=== PATIENT | male | born 1990 | race Caucasian/White ===

== ENCOUNTER 2017-06-11 02:37 | Inpatient (IN) | payer OTHER ==
[~2017-06-11] VITALS: Ht 190.5 cm; Wt 68.0 kg
[2017-06-11 04:20] LABS: BASO % 0.5 %; BASO ABS # 0.06 K/uL (0-0.2); COMPLETE YES; EOS % 2.9 %; HEMATOCRIT 38.8 % (42-52); IG% 0.2 %; LYMPH % 32.4 %; LYMPH ABS # 3.77 K/uL (1.2-3.4); MEAN CELL VOLUME 91.5 fL (80-100); MEAN CORPUSCULAR HEMOGLOBIN 31.4 pg (25-34); MEAN CORPUSCULAR HGB CONC 34.3 g/dl (32-36); MEAN PLATELET VOLUME 8.6 fL (7.4-10.4); PLATELET COUNT 276 K/uL (130-400); RED BLOOD COUNT 4.24 M/uL (4.7-6.1); WHITE BLOOD COUNT 11.65 K/uL (4.8-10.8)
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
[2017-06-11] MEDS ORDERED: PRAZ1CAP10 PO (04:23)
[2017-06-11] MEDS ORDERED: SRQ200 PO (04:23)
[2017-06-11] MEDS ORDERED: LITH1TAB PO (04:23)
[2017-06-11] MEDS ORDERED: SERT50TA PO (04:24)
[2017-06-11 04:29] LABS: PROTHROMBIN TIME (PATIENT) 11.1 SECONDS (9.0-12.0)
[2017-06-11 04:33] LABS: BUN/CREATININE RATIO 19.1 (10-20); CALCIUM 9.2 mg/dl (8.5-10.1); CREATININE 0.86 mg/dl (0.60-1.40); POTASSIUM 3.8 mmol/L (3.5-5.1)
[2017-06-11 04:35] LABS: ALB/GLOB RATIO 1.1 (0.9-2)
[2017-06-11] MEDS ORDERED: ONDANSETRON INJ 2 MG/ML 2 ML VIAL IV STA (05:21)
[2017-06-11] MEDS ORDERED: ACETAMINOPHEN IV 100 ML IV STA (05:21)
[2017-06-11] MEDS ORDERED: SODIUM CHLORIDE 0.9% 1000ML 1,000 ML IV SCH (06:30)
--- NOTE | 2017-06-11 06:55 | DIAGNOSTIC IMAGING REPORT ---
ABD/PELVIS NO IV OR ORAL CONT CT DOSE: 277.49 mGy.cm HISTORY: Foreign body FB ingestion TECHNIQUE: Multiaxial CT images of the abdomen and pelvis were performed without contrast. A dose lowering technique was utilized adhering to the principles of ALARA. COMPARISON STUDY: None. FINDINGS: The lung bases are clear. The unenhanced liver, spleen, gallbladder, pancreas, kidneys, and adrenal glands are within normal limits. No bowel wall thickening or obstruction. The pelvic organs are unremarkable. No suspicious lytic or blastic osseous lesions. A foreign body within the mid stomach consistent with a history of shallower. No congestion. No evidence for free air. Bowel pattern is nonobstructive. Bladder is midline. Small amount of reactive free fluid within the pelvic cul-de-sac. IMPRESSION: 1. Foreign body within the mid stomach. 2. Trace amount nonspecific free fluid within the pelvic cul-de-sac. The above report was generated using voice recognition software. It may contain grammatical, syntax or spelling errors. Electronically signed by: Watson Shoemaker M.D. 06/11/2017 6:54 AM Dictated Date/Time: 06/11/2017 6:52 AM
--- NOTE | 2017-06-11 06:58 | DIAGNOSTIC IMAGING REPORT ---
ABDOMEN 2VIEW W/PA CHEST RTN CLINICAL HISTORY: FB ingestion foreign body COMPARISON STUDY: No previous studies for comparison. FINDINGS: The soft tissues, psoas shadows, renal outlines and intestinal gas pattern appear normal. There is no evidence for bowel obstruction. There is no evidence for free intraperitoneal air. No abnormal abdominal calcifications are seen. A frontal view of the chest was performed and is unremarkable. Curvilinear partially radiopaque foreign body within the mid stomach. Nonobstructive bowel pattern. IMPRESSION: Foreign body within the stomach. Otherwise negative study of the chest and abdomen. The above report was generated using voice recognition software. It may contain grammatical, syntax or spelling errors. Electronically signed by: Watson Shoemaker M.D. 06/11/2017 6:56 AM Dictated Date/Time: 06/11/2017 6:55 AM
[2017-06-11] MEDS ORDERED: LIDOCAINE HCL 2% 2 ML VIAL (20MG/ML) ONE (08:24)
[2017-06-11] MEDS ORDERED: SUCCINYLCHOLINE CHLORIDE 20 MG/ML 10 ML VIAL IV ONE (08:24)
[2017-06-11] MEDS ORDERED: ONDANSETRON INJ 2 MG/ML 2 ML VIAL ONE (08:24)
[2017-06-11] MEDS ORDERED: PROPOFOL IV EMULSION 10 MG/ML 20 ML VIAL IV ONE (08:24)
[2017-06-11] MEDS ORDERED: MIDAZOLAM HCL 1 MG/ML 2ML VIAL ONE ×2 (08:25→11:15)
[2017-06-11] MEDS ORDERED: FENTANYL CITRATE INJ 50 MCG/1 ML 2 ML VIAL ONE (08:25)
--- NOTE | 2017-06-11 10:35 | Gastrointestinal Consultation ---
Gastrointestinal Consultation Date of Consultation: Jun 11, 2017 Consulting Physician: Dr. dixie hawkins Reason for Consultation: Foreign Body History of Present Illness The patient is a 27 year old male who presented to the Emergency Room due to swallowing an S-shaped metal shower hook around 2330 last night. He states that an hour afterwards he started having abdominal pain and nausea. He states that the abdominal pain is sharp, and it is constant. The patient additionally states that a few weeks ago he swallowed a razor blade which ultimately required surgical exploration to remove. It appears that the patient has a long history of psychiatric problems which include swallowing different objects such as scrap metal. Past Medical/Surgical History Medical Problems: (1) Foreign body ingestion Status: Acute Social History Smoking Status: Current Every Day Smoker Marital Status: single Housing Status: other (shelter) Occupation Status: other (prisoner) Allergies Coded Allergies: Ketorolac Tromethamine (Verified Allergy, Unknown, breathing problems, ) Penicillins (Verified Allergy, Unknown, unknown, 06/11/17) Current Medications Home Meds and Scripts Medications Dose Route/Sig Max Daily Dose Days Date Category Zoloft (Sertraline HCl) 50 Mg Tab 50 Mg PO DAILY 06/11/17 Reported Seroquel (Quetiapine Fumarate) 200 Mg Tab 200 Mg PO HS 06/11/17 Reported Prazosin (Prazosin HCl) 1 Mg Cap 1 Mg PO HS 06/11/17 Reported Lithobid Ext Rel ([place] Carbonate) 450 Mg Tabcr 450 Mg PO BID 06/11/17 Reported Review of Systems Constitutional: No fever, No chills, No sweats Eyes: No worsening of vision, No redness, No diplopia ENT: No hearing loss, No sore throat, No trouble swallowing Respiratory: No sputum, No wheezing, No dyspnea at rest Cardiac: No chest pain, No PND, No palpitations Musculoskeletal: No joint pain, No muscle pain Neuro: No memory loss, No weakness Skin: No rash, No new/changing skin lesions, No jaundice Physical Exam Date Time Temp Pulse Resp B/P (MAP) Pulse Ox O2 Delivery O2 Flow Rate FiO2 06/11/17 08:43 69 20 132/81 100 Room Air 06/11/17 07:21 76 20 137/76 06/11/17 04:55 68 18 127/81 100 Room Air 06/11/17 03:49 75 18 124/83 100 Room Air 06/11/17 02:45 36.8 84 18 127/85 97 Room Air General Appearance: no apparent distress Eyes: PERRL Neck: supple Respiratory/Chest: lungs clear Cardiovascular: regular rate, rhythm Abdomen: soft, + pertinent finding (midline incision appears well-healed) Neurologic/Psych: oriented x 3 Skin: no rash Laboratory Results Last 24 Hours Test 06/11/17 03:20 06/11/17 04:28 White Blood Count 11.65 K/uL Red Blood Count 4.24 M/uL Hemoglobin 13.3 g/dL Hematocrit 38.8 % Mean Corpuscular Volume 91.5 fL Mean Corpuscular Hemoglobin 31.4 pg Mean Corpuscular Hemoglobin Concent 34.3 g/dl Platelet Count 276 K/uL Mean Platelet Volume 8.6 fL Neutrophils (%) (Auto) 56.0 % Lymphocytes (%) (Auto) 32.4 % Monocytes (%) (Auto) 8.0 % Eosinophils (%) (Auto) 2.9 % Basophils (%) (Auto) 0.5 % Neutrophils # (Auto) 6.53 K/uL Lymphocytes # (Auto) 3.77 K/uL Monocytes # (Auto) 0.93 K/uL Eosinophils # (Auto) 0.34 K/uL Basophils # (Auto) 0.06 K/uL RDW Standard Deviation 44.5 fL RDW Coefficient of Variation 13.3 % Immature Granulocyte % (Auto) 0.2 % Immature Granulocyte # (Auto) 0.02 K/uL Prothrombin Time 11.1 SECONDS Prothromb Time International Ratio 1.0 Sodium Level 140 mmol/L Potassium Level 3.8 mmol/L Chloride Level 104 mmol/L Carbon Dioxide Level 29 mmol/L Anion Gap 7.0 mmol/L Blood Urea Nitrogen 16 mg/dl Creatinine 0.86 mg/dl Est Creatinine Clear Calc Drug Dose 123.0 ml/min Estimated GFR () 136.8 Estimated GFR (Non- 118.0 BUN/Creatinine Ratio 19.1 Random Glucose 81 mg/dl Calcium Level 9.2 mg/dl Total Bilirubin 0.3 mg/dl Aspartate Amino Transf (AST/SGOT) 71 U/L Alanine Aminotransferase (ALT/SGPT) 164 U/L Alkaline Phosphatase 59 U/L Total Protein 7.7 gm/dl Albumin 4.0 gm/dl Globulin 3.7 gm/dl Albumin/Globulin Ratio 1.1 Lactic Acid Level 0.9 mmol/L Impression Patient is a 27 year old male Plan 27-year-old male with a history of psychiatric problems presently incarcerated. He has a history of swallowing objects and swallowed a shower curtain rings last evening. We will proceed with upper endoscopy today to try and removed. We have discussed the risks of the procedure to include bleeding, infection, perforation and need for follow-up studies. Plan Upper endoscopy today Please call with any questions or concerns
--- NOTE | 2017-06-11 10:57 | GI REPORT ---
Procedure Date: 06/11/2017 8:51 AM Procedure: Upper GI endoscopy Indications: Foreign body in the stomach Medicines: General Anesthesia Complications: No immediate complications. Estimated blood loss: Minimal. Estimated Blood Loss: Estimated blood loss was minimal. Procedure: Pre-Anesthesia Assessment: - Prior to the procedure, a History and Physical was performed, and patient medications, allergies and sensitivities were reviewed. The patient's tolerance of previous anesthesia was reviewed. - The risks and benefits of the procedure and the sedation options and risks were discussed with the patient. All questions were answered and informed consent was obtained. - Patient identification and proposed procedure were verified prior to the procedure by the physician, the nurse and the parts counterperson. The procedure was verified in the procedure room. - Pre-procedure physical examination revealed no contraindications to sedation. - ASA Grade Assessment: II - A patient with mild systemic disease. - After reviewing the risks and benefits, the patient was deemed in satisfactory condition to undergo the procedure. - The anesthesia plan was to use general anesthesia. - Immediately prior to administration of medications, the patient was re-assessed for adequacy to receive sedatives. - The heart rate, respiratory rate, oxygen saturations, blood pressure, adequacy of pulmonary ventilation, and response to care were monitored throughout the procedure. - The physical status of the patient was re-assessed after the procedure. After obtaining informed consent, the endoscope was passed under direct vision. Throughout the procedure, the patient's blood pressure, pulse, and oxygen saturations were monitored continuously. The Scope was introduced through the mouth, and advanced to the fourth part of duodenum. The upper GI endoscopy was accomplished without difficulty. The patient tolerated the procedure well. Findings: The examined esophagus was normal. The entire examined stomach was normal. The examined duodenum was normal. Impression: - Normal esophagus. - Normal stomach. - Normal examined duodenum. - No specimens collected. Recommendation: - Return patient to ER for observation. - Foreign body appears to have passed into the small intestine - Consider admition to Internal Medicine + a surgical consultation Marion Turner D.O. Marion Turner DO 06/11/2017 10:57:30 AM This report has been signed electronically. Note Initiated On: 06/11/2017 8:51 AM I attest to the content of the Intraoperative Record and orders documented therein, exceptions below
--- NOTE | 2017-06-11 11:02 | [facility] Post Operative Brief Note ---
Immediate Operative Summary Operative Date Jun 11, 2017. Pre-Operative Diagnosis Ingested foreign body Post-Operative Diagnosis No foreign body seen Procedure(s) Performed Upper endoscopy Surgeon Dr. Turner Tooling Supervisor Surgeon(s) None Estimated Blood Loss None Findings no foreign body seen Specimens none Anesthesia General Complication(s) None Disposition Recovery Room / PACU
--- NOTE | 2017-06-11 11:08 | Progress Note ---
Progress Note Date of Service Jun 11, 2017. Progress Note No foreign body seen during upper endoscopy today. It appears that the shower ring was small enough to pass to the pylorus. This may mean that it will passed through the upper gastrointestinal tract without incidence. I would suggest continued monitoring with daily abdominal x-rays to monitor his progress. Should it become impacted he may need surgical exploration again. Given his recent abdominal surgeries perhaps he would need transfer to a tertiary Medical Center. Recommendations: Nothing by mouth Abdominal x-ray Gen. surgery consult Please call with any questions or concerns GI to sign off
[2017-06-11] MEDS ORDERED: ONDANSETRON INJ 2 MG/ML 2 ML VIAL IV PRN ×2 (11:15→12:15)
[2017-06-11] MEDS ORDERED: ATROPINE SULFATE 0.1 MG/ML 5ML SYR IV PRN (11:15)
[2017-06-11] MEDS ORDERED: LABETALOL HCL IV 5 MG/ML 20ML IV PRN (11:15)
[2017-06-11] MEDS ORDERED: FENTANYL CITRATE INJ 50 MCG/1 ML 2 ML VIAL IV PRN (11:15)
[2017-06-11 12:10] VITALS: BP 116/76; PULSE 60; TEMP 36.7; O2SAT 100
[2017-06-11] MEDS ORDERED: ACETAMINOPHEN 325 MG TAB PO PRN (12:15)
[2017-06-11] MEDS ORDERED: IV FLUIDS COMPLETED PRN (12:15)
[2017-06-11] MEDS ORDERED: LORAZEPAM 2 MG/ML 1 ML VIAL IV PRN (12:15)
[2017-06-11 12:45] VITALS: BP 118/75; PULSE 55; O2SAT 100
--- NOTE | 2017-06-11 12:59 | HISTORY & PHYSICAL EXAMINATION ---
DATE OF ADMISSION: 06/11/2017 CHIEF COMPLAINT: Foreign body ingestion. HISTORY OF PRESENT ILLNESS: This 27-year-old male with history of multiple foreign body ingestions in the past, history of bipolar depression, seizures and suicidal ideation, was brought in from assisted because he ingested shower hook last night. He had a seizure episode yesterday and he thinks it lasted for about 8 minutes and says he bit his tongue and passed urine during that episode and when he came back to his usual self, he was very anxious and it happens after seizure episodes and at that time he swallowed shower hook. One hour later started with nausea, vomiting and abdominal pain. He had some blood in mouth and nose and thinks its because of seizure episode. He did not move his bowels since then. He had his coffee and water in the morning and was having some painful swallowing. The patient says that he was on Depakote, gabapentin and Klonopin before and he is no longer taking those medications and he could not tolerate the Depakote. Patient says few months back, he had seizure episode and he injured his head and his chin. Also in May 20 of this year, he swallowed razor blades and was in [facility] and operated on.He has history of swallowing metal scrapes. Currently, resting comfortably and hemodynamically stable. He denies any headache. There is some mild dizziness and blurred visions. He has some sore throat and difficulty swallowing. Denies any chest pain. He states he is short of breath from anxiety. Normal micturition. No swelling in the legs. ALLERGIES: Ketorolac, TROMETHAMINE, PENICILLINS. PAST MEDICAL HISTORY: As mentioned above. PAST SURGICAL HISTORY: Recent abdominal surgery. FAMILY AND SOCIAL HISTORY: As per records current every day smoker, single, currently living at assisted. MEDICATIONS: The patient is on lithium carbonate 450 mg p.o. b.i.d., prazosin 1 mg p.o. at bedtime, Seroquel 200 mg p.o. at bedtime, Zoloft 50 mg p.o. daily. REVIEW OF SYMPTOMS: As per HPI. Rest of review of systems negative. PHYSICAL EXAMINATION: GENERAL: The patient is of moderate build, not in distress. VITAL SIGNS: Temperature 37, pulse 62, respiratory rate 21, blood pressure 117/72, oxygen 99% room air. HEENT: No pallor, no icterus. Pupils equal, round, no pallor, no icterus. NECK: No JVD, no neck masses, no carotid bruits. CARDIOVASCULAR: S1, S2 heard, regular rate and rhythm, no murmur, no gallop. RESPIRATORY SYSTEM: Normal AP diameter. No accessory muscle use. No wheezing, no crackles. ABDOMEN: Soft, bowel sounds present. Mild diffuse tenderness, no guarding, no rigidity. No distention. CENTRAL NERVOUS SYSTEM: Cranial nerves are grossly intact. Nonfocal. EXTREMITIES: No edema, no erythema. LABS: WBC 11.6, hemoglobin 13.3, hematocrit 38.8, platelets 276. Sodium 140, potassium 3.8, chloride 104, bicarbonate 29, BUN 16, creatinine 0.8, serum glucose 81. Lactic acid 0.9, calcium 9.2, total bilirubin 0.3, AST 371, ALT 164, alkaline phosphatase 59. PT 11.1, INR 1. CT of the abdomen and pelvis shows foreign body within the mid stomach, trace amount of nonspecific free fluid within the pelvic cul-de-sac. Chest and abdominal x-ray foreign body within the stomach, otherwise negative study. ASSESSMENT AND PLAN: This is a 27-year-old male who presents with foreign body ingestion. 1. Foreign body ingestion with history of multiple foreign body ingestion in the past, recently was in [facility] in May 20 with razor blade ingestion and is status post surgery. Currently status post esophagogastroduodenoscopy by GI and was unremarkable and the shower hook had already passed into the stomach. GI recommends for serial abdominal x-rays and surgical consult. Discussed with surgery to keep him n.p.o. and get abdominal x-rays. AND if there is any complications plan to transfer to tertiary care center. Will give IV fluids, IV antiemetics, and IV pain medications. 2. Questionable seizure. The patient states he had an episode of seizure yesterday prior to swallowing the shower hook. He says he was on Depakote, which he could not tolerate and he was on gabapentin and Klonopin which were stopped. We will get an EEG. We will get a neurology consult for further recommendations. 3. Depression and anxiety.Suicidal ideation Continue his home medications.Consult psychiatry 4. Deep vein thrombosis prophylaxis, SCDs and TEDs. 5. Disposition: Observation on medical floor. Disposition to be determined. Level 1 full code. MTDD
[2017-06-11 13:15] VITALS: BP 120/73; PULSE 57; O2SAT 99
--- NOTE | 2017-06-11 13:22 | Anesthesiology Progress Note ---
Anesthesia Post Op Note Date & Time Jun 11, 2017 at 13:22 Vital Signs Pain Intensity: 0 Vital Signs Past 12 Hours Date Time Temp Pulse Resp B/P (MAP) Pulse Ox O2 Delivery O2 Flow Rate FiO2 06/11/17 13:15 57 18 120/73 (89) 99 Room Air 06/11/17 12:45 55 16 118/75 (89) 100 Room Air 06/11/17 11:45 62 21 117/72 99 Room Air 06/11/17 11:35 37.0 65 16 123/78 99 Room Air 06/11/17 11:25 68 17 123/79 100 Oxymask 10 06/11/17 11:15 89 21 135/89 100 Oxymask 10 06/11/17 11:09 37.0 79 16 121/84 100 Oxymask 10 06/11/17 08:43 69 20 132/81 100 Room Air 06/11/17 07:21 76 20 137/76 06/11/17 04:55 68 18 127/81 100 Room Air 06/11/17 03:49 75 18 124/83 100 Room Air 06/11/17 02:45 36.8 84 18 127/85 97 Room Air Notes Mental Status: alert / awake / arousable, participated in evaluation Pt Amnestic to Procedure: Yes Nausea / Vomiting: adequately controlled Pain: adequately controlled Airway Patency, RR, SpO2: stable & adequate BP & HR: stable & adequate Hydration State: stable & adequate Anesthetic Complications: no major complications apparent
[2017-06-11] MEDS ORDERED: LORAZEPAM INJ 1 MG in SYRINGE 0.5 ML IV PRN (13:30)
--- NOTE | 2017-06-11 13:41 | DIAGNOSTIC IMAGING REPORT ---
[facility] CLINICAL HISTORY: foreign body COMPARISON STUDY: 06/11/2017 FINDINGS: There is a faint hook-shaped radiopaque foreign body projected over the central abdomen at the L3-4 level just the right of midline. There is no pathologic bowel dilatation. There is scattered stool within the colon. IMPRESSION: A radiopaque foreign body is visualized projected over the mid abdomen. Its exact location is difficult to determine on conventional radiographic imaging. It is possible that lies within the duodenum. Electronically signed by: Berry Carmona M.D. 06/11/2017 1:40 PM Dictated Date/Time: 06/11/2017 1:38 PM
[2017-06-11] MEDS: D5W AND NSS 1,000 ML IV SCH ×2 (14:05→21:11)
[2017-06-11 14:12] VITALS: BP 117/75; PULSE 60; O2SAT 99
--- NOTE | 2017-06-11 14:17 | Pre-Operative Consultation ---
History General Date of Service: Jun 11, 2017. Chief Complaint: abdominal pain Stated Complaint: swallowed a shower curtain hook HPI HPI: The patient is a 27 year old male being seen at the request of Dr. Lara for foreign body injection. Pt has a long history of psychiatric issues with foreign body ingestions of razor blades and scrap metal. He is most recently s/ p exp lap and removal of a razor blade at [facility] May 26. At that time, he was refusing surgery and was declared medically incompetent by a psychiatrist. He did not perforate prior to surgery. In the past, he tells me he has ingested a razor blade broken in half and this passed through his bowel without issue. He has undergone frequent endoscopic removal of foreign bodies also. This time, he ingested a S shape shower hook. This was in his stomach upon arrival to the ER. He then had coffee and liquids and at the time of his upper endoscopy, the hook was no longer in his stomach or duodenum. We have been asked to see him. He notes abdominal pain ever since ingesting the hook. No vomiting currently, still sore from his prior exp laparotomy. No fevers. Historian: patient Risk Assessment Daily beta keeley use?: No Problem List Medical Problems: (1) Foreign body ingestion Status: Acute Medical & Surgical History Past Medical History: other (psychiatric issues ) Past Surgical History: exploratory laparoscopy Family History Family History: no pertinent family hx Social History Social History: currently incarcerated Smoking Status: Current Every Day Smoker Marital status: single Occupation status: other (prisoner) Allergies Allergies: Coded Allergies: Ketorolac Tromethamine (Verified Allergy, Unknown, breathing problems, ) Penicillins (Verified Allergy, Unknown, unknown, 06/11/17) Medications Current Inpatient Medications Current Inpatient Medications Medications (Trade) Dose Ordered Sig/Cherri Route Start Time Stop Time Status Last Admin Dose Admin Ondansetron HCl (Zofran Inj) 4 mg ONE PRN IV 06/11/17 11:15 06/11/17 16:15 Atropine Sulfate (Atropine Sulfate 0.1MG/Ml Inj) 0.5 mg Q1M PRN IV 06/11/17 11:15 06/11/17 16:15 Fentanyl Citrate (Fentanyl Inj) 25 mcg Q5M PRN IV 06/11/17 11:15 06/11/17 16:15 Labetalol HCl (Normodyne IV) 5 mg Q5M PRN IV 06/11/17 11:15 06/11/17 16:15 Acetaminophen (Tylenol Tab) 650 mg Q4H PRN PO 06/11/17 12:15 07/11/17 12:14 Ondansetron HCl (Zofran Inj) 4 mg Q6H PRN IV 06/11/17 12:15 07/11/17 12:14 [place] Carbonate (Eskalith Cr Tab) 450 mg BID PO 06/11/17 21:00 07/11/17 20:59 Quetiapine Fumarate (seroQUEL TAB) 200 mg HS PO 06/11/17 21:00 07/11/17 20:59 Sertraline HCl (Zoloft Tab) 50 mg DAILY PO 06/12/17 09:00 07/12/17 08:59 Prazosin HCl (Prazosin) 1 mg HS PO 06/11/17 21:00 07/11/17 20:59 Morphine Sulfate (MoRPHine SULFATE INJ) 3 mg Q3HWA PRN IV 06/11/17 12:15 06/25/17 12:14 Lorazepam (Ativan Tab) 1 mg TID PRN PO 06/11/17 12:15 07/11/17 12:14 Dextrose/Sodium Chloride 1,000 ml @ 125 mls/hr Q8H IV 06/11/17 13:15 07/11/17 13:14 06/11/17 14:05 125 MLS/HR Miscellaneous (Iv Fluids Completed) 1 ea PRN PRN N/A 06/11/17 12:15 06/11/18 12:14 Lorazepam 1 mg/ Syringe 1 ml @ 1 mls/min Q1H PRN IV 06/11/17 13:30 07/11/17 13:29 Review of Systems Review of Systems Eyes: reports: no symptoms ENT: reports: no symptoms reported Respiratory: reports: no symptoms reported Gastrointestinal: see HPI Genitourinary - Male: reports: no symptoms Integumentary: no symptoms reported Neurologic: reports: other (recent eval by psych at [facility] deemed him incompetent to make medical decisions) Endocrine: no symptoms Hematologic / Lymphatic: no symptoms Allergic / Immunologic: no symptoms Physical Exam Physical Exam General Appearance: + WD/WN, No distress Ears, Nose, Throat: + normal ENT inspection Neck: No abnormal inspection Respiratory: No chest tenderness, No accessory muscle use Cardiovascular: No JVD, No abnormal rate, No diastolic murmur, No systolic murmur Abdomen: + tenderness (mild, diffuse), + other (well healed midline incision), No abnormal bowel sounds, No rebound, No distension Extremities: No abnormal range of motion, No edema Neurologic/Psychiatric: 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, No motor deficit/weakness Skin Characteristics: No cyanosis, No mottling Diagnostics Labs Labs Results Past 24 Hours Test 06/11/17 03:20 06/11/17 04:28 Range/Units White Blood Count 11.65 4.8-10.8 K/uL Red Blood Count 4.24 4.7-6.1 M/uL Hemoglobin 13.3 14.0-18.0 g/dL Hematocrit 38.8 42-52 % Mean Corpuscular Volume 91.5 80-100 fL Mean Corpuscular Hemoglobin 31.4 25-34 pg Mean Corpuscular Hemoglobin Concent 34.3 32-36 g/dl Platelet Count 276 130-400 K/uL Mean Platelet Volume 8.6 7.4-10.4 fL Neutrophils (%) (Auto) 56.0 % Lymphocytes (%) (Auto) 32.4 % Monocytes (%) (Auto) 8.0 % Eosinophils (%) (Auto) 2.9 % Basophils (%) (Auto) 0.5 % Neutrophils # (Auto) 6.53 1.4-6.5 K/uL Lymphocytes # (Auto) 3.77 1.2-3.4 K/uL Monocytes # (Auto) 0.93 0.11-0.59 K/uL Eosinophils # (Auto) 0.34 0-0.5 K/uL Basophils # (Auto) 0.06 0-0.2 K/uL RDW Standard Deviation 44.5 36.4-46.3 fL RDW Coefficient of Variation 13.3 11.5-14.5 % Immature Granulocyte % (Auto) 0.2 % Immature Granulocyte # (Auto) 0.02 0.00-0.02 K/uL Prothrombin Time 11.1 9.0-12.0 SECONDS Prothromb Time International Ratio 1.0 0.9-1.1 Sodium Level 140 136-145 mmol/L Potassium Level 3.8 3.5-5.1 mmol/L Chloride Level 104 98-107 mmol/L Carbon Dioxide Level 29 21-32 mmol/L Anion Gap 7.0 3-11 mmol/L Blood Urea Nitrogen 16 7-18 mg/dl Creatinine 0.86 0.60-1.40 mg/dl Est Creatinine Clear Calc Drug Dose 123.0 ml/min Estimated GFR () 136.8 Estimated GFR (Non- 118.0 BUN/Creatinine Ratio 19.1 10-20 Random Glucose 81 70-99 mg/dl Calcium Level 9.2 8.5-10.1 mg/dl Total Bilirubin 0.3 0.2-1 mg/dl Aspartate Amino Transf (AST/SGOT) 71 15-37 U/L Alanine Aminotransferase (ALT/SGPT) 164 12-78 U/L Alkaline Phosphatase 59 45-117 U/L Total Protein 7.7 6.4-8.2 gm/dl Albumin 4.0 3.4-5.0 gm/dl Globulin 3.7 2.5-4.0 gm/dl Albumin/Globulin Ratio 1.1 0.9-2 Lactic Acid Level 0.9 0.4-2.0 mmol/L Lab Interpretation Lab Interpretation: labs were reviewed Diagnostic Radiology Diagnostic Radiology Imaging reviewed - shows S shaped foreign body in stomach. Impression Assessment and Plan Assessment and Plan 27 yr old man about 3 wks postop from exp lap for foreign body ingestion now presents with ingestion of S shaped shower curtain hook. This has passed farther than his stomach. Risks of perforation vs obstruction discussed with pt. Only way to avoid these risks would be to reoperate now - however, he is likely to still be in the inflammatory adhesion phase of healing and surgery may be more complicated/ difficult with chance of bowel injury. At this point, I would recommend repeating xray to see how far it has traveled. OK to have clear liquids only which may help the progression. Follow xrays - if it obstructs or fails to move or perforates, will need exp lap.
[2017-06-11] MEDS: MoRPHine SULFATE 4 MG/ML 1 ML CARP\\VIAL IV PRN ×3 (14:40→22:39)
[2017-06-11 15:15] VITALS: BP 116/75; PULSE 58; TEMP 36.8; O2SAT 100
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
[2017-06-11] MEDS: NICOTINE 21 MG/24 HR TDSY TD SCH (17:17)
[2017-06-11] MEDS: GABAPENTIN 300 MG CAP PO SCH ×2 (18:19→21:16)
[2017-06-11] MEDS: LORAZEPAM 1 MG TAB PO PRN (19:10)
--- NOTE | 2017-06-11 19:20 | NEUROLOGY CONSULTATION ---
DATE OF CONSULTATION: 06/11/2017 REASON FOR CONSULTATION: History of seizure. HISTORY OF PRESENT ILLNESS: The patient is a 27-year-old right-handed male with a history of seizure. He indicates he began having seizures under age 9, they would be occasionally preceded by a warm, dizziness and then followed by generalized tonic clonic activity. The patient does not sound as if he has another seizure type. He does not have myoclonic jerks. He has not ever had status epilepticus or needed to be hospitalized for seizure. He does not know if he ever had an abnormal EEG. He has not had seizure monitoring and he has had an MRI of the brain. He has taken a variety of anticonvulsants including Dilantin and phenobarbital when he was young, which according to him did not work, he took Keppra which did not work, although it sounds as if it was tolerated. He was given Depakote at the nursing home and this caused suicidality, according to the patient and he has refused to take it. He does indicate that gabapentin had been working well when he was last in nursing home at [facility]. According to the patient, he took gabapentin 600 t.i.d. and although was last he reports his last seizure prior to the most recent was in June of 2016. As an outpatient, his primary care provider increased it to 800 t.i.d. He was discharged from nursing home in November on gabapentin 600 t.i.d. He was given a 2-month supply and his primary care apparently continue to prescribe it, but at higher dose. About 6 days prior to admission back into [facility] for a probation violation, he ran out of medications, which included the gabapentin, benzodiazepine and had a seizure. He was recently reincarcerated and then sent to [facility], I believe at that time Depakote was attempted, but I am uncertain that he has had multiple transfers. He was said to have had a seizure last evening, and I believe after said seizure, he swallowed a shower curtain hook. He believes he bit his lip with the seizure, but otherwise was not injured. He indicates he has had an injury in the past related to seizure as well as incontinence. Triggers include stress. He has lost some weight since being in nursing home. He has headaches at least once a week, which are throbbing, which are not new. He has otherwise not been ill. PAST MEDICAL HISTORY: Notable for pancreatitis related to alcohol use and kidney stones. SURGICAL HISTORY: Several weeks ago, he ingested at a straight razor and had to have an exploratory laparotomy with removal of foreign body. SOCIAL HISTORY: The patient smokes, formally drank, last used IV drugs several months ago after discharge from nursing home. FAMILY HISTORY: A brother has seizures. ALLERGIES: KETOROLAC AND PENICILLIN. CURRENT MEDICATIONS: As prescribed include Zoloft, Eskalith, Seroquel, prazosin, nicotine patch, lorazepam p.r.n., Tylenol, Zofran, morphine and he has been n.p.o. currently. LABORATORY DATA: White count 11.65, H&H 13.3/38 and platelet count 276. PT 11.4, INR 1.0. Chemistry profile - AST is 71, ALT is 164. Lactic acid was 0.9. PHYSICAL EXAMINATION: VITAL SIGNS: 36.8, 58, 18, 116/75, pulse ox 100%. GENERAL: The patient is awake and alert, a reasonably good historian. He is very thin, has multiple tattoos. There is a minor area on his lip where he may have bit his left, although it is not typical for a bite phil. HEENT: His head is normocephalic, atraumatic. There is an area that looked like a small healing scar at the high right vertex, although there is an extensive area around that that is not covered by hair currently. NECK: Supple. NEUROLOGIC: His pupils are equal and reactive. Optic nerves unremarkable. Normal quiroz, motility, facial symmetry. Speech and language are normal. He is awake and alert. Motor: There is symmetric strength. Symmetric reflexes. Downgoing toes. Toe tapping and finger to nose are normal. Gait was not tested. IMPRESSION AND PLAN: This patient gives a history of a longstanding seizure disorder with good control and compliance on gabapentin. I have spoken to Dr. Lara and the patient can take meds by mouth. I will restart gabapentin 300 t.i.d. and would recommend next week that in 1 week that he go to 600 t.i.d. If he were to have recurrent seizures, there are multiple options. He indicates that Dilantin was never effective for him, although he has not had status, that could be used. Another option would be to use Vimpat IV 200 mg loading with a maintenance dose of 100 mg twice a day. An EEG is reasonable and I have ordered it. Will follow with you. MTDD
[2017-06-11 20:18] VITALS: Ht 190.5 cm; Wt 68.0 kg
[2017-06-11] MEDS: PRAZOSIN HCL 1 MG CAP PO SCH (21:00)
[2017-06-11] MEDS: QUETIAPINE FUMARATE 200 MG TAB PO SCH (21:16)
[2017-06-11] MEDS: LITHIUM CARBONATE 450 MG TABCR PO SCH (21:16)
[2017-06-11 23:25] VITALS: BP 120/82; PULSE 89; TEMP 36.5; O2SAT 98
[2017-06-12] VITALS (7 sets, daily range): BP systolic 101–134; BP diastolic 69–89; PULSE 60–105; TEMP 36.3–36.8; O2SAT 94–100
[2017-06-12] MEDS ORDERED: hydrOXYzine HCL 25 MG TAB PO STA (00:21)
[2017-06-12] MEDS: D5W AND NSS 1,000 ML IV SCH ×3 (04:44→16:32)
[2017-06-12] MEDS: MoRPHine SULFATE 4 MG/ML 1 ML CARP\\VIAL IV PRN ×5 (05:01→22:12)
[2017-06-12] MEDS: LORAZEPAM 1 MG TAB PO PRN ×2 (05:02→16:32)
[2017-06-12 06:20] LABS: BASO % 0.6 %; BASO ABS # 0.04 K/uL (0-0.2); COMPLETE YES; HEMATOCRIT 37.9 % (42-52); IG% 0.1 %; LYMPH % 45.1 %; LYMPH ABS # 3.23 K/uL (1.2-3.4); MEAN CELL VOLUME 92.9 fL (80-100); MEAN CORPUSCULAR HEMOGLOBIN 29.9 pg (25-34); MEAN CORPUSCULAR HGB CONC 32.2 g/dl (32-36); MEAN PLATELET VOLUME 8.3 fL (7.4-10.4); MONO % 9.5 %; NEUT % 39.7 %; PLATELET COUNT 229 K/uL (130-400); RED BLOOD COUNT 4.08 M/uL (4.7-6.1); WHITE BLOOD COUNT 7.16 K/uL (4.8-10.8)
[2017-06-12 06:53] LABS: CALCIUM 8.4 mg/dl (8.5-10.1); CREATININE 0.78 mg/dl (0.60-1.40); MAGNESIUM 2.1 mg/dl (1.8-2.4); POTASSIUM 3.9 mmol/L (3.5-5.1)
[2017-06-12] MEDS: SERTRALINE HCL 50 MG TAB PO SCH (07:40)
[2017-06-12] MEDS: GABAPENTIN 300 MG CAP PO SCH ×3 (07:41→21:59)
[2017-06-12] MEDS: NICOTINE 21 MG/24 HR TDSY TD SCH (07:42)
[2017-06-12] MEDS: LITHIUM CARBONATE 450 MG TABCR PO SCH ×2 (07:42→22:00)
--- NOTE | 2017-06-12 08:28 | DIAGNOSTIC IMAGING REPORT ---
ABDOMEN 2 VIEWS CLINICAL HISTORY: foreign body ingestion? Foreign body COMPARISON STUDY: 06/11/2017 FINDINGS: The soft tissues, psoas shadows, renal outlines and intestinal gas pattern appear normal. There is no evidence for bowel obstruction. There is no evidence for free intraperitoneal air. No abnormal abdominal calcifications are seen. A partially radiopaque foreign by analysis of the region of the terminal ileum. Bowel pattern is nonobstructive. IMPRESSION: Foreign body has now passed distally and is in the region of the terminal ileum and/or mid a sending colon. Nonobstructive bowel pattern. The above report was generated using voice recognition software. It may contain grammatical, syntax or spelling errors. Electronically signed by: Watson Shoemaker M.D. 06/12/2017 8:26 AM Dictated Date/Time: 06/12/2017 8:23 AM
--- NOTE | 2017-06-12 09:25 | Surgery Progress Note ---
Surgery Progress Note Date of Service Jun 12, 2017. Subjective Post OP Day: HD # 1 "hungry" wants something more than liquids. No increase in abdominal pain, Morphine helps Passing flatus "Feels the hook passing through" no nausea or vomiting Objective Vital Signs: Date Time Temp Pulse Resp B/P (MAP) Pulse Ox O2 Delivery O2 Flow Rate FiO2 06/12/17 07:21 36.7 60 16 110/71 (84) 97 Room Air 06/12/17 07:00 36.7 60 16 110/71 (84) 97 Room Air 06/12/17 04:10 36.4 72 16 101/69 (80) 98 Room Air 06/11/17 23:55 Room Air 06/11/17 23:25 36.5 89 16 120/82 (95) 98 Room Air 06/11/17 17:10 Room Air 06/11/17 15:15 36.8 58 18 116/75 (89) 100 Room Air 06/11/17 14:12 60 16 117/75 (89) 99 Room Air 06/11/17 13:15 57 18 120/73 (89) 99 Room Air 06/11/17 12:45 55 16 118/75 (89) 100 Room Air 06/11/17 12:10 100 Room Air 06/11/17 12:10 100 Room Air 06/11/17 12:10 36.7 60 16 116/76 (89) 100 Room Air 06/11/17 11:45 62 21 117/72 99 Room Air 06/11/17 11:35 37.0 65 16 123/78 99 Room Air 06/11/17 11:25 68 17 123/79 100 Oxymask 10 06/11/17 11:15 89 21 135/89 100 Oxymask 10 06/11/17 11:09 37.0 79 16 121/84 100 Oxymask 10 General Appearance: WD/WN, no apparent distress Neck: trachea midline Respiratory/Chest: no respiratory distress, no accessory muscle use Abdomen: non distended, soft, no organomegaly, no pulsatile mass, + tenderness (very mild tenderness on examination), + pertinent finding (midline incision clean/dry/intact) Incision(s): clean, dry, intact, no erythema, no drainage Laboratory Results: Results Past 24 Hours Test 06/12/17 05:31 Range/Units White Blood Count 7.16 4.8-10.8 K/uL Red Blood Count 4.08 4.7-6.1 M/uL Hemoglobin 12.2 14.0-18.0 g/dL Hematocrit 37.9 42-52 % Mean Corpuscular Volume 92.9 80-100 fL Mean Corpuscular Hemoglobin 29.9 25-34 pg Mean Corpuscular Hemoglobin Concent 32.2 32-36 g/dl Platelet Count 229 130-400 K/uL Mean Platelet Volume 8.3 7.4-10.4 fL Neutrophils (%) (Auto) 39.7 % Lymphocytes (%) (Auto) 45.1 % Monocytes (%) (Auto) 9.5 % Eosinophils (%) (Auto) 5.0 % Basophils (%) (Auto) 0.6 % Neutrophils # (Auto) 2.84 1.4-6.5 K/uL Lymphocytes # (Auto) 3.23 1.2-3.4 K/uL Monocytes # (Auto) 0.68 0.11-0.59 K/uL Eosinophils # (Auto) 0.36 0-0.5 K/uL Basophils # (Auto) 0.04 0-0.2 K/uL RDW Standard Deviation 46.9 36.4-46.3 fL RDW Coefficient of Variation 13.8 11.5-14.5 % Immature Granulocyte % (Auto) 0.1 % Immature Granulocyte # (Auto) 0.01 0.00-0.02 K/uL Sodium Level 144 136-145 mmol/L Potassium Level 3.9 3.5-5.1 mmol/L Chloride Level 110 98-107 mmol/L Carbon Dioxide Level 29 21-32 mmol/L Anion Gap 5.0 3-11 mmol/L Blood Urea Nitrogen 9 7-18 mg/dl Creatinine 0.78 0.60-1.40 mg/dl Est Creatinine Clear Calc Drug Dose 135.6 ml/min Estimated GFR () 142.4 Estimated GFR (Non- 122.8 BUN/Creatinine Ratio 12.0 10-20 Random Glucose 87 70-99 mg/dl Calcium Level 8.4 8.5-10.1 mg/dl Magnesium Level 2.1 1.8-2.4 mg/dl Microbiology Results 06/11/17 MRSA DNA Surveillance Screen - Final, Complete Specimen Positive for MRSA by DNA Probe Assessment & Plan 27 year-old male with foreign body ingestion, s/p ex lap 3 weeks ago for ingestion of razor blade at outside hospital. No signs of obstruction. Vitals stable. Abdominal x-ray this morning showing the foreign body has moved distally to the terminal ileum/mid ascending colon. Tolerated clear liquids. Plan: No acute surgical intervention required at this time, Foreign body moving distally now to the terminal ileum/ascending colon on this mornings x-rays. Repeat abdominal x-ray tomorrow morning. Advance diet to full liquids for now Continue pain management as needed continue current medical management Will continue to follow Discussed with Dr. Turner who agrees with above Pt seen and examined. Xray reviewed. He is slightly more distended and has not had a bowel movement. Abdomen remains mildly tender but no guarding. Xray shows foreign body moved into terminal ileum vs colon. Would add dulcolax for bowel regimen. Continue to follow xray. Once in large intestine, should be much safer due to larger caliber of bowel.
[2017-06-12] MEDS ORDERED: CLONAZEPAM 1 MG TAB PO PRN (12:45)
--- NOTE | 2017-06-12 13:22 | ELECTROENCEPHALOGRAPH REPORT ---
For Dr. Lara. CLINICAL DIAGNOSIS: History of seizures. ELECTROENCEPHALOGRAM DIAGNOSIS: Essentially normal during wakefulness. DESCRIPTION OF TRACING: This EEG was done as a bedside recording and is of reasonable technical quality with a number of head movement and head rolling artifacts that appear and there is a P4 electrode popping artifact that occurs intermittently. Photic stimulation was performed. Drowsiness and light sleep were not recorded. Under these conditions, there is a background rhythm in the alpha range of up to 9-10 Hz of maximum frequency and of up to 30 microvolts of maximum amplitude. This is maximum in posterior head regions and bilaterally symmetrical. Polymorphic mid frequency theta activity of modest voltage is seen over all head regions without clear focal or regional predominance. Anterior head region maximum bilaterally symmetrical low voltage fast activity in the beta range is present. Photic stimulation provoked some modest driving response without a photoparoxysmal or photomyogenic component. At no time during the waking tracing is there evidence for potentially epileptogenic activity in the form of polyspike or spike wave bursts, focal sharp waves or focal spikes. INTERPRETATION: This EEG is essentially normal during wakefulness without evidence for focal or generalized encephalopathy and without evidence for potentially epileptogenic activity.
--- NOTE | 2017-06-12 14:28 | Neurology Progress Notes ---
Neurology Progress Note Date of Service Jun 12, 2017. Leanna Shore is a 27-year-old right-handed incarcerated male with a history of seizure. He indicates he began having seizures under age 9, they would be occasionally preceded by a warm, dizziness and then followed by generalized tonic clonic activity. He does not sound as if he has another seizure type. He does not have myoclonic jerks. He has not ever had status epilepticus or needed to be hospitalized for seizure. He does not know if he ever had an abnormal EEG. He has not had seizure monitoring and he has had an MRI of the brain. He has taken a variety of anticonvulsants including Dilantin and phenobarbital when he was young, which according to him did not work, he took Keppra which did not work, although it sounds as if it was tolerated. He was given Depakote at the intermediate and this caused suicidality, according to the patient and he has refused to take it. He does indicate that gabapentin had been working well when he was last in intermediate at [facility]. According to the patient, he took gabapentin 600 t.i.d. and although was last he reports his last seizure prior to the most recent was in June of 2016. As an outpatient , his primary care provider increased it to 800 t.i.d. He was discharged from intermediate in November on gabapentin 600 t.i.d. He was given a 2-month supply and his primary care apparently continue to prescribe it, but at higher dose. About 6 days prior to admission back into [facility] for a probation violation, he ran out of medications, which included the gabapentin, benzodiazepine and had a seizure. He was recently reincarcerated and then sent to [facility], I believe at that time Depakote was attempted, but I am uncertain that he has had multiple transfers. He was said to have had a seizure last evening, and I believe after said seizure, he swallowed a shower curtain hook. He believes he bit his lip with the seizure, but otherwise was not injured. He indicates he has had an injury in the past related to seizure as well as incontinence. Triggers include stress. He has lost some weight since being in intermediate. He has headaches at least once a week, which are throbbing, which are not new. He has otherwise not been ill. Today he states he was started back on his Gabapentin at 300 mg TID and is to increase it to 600 mg TID in 5 days. He had a couple of episodes of the warm feeling but didn't have a seizure after his normal aura. He had abdominal surgery after swallowing a razor blade and now he is back in the hospital after swallowing a shower hook which is in his intestines. denies CP, SOB, N, V, suicidal idealogies. Objective Date Time Temp Pulse Resp B/P (MAP) Pulse Ox O2 Delivery O2 Flow Rate FiO2 06/12/17 12:45 36.3 69 16 134/89 (104) 100 Room Air 06/12/17 08:00 97 Room Air 06/12/17 07:21 36.7 60 16 110/71 (84) 97 Room Air 06/12/17 07:00 36.7 60 16 110/71 (84) 97 Room Air 06/12/17 04:10 36.4 72 16 101/69 (80) 98 Room Air 06/11/17 23:55 Room Air 06/11/17 23:25 36.5 89 16 120/82 (95) 98 Room Air 06/11/17 17:10 Room Air 06/11/17 15:15 36.8 58 18 116/75 (89) 100 Room Air Last 24 Hours Test 06/12/17 05:31 White Blood Count 7.16 K/uL Red Blood Count 4.08 M/uL Hemoglobin 12.2 g/dL Hematocrit 37.9 % Mean Corpuscular Volume 92.9 fL Mean Corpuscular Hemoglobin 29.9 pg Mean Corpuscular Hemoglobin Concent 32.2 g/dl Platelet Count 229 K/uL Mean Platelet Volume 8.3 fL Neutrophils (%) (Auto) 39.7 % Lymphocytes (%) (Auto) 45.1 % Monocytes (%) (Auto) 9.5 % Eosinophils (%) (Auto) 5.0 % Basophils (%) (Auto) 0.6 % Neutrophils # (Auto) 2.84 K/uL Lymphocytes # (Auto) 3.23 K/uL Monocytes # (Auto) 0.68 K/uL Eosinophils # (Auto) 0.36 K/uL Basophils # (Auto) 0.04 K/uL RDW Standard Deviation 46.9 fL RDW Coefficient of Variation 13.8 % Immature Granulocyte % (Auto) 0.1 % Immature Granulocyte # (Auto) 0.01 K/uL Sodium Level 144 mmol/L Potassium Level 3.9 mmol/L Chloride Level 110 mmol/L Carbon Dioxide Level 29 mmol/L Anion Gap 5.0 mmol/L Blood Urea Nitrogen 9 mg/dl Creatinine 0.78 mg/dl Est Creatinine Clear Calc Drug Dose 135.6 ml/min Estimated GFR () 142.4 Estimated GFR (Non- 122.8 BUN/Creatinine Ratio 12.0 Random Glucose 87 mg/dl Calcium Level 8.4 mg/dl Magnesium Level 2.1 mg/dl Imaging: EEG- EEG is essentially normal during wakefulness without evidence for focal or generalized encephalopathy and without evidence for potentially epileptogenic activity. Exam: Physical Exam: Constitutional: appearance nourished thin Ears, Nose, Mouth and Throat: mucous membranes moist, no injection and skin normal, eyes normal Cardiovascular: normal S-1 and S-2 and regular rate and rhythm Respiratory: clear to auscultation (CTA) and no rales, rhonchi or wheeze Musculoskeletal: no peripheral edema and good distal pulses Skin: no stigmata of neurocutaneous disease noted and normal and intact multiple tatoos limbs and neck, well healing abdominal incision Eyes: extraocular muscles intact (EOMI) and pupils equal, round and reactive to light (PERRL) NEUROLOGIC EXAMINATION: Mental status: Alert and interactive Oriented to full date and location Oriented to person Speech fluent with no evidence of aphasia Cranial Nerves smile eye brow raise symmetric, tongue midline Sensory: no sensory deficits to light touch Coordination: finger to nose no bi pass Gait/Stance: Posture sitting up in bed shackles on arm and leg 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 5/5 hip flex 5/5 Current Inpatient Medications Medications (Trade) Dose Ordered Sig/Cherri Route Start Time Stop Time Status Last Admin Dose Admin Acetaminophen (Tylenol Tab) 650 mg Q4H PRN PO 06/11/17 12:15 07/11/17 12:14 Ondansetron HCl (Zofran Inj) 4 mg Q6H PRN IV 06/11/17 12:15 07/11/17 12:14 06/11/17 21:31 4 MG [place] Carbonate (Eskalith Cr Tab) 450 mg BID PO 06/11/17 21:00 07/11/17 20:59 06/12/17 07:42 450 MG Quetiapine Fumarate (seroQUEL TAB) 200 mg HS PO 06/11/17 21:00 07/11/17 20:59 06/11/17 21:16 200 MG Sertraline HCl (Zoloft Tab) 50 mg DAILY PO 06/12/17 09:00 07/12/17 08:59 06/12/17 07:40 50 MG Prazosin HCl (Prazosin) 1 mg HS PO 06/11/17 21:00 07/11/17 20:59 Morphine Sulfate (MoRPHine SULFATE INJ) 3 mg Q3HWA PRN IV 06/11/17 12:15 06/25/17 12:14 06/12/17 13:42 3 MG Lorazepam (Ativan Tab) 1 mg TID PRN PO 06/11/17 12:15 07/11/17 12:14 06/12/17 05:02 1 MG Dextrose/Sodium Chloride 1,000 ml @ 80 mls/hr [id number] IV 06/11/17 13:15 07/11/17 13:14 06/12/17 04:44 125 MLS/HR Miscellaneous (Iv Fluids Completed) 1 ea PRN PRN N/A 06/11/17 12:15 06/11/18 12:14 Lorazepam 1 mg/ Syringe 1 ml @ 1 mls/min Q1H PRN IV 06/11/17 13:30 07/11/17 13:29 Nicotine (Nicoderm Cq 21MG Patch) 1 patch QAM TD 06/11/17 16:00 07/11/17 15:59 06/12/17 07:42 1 PATCH Miscellaneous (Remove Nicoderm Patch) 1 ea HS N/A 06/11/17 21:00 07/11/17 20:59 06/11/17 21:11 1 EA Gabapentin (Neurontin Cap) 300 mg TID PO 06/11/17 17:45 07/11/17 17:44 06/12/17 13:41 300 MG Clonazepam (Klonopin Tab) 1 mg ONE PRN PO 06/12/17 12:45 07/12/17 12:44 06/12/17 13:41 1 MG Impression 27 year old male with seizure disorder history Plan 1. continue gabapentin 300 mg TID x 5 days then increase to 600 mg TID. 2. if break through seizure occur would try dilantin or vimpat for coverage although there are other options 3. psychiatry for other issues 4. transfer back to [facility] once he passes the [facility] hook I have seen and discussed above patient with Dr Eli Branch, neurology Pt seen and examined. EEG nml. No clear sz or auras. Once pt on gabapentin 600 mg tid for 2 weeks should increase gabapentin to 800 mg tid which was pt baseline dose. If pt were to continue to have sz a good option would be inpatient seizure monitoring. DON Branch MD
[2017-06-12] MEDS ORDERED: NURSING VERBAL MED ORDER ONE (15:30)
--- NOTE | 2017-06-12 16:25 | Progress Note ---
Medicine Progress Note Date & Time of Visit: Jun 12, 2017 at 15:24. Subjective Pt was seen and examined Lying in bed with one hand handcuff to the bed Pt said that he has been having a lot of anxiety He said that he was getting Klonopin 2 mg TID for his anxiety before getting to the halfway Reviewed his prescription drug monitoring showed pt was getting his Benzo from different pharmacy His las script was filled on 04/06 for alprazolam 0.5mg Pt said that the reason that he kept going to different pharmacy was because he has been homeless and kept changing places Denies any chest pain, palpitation he refused to eat full liquid diet he wants to get regular food Objective Last 8 Hrs Date Time Temp Pulse Resp B/P (MAP) Pulse Ox O2 Delivery O2 Flow Rate FiO2 06/12/17 15:21 36.8 101 20 115/76 (89) 98 Room Air 06/12/17 12:45 36.3 69 16 134/89 (104) 100 Room Air 06/12/17 08:00 97 Room Air Physical Exam: General- No acute distress Head- atraumatic Eyes- PERRL, EOMI ENT- oropharynx clear Neck- supple, no JVD Lungs- clear to auscultation Heart- regular rhythm; no murmur Abdomen- normal bowel sounds, soft, +tender with palpation, Extremities- no pretibial edema Neuro- alert, oriented x 3; PERRL, EOMI Skin- warm & dry Laboratory Results: Last 24 Hours Test 06/12/17 05:31 White Blood Count 7.16 K/uL Red Blood Count 4.08 M/uL Hemoglobin 12.2 g/dL Hematocrit 37.9 % Mean Corpuscular Volume 92.9 fL Mean Corpuscular Hemoglobin 29.9 pg Mean Corpuscular Hemoglobin Concent 32.2 g/dl Platelet Count 229 K/uL Mean Platelet Volume 8.3 fL Neutrophils (%) (Auto) 39.7 % Lymphocytes (%) (Auto) 45.1 % Monocytes (%) (Auto) 9.5 % Eosinophils (%) (Auto) 5.0 % Basophils (%) (Auto) 0.6 % Neutrophils # (Auto) 2.84 K/uL Lymphocytes # (Auto) 3.23 K/uL Monocytes # (Auto) 0.68 K/uL Eosinophils # (Auto) 0.36 K/uL Basophils # (Auto) 0.04 K/uL RDW Standard Deviation 46.9 fL RDW Coefficient of Variation 13.8 % Immature Granulocyte % (Auto) 0.1 % Immature Granulocyte # (Auto) 0.01 K/uL Sodium Level 144 mmol/L Potassium Level 3.9 mmol/L Chloride Level 110 mmol/L Carbon Dioxide Level 29 mmol/L Anion Gap 5.0 mmol/L Blood Urea Nitrogen 9 mg/dl Creatinine 0.78 mg/dl Est Creatinine Clear Calc Drug Dose 135.6 ml/min Estimated GFR () 142.4 Estimated GFR (Non- 122.8 BUN/Creatinine Ratio 12.0 Random Glucose 87 mg/dl Calcium Level 8.4 mg/dl Magnesium Level 2.1 mg/dl Date/Time Source Procedure Growth Status 06/11/17 22:00 Nasal MRSA DNA Surveillance Screen - Final Specimen Positive for MRSA by DNA Probe Complete Assessment & Plan Foreign body ingestion Hx of multiple foreign body ingestion in the past S/P surgery few weeks ago in [facility] after ingested a razor blade Had EGD done yesterday, and the shower hook already passed into the stomach Repeat abdominal xray done today showed foreign body has now passed distally and is in the region of the terminal ileum and/or mid a sending colon. Nonobstructive bowel pattern. Diet was advanced to full liquid diet Refused to eat full liquid diet, he wants regular food Repeat abd xray in am continue IVF continue monitor Hx seizure Pt said that Klonopin and gabapentin is the only thing work EEG done showed no evidence for potentially epileptogenic activity. Neuro on board Recommended to continue gabapentin 300m TID for 5 more days, then increase to 600mg TID if break through seizure occurs, neuro recommended to try Dilantin or Vimpat continue seizure precaution Depression/Anxiety Pt said that only klonopin work for his anxiety in the past He said that he would continue swallowing object if he does not getting the Klonopin to help him with the anxiety Reviewed [place] prescription drug monitor, his last benzo script was in [place]. and he had been to multiple Rx Case discussed with Psych dr. Samuel, that did not recommend any Benzo due to his history of substance abuse Has been getting Ativan PRN, will d/c Deep vein thrombosis prophylaxis on SCDs and TEDs. Disposition Will discharge back to [facility] CODE STATUS FULL CODE Consultants: Gastro Surgery Psych Current Inpatient Medications: Current Inpatient Medications Medications (Trade) Dose Ordered Sig/Cherri Route Start Time Stop Time Status Last Admin Dose Admin Acetaminophen (Tylenol Tab) 650 mg Q4H PRN PO 06/11/17 12:15 07/11/17 12:14 Ondansetron HCl (Zofran Inj) 4 mg Q6H PRN IV 06/11/17 12:15 07/11/17 12:14 06/11/17 21:31 4 MG Alix Carbonate (Eskalith Cr Tab) 450 mg BID PO 06/11/17 21:00 07/11/17 20:59 06/12/17 07:42 450 MG Quetiapine Fumarate (seroQUEL TAB) 200 mg HS PO 06/11/17 21:00 07/11/17 20:59 06/11/17 21:16 200 MG Sertraline HCl (Zoloft Tab) 50 mg DAILY PO 06/12/17 09:00 07/12/17 08:59 06/12/17 07:40 50 MG Prazosin HCl (Prazosin) 1 mg HS PO 06/11/17 21:00 07/11/17 20:59 Morphine Sulfate (MoRPHine SULFATE INJ) 3 mg Q3HWA PRN IV 06/11/17 12:15 06/25/17 12:14 06/12/17 13:42 3 MG Lorazepam (Ativan Tab) 1 mg TID PRN PO 06/11/17 12:15 07/11/17 12:14 06/12/17 05:02 1 MG Dextrose/Sodium Chloride 1,000 ml @ 80 mls/hr [id number] IV 06/11/17 13:15 07/11/17 13:14 06/12/17 04:44 125 MLS/HR Miscellaneous (Iv Fluids Completed) 1 ea PRN PRN N/A 06/11/17 12:15 06/11/18 12:14 Lorazepam 1 mg/ Syringe 1 ml @ 1 mls/min Q1H PRN IV 06/11/17 13:30 07/11/17 13:29 Nicotine (Nicoderm Cq 21MG Patch) 1 patch QAM TD 06/11/17 16:00 07/11/17 15:59 06/12/17 07:42 1 PATCH Miscellaneous (Remove Nicoderm Patch) 1 ea HS N/A 06/11/17 21:00 07/11/17 20:59 06/11/17 21:11 1 EA Gabapentin (Neurontin Cap) 300 mg TID PO 06/11/17 17:45 07/11/17 17:44 06/12/17 13:41 300 MG Clonazepam (Klonopin Tab) 1 mg ONE PRN PO 06/12/17 12:45 07/12/17 12:44 06/12/17 13:41 1 MG
[2017-06-12] MEDS: QUETIAPINE FUMARATE 200 MG TAB PO SCH (21:59)
[2017-06-12] MEDS: PRAZOSIN HCL 1 MG CAP PO SCH (21:59)
[2017-06-13] MEDS: D5W AND NSS 1,000 ML IV SCH ×2 (00:04→14:57)
[2017-06-13] MEDS: LORAZEPAM 1 MG TAB PO PRN ×3 (00:20→17:09)
[2017-06-13 07:14] LABS: BASO % 0.7 %; BASO ABS # 0.05 K/uL (0-0.2); COMPLETE YES; EOS % 6.2 %; HEMATOCRIT 39.4 % (42-52); IG% 0.1 %; LYMPH % 34.1 %; LYMPH ABS # 2.43 K/uL (1.2-3.4); MEAN CELL VOLUME 92.7 fL (80-100); MEAN CORPUSCULAR HEMOGLOBIN 29.4 pg (25-34); MEAN CORPUSCULAR HGB CONC 31.7 g/dl (32-36); MEAN PLATELET VOLUME 8.3 fL (7.4-10.4); MONO % 10.2 %; NEUT % 48.7 %; PLATELET COUNT 226 K/uL (130-400); RED BLOOD COUNT 4.25 M/uL (4.7-6.1); WHITE BLOOD COUNT 7.13 K/uL (4.8-10.8)
[2017-06-13 07:39] VITALS: BP 112/72; PULSE 74; TEMP 36.6; O2SAT 100
--- NOTE | 2017-06-13 07:45 | DIAGNOSTIC IMAGING REPORT ---
ABDOMEN 2 VIEWS CLINICAL HISTORY: Foreign body ingestion COMPARISON STUDY: 06/12/2017 FINDINGS: There is no pathologic bowel dilatation. There is a hook shaped foreign body within the left midabdomen, likely located within the descending colon. IMPRESSION: The radiopaque foreign body, is now located within the left mid abdomen laterally, and is likely positioned within the descending colon. Electronically signed by: Berry Carmona M.D. 06/13/2017 7:44 AM Dictated Date/Time: 06/13/2017 7:43 AM
[2017-06-13 07:48] LABS: BUN/CREATININE RATIO 13.6 (10-20); CREATININE 0.79 mg/dl (0.60-1.40); POTASSIUM 4.1 mmol/L (3.5-5.1)
[2017-06-13] MEDS ORDERED: BISACODYL 5 MG TABEC PO PRN (08:00)
[2017-06-13] MEDS ORDERED: BISACODYL 5 MG TABEC PO ONE (08:00)
[2017-06-13] MEDS: MoRPHine SULFATE 4 MG/ML 1 ML CARP\\VIAL IV PRN ×2 (08:33→14:01)
--- NOTE | 2017-06-13 09:03 | Surgery Progress Note ---
Surgery Progress Note Date of Service Jun 13, 2017. Subjective Still feels the hook "scraping" as it passes. Now pain is on the left side. Otherwise, no nausea. Tolerating diet. Objective Vital Signs: Date Time Temp Pulse Resp B/P (MAP) Pulse Ox O2 Delivery O2 Flow Rate FiO2 06/13/17 07:39 36.6 74 19 112/72 (85) 100 Room Air 06/13/17 00:05 Room Air 06/12/17 23:25 36.7 105 18 117/77 (90) 94 Room Air 06/12/17 16:10 Room Air 06/12/17 15:21 36.8 101 20 115/76 (89) 98 Room Air 06/12/17 12:45 36.3 69 16 134/89 (104) 100 Room Air General Appearance: WD/WN, no apparent distress Head: normocephalic, atraumatic Abdomen: normal bowel sounds, non distended, soft, + tenderness (in left mid abdomen) Incision(s): clean, dry, intact Laboratory Results: Results Past 24 Hours Test 06/13/17 06:56 Range/Units White Blood Count 7.13 4.8-10.8 K/uL Red Blood Count 4.25 4.7-6.1 M/uL Hemoglobin 12.5 14.0-18.0 g/dL Hematocrit 39.4 42-52 % Mean Corpuscular Volume 92.7 80-100 fL Mean Corpuscular Hemoglobin 29.4 25-34 pg Mean Corpuscular Hemoglobin Concent 31.7 32-36 g/dl Platelet Count 226 130-400 K/uL Mean Platelet Volume 8.3 7.4-10.4 fL Neutrophils (%) (Auto) 48.7 % Lymphocytes (%) (Auto) 34.1 % Monocytes (%) (Auto) 10.2 % Eosinophils (%) (Auto) 6.2 % Basophils (%) (Auto) 0.7 % Neutrophils # (Auto) 3.47 1.4-6.5 K/uL Lymphocytes # (Auto) 2.43 1.2-3.4 K/uL Monocytes # (Auto) 0.73 0.11-0.59 K/uL Eosinophils # (Auto) 0.44 0-0.5 K/uL Basophils # (Auto) 0.05 0-0.2 K/uL RDW Standard Deviation 45.9 36.4-46.3 fL RDW Coefficient of Variation 13.5 11.5-14.5 % Immature Granulocyte % (Auto) 0.1 % Immature Granulocyte # (Auto) 0.01 0.00-0.02 K/uL Sodium Level 143 136-145 mmol/L Potassium Level 4.1 3.5-5.1 mmol/L Chloride Level 108 98-107 mmol/L Carbon Dioxide Level 30 21-32 mmol/L Anion Gap 5.0 3-11 mmol/L Blood Urea Nitrogen 11 7-18 mg/dl Creatinine 0.79 0.60-1.40 mg/dl Est Creatinine Clear Calc Drug Dose 133.9 ml/min Estimated GFR () 141.6 Estimated GFR (Non- 122.2 BUN/Creatinine Ratio 13.6 10-20 Random Glucose 99 70-99 mg/dl Calcium Level 9.0 8.5-10.1 mg/dl Magnesium Level 2.0 1.8-2.4 mg/dl Assessment & Plan Foreign body ingestion in setting of recent exp lap for removal of ingested razor blade. Shower hook is moving along intestine and now appears to be in descending colon on xray. Will try dulcolax and metamucil to help him pass it. Once it passes, he is OK for transfer back to [facility]. Repeat xray in the am to see if it has passed.
[2017-06-13] MEDS: BISACODYL 5 MG TABEC PO SCH ×2 (09:15→21:27)
[2017-06-13] MEDS: GABAPENTIN 300 MG CAP PO SCH ×3 (09:46→21:27)
[2017-06-13] MEDS: LITHIUM CARBONATE 450 MG TABCR PO SCH ×2 (09:46→21:29)
[2017-06-13] MEDS: SERTRALINE HCL 50 MG TAB PO SCH (09:47)
[2017-06-13] MEDS: NICOTINE 21 MG/24 HR TDSY TD SCH (09:48)
[2017-06-13] MEDS: PSYLLIUM 58.6% PWD PACK S\\F PO SCH (10:50)
--- NOTE | 2017-06-13 14:25 | Psychiatric Progress Notes ---
Progress Note Date of Service Jun 13, 2017. Interval History 27 y/o incarcerated white male with a self reported history of bipolar disorder , generalized anxiety disorder, panic disorder, intermittent explosive disorder , and "some kind of personality disorder" who was admitted medically from the intermediate after he ingested a shower hook. Psychiatry was consulted for SI. Chief Complaint "Trying to take my mind off things". Subjective Patient was seen & assessed, and interval progress reviewed. Reviewed case with Dr. Steen yesterday. Patient continues to request controlled substances, wanting clonazepam and zolpidem. He became agitated with staff yesterday, and was demanding clonazepam instead of lorazepam, and also requesting a regular meal, although he is ordered a liquid diet due to his medical issues. He was yelling, unhooked his IV, and said he was going to refuse IV fluids and food. He refused his bedtime medications, said he was "drawing evil things," and when staff offered to have someone come and talk with him, he declined. At some point his IV was restarted, and he received a one-time dose of clonazepam 1 mg yesterday, as well as 3 doses of lorazepam 1 mg, and numerous doses of morphine. Patient seen in his room with DIANNE Dai. He was drawing and says the picture is going to say "let me ." He says that he has been anxious, and had a particularly bad night last night, was unable to sleep, and is angry that people will not give him the medications he is demanding. He specifically wants Klonopin at high doses, stating that he got it in the past and doesn't see why he can't get it now. He was not willing to enter into discussion about other psychotropic medications that could be helpful for his symptoms, and on multiple occasions I reviewed the reasons that benzodiazepines are contraindicated for him. He feels that he is being judged unfairly for his past , and says that he will continue to swallow foreign bodies when he returns to [facility] until he gets what he wants. He states that a combination of lithium, quetiapine, sertraline, and clonazepam worked well for him in the past, and was advised that he is on all these medications except for the clonazepam, and encouraged to work with the psychiatrist at the intermediate to find the most effective and safe combination. He continues to endorse low mood, anxiety, and suicidal thoughts, stating that suicide "would be the easy way out." Called [facility] to try to speak to the psychiatrist, but she was unavailable, so spoke to the nursing resident, Jae, to review my concerns about the patient , including his attempts to manipulate others into giving him controlled substances and his threats to continue to try to harm himself with the hopes of getting benzodiazepines. Informed him of my recommendation that the patient be on precautions when he returns to the presence of the doesn't have access to objects that he could ingest her use to harm himself. Mental Status Exam During interview pt is: alert and oriented, other (partially cooperative, manipulative, provocative) Appearance: appropriately dressed, appropriately groomed, other (thin male with numerous tattoos covering his entire body, including his face, neck, and eyelids) Eye contact is: fair Motor behavior is: no abnormal motor movements (seated in bed in no acute distress, drawing on a pad of paper) Speech: normal in rate, rhythm & volume Affect: irritable Mood is: depressed, anxious Thought process: goal directed, perseveration (on getting controlled substances ) Thought content: reality based without delusions Suicidal thought are: present (states he will continue to try to swallow items until he is given clonazepam) Homicidal thoughts are: denied Hallucinations: denies auditory, denies visual Cognition: language grossly intact Intelligence estimated to be: consistent with level of education Insight: impaired Judgement: impaired Impression 27-year-old single white male convict who self reports a psychiatric history of bipolar disorder, anxiety disorder, intermittent explosive disorder, and personality disorder (non-confirmed by records, as none are available) as well as alcohol and heroin abuse who presents after he ingested a shower ring in intermediate in an attempt to harm himself. He is engaging in fairly mature coping skills and an attempt to get controlled substances, and would recommend limiting these as they're contraindicated given his substance abuse history, stated intent to continue to try to harm himself, and he is not willing to discuss more appropriate medications to target his symptoms. He will need ongoing mental health treatment once he returns to intermediate, and would recommend that he be placed on precautions so that he does not have access to items that he could use to harm himself or to swallow, as he clearly states his intent to continue to engage in this behavior for secondary gain. Plan (1) Foreign body ingestion Differential diagnosis includes self-harm attempt in the context of poorly controlled mood disorder, personality disorder, and malingering. Management per primary team. (2) Mood disorder Differential diagnosis includes depression, bipolar disorder, substance-induced mood disorder, and malingering. Per intermediate records, the patient is prescribed Depakote DR 500 mg twice a day, hydroxyzine 50 mg daily at bedtime, lithium ER 450 mg twice a day, prazosin 1 mg daily at bedtime, quetiapine 200 mg daily at bedtime, and sertraline 50 mg daily. Continue his medications here, and he should receive psychiatric care once he returns to intermediate. He should not of access to foreign bodies that he could ingest in self-harm attempts and may need to be on suicide precautions when he returns. 06/13--intermediate contacted and they had no past psychiatric records on him. Would recommend these be obtained for assistance with diagnosis and information about past treatment response. I would not recommend continuing benzodiazepines, as they're contraindicated given his severe addictions history, repeated attempts at self-harm, and concurrent use of morphine. I will defer management of those medications to the primary team. Continue lithium, prazosin, quetiapine, and sertraline, and follow-up with the intermediate psychiatrist upon return. (3) Malingering The patient meets criteria for malingering, as he has repeatedly swallow foreign oddities with intent to be removed from the [facility] and have access to controlled substances, and is threatening to continue to engage in SIB in order to manipulate others into doing what he wants. 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 Visit Code E&M Code: 43446 Data Vital Signs Last 24 Hrs: Date Time Temp Pulse Resp B/P (MAP) Pulse Ox O2 Delivery O2 Flow Rate FiO2 06/13/17 08:00 Room Air 06/13/17 07:39 36.6 74 19 112/72 (85) 100 Room Air 06/13/17 00:05 Room Air 06/12/17 23:25 36.7 105 18 117/77 (90) 94 Room Air 06/12/17 16:10 Room Air 06/12/17 15:21 36.8 101 20 115/76 (89) 98 Room Air Meds Administered Last 24 Hrs: Meds Administered (Past 24Hrs) Medications (Trade) Dose Ordered Sig/Cherri Route Start Time Stop Time Status Last Admin Dose Admin Raywick Carbonate (Eskalith Cr Tab) 450 mg BID PO 06/11/17 21:00 07/11/17 20:59 06/13/17 09:46 450 MG Quetiapine Fumarate (seroQUEL TAB) 200 mg HS PO 06/11/17 21:00 07/11/17 20:59 06/12/17 21:59 200 MG Sertraline HCl (Zoloft Tab) 50 mg DAILY PO 06/12/17 09:00 07/12/17 08:59 06/13/17 09:47 50 MG Prazosin HCl (Prazosin) 1 mg HS PO 06/11/17 21:00 07/11/17 20:59 06/12/17 21:59 1 MG Nicotine (Nicoderm Cq 21MG Patch) 1 patch QAM TD 06/11/17 16:00 07/11/17 15:59 06/13/17 09:48 1 PATCH Miscellaneous (Remove Nicoderm Patch) 1 ea HS N/A 06/11/17 21:00 07/11/17 20:59 06/12/17 21:01 1 EA Gabapentin (Neurontin Cap) 300 mg TID PO 06/11/17 17:45 07/11/17 17:44 06/13/17 09:46 300 MG Clonazepam (Klonopin Tab) 1 mg ONE PRN PO 06/12/17 12:45 06/12/17 15:48 DC 06/12/17 13:41 1 MG Bisacodyl (Dulcolax Tab) 5 mg NOW ONCE PO 06/13/17 08:00 06/13/17 08:13 DC 06/13/17 08:32 5 MG Psyllium Hydrophilic Mucilloid (Metamucil Powder) 1 pkt QAM PO 06/13/17 09:30 07/13/17 09:29 06/13/17 10:50 1 PKT Lab Results Last 24 Hrs: Last 24 Hours Test 06/13/17 06:56 White Blood Count 7.13 K/uL Red Blood Count 4.25 M/uL Hemoglobin 12.5 g/dL Hematocrit 39.4 % Mean Corpuscular Volume 92.7 fL Mean Corpuscular Hemoglobin 29.4 pg Mean Corpuscular Hemoglobin Concent 31.7 g/dl Platelet Count 226 K/uL Mean Platelet Volume 8.3 fL Neutrophils (%) (Auto) 48.7 % Lymphocytes (%) (Auto) 34.1 % Monocytes (%) (Auto) 10.2 % Eosinophils (%) (Auto) 6.2 % Basophils (%) (Auto) 0.7 % Neutrophils # (Auto) 3.47 K/uL Lymphocytes # (Auto) 2.43 K/uL Monocytes # (Auto) 0.73 K/uL Eosinophils # (Auto) 0.44 K/uL Basophils # (Auto) 0.05 K/uL RDW Standard Deviation 45.9 fL RDW Coefficient of Variation 13.5 % Immature Granulocyte % (Auto) 0.1 % Immature Granulocyte # (Auto) 0.01 K/uL Sodium Level 143 mmol/L Potassium Level 4.1 mmol/L Chloride Level 108 mmol/L Carbon Dioxide Level 30 mmol/L Anion Gap 5.0 mmol/L Blood Urea Nitrogen 11 mg/dl Creatinine 0.79 mg/dl Est Creatinine Clear Calc Drug Dose 133.9 ml/min Estimated GFR () 141.6 Estimated GFR (Non- 122.2 BUN/Creatinine Ratio 13.6 Random Glucose 99 mg/dl Calcium Level 9.0 mg/dl Magnesium Level 2.0 mg/dl Problem Qualifiers (1) Foreign body ingestion: Encounter type: initial encounter Qualified Codes: T18.9XXA - Foreign body of alimentary tract, part unspecified, initial encounter
[2017-06-13 15:15] VITALS: BP 125/82; PULSE 105; TEMP 36.8; O2SAT 96
--- NOTE | 2017-06-13 17:01 | Neurology Progress Notes ---
Neurology Progress Note Date of Service Jun 13, 2017. Leanna Shore is a 27-year-old right-handed incarcerated male with a history of seizure. He indicates he began having seizures under age 9, they would be occasionally preceded by a warm, dizziness and then followed by generalized tonic clonic activity. He does not sound as if he has another seizure type. He does not have myoclonic jerks. He has not ever had status epilepticus or needed to be hospitalized for seizure. He does not know if he ever had an abnormal EEG. He has not had seizure monitoring and he has had an MRI of the brain. He has taken a variety of anticonvulsants including Dilantin and phenobarbital when he was young, which according to him did not work, he took Keppra which did not work, although it sounds as if it was tolerated. He was given Depakote at the shelter and this caused suicidality, according to the patient and he has refused to take it. He does indicate that gabapentin had been working well when he was last in shelter at [facility]. According to the patient, he took gabapentin 600 t.i.d. and although was last he reports his last seizure prior to the most recent was in June of 2016. As an outpatient , his primary care provider increased it to 800 t.i.d. He was discharged from shelter in November on gabapentin 600 t.i.d. He was given a 2-month supply and his primary care apparently continue to prescribe it, but at higher dose. About 6 days prior to admission back into [facility] for a probation violation, he ran out of medications, which included the gabapentin, benzodiazepine and had a seizure. He was recently reincarnated and then sent to [facility], I believe at that time Depakote was attempted, but I am uncertain that he has had multiple transfers. He was said to have had a seizure last evening, and I believe after said seizure , he swallowed a shower curtain hook. He believes he bit his lip with the seizure, but otherwise was not injured. He indicates he has had an injury in the past related to seizure as well as incontinence. Triggers include stress. He has lost some weight since being in shelter. He has headaches at least once a week, which are throbbing, which are not new. He has otherwise not been ill. Today he is questioning why he can't be started back on the 900 mg TID gabapentin that he was on previously. He is currently on 300 mg and 5 days from the start which will be 06/15 it can be increased to 600 mg TID. He will be here until the shower hook he swallowed passes. He is complaining of shakes but no loss of conscience. denies CP, SOB, abdominal pain, N, V. Objective Date Time Temp Pulse Resp B/P (MAP) Pulse Ox O2 Delivery O2 Flow Rate FiO2 06/13/17 15:15 36.8 105 20 125/82 (96) 96 Room Air 06/13/17 08:00 Room Air 06/13/17 07:39 36.6 74 19 112/72 (85) 100 Room Air 06/13/17 00:05 Room Air 06/12/17 23:25 36.7 105 18 117/77 (90) 94 Room Air Last 24 Hours Test 06/13/17 06:56 White Blood Count 7.13 K/uL Red Blood Count 4.25 M/uL Hemoglobin 12.5 g/dL Hematocrit 39.4 % Mean Corpuscular Volume 92.7 fL Mean Corpuscular Hemoglobin 29.4 pg Mean Corpuscular Hemoglobin Concent 31.7 g/dl Platelet Count 226 K/uL Mean Platelet Volume 8.3 fL Neutrophils (%) (Auto) 48.7 % Lymphocytes (%) (Auto) 34.1 % Monocytes (%) (Auto) 10.2 % Eosinophils (%) (Auto) 6.2 % Basophils (%) (Auto) 0.7 % Neutrophils # (Auto) 3.47 K/uL Lymphocytes # (Auto) 2.43 K/uL Monocytes # (Auto) 0.73 K/uL Eosinophils # (Auto) 0.44 K/uL Basophils # (Auto) 0.05 K/uL RDW Standard Deviation 45.9 fL RDW Coefficient of Variation 13.5 % Immature Granulocyte % (Auto) 0.1 % Immature Granulocyte # (Auto) 0.01 K/uL Sodium Level 143 mmol/L Potassium Level 4.1 mmol/L Chloride Level 108 mmol/L Carbon Dioxide Level 30 mmol/L Anion Gap 5.0 mmol/L Blood Urea Nitrogen 11 mg/dl Creatinine 0.79 mg/dl Est Creatinine Clear Calc Drug Dose 133.9 ml/min Estimated GFR () 141.6 Estimated GFR (Non- 122.2 BUN/Creatinine Ratio 13.6 Random Glucose 99 mg/dl Calcium Level 9.0 mg/dl Magnesium Level 2.0 mg/dl Imaging: abdominal x ray- : The radiopaque foreign body, is now located within the left mid abdomen laterally, and is likely positioned within the descending colon. Exam: Physical Exam: Constitutional: appearance nourished, healthy and normal Ears, Nose, Mouth and Throat: mucous membranes moist, no injection and skin normal, eyes normal Cardiovascular: normal S-1 and S-2 and regular rate and rhythm Respiratory:normal respiratory effort Musculoskeletal: no peripheral edema and good distal pulses Skin: no stigmata of neurocutaneous disease noted and normal and intact, multiple tatoos Eyes: extraocular muscles intact (EOMI) and pupils equal, round and reactive to light (PERRL) NEUROLOGIC EXAMINATION: Mental status: Alert and interactive Oriented to full date and location Oriented to person Speech fluent with no evidence of aphasia Cranial Nerves smile eye brow raise symmetric Sensory: light touch cool touch Coordination: finger to nose without bi pass Gait/Stance: Posture sitting up in bed shackles on arm and leg Strength: biceps triceps hand supervisor line department 5/5 bilaterally hip flex plantar flex ext 5/5 bilaterally Current Inpatient Medications Medications (Trade) Dose Ordered Sig/Cherri Route Start Time Stop Time Status Last Admin Dose Admin Acetaminophen (Tylenol Tab) 650 mg Q4H PRN PO 06/11/17 12:15 07/11/17 12:14 Ondansetron HCl (Zofran Inj) 4 mg Q6H PRN IV 06/11/17 12:15 07/11/17 12:14 06/11/17 21:31 4 MG [place] Carbonate (Eskalith Cr Tab) 450 mg BID PO 06/11/17 21:00 07/11/17 20:59 06/13/17 09:46 450 MG Quetiapine Fumarate (seroQUEL TAB) 200 mg HS PO 06/11/17 21:00 07/11/17 20:59 06/12/17 21:59 200 MG Sertraline HCl (Zoloft Tab) 50 mg DAILY PO 06/12/17 09:00 07/12/17 08:59 06/13/17 09:47 50 MG Prazosin HCl (Prazosin) 1 mg HS PO 06/11/17 21:00 07/11/17 20:59 06/12/17 21:59 1 MG Lorazepam (Ativan Tab) 1 mg TID PRN PO 06/11/17 12:15 07/11/17 12:14 06/13/17 08:32 1 MG Dextrose/Sodium Chloride 1,000 ml @ 80 mls/hr [id number] IV 06/11/17 13:15 07/11/17 13:14 06/13/17 14:57 80 MLS/HR Miscellaneous (Iv Fluids Completed) 1 ea PRN PRN N/A 06/11/17 12:15 06/11/18 12:14 Lorazepam 1 mg/ Syringe 1 ml @ 1 mls/min Q1H PRN IV 06/11/17 13:30 07/11/17 13:29 Nicotine (Nicoderm Cq 21MG Patch) 1 patch QAM TD 06/11/17 16:00 07/11/17 15:59 06/13/17 09:48 1 PATCH Miscellaneous (Remove Nicoderm Patch) 1 ea HS N/A 06/11/17 21:00 07/11/17 20:59 06/12/17 21:01 1 EA Gabapentin (Neurontin Cap) 300 mg TID PO 06/11/17 17:45 07/11/17 17:44 06/13/17 14:00 300 MG Quetiapine Fumarate (seroQUEL TAB) 50 mg Q4H PRN PO 06/12/17 19:30 07/12/17 19:29 Psyllium Hydrophilic Mucilloid (Metamucil Powder) 1 pkt QAM PO 06/13/17 09:30 07/13/17 09:29 06/13/17 10:50 1 PKT Bisacodyl (Dulcolax Tab) 5 mg BID PO 06/13/17 09:15 07/13/17 07:59 Morphine Sulfate (MoRPHine SULFATE INJ) 2 mg Q4HWA PRN IV 06/13/17 15:45 06/25/17 12:14 Impression 27 year old male with seizure disorder history Plan 1. continue gabapentin 300 mg TID x 5 days then increase to 600 mg TID. (06/15) 2. if break through seizure occur would try dilantin or vimpat for coverage although there are other options 3. psychiatry for other issues 4. transfer back to [facility] once he passes the shower hook I have seen and discussed above patient with Dr Eli Branch, neurology PT seen. Have sense of environment tremoring. No visible tremor to pt, no alteration of consciousness. No sz activity has been noted. Hx of sz. continue gabapentin escalation as previously described. DON Branch MD
--- NOTE | 2017-06-13 18:41 | Progress Note ---
Medicine Progress Note Date & Time of Visit: Jun 13, 2017 at 18:20. Subjective Pt was seen and examined Lying in bed comfortable drawing he had 2 guards in his room watching him Pt said that now he does have pain in his right LLQ abdominal He said that the pain med does not last but he was comfortable sitting in bed drawing when i entered the room he said that he continues to feel very anxious he wants klonopin pt said that he would continue swallow objects if he does get klonopin when he goes back to long-term I told him that he would if he continue to swallow object he said that he would be better off dying He said that he cannot function outside the long-term Objective Last 8 Hrs Date Time Temp Pulse Resp B/P (MAP) Pulse Ox O2 Delivery O2 Flow Rate FiO2 06/13/17 15:15 36.8 105 20 125/82 (96) 96 Room Air Physical Exam: General- No acute distress Head- atraumatic Eyes- PERRL, EOMI ENT- oropharynx clear Neck- supple, no JVD Lungs- clear to auscultation Heart- regular rhythm; no murmur Abdomen- normal bowel sounds, soft, +tender with palpation, Extremities- no pretibial edema Neuro- alert, oriented x 3; PERRL, EOMI Skin- warm & dry Laboratory Results: Last 24 Hours Test 06/13/17 06:56 White Blood Count 7.13 K/uL Red Blood Count 4.25 M/uL Hemoglobin 12.5 g/dL Hematocrit 39.4 % Mean Corpuscular Volume 92.7 fL Mean Corpuscular Hemoglobin 29.4 pg Mean Corpuscular Hemoglobin Concent 31.7 g/dl Platelet Count 226 K/uL Mean Platelet Volume 8.3 fL Neutrophils (%) (Auto) 48.7 % Lymphocytes (%) (Auto) 34.1 % Monocytes (%) (Auto) 10.2 % Eosinophils (%) (Auto) 6.2 % Basophils (%) (Auto) 0.7 % Neutrophils # (Auto) 3.47 K/uL Lymphocytes # (Auto) 2.43 K/uL Monocytes # (Auto) 0.73 K/uL Eosinophils # (Auto) 0.44 K/uL Basophils # (Auto) 0.05 K/uL RDW Standard Deviation 45.9 fL RDW Coefficient of Variation 13.5 % Immature Granulocyte % (Auto) 0.1 % Immature Granulocyte # (Auto) 0.01 K/uL Sodium Level 143 mmol/L Potassium Level 4.1 mmol/L Chloride Level 108 mmol/L Carbon Dioxide Level 30 mmol/L Anion Gap 5.0 mmol/L Blood Urea Nitrogen 11 mg/dl Creatinine 0.79 mg/dl Est Creatinine Clear Calc Drug Dose 133.9 ml/min Estimated GFR () 141.6 Estimated GFR (Non- 122.2 BUN/Creatinine Ratio 13.6 Random Glucose 99 mg/dl Calcium Level 9.0 mg/dl Magnesium Level 2.0 mg/dl Assessment & Plan Foreign body ingestion Hx of multiple foreign body ingestion in the past S/P surgery few weeks ago in [facility] after ingested a razor blade Had EGD done yesterday, and the shower hook already passed into the stomach Repeat abdominal xray done today showed foreign body has now passed distally and is in the region of the terminal ileum and/or mid a sending colon. Nonobstructive bowel pattern. Diet was advanced to full liquid diet Refused to eat full liquid diet, he wants regular food Repeat abd xray in am continue IVF continue monitor 06/13 Tolerated regular diet Repeat xray today showed foreign body, is now located within the left mid abdomen laterally, and is likely positioned within the descending colon. Will change pain med to PO repeat xray in am once pass shower hook, pt will be ok to discharge Hx seizure Pt said that Klonopin and gabapentin is the only thing work EEG done showed no evidence for potentially epileptogenic activity. Neuro on board Recommended to continue gabapentin 300m TID for 5 more days, then increase to 600mg TID if break through seizure occurs, neuro recommended to try Dilantin or Vimpat continue seizure precaution Depression/Anxiety Pt said that only klonopin work for his anxiety in the past He said that he would continue swallowing object if he does not getting the Klonopin to help him with the anxiety Reviewed [place] prescription drug monitor, his last benzo script was in [place]. and he had been to multiple Rx Case discussed with Psych dr. Samuel, that did not recommend any Benzo due to his history of substance abuse Has been getting Ativan PRN, will d/c 06/13 No benzo as per psych Pt said that he would continue swallowing object if he does get Klonopin in [place] Continue zoloft Deep vein thrombosis prophylaxis on SCDs and TEDs. CODE STATUS FULL CODE Disposition Will discharge back to [facility] once pass the shower [facility] Consultants: Gastro Surgery Psych Current Inpatient Medications: Current Inpatient Medications Medications (Trade) Dose Ordered Sig/Cherri Route Start Time Stop Time Status Last Admin Dose Admin Acetaminophen (Tylenol Tab) 650 mg Q4H PRN PO 06/11/17 12:15 07/11/17 12:14 Ondansetron HCl (Zofran Inj) 4 mg Q6H PRN IV 06/11/17 12:15 07/11/17 12:14 06/11/17 21:31 4 MG [place] Carbonate (Eskalith Cr Tab) 450 mg BID PO 06/11/17 21:00 07/11/17 20:59 06/13/17 09:46 450 MG Quetiapine Fumarate (seroQUEL TAB) 200 mg HS PO 06/11/17 21:00 07/11/17 20:59 06/12/17 21:59 200 MG Sertraline HCl (Zoloft Tab) 50 mg DAILY PO 06/12/17 09:00 07/12/17 08:59 06/13/17 09:47 50 MG Prazosin HCl (Prazosin) 1 mg HS PO 06/11/17 21:00 07/11/17 20:59 06/12/17 21:59 1 MG Lorazepam (Ativan Tab) 1 mg TID PRN PO 06/11/17 12:15 07/11/17 12:14 06/13/17 17:09 1 MG Dextrose/Sodium Chloride 1,000 ml @ 80 mls/hr [id number] IV 06/11/17 13:15 07/11/17 13:14 06/13/17 14:57 80 MLS/HR Miscellaneous (Iv Fluids Completed) 1 ea PRN PRN N/A 06/11/17 12:15 06/11/18 12:14 Lorazepam 1 mg/ Syringe 1 ml @ 1 mls/min Q1H PRN IV 06/11/17 13:30 07/11/17 13:29 Nicotine (Nicoderm Cq 21MG Patch) 1 patch QAM TD 06/11/17 16:00 07/11/17 15:59 06/13/17 09:48 1 PATCH Miscellaneous (Remove Nicoderm Patch) 1 ea HS N/A 06/11/17 21:00 11/22/17 20:59 06/12/17 21:01 1 EA Gabapentin (Neurontin Cap) 300 mg TID PO 06/11/17 17:45 07/11/17 17:44 06/13/17 14:00 300 MG Quetiapine Fumarate (seroQUEL TAB) 50 mg Q4H PRN PO 06/12/17 19:30 07/12/17 19:29 Psyllium Hydrophilic Mucilloid (Metamucil Powder) 1 pkt QAM PO 06/13/17 09:30 07/13/17 09:29 06/13/17 10:50 1 PKT Bisacodyl (Dulcolax Tab) 5 mg BID PO 06/13/17 09:15 07/13/17 07:59 Morphine Sulfate (MoRPHine SULFATE INJ) 2 mg Q4HWA PRN IV 06/13/17 15:45 06/25/17 12:14
[2017-06-13] MEDS: MoRPHine SULFATE 2 MG/ML CARP IV PRN ×2 (18:51→23:35)
[2017-06-13] MEDS: PRAZOSIN HCL 1 MG CAP PO SCH (21:27)
[2017-06-13] MEDS: QUETIAPINE FUMARATE 200 MG TAB PO SCH (21:27)
[2017-06-13 23:32] VITALS: BP 120/73; PULSE 103; TEMP 36.7; O2SAT 97
[2017-06-14] MEDS: LORAZEPAM 1 MG TAB PO PRN ×2 (01:20→07:40)
[2017-06-14] MEDS: QUETIAPINE FUMARATE 25 MG TAB PO PRN ×2 (01:21→14:02)
[2017-06-14 06:54] VITALS: BP 112/68; PULSE 74; TEMP 36.7; O2SAT 97
[2017-06-14] MEDS: MoRPHine SULFATE 2 MG/ML CARP IV PRN (07:39)
[2017-06-14 07:49] LABS: BASO % 0.6 %; BASO ABS # 0.05 K/uL (0-0.2); COMPLETE YES; EOS % 5.4 %; IG% 0.1 %; LYMPH % 43.8 %; LYMPH ABS # 3.57 K/uL (1.2-3.4); MEAN CELL VOLUME 93.2 fL (80-100); MEAN CORPUSCULAR HEMOGLOBIN 30.3 pg (25-34); MEAN CORPUSCULAR HGB CONC 32.5 g/dl (32-36); MEAN PLATELET VOLUME 8.3 fL (7.4-10.4); MONO % 9.3 %; NEUT % 40.8 %; PLATELET COUNT 207 K/uL (130-400); RED BLOOD COUNT 4.29 M/uL (4.7-6.1); WHITE BLOOD COUNT 8.15 K/uL (4.8-10.8)
--- NOTE | 2017-06-14 07:53 | DIAGNOSTIC IMAGING REPORT ---
KUB HISTORY: foreign body ingestion COMPARISON: Abdomen 06/13/2017. FINDINGS: Radiopaque foreign body is identified within the right lower quadrant. This could be within the sigmoid colon or distal ileum. Moderate to large amount well-formed stool seen throughout the colon. No renal calculi. No ureteral calculi. No pneumoperitoneum or pneumatosis. IMPRESSION: The radiopaque foreign body is identified within the right lower quadrant. Electronically signed by: Reyes Jesus M.D. 06/14/2017 7:52 AM Dictated Date/Time: 06/14/2017 7:50 AM
[2017-06-14 08:17] LABS: BUN/CREATININE RATIO 12.2 (10-20); CALCIUM 9.2 mg/dl (8.5-10.1); CREATININE 0.8 mg/dl (0.60-1.40); MAGNESIUM 1.9 mg/dl (1.8-2.4); POTASSIUM 3.9 mmol/L (3.5-5.1)
[2017-06-14] MEDS: D5W AND NSS 1,000 ML IV SCH (08:54)
[2017-06-14] MEDS: PSYLLIUM 58.6% PWD PACK S\\F PO SCH (08:55)
[2017-06-14] MEDS: GABAPENTIN 300 MG CAP PO SCH ×3 (08:55→23:07)
[2017-06-14] MEDS: SERTRALINE HCL 50 MG TAB PO SCH (08:55)
[2017-06-14] MEDS: LITHIUM CARBONATE 450 MG TABCR PO SCH ×2 (08:56→22:55)
[2017-06-14] MEDS: NICOTINE 21 MG/24 HR TDSY TD SCH (08:58)
[2017-06-14] MEDS: BISACODYL 5 MG TABEC PO SCH ×2 (09:07→21:00)
--- NOTE | 2017-06-14 10:35 | Surgery Progress Note ---
Surgery Progress Note Date of Service Jun 14, 2017. Subjective Still feels the hook passing. No bowel movement. States he swallowed two additional foreign bodies last night - the hook that attaches his call button to his bed and the metal around the top of a pencil. Objective Vital Signs: Date Time Temp Pulse Resp B/P (MAP) Pulse Ox O2 Delivery O2 Flow Rate FiO2 06/14/17 07:35 Room Air 06/14/17 06:54 36.7 74 19 112/68 (83) 97 Room Air 06/13/17 23:40 Room Air 06/13/17 23:32 36.7 103 16 120/73 (89) 97 Room Air 06/13/17 16:45 Room Air 06/13/17 15:15 36.8 105 20 125/82 (96) 96 Room Air General Appearance: WD/WN, no apparent distress Respiratory/Chest: normal breath sounds, no accessory muscle use Cardiovascular: regular rate, rhythm Abdomen: normal bowel sounds, soft, + distended (mild), + tenderness (LLQ) Laboratory Results: Results Past 24 Hours Test 06/14/17 07:36 Range/Units White Blood Count 8.15 4.8-10.8 K/uL Red Blood Count 4.29 4.7-6.1 M/uL Hemoglobin 13.0 14.0-18.0 g/dL Hematocrit 40.0 42-52 % Mean Corpuscular Volume 93.2 80-100 fL Mean Corpuscular Hemoglobin 30.3 25-34 pg Mean Corpuscular Hemoglobin Concent 32.5 32-36 g/dl Platelet Count 207 130-400 K/uL Mean Platelet Volume 8.3 7.4-10.4 fL Neutrophils (%) (Auto) 40.8 % Lymphocytes (%) (Auto) 43.8 % Monocytes (%) (Auto) 9.3 % Eosinophils (%) (Auto) 5.4 % Basophils (%) (Auto) 0.6 % Neutrophils # (Auto) 3.32 1.4-6.5 K/uL Lymphocytes # (Auto) 3.57 1.2-3.4 K/uL Monocytes # (Auto) 0.76 0.11-0.59 K/uL Eosinophils # (Auto) 0.44 0-0.5 K/uL Basophils # (Auto) 0.05 0-0.2 K/uL RDW Standard Deviation 46.6 36.4-46.3 fL RDW Coefficient of Variation 13.7 11.5-14.5 % Immature Granulocyte % (Auto) 0.1 % Immature Granulocyte # (Auto) 0.01 0.00-0.02 K/uL Sodium Level 142 136-145 mmol/L Potassium Level 3.9 3.5-5.1 mmol/L Chloride Level 108 98-107 mmol/L Carbon Dioxide Level 27 21-32 mmol/L Anion Gap 7.0 3-11 mmol/L Blood Urea Nitrogen 10 7-18 mg/dl Creatinine 0.80 0.60-1.40 mg/dl Est Creatinine Clear Calc Drug Dose 132.2 ml/min Estimated GFR () 140.9 Estimated GFR (Non- 121.6 BUN/Creatinine Ratio 12.2 10-20 Random Glucose 90 70-99 mg/dl Calcium Level 9.2 8.5-10.1 mg/dl Magnesium Level 1.9 1.8-2.4 mg/dl Assessment & Plan 27 yr old with foreign body ingestion which is likely in sigmoid colon given progression on xray. Will add in laxatives. Of more concern, he states he has swallowed more foreign bodies last night. Will repeat kub to assess stomach ( not well seen on kub this am). If nothing visible, would not change release manager.
--- NOTE | 2017-06-14 11:05 | DIAGNOSTIC IMAGING REPORT ---
CYRIL CLINICAL HISTORY: pt states he ingested additional foreign bodies COMPARISON STUDY: 06/14/2017 FINDINGS: Additional metallic foreign body within the mid stomach area measures 2.9 x 1.3 cm. Curvilinear radiopaque foreign body present described now overlies the right mid sacrum and presumably is within the distal small bowel. Bowel pattern is otherwise nonobstructive. IMPRESSION: 1. Radiopaque density appears described now overlies what appears to be the region of the mid right sacrum and/or distal small bowel. 2. Additional metallic foreign body occupying the mid stomach. The above report was generated using voice recognition software. It may contain grammatical, syntax or spelling errors. Electronically signed by: Watson Shoemaker M.D. 06/14/2017 11:04 AM Dictated Date/Time: 06/14/2017 11:03 AM
[2017-06-14] MEDS ORDERED: NURSING VERBAL MED ORDER ONE (11:15)
[2017-06-14] MEDS ORDERED: ACETAMINOPHEN 325 MG TAB PO PRN (12:45)
[2017-06-14 15:10] VITALS: BP 122/78; PULSE 127; TEMP 36.9; O2SAT 98
--- NOTE | 2017-06-14 17:20 | Neurology Progress Notes ---
Neurology Progress Note Date of Service Jun 14, 2017. Leanna Shore is a 27-year-old right-handed incarcerated male with a history of seizure. He indicates he began having seizures under age 9, they would be occasionally preceded by a warm, dizziness and then followed by generalized tonic clonic activity. He does not sound as if he has another seizure type. He does not have myoclonic jerks. He has not ever had status epilepticus or needed to be hospitalized for seizure. He does not know if he ever had an abnormal EEG. He has not had seizure monitoring and he has had an MRI of the brain. He has taken a variety of anticonvulsants including Dilantin and phenobarbital when he was young, which according to him did not work, he took Keppra which did not work, although it sounds as if it was tolerated. He was given Depakote at the [facility] and this caused suicidality, according to the patient and he has refused to take it. He does indicate that gabapentin had been working well when he was last in [facility] at [facility]. According to the patient, he took gabapentin 600 t.i.d. and although was last he reports his last seizure prior to the most recent was in June of 2016. As an outpatient , his primary care provider increased it to 800 t.i.d. He was discharged from [facility] in November on gabapentin 600 t.i.d. He was given a 2-month supply and his primary care apparently continue to prescribe it, but at higher dose. About 6 days prior to admission back into [facility] for a probation violation, he ran out of medications, which included the gabapentin, benzodiazepine and had a seizure. He was recently reincarnated and then sent to [facility], I believe at that time Depakote was attempted, but I am uncertain that he has had multiple transfers. He was said to have had a seizure last evening, and I believe after said seizure , he swallowed a shower curtain hook. He believes he bit his lip with the seizure, but otherwise was not injured. He indicates he has had an injury in the past related to seizure as well as incontinence. Triggers include stress. He has lost some weight since being in [facility]. He has headaches at least once a week, which are throbbing, which are not new. He has otherwise not been ill. Today he states he doesn't feel well and had a nose bleed this am. He is currently on 300 mg and 5 days from the start which will be 06/15 it can be increased to 600 mg TID. He will be here until the shower hook he swallowed passes although swallowed another foreign body. He is complaining of shakes but no loss of conscience. denies CP, SOB, abdominal pain, N, V. Objective Date Time Temp Pulse Resp B/P (MAP) Pulse Ox O2 Delivery O2 Flow Rate FiO2 06/14/17 15:10 36.9 127 18 122/78 (93) 98 Room Air 06/14/17 07:35 Room Air 06/14/17 06:54 36.7 74 19 112/68 (83) 97 Room Air 06/13/17 23:40 Room Air 06/13/17 23:32 36.7 103 16 120/73 (89) 97 Room Air Last 24 Hours Test 06/14/17 07:36 White Blood Count 8.15 K/uL Red Blood Count 4.29 M/uL Hemoglobin 13.0 g/dL Hematocrit 40.0 % Mean Corpuscular Volume 93.2 fL Mean Corpuscular Hemoglobin 30.3 pg Mean Corpuscular Hemoglobin Concent 32.5 g/dl Platelet Count 207 K/uL Mean Platelet Volume 8.3 fL Neutrophils (%) (Auto) 40.8 % Lymphocytes (%) (Auto) 43.8 % Monocytes (%) (Auto) 9.3 % Eosinophils (%) (Auto) 5.4 % Basophils (%) (Auto) 0.6 % Neutrophils # (Auto) 3.32 K/uL Lymphocytes # (Auto) 3.57 K/uL Monocytes # (Auto) 0.76 K/uL Eosinophils # (Auto) 0.44 K/uL Basophils # (Auto) 0.05 K/uL RDW Standard Deviation 46.6 fL RDW Coefficient of Variation 13.7 % Immature Granulocyte % (Auto) 0.1 % Immature Granulocyte # (Auto) 0.01 K/uL Sodium Level 142 mmol/L Potassium Level 3.9 mmol/L Chloride Level 108 mmol/L Carbon Dioxide Level 27 mmol/L Anion Gap 7.0 mmol/L Blood Urea Nitrogen 10 mg/dl Creatinine 0.80 mg/dl Est Creatinine Clear Calc Drug Dose 132.2 ml/min Estimated GFR () 140.9 Estimated GFR (Non- 121.6 BUN/Creatinine Ratio 12.2 Random Glucose 90 mg/dl Calcium Level 9.2 mg/dl Magnesium Level 1.9 mg/dl Imaging: KUB- . Radiopaque density appears described now overlies what appears to be the region of the mid right sacrum and/or distal small bowel. Additional metallic foreign body occupying the mid stomach. 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 5/5 bilaterally hip flex 5/5 bilaterally Current Inpatient Medications Medications (Trade) Dose Ordered Sig/Cherri Route Start Time Stop Time Status Last Admin Dose Admin Ondansetron HCl (Zofran Inj) 4 mg Q6H PRN IV 06/11/17 12:15 07/11/17 12:14 06/11/17 21:31 4 MG [place] Carbonate (Eskalith Cr Tab) 450 mg BID PO 06/11/17 21:00 07/11/17 20:59 06/14/17 08:56 450 MG Quetiapine Fumarate (seroQUEL TAB) 200 mg HS PO 06/11/17 21:00 07/11/17 20:59 06/13/17 21:27 200 MG Sertraline HCl (Zoloft Tab) 50 mg DAILY PO 06/12/17 09:00 07/12/17 08:59 06/14/17 08:55 50 MG Prazosin HCl (Prazosin) 1 mg HS PO 06/11/17 21:00 07/11/17 20:59 06/13/17 21:27 1 MG Dextrose/Sodium Chloride 1,000 ml @ 50 mls/hr Q20H IV 06/11/17 13:15 07/11/17 13:14 06/14/17 08:54 50 MLS/HR Miscellaneous (Iv Fluids Completed) 1 ea PRN PRN N/A 06/11/17 12:15 06/11/18 12:14 Lorazepam 1 mg/ Syringe 1 ml @ 1 mls/min Q1H PRN IV 06/11/17 13:30 07/11/17 13:29 Nicotine (Nicoderm Cq 21MG Patch) 1 patch QAM TD 06/11/17 16:00 07/11/17 15:59 06/14/17 08:58 1 PATCH Miscellaneous (Remove Nicoderm Patch) 1 ea HS N/A 06/11/17 21:00 11/22/17 20:59 06/12/17 21:01 1 EA Gabapentin (Neurontin Cap) 300 mg TID PO 06/11/17 17:45 07/11/17 17:44 06/14/17 13:59 300 MG Quetiapine Fumarate (seroQUEL TAB) 50 mg Q4H PRN PO 06/12/17 19:30 07/12/17 19:29 06/14/17 14:02 50 MG Psyllium Hydrophilic Mucilloid (Metamucil Powder) 1 pkt QAM PO 06/13/17 09:30 07/13/17 09:29 06/14/17 08:55 1 PKT Bisacodyl (Dulcolax Tab) 5 mg BID PO 06/13/17 09:15 07/13/17 07:59 06/14/17 09:07 5 MG Polyethylene (Miralax Powder Packet) 17 gm DAILY PO 06/15/17 09:00 07/15/17 08:59 06/14/17 14:47 17 GM Acetaminophen (Tylenol Tab) 650 mg Q6 PRN PO 06/14/17 12:45 07/14/17 12:44 Impression 27 year old male with seizure disorder history Plan 1. continue gabapentin 300 mg TID x 5 days then increase to 600 mg TID. (06/15) 2. if break through seizure occur would try dilantin or vimpat for coverage although there are other options 3. psychiatry for other issues 4. transfer back to [facility] once he passes the shower hook -can this be observed in [facility]? I have discussed above patient with Dr Eli Branch, neurology Pt not seen, but discussed with Vicenta Graham. Please titrate gabapentin according to instructions. We will sign off. If the [facility] desires neurology follow-up we would be glad to see the pt and an outpt. DON Branch MD
--- NOTE | 2017-06-14 18:13 | Progress Note ---
Medicine Progress Note Date & Time of Visit: Jun 14, 2017 at 14:01. Subjective Pt was seen and examined Lying in bed with no distress Pt swallowed part of a pen last night He said that he was very anxious He removed his IV access when i told him that i discontinued his Ativan and the morphine He said that he would continue swallowing objects He has not had a bowel movement yet Objective Last 8 Hrs Date Time Temp Pulse Resp B/P (MAP) Pulse Ox O2 Delivery O2 Flow Rate FiO2 06/14/17 15:10 36.9 127 18 122/78 (93) 98 Room Air Physical Exam: General- No acute distress Head- atraumatic Eyes- PERRL, EOMI ENT- oropharynx clear Neck- supple, no JVD Lungs- clear to auscultation Heart- regular rhythm; no murmur Abdomen- normal bowel sounds, soft, +tender with palpation, Extremities- no pretibial edema Neuro- alert, oriented x 3; PERRL, EOMI Skin- warm & dry Laboratory Results: Last 24 Hours Test 06/14/17 07:36 White Blood Count 8.15 K/uL Red Blood Count 4.29 M/uL Hemoglobin 13.0 g/dL Hematocrit 40.0 % Mean Corpuscular Volume 93.2 fL Mean Corpuscular Hemoglobin 30.3 pg Mean Corpuscular Hemoglobin Concent 32.5 g/dl Platelet Count 207 K/uL Mean Platelet Volume 8.3 fL Neutrophils (%) (Auto) 40.8 % Lymphocytes (%) (Auto) 43.8 % Monocytes (%) (Auto) 9.3 % Eosinophils (%) (Auto) 5.4 % Basophils (%) (Auto) 0.6 % Neutrophils # (Auto) 3.32 K/uL Lymphocytes # (Auto) 3.57 K/uL Monocytes # (Auto) 0.76 K/uL Eosinophils # (Auto) 0.44 K/uL Basophils # (Auto) 0.05 K/uL RDW Standard Deviation 46.6 fL RDW Coefficient of Variation 13.7 % Immature Granulocyte % (Auto) 0.1 % Immature Granulocyte # (Auto) 0.01 K/uL Sodium Level 142 mmol/L Potassium Level 3.9 mmol/L Chloride Level 108 mmol/L Carbon Dioxide Level 27 mmol/L Anion Gap 7.0 mmol/L Blood Urea Nitrogen 10 mg/dl Creatinine 0.80 mg/dl Est Creatinine Clear Calc Drug Dose 132.2 ml/min Estimated GFR () 140.9 Estimated GFR (Non- 121.6 BUN/Creatinine Ratio 12.2 Random Glucose 90 mg/dl Calcium Level 9.2 mg/dl Magnesium Level 1.9 mg/dl Assessment & Plan Foreign body ingestion Hx of multiple foreign body ingestion in the past S/P surgery few weeks ago in [facility] after ingested a razor blade Had EGD done yesterday, and the shower hook already passed into the stomach Repeat abdominal xray done today showed foreign body has now passed distally and is in the region of the terminal ileum and/or mid a sending colon. Nonobstructive bowel pattern. Diet was advanced to full liquid diet Refused to eat full liquid diet, he wants regular food Repeat abd xray in am continue IVF continue monitor 06/13 Tolerated regular diet Repeat xray today showed foreign body, is now located within the left mid abdomen laterally, and is likely positioned within the descending colon. Will change pain med to PO repeat xray in am once pass shower hook, pt will be ok to discharge 06/14 Pt swallowed additional foreign body last night KUB showed radiopaque density appears described now overlies what appears to be the region of the mid right sacrum and/or distal small bowel. Additional metallic foreign body occupying the mid stomach. Has not had a bowel movement yet Discussed with nurse and director of physical security not to leave any object in his room that able to swallow. Repeat KUB in am Hx seizure Pt said that Klonopin and gabapentin is the only thing work EEG done showed no evidence for potentially epileptogenic activity. Neuro on board Recommended to continue gabapentin 300m TID for 3 more days, then increase to 600mg TID if break through seizure occurs, neuro recommended to try Dilantin or Vimpat continue seizure precaution Depression/Anxiety Pt said that only klonopin work for his anxiety in the past He said that he would continue swallowing object if he does not getting the Klonopin to help him with the anxiety Reviewed [place] prescription drug monitor, his last benzo script was in [place] and he had been to multiple Rx Case discussed with Psych dr. Samuel, that did not recommend any Benzo due to his history of substance abuse Has been getting Ativan PRN, will d/c 06/14 No benzo as per psych D/c Ativan today Pt said that he would continue swallowing object if [facility] Discussed with nurse and director of physical security not to leave any object in his room that able to swallow. Continue zoloft, seroquel, lithium Deep vein thrombosis prophylaxis on SCDs and TEDs. CODE STATUS FULL CODE Disposition Will discharge back to [facility] once pass the shower hook Consultants: Gastro Surgery Psych Current Inpatient Medications: Current Inpatient Medications Medications (Trade) Dose Ordered Sig/Cherri Route Start Time Stop Time Status Last Admin Dose Admin Ondansetron HCl (Zofran Inj) 4 mg Q6H PRN IV 06/11/17 12:15 07/11/17 12:14 06/11/17 21:31 4 MG [place] Carbonate (Eskalith Cr Tab) 450 mg BID PO 06/11/17 21:00 07/11/17 20:59 06/14/17 08:56 450 MG Quetiapine Fumarate (seroQUEL TAB) 200 mg HS PO 06/11/17 21:00 07/11/17 20:59 06/13/17 21:27 200 MG Sertraline HCl (Zoloft Tab) 50 mg DAILY PO 06/12/17 09:00 07/12/17 08:59 06/14/17 08:55 50 MG Prazosin HCl (Prazosin) 1 mg HS PO 06/11/17 21:00 07/11/17 20:59 06/13/17 21:27 1 MG Dextrose/Sodium Chloride 1,000 ml @ 50 mls/hr Q20H IV 06/11/17 13:15 07/11/17 13:14 06/14/17 08:54 50 MLS/HR Miscellaneous (Iv Fluids Completed) 1 ea PRN PRN N/A 06/11/17 12:15 06/11/18 12:14 Lorazepam 1 mg/ Syringe 1 ml @ 1 mls/min Q1H PRN IV 06/11/17 13:30 07/11/17 13:29 Nicotine (Nicoderm Cq 21MG Patch) 1 patch QAM TD 06/11/17 16:00 07/11/17 15:59 06/14/17 08:58 1 PATCH Miscellaneous (Remove Nicoderm Patch) 1 ea HS N/A 06/11/17 21:00 07/11/17 20:59 06/12/17 21:01 1 EA Gabapentin (Neurontin Cap) 300 mg TID PO 06/11/17 17:45 07/11/17 17:44 06/14/17 13:59 300 MG Quetiapine Fumarate (seroQUEL TAB) 50 mg Q4H PRN PO 06/12/17 19:30 07/12/17 19:29 06/14/17 14:02 50 MG Psyllium Hydrophilic Mucilloid (Metamucil Powder) 1 pkt QAM PO 06/13/17 09:30 07/13/17 09:29 06/14/17 08:55 1 PKT Bisacodyl (Dulcolax Tab) 5 mg BID PO 06/13/17 09:15 07/13/17 07:59 06/14/17 09:07 5 MG Polyethylene (Miralax Powder Packet) 17 gm DAILY PO 06/15/17 09:00 07/15/17 08:59 06/14/17 14:47 17 GM Acetaminophen (Tylenol Tab) 650 mg Q6 PRN PO 06/14/17 12:45 07/14/17 12:44
[2017-06-14] MEDS ORDERED: LORAZEPAM INJ 0.5 MG in SYRINGE 0.25 ML IV PRN (21:45)
[2017-06-14 22:50] VITALS: BP 134/89; PULSE 90; TEMP 37.1; O2SAT 97
[2017-06-14] MEDS: QUETIAPINE FUMARATE 200 MG TAB PO SCH (22:55)
[2017-06-14] MEDS: PRAZOSIN HCL 1 MG CAP PO SCH (22:55)
[2017-06-15] MEDS: D5W AND NSS 1,000 ML IV SCH (05:03)
[2017-06-15 07:18] VITALS: BP 101/67; PULSE 87; TEMP 36.8; O2SAT 98
[2017-06-15] MEDS: LORAZEPAM 1 MG TAB PO PRN ×2 (07:24→13:46)
[2017-06-15] MEDS: QUETIAPINE FUMARATE 25 MG TAB PO PRN ×2 (08:18→14:11)
[2017-06-15] MEDS: LITHIUM CARBONATE 450 MG TABCR PO SCH (08:20)
[2017-06-15] MEDS: GABAPENTIN 300 MG CAP PO SCH ×2 (08:21→13:46)
[2017-06-15] MEDS: PSYLLIUM 58.6% PWD PACK S\\F PO SCH (08:22)
[2017-06-15] MEDS: NICOTINE 21 MG/24 HR TDSY TD SCH (08:23)
[2017-06-15] MEDS: SERTRALINE HCL 50 MG TAB PO SCH (08:23)
[2017-06-15] MEDS: BISACODYL 5 MG TABEC PO SCH (08:27)
[2017-06-15] MEDS ORDERED: POLYETHYLENE (MIRALAX) 17 GM PACK PO SCH (09:00)
--- NOTE | 2017-06-15 09:35 | Progress Note ---
Progress Note Date of Service Jun 15, 2017. Progress Note Pt not seen today but chart reviewed and case discussed with Dr. Steen. Given his propensity for frequent ingestions, I would not recommend surgery unless he perforates or obstructs. He has demonstrated that he would prefer to stay in the hospital with access to narcotics/ benzodiazepines and thus, continues to ingest whatever he can get access to. I would think that he can be safely monitored in [facility]. No need for daily xrays but should his clinical condition change (obstructs or perforates), would repeat xray and transfer to facility for surgery. If this occurs in near future, consider tertiary care center given his very recent surgery which makes reoperation dangerous.
--- NOTE | 2017-06-15 12:47 | DIAGNOSTIC IMAGING REPORT ---
KUB HISTORY: F/U Foreign Body COMPARISON: KUB 06/14/2017. FINDINGS: Moderate to large amount of well-formed stool seen throughout the colon. No renal calculi. No ureteral calculi. No pneumoperitoneum or pneumatosis. No evidence for bowel obstruction. There is again noted a metallic clip within the left upper quadrant which measures 2.9 x 1.4 cm. This is not significantly changed in position. Curvilinear radiopaque foreign body within the right mid abdomen likely resides within the ascending colon. There are 2 new adjacent radiopaque metallic foreign bodies consistent with a screws within the right mid abdomen. These measure 3.9 and 1.6 cm in length. These may reside within the distal stomach/proximal duodenum. IMPRESSION: There are now a total 4 radiopaque foreign bodies seen within the abdomen as described above. Electronically signed by: Reyes Jesus M.D. 06/15/2017 12:45 PM Dictated Date/Time: 06/15/2017 12:43 PM
[2017-06-15 14:44] VITALS: BP 126/83; PULSE 109; TEMP 36.7; O2SAT 98
[2017-06-15 15:05] VITALS: BP 126/83; PULSE 109; TEMP 36.7; O2SAT 98
--- NOTE | 2017-06-15 16:59 | Psychiatric Progress Notes ---
Psychiatric Progress Note Date of Service Jun 15, 2017. Notes attempted to see patient earlier this am, was having bedside scan, was cooperative per guards at that time. Reviewed case with liaison and reviewed initial consult by Dr. Samuel. Agree with assessment. Added lithium level for am if remains hospitalized at [facility] for routine monitoring as postop, change in fluid status/diet, etc. Depakote listed in Dr. Samuel's consult hasn't been ordered here as per neuro patient refused as felt made him feel more suicidal. Patient has prn Seroquel which is more appropriate than benzo. No additional recs at this time, please recontact service if additional questions over weekend.
--- NOTE | 2017-06-15 17:20 | Progress Note ---
Medicine Progress Note Date & Time of Visit: Jun 15, 2017 at 13:53. Subjective Pt was seen and examined Lying in bed with no distress handcuff on the bed rail Pt had 3 BM yesterday and passed the shower hook last night and retrieved the shower hook from the stool and ingested again He also swallowed a screw that he unscrewed in the bathroom and a badge clip Pt said that he swallowed 4 items last night He said that he would continue swallowing any object that he can find if he does not get any Klonopin He said that he would continue to swallow items when he [facility] to [facility] I spoke to Surgery team today Dr. Turner that recommended no surgical intervention at this time unless pt has a perforation or obstruction. Objective Last 8 Hrs Date Time Temp Pulse Resp B/P (MAP) Pulse Ox O2 Delivery O2 Flow Rate FiO2 06/15/17 15:05 36.7 109 16 98 Room Air 06/15/17 14:44 36.7 109 16 126/83 (97) 98 Room Air Physical Exam: General- No acute distress Head- atraumatic Eyes- PERRL, EOMI ENT- oropharynx clear Neck- supple, no JVD Lungs- clear to auscultation Heart- regular rhythm; no murmur Abdomen- normal bowel sounds, soft, +tender with palpation, Extremities- no pretibial edema Neuro- alert, oriented x 3; PERRL, EOMI Skin- warm & dry Assessment & Plan Foreign body ingestion Hx of multiple foreign body ingestion in the past S/P surgery few weeks ago in [facility] after ingested a razor blade Had EGD done yesterday, and the shower hook already passed into the stomach Repeat abdominal xray done today showed foreign body has now passed distally and is in the region of the terminal ileum and/or mid a sending colon. Nonobstructive bowel pattern. Diet was advanced to full liquid diet Refused to eat full liquid diet, he wants regular food Repeat abd xray in am continue IVF continue monitor 06/13 Tolerated regular diet Repeat xray today showed foreign body, is now located within the left mid abdomen laterally, and is likely positioned within the descending colon. Will change pain med to PO repeat xray in am once pass shower hook, pt will be ok to discharge 06/14 Pt swallowed additional foreign body last night KUB showed radiopaque density appears described now overlies what appears to be the region of the mid right sacrum and/or distal small bowel. Additional metallic foreign body occupying the mid stomach. Has not had a bowel movement yet Discussed with nurse and safety and security manager not to leave any object in his room that able to swallow. Repeat KUB in am 06/15 had 3 BM last night Swallowed 4 items last night Passed the shower hook last night and retrieved the shower hook from the stool and ingested again Repeat KUB today showed a total 4 radiopaque foreign bodies seen within the abdomen. No obstruction or perforation He continue swallow object to stay in the hospital to get Narcotic and Benzo He admitted that he would continue to swallow whatever he can get access to if he does not get Klonopin when [facility] to [facility] case discussed with surgeon Dr. Turner that recommended no surgical intervention at this time unless pt has a perforation or obstruction As per Surgery pt can be [facility] at [facility] If his conditions change such as signs for obstruction or perforation, repeat and xray and transfer to the hospital for surgery If this occurs in near future, consider tertiary care center given his very recent surgery which makes reoperation dangerous as per Surgery Avoid any object that he is able to swallow near him case discussed with Dr. Booker at the [facility] seizure Pt said that Klonopin and gabapentin is the only thing work EEG done showed no evidence for potentially epileptogenic activity. Neuro on board Recommended to continue gabapentin 300m TID for 2 more days, then increase to 600mg TID if break through seizure occurs, neuro recommended to try Dilantin or Vimpat continue seizure precaution Depression/Anxiety Pt said that only klonopin work for his anxiety in the past He said that he would continue swallowing object if he does not getting the Klonopin to help him with the anxiety Reviewed [place] prescription drug monitor, his last benzo script was in [place] and he had been to multiple Rx Case discussed with Psych dr. Samuel, that did not recommend any Benzo due to his history of substance abuse Has been getting Ativan PRN, will d/c 06/15 No benzo as per psych Pt said that he would continue swallowing object if he does get Klonopin in [facility] Discussed with nurse and safety and security manager not to leave any object in his room that he is able to swallow. He should not of access to foreign bodies that he could ingest in self-harm attempts and may need to be on suicide precautions. Continue zoloft, seroquel, lithium Deep vein thrombosis prophylaxis on SCDs and TEDs. CODE STATUS FULL CODE Disposition Will discharge back to [facility] today Case discussed with Dr. Booker at [facility] Consultants: Gastro Surgery Psych Current Inpatient Medications: Current Inpatient Medications Medications (Trade) Dose Ordered Sig/Cherri Route Start Time Stop Time Status Last Admin Dose Admin Ondansetron HCl (Zofran Inj) 4 mg Q6H PRN IV 06/11/17 12:15 07/11/17 12:14 06/11/17 21:31 4 MG [place] Carbonate (Eskalith Cr Tab) 450 mg BID PO 06/11/17 21:00 07/11/17 20:59 06/15/17 08:20 450 MG Quetiapine Fumarate (seroQUEL TAB) 200 mg HS PO 06/11/17 21:00 07/11/17 20:59 06/14/17 22:55 200 MG Sertraline HCl (Zoloft Tab) 50 mg DAILY PO 06/12/17 09:00 07/12/17 08:59 06/15/17 08:23 50 MG Prazosin HCl (Prazosin) 1 mg HS PO 06/11/17 21:00 07/11/17 20:59 06/14/17 22:55 1 MG Dextrose/Sodium Chloride 1,000 ml @ 50 mls/hr Q20H IV 06/11/17 13:15 07/11/17 13:14 06/14/17 08:54 50 MLS/HR Miscellaneous (Iv Fluids Completed) 1 ea PRN PRN N/A 06/11/17 12:15 06/11/18 12:14 Lorazepam 1 mg/ Syringe 1 ml @ 1 mls/min Q1H PRN IV 06/11/17 13:30 07/11/17 13:29 Nicotine (Nicoderm Cq 21MG Patch) 1 patch QAM TD 06/11/17 16:00 07/11/17 15:59 06/15/17 08:23 1 PATCH Miscellaneous (Remove Nicoderm Patch) 1 ea HS N/A 06/11/17 21:00 07/11/17 20:59 06/12/17 21:01 1 EA Gabapentin (Neurontin Cap) 300 mg TID PO 06/11/17 17:45 07/11/17 17:44 06/15/17 13:46 300 MG Quetiapine Fumarate (seroQUEL TAB) 50 mg Q4H PRN PO 06/12/17 19:30 07/12/17 19:29 06/15/17 14:11 50 MG [place]yll[place] Hydrophilic Mucilloid (Metamucil Powder) 1 pkt QAM PO 06/13/17 09:30 07/13/17 09:29 06/14/17 08:55 1 PKT Bisacodyl (Dulcolax Tab) 5 mg BID PO 06/13/17 09:15 07/13/17 07:59 06/14/17 09:07 5 MG Polyethylene (Miralax Powder Packet) 17 gm DAILY PO 06/15/17 09:00 07/15/17 08:59 06/14/17 14:47 17 GM Acetaminophen (Tylenol Tab) 650 mg Q6 PRN PO 06/14/17 12:45 07/14/17 12:44 Lorazepam (Ativan Tab) 1 mg Q6 PRN PO 06/14/17 22:00 07/14/17 21:59 06/15/17 13:46 1 MG
[2017-06-15] MEDS ORDERED: NRN300 PO ×3 (17:27→17:52)
--- NOTE | 2017-06-15 17:39 | Discharge Instructions ---
Discharge Instructions Date of Service Jun 15, 2017. Admission Reason for Admission: Foreign Body Ingestion,Hx Of Foreing Body Discharge Discharge Diagnosis / Problem: Foreign body ingestion, Hx Seizure, Anxiety/ Depression Discharge Goals Goal(s): Decrease discomfort, Improve function, Improve disease control Activity Recommendations Activity Limitations: resume your previous activity (as tolerated) . Instructions / Follow-Up Instructions / Follow-Up Discharge to [facility] Continue monitor at the [facility] in [facility]. He should not of access to foreign bodies that he could ingest in self-harm attempts and may need to be on suicide precautions. If develops signs of perforation or obstruction, get an abdomina xray and transfer to the hospital for surgery If this occurs in near future, consider tertiary care center given his very recent surgery which makes reoperation dangerous as per Surgery Follow up with psychiatry at the detention Increase gabapentin in 2 days to 600mg TID for his seizure Check Stella level Continue monitor closely Current Hospital Diet Patient's current hospital diet: Regular Diet Discharge Diet Recommended Diet: Regular Diet Procedures Procedures Performed: Upper Gastrointestinal Endoscopy Pending Studies Studies pending at discharge: no Medical Emergencies . Who to Call and When: Medical Emergencies: If at any time you feel your situation is an emergency, please call 911 immediately. . Non-Emergent Contact Non-Emergency issues call your: Primary Care Provider Call Non-Emergent contact if: your pain is not controlled, your pain is worsening, you have any medication questions . . "Provider Documentation" section prepared by Roxie Steen. . VTE Core Measure Inpt VTE Proph given/why not?: SCD's
--- NOTE | 2017-06-15 18:01 | Discharge Summary ---
Discharge Summary Date of Service Jun 15, 2017. Discharge Summary Admission Date: Jun 11, 2017 at 12:10 Discharge Date: Jun 15, 2017 Principal Diagnosis: Foreign body ingestion Secondary Diagnoses/Problems: Depression/Anxiety Hx Seizure Procedures: KUB HISTORY: F/U Foreign Body COMPARISON: KUB 06/14/2017. FINDINGS: Moderate to large amount of well-formed stool seen throughout the colon. No renal calculi. No ureteral calculi. No pneumoperitoneum or pneumatosis. No evidence for bowel obstruction. There is again noted a metallic clip within the left upper quadrant which measures 2.9 x 1.4 cm. This is not significantly changed in position. Curvilinear radiopaque foreign body within the right mid abdomen likely resides within the ascending colon. There are 2 new adjacent radiopaque metallic foreign bodies consistent with a screws within the right mid abdomen. These measure 3.9 and 1.6 cm in length. These may reside within the distal stomach/proximal duodenum. IMPRESSION: There are now a total 4 radiopaque foreign bodies seen within the abdomen as described above. Electronically signed by: Reyes Jesus M.D. 06/15/2017 12:45 PM Dictated Date/Time: 06/15/2017 12:43 PM ABD/PELVIS NO IV OR ORAL CONT CT DOSE: 277.49 mGy.cm HISTORY: Foreign body FB ingestion TECHNIQUE: Multiaxial CT images of the abdomen and pelvis were performed without contrast. A dose lowering technique was utilized adhering to the principles of ALARA. COMPARISON STUDY: None. FINDINGS: The lung bases are clear. The unenhanced liver, spleen, gallbladder, pancreas, kidneys, and adrenal glands are within normal limits. No bowel wall thickening or obstruction. The pelvic organs are unremarkable. No suspicious lytic or blastic osseous lesions. A foreign body within the mid stomach consistent with a history of shallower. No congestion. No evidence for free air. Bowel pattern is nonobstructive. Bladder is midline. Small amount of reactive free fluid within the pelvic cul-de-sac. IMPRESSION: 1. Foreign body within the mid stomach. 2. Trace amount nonspecific free fluid within the pelvic cul-de-sac. The above report was generated using voice recognition software. It may contain grammatical, syntax or spelling errors. Electronically signed by: aWtson Shoemaker M.D. 06/11/2017 6:54 AM Dictated Date/Time: 06/11/2017 6:52 AM Consultations: Gastro Surgery Psych Medication Reconciliation New Medications: Gabapentin (Gabapentin) 300 Mg Cap 300 MG PO UD for 2 Days, CAP gabapentin 300 mg PO TID for 2 more days, then increase to 600mg TID Continued Medications: Lamont Carbonate Ext Rel (Lithobid Ext Rel) 450 Mg Tabcr 450 MG PO BID, TAB Prazosin Hcl (Prazosin) 1 Mg Cap 1 MG PO HS, CAP Quetiapine Fumarate (Seroquel) 200 Mg Tab 200 MG PO HS Sertraline (Zoloft) 50 Mg Tab 50 MG PO DAILY, TAB Admission Information HPI (per Admitting provider): CHIEF COMPLAINT: Foreign body ingestion. HISTORY OF PRESENT ILLNESS: This 27-year-old male with history of multiple foreign body ingestions in the past, history of bipolar depression, seizures and suicidal ideation, was brought in from intermediate because he ingested shower hook last night. He had a seizure episode yesterday and he thinks it lasted for about 8 minutes and says he bit his tongue and passed urine during that episode and when he came back to his usual self, he was very anxious and it happens after seizure episodes and at that time he swallowed shower hook. One hour later started with nausea, vomiting and abdominal pain. He had some blood in mouth and nose and thinks its because of seizure episode. He did not move his bowels since then. He had his coffee and water in the morning and was having some painful swallowing. The patient says that he was on Depakote, gabapentin and Klonopin before and he is no longer taking those medications and he could not tolerate the Depakote. Patient says few months back, he had seizure episode and he injured his head and his chin. Also in May 20 of this year, he swallowed razor blades and was in [facility] and operated on.He has history of swallowing metal scrapes. Currently, resting comfortably and hemodynamically stable. He denies any headache. There is some mild dizziness and blurred visions. He has some sore throat and difficulty swallowing. Denies any chest pain. He states he is short of breath from anxiety. Normal micturition. No swelling in the legs. Physical Exam (per Admitting): PHYSICAL EXAMINATION: GENERAL: The patient is of moderate build, not in distress. VITAL SIGNS: Temperature 37, pulse 62, respiratory rate 21, blood pressure 117/72, oxygen 99% room air. HEENT: No pallor, no icterus. Pupils equal, round, no pallor, no icterus. NECK: No JVD, no neck masses, no carotid bruits. CARDIOVASCULAR: S1, S2 heard, regular rate and rhythm, no murmur, no gallop. RESPIRATORY SYSTEM: Normal AP diameter. No accessory muscle use. No wheezing, no crackles. ABDOMEN: Soft, bowel sounds present. Mild diffuse tenderness, no guarding, no rigidity. No distention. CENTRAL NERVOUS SYSTEM: Cranial nerves are grossly intact. Nonfocal. EXTREMITIES: No edema, no erythema. Hospital Course Foreign body ingestion Hx of multiple foreign body ingestion in the past S/P surgery few weeks ago in [facility] after ingested a razor blade Had EGD done yesterday, and the shower hook already passed into the stomach Repeat abdominal xray done today showed foreign body has now passed distally and is in the region of the terminal ileum and/or mid a sending colon. Nonobstructive bowel pattern. Diet was advanced to full liquid diet Refused to eat full liquid diet, he wants regular food Repeat abd xray in am continue IVF continue monitor 06/13 Tolerated regular diet Repeat xray today showed foreign body, is now located within the left mid abdomen laterally, and is likely positioned within the descending colon. Will change pain med to PO repeat xray in am once pass shower hook, pt will be ok to discharge 06/14 Pt swallowed additional foreign body last night KUB showed radiopaque density appears described now overlies what appears to be the region of the mid right sacrum and/or distal small bowel. Additional metallic foreign body occupying the mid stomach. Has not had a bowel movement yet Discussed with nurse and security officer not to leave any object in his room that able to swallow. Repeat KUB in am 06/15 had 3 BM last night Swallowed 4 items last night Passed the shower hook last night and retrieved the shower hook from the stool and ingested again Repeat KUB today showed a total 4 radiopaque foreign bodies seen within the abdomen. No obstruction or perforation He continue swallow object to stay in the hospital to get Narcotic and Benzo He admitted that he would continue to swallow whatever he can get access to if he does not get Klonopin when he goes back to intermediate case discussed with surgeon Dr. Turner that recommended no surgical intervention at this time unless pt has a perforation or obstruction As per Surgery pt can be [facility] If his conditions change such as signs for obstruction or perforation, repeat and xray and transfer to the hospital for surgery If this occurs in near future, consider tertiary care center given his very recent surgery which makes reoperation dangerous as per Surgery Avoid any object that he is able to swallow near him case discussed with Dr. Booker at the [facility] Hx seizure Pt said that Klonopin and gabapentin is the only thing work EEG done showed no evidence for potentially epileptogenic activity. Neuro on board Recommended to continue gabapentin 300m TID for 2 more days, then increase to 600mg TID if break through seizure occurs, neuro recommended to try Dilantin or Vimpat continue seizure precaution Depression/Anxiety Pt said that only klonopin work for his anxiety in the past He said that he would continue swallowing object if he does not getting the Klonopin to help him with the anxiety Reviewed [place] prescription drug monitor, his last benzo script was in [place]. and he had been to multiple Rx Case discussed with Psych dr. Samuel, that did not recommend any Benzo due to his history of substance abuse Has been getting Ativan PRN, will d/c 06/15 No benzo as per psych Pt said that he would continue swallowing object if he does get Klonopin in [place] Discussed with nurse and security officer not to leave any object in his room that he is able to swallow. He should not of access to foreign bodies that he could ingest in self-harm attempts and may need to be on suicide precautions. Continue zoloft, seroquel, lithium Deep vein thrombosis prophylaxis on SCDs and TEDs. CODE STATUS FULL CODE Disposition Will discharge back to [facility] today Case discussed with Dr. Booker at [facility] Total time spent on discharge = 35 minutes This includes examination of the patient, discharge planning, medication reconciliation, and communication with other providers. Discharge Instructions Discharge Instructions Date of Service Jun 15, 2017. Admission Reason for Admission: Foreign Body Ingestion,Hx Of Foreing Body Discharge Discharge Diagnosis / Problem: Foreign body ingestion, Hx Seizure, Anxiety/ Depression Discharge Goals Goal(s): Decrease discomfort, Improve function, Improve disease control Activity Recommendations Activity Limitations: resume your previous activity (as tolerated) . Instructions / Follow-Up Instructions / Follow-Up Discharge to [facility] [place] Continue monitor at the monitored in [facility]. He should not of access to foreign bodies that he could ingest in self-harm attempts and may need to be on suicide precautions. If develops signs of perforation or obstruction, get an abdomina xray and transfer to the hospital for surgery If this occurs in near future, consider tertiary care center given his very recent surgery which makes reoperation dangerous as per Surgery Follow up with psychiatry at the intermediate Increase gabapentin in 2 days to 600mg TID for his seizure Check Lamont level Continue monitor closely Current Hospital Diet Patient's current hospital diet: Regular Diet Discharge Diet Recommended Diet: Regular Diet Procedures Procedures Performed: Upper Gastrointestinal Endoscopy Pending Studies Studies pending at discharge: no Medical Emergencies . Who to Call and When: Medical Emergencies: If at any time you feel your situation is an emergency, please call 911 immediately. . Non-Emergent Contact Non-Emergency issues call your: Primary Care Provider Call Non-Emergent contact if: your pain is not controlled, your pain is worsening, you have any medication questions . . "Provider Documentation" section prepared by Roxie Steen. . VTE Core Measure Inpt VTE Proph given/why not?: SCD's Additional Copies To Humberto JOHNSON
== END 2017-06-15 18:46 | DRG 395 ==
LOC: C.EDB 02:40 → ENRESERV 11:31 → C.MSN 12:10
PROVIDERS: ADMIT Hospitalist; ATTEND Internal Medicine
PROC: 0DJ08ZZ Inspection of Upper Intestinal Tract, Via Natural or Artificial Opening Endoscopic (ICD-10-PCS; principal; 2017-06-11 08:30)
DX: T18.3XXA Foreign body in small intestine, initial encounter (principal); F17.200 Nicotine dependence, unspecified, uncomplicated; F32.9 Major depressive disorder, single episode, unspecified; G40.909 Epilepsy, unspecified, not intractable, without status epilepticus; F31.9 Bipolar disorder, unspecified; F41.1 Generalized anxiety disorder; F41.0 Panic disorder [episodic paroxysmal anxiety]; Z82.0 Family history of epilepsy and other diseases of the nervous system; Z76.5 Malingerer [conscious simulation]; X58.XXXA Exposure to other specified factors, initial encounter; F10.21 Alcohol dependence, in remission; F11.11 Opioid abuse, in remission; Z91.5 Personal history of self-harm

== ENCOUNTER 2017-07-19 19:24 | Emergency (ER) | payer OTHER ==
[~2017-07-19] VITALS: Ht 182.9 cm; Wt 74.4 kg
[~2017-07-19 19:24] MED LIST: LITH1TAB PO; NRN300 PO; PRAZ1CAP10 PO; SERT50TA PO; SRQ200 PO
[2017-07-19 19:27] VITALS: Ht 182.9 cm; Wt 74.4 kg
[2017-07-19 20:13] LABS: BASO % 0.5 %; BASO ABS # 0.04 K/uL (0-0.2); COMPLETE YES; EOS % 7.1 %; HEMATOCRIT 44.2 % (42-52); IG% 0.1 %; LYMPH % 46.5 %; LYMPH ABS # 3.75 K/uL (1.2-3.4); MEAN CELL VOLUME 95.5 fL (80-100); MEAN CORPUSCULAR HEMOGLOBIN 31.5 pg (25-34); MEAN PLATELET VOLUME 9.2 fL (7.4-10.4); MONO % 8.3 %; NEUT % 37.5 %; PLATELET COUNT 244 K/uL (130-400); RED BLOOD COUNT 4.63 M/uL (4.7-6.1); WHITE BLOOD COUNT 8.07 K/uL (4.8-10.8)
--- NOTE | 2017-07-19 20:18 | EMERGENCY ROOM VISIT NOTE ---
History Report prepared by Warren: Lissette Holloway Under the Supervision of: Dr. Juanjo Gibson D.O. First contact with patient: 19:34 Chief Complaint: ABDOMINAL PAIN Stated Complaint: SWALLOWED A PEN History of Present Illness The patient is a 27 year old male who presents to the Emergency Room with complaints of an episode of swallowing a pen 16 days ago. The patient reports he then swallowed a plastic fork 12 days ago. The patient has a history of swallowing objects in the past. He states when he previously swallowed objects he either passed the object or he had too have it surgically removed. The patient last bowel movement was 3 days ago. He notes abdominal pain, difficulty urinating, chills and vomiting. The patient has a history of depression, seizures and bipolar disorder Source of History: patient Onset: 16 days ago Position: other (global) Quality: other (swallowing a pen) Timing: other (episode) Associated Symptoms: + chills, + vomiting, + abdominal pain, + urinary symptoms Review of Systems See HPI for pertinent positives & negatives. A total of 10 systems reviewed and were otherwise negative. Past Medical & Surgical Medical Problems: (1) Depression (2) History of foreign body ingestion (3) Malingering (4) Mood disorder (5) Seizure disorder Social History Smoking Status: Current Every Day Smoker Marital Status: single Housing Status: other Occupation Status: other Current/Historical Medications Scheduled Acetaminophen W/ Codeine (Tylenol W/Codeine #3), 1 TAB PO TID Diphenhydramine Hcl (Benadryl), 100 MG PO HS Gabapentin (Neurontin), 600 MG PO TID [place]o Carbonate Ext Rel (Lithobid Ext Rel), 450 MG PO BID Minocycline (Minocin), 100 MG PO DAILY Perphenazine (Trilafon), 2 MG PO DAILY Prazosin Hcl (Prazosin), 1 MG PO HS Propranolol (Inderal), 20 MG PO BID Propranolol (Inderal), 10 MG PO DAILY@NOON Quetiapine Fumarate (Seroquel), 300 MG PO HS Sertraline (Zoloft), 100 MG PO DAILY Scheduled PRN Emollient (Lubriskin), 1 APPLN TOP DAILY PRN for Hydrocortisone (Topical) (Hydrocortisone), 1 APPLN TOP BID PRN for Magnesium Hydroxide (Milk Of Magnesia), 30 ML PO BID PRN for Constipation Allergies Coded Allergies: Ketorolac Tromethamine (Verified Allergy, Unknown, breathing problems, ) Penicillins (Verified Allergy, Unknown, unknown, 06/11/17) Physical Exam Vital Signs Date Time Temp Pulse Resp B/P (MAP) Pulse Ox O2 Delivery O2 Flow Rate FiO2 07/20/17 00:55 18 07/19/17 23:25 65 18 119/74 (82) 99 Room Air 07/19/17 23:20 62 18 121/75 (79) 99 Room Air 07/19/17 23:15 71 22 115/60 (70) 99 Room Air 07/19/17 23:10 71 16 123/78 (91) 100 Room Air 07/19/17 23:07 36.7 64 16 129/77 (87) 97 Room Air 07/19/17 22:12 58 16 127/70 97 07/19/17 21:24 58 16 121/69 98 Room Air 07/19/17 19:27 36.8 58 18 150/87 100 Room Air Physical Exam GENERAL: Patient is awake, alert, and in no acute distress. Patient is resting comfortably and showing no signs of anxiety EYES: The conjunctivae are clear. The pupils are round and reactive. EARS, NOSE, MOUTH AND THROAT: The nose is without any evidence of any deformity. Mucous membranes are moist tongue is midline NECK: The neck is nontender and supple. RESPIRATORY: Normal respiratory effort is noted there is no evidence of wheezing rhonchi or rales CARDIOVASCULAR: Regular rate and rhythm noted there no murmurs rubs or gallops normal S1 normal S2 GASTROINTESTINAL: The abdomen is mildly distended and soft. No guarding or rigidity. Bowel sounds are present in all quadrants. MUSCULOSKELETAL/EXTREMITIES: There is no evidence of gross deformity full range of motion is noted in the hips and shoulders SKIN: There is no obvious evidence of any rash. There are no petechiae, pallor or cyanosis noted. NEUROLOGIC: Patient is awake alert and oriented x3. Medical Decision & Procedures ER Provider Diagnostic Interpretation: Radiology results as stated below per my review and radiologist interpretation: CHEST ONE VIEW PORTABLE, KUB FINDINGS: The lungs are clear. The heart is normal in size. No pleural effusions. No pneumothorax. No radiopaque foreign bodies within the chest. The radiopaque foreign bodies seen on the prior study are no longer present. However, there is a new radiopaque foreign body seen within the left upper quadrant. This measures approximately 10 cm and is consistent with the internal components of a pen. No pneumoperitoneum. No pneumatosis. The bowel gas pattern is unremarkable. No evidence for bowel obstruction. IMPRESSION: 1. No acute process within the chest. 2. There is a new radiopaque foreign body seen within the left upper quadrant of the abdomen which measures approximately 10 cm and is consistent with the internal components of a pen. Electronically signed by: Reyes Jesus M.D. CHEST ONE VIEW PORTABLE, KUB FINDINGS: The lungs are clear. The heart is normal in size. No pleural effusions. No pneumothorax. No radiopaque foreign bodies within the chest. The radiopaque foreign bodies seen on the prior study are no longer present. However, there is a new radiopaque foreign body seen within the left upper quadrant. This measures approximately 10 cm and is consistent with the internal components of a pen. No pneumoperitoneum. No pneumatosis. The bowel gas pattern is unremarkable. No evidence for bowel obstruction. IMPRESSION: 1. No acute process within the chest. 2. There is a new radiopaque foreign body seen within the left upper quadrant of the abdomen which measures approximately 10 cm and is consistent with the internal components of a pen. Electronically signed by: Reyes Jesus M.D. Laboratory Results 07/19/17 19:55 Red Blood Count 4.63, Mean Corpuscular Volume 95.5, Mean Corpuscular Hemoglobin 31.5, Mean Corpuscular Hemoglobin Concent 33.0, Mean Platelet Volume 9.2, Neutrophils (%) (Auto) 37.5, Lymphocytes (%) (Auto) 46.5, Monocytes (%) (Auto) 8.3, Eosinophils (%) (Auto) 7.1, Basophils (%) (Auto) 0.5, Neutrophils # (Auto) 3.03, Lymphocytes # (Auto) 3.75, Monocytes # (Auto) 0.67, Eosinophils # (Auto) 0.57, Basophils # (Auto) 0.04 07/19/17 19:55 Test 07/19/17 19:55 07/19/17 20:06 White Blood Count 8.07 K/uL (4.8-10.8) Red Blood Count 4.63 M/uL (4.7-6.1) Hemoglobin 14.6 g/dL (14.0-18.0) Hematocrit 44.2 % (42-52) Mean Corpuscular Volume 95.5 fL (80-100) Mean Corpuscular Hemoglobin 31.5 pg (25-34) Mean Corpuscular Hemoglobin Concent 33.0 g/dl (32-36) Platelet Count 244 K/uL (130-400) Mean Platelet Volume 9.2 fL (7.4-10.4) Neutrophils (%) (Auto) 37.5 % Lymphocytes (%) (Auto) 46.5 % Monocytes (%) (Auto) 8.3 % Eosinophils (%) (Auto) 7.1 % Basophils (%) (Auto) 0.5 % Neutrophils # (Auto) 3.03 K/uL (1.4-6.5) Lymphocytes # (Auto) 3.75 K/uL (1.2-3.4) Monocytes # (Auto) 0.67 K/uL (0.11-0.59) Eosinophils # (Auto) 0.57 K/uL (0-0.5) Basophils # (Auto) 0.04 K/uL (0-0.2) RDW Standard Deviation 51.1 fL (36.4-46.3) RDW Coefficient of Variation 14.6 % (11.5-14.5) Immature Granulocyte % (Auto) 0.1 % Immature Granulocyte # (Auto) 0.01 K/uL (0.00-0.02) Prothrombin Time 10.8 SECONDS (9.0-12.0) Prothromb Time International Ratio 1.0 (0.9-1.1) Activated Partial Thromboplast Time 25.0 SECONDS (21.0-31.0) Partial Thromboplastin Ratio 1.0 Anion Gap 1.0 mmol/L (3-11) Est Creatinine Clear Calc Drug Dose 127.2 ml/min Estimated GFR () 132.5 Estimated GFR (Non- 114.3 BUN/Creatinine Ratio 16.4 (10-20) Calcium Level 9.7 mg/dl (8.5-10.1) Magnesium Level 2.1 mg/dl (1.8-2.4) Total Bilirubin 0.2 mg/dl (0.2-1) Direct Bilirubin < 0.1 mg/dl (0-0.2) Aspartate Amino Transf (AST/SGOT) 114 U/L (15-37) Alanine Aminotransferase (ALT/SGPT) 230 U/L (12-78) Alkaline Phosphatase 77 U/L (45-117) Total Protein 8.4 gm/dl (6.4-8.2) Albumin 4.3 gm/dl (3.4-5.0) Lipase 110 U/L (73-393) Chemistry Specimen Hemolysis Galisteo Level 0.7 mMOL/L (0.6-1.2) Urine Color YELLOW Urine Appearance CLEAR (CLEAR) Urine pH 7.5 (4.5-7.5) Urine Specific [place] 1.011 (1.000-1.030) Urine Protein NEG (NEG) Urine Glucose (UA) NEG (NEG) Urine Ketones NEG (NEG) Urine Occult Blood NEG (NEG) Urine Nitrite NEG (NEG) Urine Bilirubin NEG (NEG) Urine Urobilinogen NEG (NEG) Urine Leukocyte Esterase TRACE (NEG) Urine WBC (Auto) 1-5 /hpf (0-5) Urine RBC (Auto) 0-4 /hpf (0-4) Urine Hyaline Casts (Auto) 0 /lpf (0-5) Urine Epithelial Cells (Auto) 0-5 /lpf (0-5) Urine Bacteria (Auto) NEG (NEG) Laboratory results per my review. ED Course 1942: The patient was evaluated in room B10. A complete history and physical examination were performed. 2056: I discussed the patient's case with Dr. Lopez-[facility] D[place]. Dr. Ailyn Mendoza preformed surgery on the patient in May to remove another foreign object. 2107: I discussed the patient's case with Dr. Boyd. The patient will be evaluated for further management. 2128: I discussed the patient's case with Dr. Wilfredo Seay.He will come evaluate the patient. Medical Decision Differential diagnosis: Etiologies such as appendicitis, diverticulitis, PUD, biliary pathology, UTI, pancreatitis, obstruction, mesenteric ischemia, aortic pathology, infections, inflammatory bowel disease, renal colic, as well as others were entertained. Nursing notes reviewed. The patient is a 27-year-old male who [facility]. He has had similar episodes in the past requiring surgical removal of GI foreign bodies. I discussed his case with the on-call general surgeon as well as the on-call [facility] hospitalist. Ultimately the patient was taken to the GI suite by the on-call medical affairs director and had removal of the foreign bodies under endoscopy. I discussed the patient's laboratory and radiographic studies with him. Blood Pressure Screening Patient's blood pressure: Elevated blood pressure Blood pressure disposition: Referred to PCP (evaluated by hospitalist) Consults Time Called: 2051 Consulting Physician: Dr. Lopez-[facility] Surgery Returned Call: 2056 I discussed the patient's case with Dr. Lopez-[facility] Dylon. Dr. Ailyn Mendoza preformed surgery on the patient in May to remove another foreign object. Additional Consults: Time Called: 2104 Consulted Physician: Dr. Boyd Returned Call: 2107 Additional Comments: I discussed the patient's case. The patient will be evaluated for further management. Time Called: 2127 Consulted Physician: Dr. Wilfredo Seay Returned Call: 2128 Additional Comments: I discussed the patient's case with Dr. Wilfredo Seay.He will come evaluate the patient. Impression Primary Impression: FB GI (foreign body in gastrointestinal tract) Scribe Attestation The scribe's documentation has been prepared under my direction and personally reviewed by me in its entirety. I confirm that the note above accurately reflects all work, treatment, procedures, and medical decision making performed by me. Departure Information Dispostion Being Evaluated By Hospitalist Referrals Humberto JOHNSON (PCP) Patient Instructions My [facility] Problem Qualifiers Primary Impression: FB GI (foreign body in gastrointestinal tract) Encounter type: initial encounter Qualified Codes: T18.9XXA - Foreign body of alimentary tract, part unspecified, initial encounter
[2017-07-19 20:38] LABS: ALT/SGPT 230 U/L (12-78); AST/SGOT 114 U/L (15-37); BLOOD UREA NITROGEN 15 mg/dl (7-18); BUN/CREATININE RATIO 16.4 (10-20); CALCIUM 9.7 mg/dl (8.5-10.1); CARBON DIOXIDE 33 mmol/L (21-32); CHLORIDE 102 mmol/L (98-107); CREATININE 0.91 mg/dl (0.60-1.40); GLUCOSE 83 mg/dl (70-99); POTASSIUM 3.9 mmol/L (3.5-5.1); SODIUM 136 mmol/L (136-145)
[2017-07-19 20:39] LABS: PROTHROMBIN TIME (PATIENT) 10.8 SECONDS (9.0-12.0)
[2017-07-19 20:40] LABS: ALKALINE PHOSPHATASE 77 U/L (45-117)
--- NOTE | 2017-07-19 20:43 | DIAGNOSTIC IMAGING REPORT ---
CHEST ONE VIEW PORTABLE, KUB HISTORY: Generalized abdominal pain. COMPARISON: Chest and abdominal series 06/11/2017. FINDINGS: The lungs are clear. The heart is normal in size. No pleural effusions. No pneumothorax. No radiopaque foreign bodies within the chest. The radiopaque foreign bodies seen on the prior study are no longer present. However, there is a new radiopaque foreign body seen within the left upper quadrant. This measures approximately 10 cm and is consistent with the internal components of a pen. No pneumoperitoneum. No pneumatosis. The bowel gas pattern is unremarkable. No evidence for bowel obstruction. IMPRESSION: 1. No acute process within the chest. 2. There is a new radiopaque foreign body seen within the left upper quadrant of the abdomen which measures approximately 10 cm and is consistent with the internal components of a pen. Electronically signed by: Reyes Jesus M.D. 07/19/2017 8:42 PM Dictated Date/Time: 07/19/2017 8:38 PM
[2017-07-19] MEDS ORDERED: PERP1TAB10 PO (20:57)
[2017-07-19] MEDS ORDERED: GABA600T PO (20:57)
[2017-07-19] MEDS ORDERED: EMOL-31 TOP (20:57)
[2017-07-19] MEDS ORDERED: HYDR0.5C TOP (20:57)
[2017-07-19] MEDS ORDERED: ACET300T2 PO (20:57)
[2017-07-19] MEDS ORDERED: DIPH25CA5 PO (20:57)
[2017-07-19] MEDS ORDERED: MINO100C22 PO (20:57)
[2017-07-19] MEDS ORDERED: PROP10TA7 PO ×2 (20:57)
[2017-07-19] MEDS ORDERED: QUET1TAB37 PO (20:57)
[2017-07-19] MEDS ORDERED: LITH1TAB PO (20:57)
[2017-07-19] MEDS ORDERED: MOML PO (20:57)
[2017-07-19] MEDS ORDERED: SERT-234 PO (20:57)
[2017-07-19 21:08] LABS: URINE APPEARANCE CLEAR (CLEAR); URINE BILIRUBIN NEG (NEG); URINE COLOR YELLOW; URINE EPITHELIAL CELL AUTO 0-5 /lpf (0-5); URINE NITRITE NEG (NEG); URINE PH 7.5 (4.5-7.5); URINE SPECIFIC GRAVITY 1.011 (1.000-1.030); UROBILINOGEN NEG (NEG)
[2017-07-19 21:17] LABS: MANUAL MICROSCOPIC REQUIRED? NO; REVIEW REQ? NO
[2017-07-19 22:03] LABS: MAGNESIUM 2.1 mg/dl (1.8-2.4)
--- NOTE | 2017-07-19 22:10 | Gastrointestinal Consultation ---
Gastrointestinal Consultation Date of Consultation: Jul 19, 2017 Consulting Physician: ED Physician Reason for Consultation: GI Foreign body History of Present Illness Patient is a 27 year old male who was brought from detention after c/o abdominal pain and intolerance to PO diet. Patient swallowed a plastic pen and a fork 2 weeks ago. Had few episodes of vomiting since then but no hematemesis. He c/o left upper quadrant intermittent abdominal pain, nonradiating, dull, nonprogressing, associated with nausea. No fever, chills, melena, rectal bleeding, diarrhea or constipation. Had similar admissions in the past after swallowing foreign bodies requiring endoscopic removal. Past Medical/Surgical History Medical Problems: (1) FB GI (foreign body in gastrointestinal tract) Status: Acute (2) Foreign body ingestion Status: Acute Social History Smoking Status: Current Every Day Smoker Marital Status: single Housing Status: other Occupation Status: other Allergies Coded Allergies: Ketorolac Tromethamine (Verified Allergy, Unknown, breathing problems, ) Penicillins (Verified Allergy, Unknown, unknown, 06/11/17) Current Medications Home Meds and Scripts Medications Dose Route/Sig Max Daily Dose Days Date Category Dose Instructions Zoloft (Sertraline HCl) 100 Mg Tab 100 Mg PO DAILY 07/19/17 Reported Seroquel (Quetiapine Fumarate) 300 Mg Tab 300 Mg PO HS 07/19/17 Reported Inderal (Propranolol HCl) 10 Mg Tab 10 Mg PO DAILY@NOON 07/19/17 Reported Inderal (Propranolol HCl) 10 Mg Tab 20 Mg PO BID 07/19/17 Reported Trilafon (Perphenazine) 2 Mg Tab 2 Mg PO DAILY 07/19/17 Reported START 07/19/2017 Minocin (Minocycline HCl) 100 Mg Cap 100 Mg PO DAILY 07/19/17 Reported STOP ON 09/21/2016 Lithobid Ext Rel ([place] Carbonate) 450 Mg Tabcr 450 Mg PO BID 07/19/17 Reported Neurontin (Gabapentin) 600 Mg Tab 600 Mg PO TID 07/19/17 Reported Benadryl (Diphenhydramine Hcl) 25 Mg Cap 100 Mg PO HS 07/19/17 Reported Tylenol W/Codeine #3 (Acetaminophen W/ Codeine) 1 Tab Tab 1 Tab PO TID 07/19/17 Reported Milk Of Magnesia (Magnesium Hydroxide) 30 Ml Susp 30 Ml PO BID PRN 07/19/17 Reported Lubriskin (Emollient) 1 Lot Lot 1 Appln TOP DAILY PRN 07/19/17 Reported Hydrocortisone (Hydrocortisone (Topical)) 0.5 % Cre 1 Appln TOP BID PRN 07/19/17 Reported STOP 07/21/2017 Prazosin (Prazosin HCl) 1 Mg Cap 1 Mg PO HS 06/11/17 Reported Review of Systems Constitutional: No fever, No chills, No sweats, No fatigue Eyes: No worsening of vision, No eye pain ENT: No hearing loss, No unusual epistaxis, No nasal symptoms, No tinnitus, No pain on swallowing Respiratory: + see HPI, No cough, No sputum, No wheezing, No dyspnea at rest, No hemoptysis Abdomen: + see HPI Musculoskeletal: No joint pain, No muscle pain, No swelling, No calf pain Male : No dysuria, No urinary frequency, No incontinence, No hematuria Heme: No abnormal bleeding/bruising, No clotting problems Endo: No fatigue Skin: No rash, No itch Physical Exam Date Time Temp Pulse Resp B/P (MAP) Pulse Ox O2 Delivery O2 Flow Rate FiO2 07/19/17 21:24 58 16 121/69 98 Room Air 07/19/17 19:27 36.8 58 18 150/87 100 Room Air General Appearance: WD/WN, no apparent distress Eyes: PERRL ENT: hearing grossly normal, pharynx normal Neck: supple, trachea midline Respiratory/Chest: chest non-tender, lungs clear, normal breath sounds Cardiovascular: regular rate, rhythm, no edema Abdomen: normal bowel sounds, non tender, soft, no organomegaly, no pulsatile mass Extremities: normal range of motion, non-tender Neurologic/Psych: alert, oriented x 3 Laboratory Results Last 24 Hours Test 07/19/17 19:55 07/19/17 20:06 White Blood Count 8.07 K/uL Red Blood Count 4.63 M/uL Hemoglobin 14.6 g/dL Hematocrit 44.2 % Mean Corpuscular Volume 95.5 fL Mean Corpuscular Hemoglobin 31.5 pg Mean Corpuscular Hemoglobin Concent 33.0 g/dl Platelet Count 244 K/uL Mean Platelet Volume 9.2 fL Neutrophils (%) (Auto) 37.5 % Lymphocytes (%) (Auto) 46.5 % Monocytes (%) (Auto) 8.3 % Eosinophils (%) (Auto) 7.1 % Basophils (%) (Auto) 0.5 % Neutrophils # (Auto) 3.03 K/uL Lymphocytes # (Auto) 3.75 K/uL Monocytes # (Auto) 0.67 K/uL Eosinophils # (Auto) 0.57 K/uL Basophils # (Auto) 0.04 K/uL RDW Standard Deviation 51.1 fL RDW Coefficient of Variation 14.6 % Immature Granulocyte % (Auto) 0.1 % Immature Granulocyte # (Auto) 0.01 K/uL Prothrombin Time 10.8 SECONDS Prothromb Time International Ratio 1.0 Activated Partial Thromboplast Time 25.0 SECONDS Partial Thromboplastin Ratio 1.0 Sodium Level 136 mmol/L Potassium Level 3.9 mmol/L Chloride Level 102 mmol/L Carbon Dioxide Level 33 mmol/L Anion Gap 1.0 mmol/L Blood Urea Nitrogen 15 mg/dl Creatinine 0.91 mg/dl Est Creatinine Clear Calc Drug Dose 127.2 ml/min Estimated GFR () 132.5 Estimated GFR (Non- 114.3 BUN/Creatinine Ratio 16.4 Random Glucose 83 mg/dl Calcium Level 9.7 mg/dl Total Bilirubin 0.2 mg/dl Direct Bilirubin < 0.1 mg/dl Aspartate Amino Transf (AST/SGOT) 114 U/L Alanine Aminotransferase (ALT/SGPT) 230 U/L Alkaline Phosphatase 77 U/L Total Protein 8.4 gm/dl Albumin 4.3 gm/dl Lipase 110 U/L [place] Level 0.7 mMOL/L Urine Color YELLOW Urine Appearance CLEAR Urine pH 7.5 Urine Specific [place] 1.011 Urine Protein NEG Urine Glucose (UA) NEG Urine Ketones NEG Urine Occult Blood NEG Urine Nitrite NEG Urine Bilirubin NEG Urine Urobilinogen NEG Urine Leukocyte Esterase TRACE Urine WBC (Auto) 1-5 /hpf Urine RBC (Auto) 0-4 /hpf Urine Hyaline Casts (Auto) 0 /lpf Urine Epithelial Cells (Auto) 0-5 /lpf Urine Bacteria (Auto) NEG Impression Patient is a 27 year old male who swallowed a fork and a pen, length of each object is more than 5 cm hence require emergent endoscopic removal. No evidence of bowel perforation clinically nor on imaging. Plan Will arrange for EGD for foreign body removal now. Patient was explained in details regarding risk, benefit alternatives of the procedure. Risk of bleeding and perforation explaind and he verbalized understanding and agreed. Keep NPO.
[2017-07-19 22:12] VITALS: O2SAT 97
[2017-07-19] MEDS ORDERED: SODIUM CHLORIDE 0.9% 500ML 500 ML IV ONE (22:12)
[2017-07-19] MEDS ORDERED: FENTANYL CITRATE INJ 50 MCG/1 ML 2 ML VIAL ONE (22:15)
[2017-07-19] MEDS ORDERED: PROPOFOL IV EMULSION 10 MG/ML 20 ML VIAL IV ONE (22:15)
[2017-07-19] MEDS ORDERED: MIDAZOLAM HCL 1 MG/ML 2ML VIAL ONE (22:16)
[2017-07-19] MEDS ORDERED: MoRPHine SULFATE 2 MG/ML CARP IV STA (22:26)
--- NOTE | 2017-07-19 22:30 | History & Physical Bridge Note ---
H&P Re-Evaluation Bridge Note: I have examined the patient, reviewed the History & Physical and in the interval since the performance of the History & Physical I have noted the following changes of clinical significance: No changes noted Planned for EGD for foreign body removal. Consented and agreed.
--- NOTE | 2017-07-19 22:37 | History and Physical ---
History & Physical Date & Time of Service: Jul 19, 2017 at 22:22 Chief Complaint: Swallowed A Pen Primary Care Physician: Humberto JOHNSON History of Present Illness Source: patient Patient is a 27yo M with a PMH of depression, bipolar and seizures who presents from [facility] after swallowing a pen and plastic fork 2 weeks ago. Patient has a history of swallowing foreign bodies that have required endoscopic removal. Patient started to experience worsening abdominal pain a few days ago in his LUQ but it has progressed in severity. Describes pain as sharp and non-radiating with associated nausea and vomiting. Denies any hematemesis. Also endorses one episode of bright red blood in his stool. Last BM was 3 days ago. Currently endorses chills, nausea and 7/10 LUQ abdominal pain. Denies lightheadedness, chest pain, SOB, dysuria. Past Medical/Surgical History Medical Problems: (1) Depression Status: Chronic (2) History of foreign body ingestion Status: Chronic (3) Malingering Status: Chronic (4) Mood disorder Status: Chronic (5) Seizure disorder Status: Chronic Family History Non-contributory Social History Smoking Status: Current Every Day Smoker (1 ppd) Marital Status: single Occupational Status: other Multi-Drug Resistant Organisms History of MDRO: Yes Type of MDRO: MRSA Allergies Coded Allergies: Ketorolac Tromethamine (Verified Allergy, Unknown, breathing problems, ) Penicillins (Verified Allergy, Unknown, unknown, 06/11/17) Home Medications Scheduled Acetaminophen W/ Codeine (Tylenol W/Codeine #3), 1 TAB PO TID Diphenhydramine Hcl (Benadryl), 100 MG PO HS Gabapentin (Neurontin), 600 MG PO TID [place] Carbonate Ext Rel (Lithobid Ext Rel), 450 MG PO BID Minocycline (Minocin), 100 MG PO DAILY Perphenazine (Trilafon), 2 MG PO DAILY Prazosin Hcl (Prazosin), 1 MG PO HS Propranolol (Inderal), 20 MG PO BID Propranolol (Inderal), 10 MG PO DAILY@NOON Quetiapine Fumarate (Seroquel), 300 MG PO HS Sertraline (Zoloft), 100 MG PO DAILY Scheduled PRN Emollient (Lubriskin), 1 APPLN TOP DAILY PRN for Hydrocortisone (Topical) (Hydrocortisone), 1 APPLN TOP BID PRN for Magnesium Hydroxide (Milk Of Magnesia), 30 ML PO BID PRN for Constipation Review of Systems Ten systems reviewed and negative except as noted in the HPI. Physical Exam Vital Signs Date Time Temp Pulse Resp B/P (MAP) Pulse Ox O2 Delivery O2 Flow Rate FiO2 07/19/17 22:12 58 16 127/70 97 07/19/17 21:24 58 16 121/69 98 Room Air 07/19/17 19:27 36.8 58 18 150/87 100 Room Air General Appearance: no apparent distress, + mild distress Head: normocephalic, atraumatic Eyes: normal inspection, PERRL, sclerae normal ENT: normal ENT inspection, hearing grossly normal, pharynx normal (moist mucous membranes) Neck: supple, trachea midline Respiratory/Chest: chest non-tender, lungs clear, normal breath sounds, no respiratory distress, no accessory muscle use Cardiovascular: regular rate, rhythm, no murmur, normal peripheral pulses Abdomen/GI: soft, no organomegaly, + tenderness (TTP in LUQ. No guarding) Back: normal inspection Extremities/Musculoskelatal: normal inspection, no calf tenderness, no pedal edema Neurologic/Psych: no motor/sensory deficits, alert, normal mood/affect, oriented x 3 Skin: normal color, warm/dry Diagnostics Laboratory Results Results Past 24 Hours Test 07/19/17 19:55 07/19/17 20:06 Range/Units White Blood Count 8.07 4.8-10.8 K/uL Red Blood Count 4.63 4.7-6.1 M/uL Hemoglobin 14.6 14.0-18.0 g/dL Hematocrit 44.2 42-52 % Mean Corpuscular Volume 95.5 80-100 fL Mean Corpuscular Hemoglobin 31.5 25-34 pg Mean Corpuscular Hemoglobin Concent 33.0 32-36 g/dl Platelet Count 244 130-400 K/uL Mean Platelet Volume 9.2 7.4-10.4 fL Neutrophils (%) (Auto) 37.5 % Lymphocytes (%) (Auto) 46.5 % Monocytes (%) (Auto) 8.3 % Eosinophils (%) (Auto) 7.1 % Basophils (%) (Auto) 0.5 % Neutrophils # (Auto) 3.03 1.4-6.5 K/uL Lymphocytes # (Auto) 3.75 1.2-3.4 K/uL Monocytes # (Auto) 0.67 0.11-0.59 K/uL Eosinophils # (Auto) 0.57 0-0.5 K/uL Basophils # (Auto) 0.04 0-0.2 K/uL RDW Standard Deviation 51.1 36.4-46.3 fL RDW Coefficient of Variation 14.6 11.5-14.5 % Immature Granulocyte % (Auto) 0.1 % Immature Granulocyte # (Auto) 0.01 0.00-0.02 K/uL Prothrombin Time 10.8 9.0-12.0 SECONDS Prothromb Time International Ratio 1.0 0.9-1.1 Activated Partial Thromboplast Time 25.0 21.0-31.0 SECONDS Partial Thromboplastin Ratio 1.0 Sodium Level 136 136-145 mmol/L Potassium Level 3.9 3.5-5.1 mmol/L Chloride Level 102 98-107 mmol/L Carbon Dioxide Level 33 21-32 mmol/L Anion Gap 1.0 3-11 mmol/L Blood Urea Nitrogen 15 7-18 mg/dl Creatinine 0.91 0.60-1.40 mg/dl Est Creatinine Clear Calc Drug Dose 127.2 ml/min Estimated GFR () 132.5 Estimated GFR (Non- 114.3 BUN/Creatinine Ratio 16.4 10-20 Random Glucose 83 70-99 mg/dl Calcium Level 9.7 8.5-10.1 mg/dl Magnesium Level 2.1 1.8-2.4 mg/dl Total Bilirubin 0.2 0.2-1 mg/dl Direct Bilirubin < 0.1 0-0.2 mg/dl Aspartate Amino Transf (AST/SGOT) 114 15-37 U/L Alanine Aminotransferase (ALT/SGPT) 230 12-78 U/L Alkaline Phosphatase 77 45-117 U/L Total Protein 8.4 6.4-8.2 gm/dl Albumin 4.3 3.4-5.0 gm/dl Lipase 110 73-393 U/L Chemistry Specimen Hemolysis [place] Level 0.7 0.6-1.2 mMOL/L Urine Color YELLOW Urine Appearance CLEAR CLEAR Urine pH 7.5 4.5-7.5 Urine Specific [place] 1.011 1.000-1.030 Urine Protein NEG NEG Urine Glucose (UA) NEG NEG Urine Ketones NEG NEG Urine Occult Blood NEG NEG Urine Nitrite NEG NEG Urine Bilirubin NEG NEG Urine Urobilinogen NEG NEG Urine Leukocyte Esterase TRACE NEG Urine WBC (Auto) 1-5 0-5 /hpf Urine RBC (Auto) 0-4 0-4 /hpf Urine Hyaline Casts (Auto) 0 0-5 /lpf Urine Epithelial Cells (Auto) 0-5 0-5 /lpf Urine Bacteria (Auto) NEG NEG Diagnostic Radiology CXR, KUB: IMPRESSION: 1. No acute process within the chest. 2. There is a new radiopaque foreign body seen within the left upper quadrant of the abdomen which measures approximately 10 cm and is consistent with the internal components of a pen. Impression Assessment and Plan Patient is a 27yo M with a PMH of depression, bipolar and seizures who presents from [facility] after swallowing a pen and plastic fork 2 weeks ago. Foreign body ingestion: -Swallowed a pen and plastic fork 2 weeks ago -History of swallowing foreign bodies that have required endoscopic removal -Due to KUB showing a new foreign object > 5cm, emergent endoscopic removal is required -No evidence of bowel perforation on imaging -GI consulted -Pain control Seizure disorder: -Continue gabapentin Depression: -Continue zoloft Bipolar disorder: -Continue lithium Code status: FULL PCP: [facility] Dispo: Plan to return to residential once medically stable Patient seen in collaboration with . Please see addendum. Resuscitation Status FULL RESUSCITATION Assessment/Plan LATE ENTRY : IM ATTENDING ADDENDUM : History reviewed last night. Preceding documentation by Miss Jeane Gunn PA-C reviewed. I was unable to see patient last night. Patient transported to OR for emergent EGD by Dr. Correa, GI specialist on- call. Successful extraction of foreign body post-EGD as per GI. Okay to go home after recovery at PACU as per GI. Hospital admission not required. No billing from [facility] for this note.
--- NOTE | 2017-07-19 23:02 | GI REPORT ---
Procedure Date: 07/19/2017 10:34 PM Procedure: Upper GI endoscopy Indications: Foreign body in the stomach Medicines: General Anesthesia Complications: No immediate complications. Estimated Blood Loss: Estimated blood loss: none. Procedure: Pre-Anesthesia Assessment: - Prior to the procedure, a History and Physical was performed, and patient medications and allergies were reviewed. The patient is competent. The risks and benefits of the procedure and the sedation options and risks were discussed with the patient. All questions were answered and informed consent was obtained. Patient identification and proposed procedure were verified by the physician, the nurse and the anesthesiologist in the procedure room. Mental Status Examination: alert and oriented. Airway Examination: normal oropharyngeal airway and neck mobility. Respiratory Examination: clear to auscultation. CV Examination: normal. ASA Grade Assessment: E - Emergency. After reviewing the risks and benefits, the patient was deemed in satisfactory condition to undergo the procedure. The anesthesia plan was to use general anesthesia. Immediately prior to administration of medications, the patient was re-assessed for adequacy to receive sedatives. The heart rate, respiratory rate, oxygen saturations, blood pressure, adequacy of pulmonary ventilation, and response to care were monitored throughout the procedure. The physical status of the patient was re-assessed after the procedure. After obtaining informed consent, the endoscope was passed under direct vision. Throughout the procedure, the patient's blood pressure, pulse, and oxygen saturations were monitored continuously. The Scope was introduced through the mouth, and advanced to the second part of duodenum. The upper GI endoscopy was accomplished without difficulty. The patient tolerated the procedure well. Findings: The examined esophagus was normal. Broken plastic fork and plastic pen were found in the gastric body. Removal was accomplished with a snare. The duodenal bulb and 2nd part of the duodenum were normal. Impression: - Normal esophagus. - Broken plastic fork and plastic pen were found in the stomach. Removal was successful. - Normal duodenal bulb and 2nd part of the duodenum. Recommendation: - Discharge patient to home (with escort). - Resume regular diet today. Marzena Correa MD 07/19/2017 11:02:30 PM This report has been signed electronically. Note Initiated On: 07/19/2017 10:34 PM I attest to the content of the Intraoperative Record and orders documented therein, exceptions below
[2017-07-19 23:07] VITALS: TEMP 36.7
--- NOTE | 2017-07-19 23:16 | [facility] Post Operative Brief Note ---
Immediate Operative Summary Operative Date Jul 19, 2017. Pre-Operative Diagnosis Ingestion of foreign body Post-Operative Diagnosis Ingestion of foreign body Procedure(s) Performed Removal of ingested foreign bodies, Esophagogastroduodenoscopy Surgeon Dr. Correa Angle Shear Operator Surgeon(s) None Estimated Blood Loss 1cc Findings EGD performed, found a plastic fork and plastic pen, both were successfully removed. Specimens A. Foreign Body - Fork B. Foreign Body - Pen Drains None Complication(s) None
[2017-07-19 23:25] VITALS: BP 119/74; PULSE 65; O2SAT 99
--- NOTE | 2017-07-19 23:26 | Anesthesiology Progress Note ---
Anesthesia Post Op Note Date & Time Jul 19, 2017 at 23:26 Vital Signs Pain Intensity: 8.0 Vital Signs Past 12 Hours Date Time Temp Pulse Resp B/P (MAP) Pulse Ox O2 Delivery O2 Flow Rate FiO2 07/19/17 22:12 58 16 127/70 97 07/19/17 21:24 58 16 121/69 98 Room Air 07/19/17 19:27 36.8 58 18 150/87 100 Room Air Notes Mental Status: alert / awake / arousable, participated in evaluation Pt Amnestic to Procedure: Yes Nausea / Vomiting: adequately controlled Pain: adequately controlled Airway Patency, RR, SpO2: stable & adequate BP & HR: stable & adequate Hydration State: stable & adequate Anesthetic Complications: no major complications apparent
[2017-07-19] MEDS ORDERED: ATROPINE SULFATE 0.1 MG/ML 5ML SYR IV PRN (23:30)
[2017-07-19] MEDS ORDERED: EpHEDrine SULFATE INJ 50 MG/ML AMP IV PRN (23:30)
[2017-07-19] MEDS ORDERED: HALOPERIDOL LACTATE 5 MG/ML 1 ML VIAL IM PRN (23:45)
[2017-07-20] MEDS ORDERED: GABAPENTIN 600 MG TAB PO STA (00:21)
[2017-07-20] MEDS ORDERED: QUETIAPINE FUMARATE 300 MG TAB PO STA (00:22)
[2017-07-20] MEDS ORDERED: LITHIUM CARBONATE 450 MG TABCR PO STA (00:22)
--- NOTE | 2017-07-20 01:03 | Discharge Instructions ---
Endoscopy Patient Instructions Date / Procedure(s) Performed Jul 19, 2017. EGD Allergy Information Coded Allergies: Ketorolac Tromethamine (Verified Allergy, Unknown, breathing problems, ) Penicillins (Verified Allergy, Unknown, unknown, 06/11/17) Discharge Date / Findings Jul 20, 2017. EGD done and foreign bodies were removed from the stomach. Medication Instructions Reported Home Medications Medications Dose Route/Sig Max Daily Dose Days Date Category Dose Instructions Zoloft (Sertraline HCl) 100 Mg Tab 100 Mg PO DAILY 07/19/17 Reported Seroquel (Quetiapine Fumarate) 300 Mg Tab 300 Mg PO HS 07/19/17 Reported Inderal (Propranolol HCl) 10 Mg Tab 10 Mg PO DAILY@NOON 07/19/17 Reported Inderal (Propranolol HCl) 10 Mg Tab 20 Mg PO BID 07/19/17 Reported Trilafon (Perphenazine) 2 Mg Tab 2 Mg PO DAILY 07/19/17 Reported START 07/19/2017 Minocin (Minocycline HCl) 100 Mg Cap 100 Mg PO DAILY 07/19/17 Reported STOP ON 09/21/2016 Lithobid Ext Rel ([place] Carbonate) 450 Mg Tabcr 450 Mg PO BID 07/19/17 Reported Neurontin (Gabapentin) 600 Mg Tab 600 Mg PO TID 07/19/17 Reported Benadryl (Diphenhydramine Hcl) 25 Mg Cap 100 Mg PO HS 07/19/17 Reported Tylenol W/Codeine #3 (Acetaminophen W/ Codeine) 1 Tab Tab 1 Tab PO TID 07/19/17 Reported Milk Of Magnesia (Magnesium Hydroxide) 30 Ml Susp 30 Ml PO BID PRN 07/19/17 Reported Lubriskin (Emollient) 1 Lot Lot 1 Appln TOP DAILY PRN 07/19/17 Reported Hydrocortisone (Hydrocortisone (Topical)) 0.5 % Cre 1 Appln TOP BID PRN 07/19/17 Reported STOP 07/21/2017 Prazosin (Prazosin HCl) 1 Mg Cap 1 Mg PO HS 06/11/17 Reported Provider Instructions Activity Restrictions - No exercising or heavy lifting for 24 hours. - Do not drink alcohol the day of the procedure. - Do not drive a car or operate machinery until the day after the procedure. - Do not make any important decisions or sign important papers in 24 hours after the procedure. Following Day: - Return to full activity which may include returning to work/school. Diet Start your diet with liquids and light foods (jello, soup, juice, toast). Then eat your usual diet if not nauseated. Treatment For Common After Affects For mild abdominal pain, bloating, or excessive gas: - Rest - Eat lightly - Lie on right side Follow-Up Information Primary care doctor. Anesthesia Information What You Should Know You have had a procedure that required some medicine to reduce anxiety and discomfort. This treatment is called moderate sedation. After receiving the treatment, you may be sleepy, but you will be able to breathe on your own. The effects of the treatment may last for several hours. Follow these instructions along with Activity/Diet recommendations noted above: * Do NOT do anything where dizziness or clumsiness would be dangerous. * Rest quietly at home today, then you can be up and about tomorrow. * Have a responsible person stay with you the rest of today. * You may have had an I.V. today. If so, you may take the dressing off later today. Recommendations Call your doctor if: * Trouble breathing * Continuous vomiting for more than 24 hours * Temperature above 101 degrees * Severe abdominal pain or bloating * Pain not relieved by pain medicine ordered * There is increased drainage or redness from any incision * A large amount of rectal bleeding greater than 2-3 tablespoons. (If you had a polyp/s removed or have hemorrhoids, a small amount of blood - from the rectum is to be expected.) * You have any unanswered questions or concerns. IN THE EVENT OF A SERIOUS EMERGENCY, GO TO THE NEAREST EMERGENCY ROOM Your discharge instructions were prepared by provider Marzena Correa. Patient Instructions Signature Page Silviano Tovar Patient (or Guardian) Signature/Date: I have read and understand the instructions given to me by my caregivers. Caregiver/RN/Doctor Signature/Date: The above-named patient and/or guardian has received patient instructions on this date. + Original Patient Signature Page (only) stays with chart. Please make copy for patient.
[2017-07-20] MEDS ORDERED: LITHIUM CARBONATE 450 MG TABCR PO SCH (09:00)
[2017-07-20] MEDS ORDERED: GABAPENTIN 600 MG TAB PO SCH (09:00)
[2017-07-20] MEDS ORDERED: QUETIAPINE FUMARATE 300 MG TAB PO SCH (21:00)
== END 2017-07-19 22:13 | disposition still patient (30) ==
LOC: C.EDB 19:25
DX: T18.9XXA Foreign body of alimentary tract, part unspecified, initial encounter (principal); X58.XXXA Exposure to other specified factors, initial encounter; F32.9 Major depressive disorder, single episode, unspecified; Z87.821 Personal history of retained foreign body fully removed; Z76.5 Malingerer [conscious simulation]; F39 Unspecified mood [affective] disorder; R56.9 Unspecified convulsions; F17.200 Nicotine dependence, unspecified, uncomplicated

== ENCOUNTER 2017-09-27 21:27 | Inpatient (IN) | payer OTHER ==
[~2017-09-27] VITALS: Ht 190.5 cm; Wt 77.2 kg
[~2017-09-27 21:27] MED LIST changes: +ACET300T2 PO; +DIPH25CA5 PO; +EMOL-31 TOP; +GABA600T PO; +HYDR0.5C TOP; +MINO100C22 PO; +MOML PO; -NRN300 PO; +PERP1TAB10 PO; +PROP10TA7 PO; +QUET1TAB37 PO; +SERT-234 PO; -SERT50TA PO; -SRQ200 PO
[2017-09-27] MEDS ORDERED: RANI150T85 PO (22:27)
[2017-09-27] MEDS ORDERED: GABA-113 PO (22:31)
[2017-09-27] MEDS ORDERED: LTHSR/300 PO (22:33)
--- NOTE | 2017-09-27 22:34 | DIAGNOSTIC IMAGING REPORT ---
KUB CLINICAL HISTORY: 27 years-old Male presenting with Swallowed razor blades. TECHNIQUE: Single supine view of the abdomen was obtained. COMPARISON: 07/19/2017. FINDINGS: Radiopaque foreign bodies project over the epigastrium consistent with given history of ingested razor blades. Mottled lucencies throughout the colon most likely stool. Moderate stool burden. Buttons project over the right abdomen, likely external to the patient. No bowel obstruction. Allowing for bowel gas and stool, no calcifications to suggest nephrolithiasis. Osseous structures normal. Lung bases clear. IMPRESSION: 1. Ingested foreign bodies consistent with razor blades, which project over the epigastrium likely in the gastric lumen. 2. Moderate stool burden suggests constipation. 3. No free air or bowel obstruction. Electronically signed by: Camden Bey M.D. 09/27/2017 10:32 PM Dictated Date/Time: 09/27/2017 10:30 PM
--- NOTE | 2017-09-27 22:35 | DIAGNOSTIC IMAGING REPORT ---
CHEST 1 VW FRONT-NOT PORTABLE CLINICAL HISTORY: 27 years-old Male presenting with Swallowed razor blade. TECHNIQUE: Portable upright AP view of the chest was obtained. COMPARISON: 07/19/2017. FINDINGS: Cardiomediastinal silhouette normal. Lungs and pleural spaces clear. Osseous structures normal. Partially visualized metallic foreign body consistent with razor blades in the epigastrium. No pneumoperitoneum. A radiopaque button projects over the right base of the neck likely external to the patient. IMPRESSION: 1. No acute cardiopulmonary disease. 2. Please see separately dictated abdominal radiograph. Ingested foreign bodies consistent with razor blades. Electronically signed by: Camden Bey M.D. 09/27/2017 10:34 PM Dictated Date/Time: 09/27/2017 10:32 PM
[2017-09-27] MEDS ORDERED: LORAZEPAM 2 MG/ML 1 ML VIAL IV STA (23:05)
--- NOTE | 2017-09-27 23:10 | EMERGENCY ROOM VISIT NOTE ---
History First contact with patient: 21:39 Chief Complaint: FOREIGNBODY ANY BODY PART Stated Complaint: SWALLOWED TWO RAZOR BLADES History of Present Illness The patient is a 27 year old male who presents to the Emergency Room with complaints of swallowing to razor blades at 7:45 PM. The patient states he ate at 740 and then ingested the razor blades immediately afterwards. The patient states swallowing objects as a way he deals with stress. The patient has a history of anxiety and psychiatric disorders. He also has a history of seizures. The patient states in the past he has swallowed the back of a flexible pen which is plastic in May which he thinks is still in his right abdomen. He states he went to the med clinic at the present and he was told that he had blood in the stool and they just gave him Zantac. The patient states that he wants that pen removed. He also has swallowed 2 screws in May as well which he has passed. He has also swallowed other things in the past which they have removed by endoscopy. Review of Systems 10 system review was performed and was negative unless stated otherwise history of present illness. Past Medical/Surgical History Medical Problems: (1) Depression (2) History of foreign body ingestion (3) Malingering (4) Mood disorder (5) Seizure disorder Social History Smoking Status: Current Every Day Smoker Marital Status: single Housing Status: other Occupation Status: other Current/Historical Medications Scheduled Diphenhydramine Hcl (Benadryl), 100 MG PO HS Gabapentin (Neurontin), 600 MG PO TID [place] Carbonate ([place] Carbonate), 600 MG PO BID Prazosin Hcl (Prazosin), 1 MG PO HS Quetiapine Fumarate (Seroquel), 300 MG PO HS Ranitidine (Zantac), 150 MG PO DAILY Sertraline (Zoloft), 200 MG PO DAILY Physical Exam Vital Signs Date Time Temp Pulse Resp B/P (MAP) Pulse Ox O2 Delivery O2 Flow Rate FiO2 09/27/17 21:33 36.8 92 18 130/80 100 Room Air Physical Exam GENERAL: 27-year-old white male appears in no acute distress. MENTAL Status: Alert and oriented 3. The patient appears somewhat anxious. NECK: Supple, no lymphadenopathy noted. No carotid bruits noted. LUNGS: Clear auscultation without wheezes rales or rhonchi. CARDIAC: Regular rate and rhythm without murmur. Pulses is full and equal throughout. ABDOMEN: Positive bowel sounds all 4 quadrants. Soft, tenderness to palpation in the epigastric region otherwise nontender to palpation without organomegaly or masses. Medical Decision & Procedures ER Provider Diagnostic Interpretation: CHEST 1 VW FRONT-NOT PORTABLE CLINICAL HISTORY: 27 years-old Male presenting with Swallowed razor blade. TECHNIQUE: Portable upright AP view of the chest was obtained. COMPARISON: 07/19/2017. FINDINGS: Cardiomediastinal silhouette normal. Lungs and pleural spaces clear. Osseous structures normal. Partially visualized metallic foreign body consistent with razor blades in the epigastrium. No pneumoperitoneum. A radiopaque button projects over the right base of the neck likely external to the patient. IMPRESSION: 1. No acute cardiopulmonary disease. 2. Please see separately dictated abdominal radiograph. Ingested foreign bodies consistent with razor blades. Electronically signed by: Camden Bey M.D. 09/27/2017 10:34 PM Dictated Date/Time: 09/27/2017 10:32 PM KUB CLINICAL HISTORY: 27 years-old Male presenting with Swallowed razor blades. TECHNIQUE: Single supine view of the abdomen was obtained. COMPARISON: 07/19/2017. FINDINGS: Radiopaque foreign bodies project over the epigastrium consistent with given history of ingested razor blades. Mottled lucencies throughout the colon most likely stool. Moderate stool burden. Buttons project over the right abdomen, likely external to the patient. No bowel obstruction. Allowing for bowel gas and stool, no calcifications to suggest nephrolithiasis. Osseous structures normal. Lung bases clear. IMPRESSION: 1. Ingested foreign bodies consistent with razor blades, which project over the epigastrium likely in the gastric lumen. 2. Moderate stool burden suggests constipation. 3. No free air or bowel obstruction. Electronically signed by: Camden Bey M.D. 09/27/2017 10:32 PM Laboratory Results Test 09/27/17 22:32 ED Course The patient was evaluated. Patient's EMR medication list were reviewed. X-ray of the chest and KUB of the abdomen was ordered and interpreted by the radiologist as above with 2 foreign bodies consistent with razor blades in the antrum of the stomach. IV access was then obtained. CBC and differential, coags, renal profile was ordered. The patient was given Ativan 1 mg IV for anxiety. Gastroenterology was consulted who will take the patient to the OR for endoscopy. Medical Decision The patient has ingested multiple things in the past but to confirm that he ingested the razor blades x-rays were obtained . Once the ingestion of razor blades was confirmed by radiology IV access was obtained along with basic labs and GI consulted. [place] Drug Monitoring Program Search Results: patient reviewed within database Medication Reconcilliation Current Medication List: was personally reviewed by me Blood Pressure Screening Patient's blood pressure: Normal blood pressure Impression Primary Impression: History of foreign body ingestion Departure Information Dispostion Being Evaluated By Surgeon Condition GOOD Referrals Humberto JOHNSON (PCP) Patient Instructions My [facility]
[2017-09-27 23:19] LABS: BASO % 0.3 %; BASO ABS # 0.03 K/uL (0-0.2); EOS % 3.7 %; HEMATOCRIT 46.2 % (42-52); HEMOGLOBIN 15.6 g/dL (14.0-18.0); IG# 0.02 K/uL (0.00-0.02); LYMPH ABS # 3.79 K/uL (1.2-3.4); MEAN CELL VOLUME 95.9 fL (80-100); MEAN CORPUSCULAR HEMOGLOBIN 32.4 pg (25-34); MEAN CORPUSCULAR HGB CONC 33.8 g/dl (32-36); MEAN PLATELET VOLUME 9.3 fL (7.4-10.4); MONO % 8.6 %; MONO ABS # 0.93 K/uL (0.11-0.59); NEUT % 52.2 %; NEUT ABS # 5.67 K/uL (1.4-6.5); PLATELET COUNT 207 K/uL (130-400); RED CELL DISTRIBUTION WIDTH SD 45.3 fL (36.4-46.3); WHITE BLOOD COUNT 10.84 K/uL (4.8-10.8)
[2017-09-27] MEDS ORDERED: PROPOFOL IV EMULSION 10 MG/ML 20 ML VIAL IV ONE (23:24)
[2017-09-27] MEDS ORDERED: MIDAZOLAM HCL 1 MG/ML 2ML VIAL ONE (23:24)
[2017-09-27] MEDS ORDERED: DEXAMETHASONE SOD INJ 4 MG/ML VIAL ONE (23:24)
[2017-09-27] MEDS ORDERED: SUCCINYLCHOLINE CHLORIDE 20 MG/ML 10 ML VIAL IV ONE (23:24)
[2017-09-27] MEDS ORDERED: ONDANSETRON INJ 2 MG/ML 2 ML VIAL ONE (23:24)
[2017-09-27] MEDS ORDERED: FENTANYL CITRATE INJ 50 MCG/1 ML 2 ML VIAL ONE (23:25)
[2017-09-27 23:43] LABS: ALBUMIN 4.5 gm/dl (3.4-5.0); CALCIUM 9.3 mg/dl (8.5-10.1); CREATININE 1.06 mg/dl (0.60-1.40); POTASSIUM 3.6 mmol/L (3.5-5.1)
[2017-09-27 23:46] LABS: TOTAL PROTEIN 8.4 gm/dl (6.4-8.2)
[2017-09-27] MEDS ORDERED: SODIUM CHLORIDE 0.9% 500ML 500 ML IV ONE (23:58)
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
--- NOTE | 2017-09-27 23:58 | History & Physical Bridge Note ---
H&P Re-Evaluation Bridge Note: I have examined the patient, reviewed the History & Physical and in the interval since the performance of the History & Physical I have noted the following changes of clinical significance: No changes noted
[2017-09-28] VITALS (8 sets, daily range): BP systolic 113–137; BP diastolic 68–87; PULSE 64–81; TEMP 36.3–36.6; O2SAT 96–100; Ht 190.5 cm; Wt 77.2 kg
[2017-09-28] MEDS ORDERED: ONDANSETRON INJ 2 MG/ML 2 ML VIAL IV PRN
[2017-09-28] MEDS ORDERED: ATROPINE SULFATE 0.1 MG/ML 5ML SYR IV PRN
[2017-09-28] MEDS ORDERED: FENTANYL CITRATE INJ 50 MCG/1 ML 2 ML VIAL IV PRN
[2017-09-28] MEDS ORDERED: EpHEDrine SULFATE INJ 50 MG/ML AMP IV PRN
[2017-09-28] MEDS ORDERED: FENTANYL CITRATE INJ 50 MCG/1 ML 2 ML VIAL ONE (00:17)
[2017-09-28] MEDS ORDERED: EpHEDrine SULFATE 50MG/5ML SYR ONE (00:41)
--- NOTE | 2017-09-28 01:12 | [facility] Post Operative Brief Note ---
Immediate Operative Summary Operative Date Sep 28, 2017. Pre-Operative Diagnosis Patient Swallowed Razor Blades Post-Operative Diagnosis Food In Stomach Procedure(s) Performed Esophagogastroduodenoscopy Surgeon Dr Correa Emergency Medical Technician Surgeon(s) None Estimated Blood Loss 0cc Findings See Below Food in stomach. No razor blades seen. Likely in small bowel. Specimens None per surgeon Anesthesia Type General
--- NOTE | 2017-09-28 01:13 | Gastroenterology Progress Note ---
Gastroenterology Progress Note EGD findings: - Normal esophagus. - A large amount of food (residue) in the stomach. No razor blades were found despite extensive suction and lavage of the stomach and retrieval of large food particles. The foreign bodies are likely in the small bowel. - Normal duodenal bulb, second portion of the duodenum and third portion of the duodenum. - No evidence of mucosal injury or bleeding. Recommendations: - Admit the patient to hospital [facility] for ongoing care. - NPO. - Await CT scan abdomen. - Surgery evaluation today. - Perform serial abdominal exams and daily abdominal x-ray to monitor the passage of the foreign bodies. - If any signs of perforation, patient will need emergent surgical exploration.
[2017-09-28] MEDS: HYDROmorphone INJ 1 MG/ML SYR IV PRN ×4 (01:16→02:10)
--- NOTE | 2017-09-28 01:16 | Anesthesiology Progress Note ---
Anesthesia Post Op Note Date & Time Sep 28, 2017 at 01:15 Vital Signs Pain Intensity: 7.0 Vital Signs Past 12 Hours Date Time Temp Pulse Resp B/P (MAP) Pulse Ox O2 Delivery O2 Flow Rate FiO2 09/27/17 23:17 82 20 126/77 97 Room Air 09/27/17 21:33 36.8 92 18 130/80 100 Room Air Notes Mental Status: alert / awake / arousable, participated in evaluation Pt Amnestic to Procedure: Yes Nausea / Vomiting: adequately controlled Pain: adequately controlled Airway Patency, RR, SpO2: stable & adequate BP & HR: stable & adequate Hydration State: stable & adequate Anesthetic Complications: no major complications apparent
--- NOTE | 2017-09-28 01:20 | GI REPORT ---
Procedure Date: 09/28/2017 12:07 AM Procedure: Upper GI endoscopy Indications: Foreign body in the GI tract Medicines: General Anesthesia Complications: No immediate complications. Estimated Blood Loss: Estimated blood loss: none. Procedure: Pre-Anesthesia Assessment: - Prior to the procedure, a History and Physical was performed, and patient medications and allergies were reviewed. The patient is competent. The risks and benefits of the procedure and the sedation options and risks were discussed with the patient. All questions were answered and informed consent was obtained. Patient identification and proposed procedure were verified by the physician and the nurse in the procedure room. Mental Status Examination: alert and oriented. Airway Examination: normal oropharyngeal airway and neck mobility. Respiratory Examination: clear to auscultation. CV Examination: normal. ASA Grade Assessment: E - Emergency. After reviewing the risks and benefits, the patient was deemed in satisfactory condition to undergo the procedure. The anesthesia plan was to use general anesthesia. Immediately prior to administration of medications, the patient was re-assessed for adequacy to receive sedatives. The heart rate, respiratory rate, oxygen saturations, blood pressure, adequacy of pulmonary ventilation, and response to care were monitored throughout the procedure. The physical status of the patient was re-assessed after the procedure. After obtaining informed consent, the endoscope was passed under direct vision. Throughout the procedure, the patient's blood pressure, pulse, and oxygen saturations were monitored continuously. The Scope was introduced through the mouth, and advanced to the third part of duodenum. The upper GI endoscopy was accomplished without difficulty. The patient tolerated the procedure well. Findings: The examined esophagus was normal. A large amount of food (residue) was found in the gastric fundus and body. The endoscope was removed, and an overtube with cap was fitted. The scope and overtube were then reinserted via the mouth and advanced to the esophagus to facilitate repeated passages of the scope. A large paul net was used to break the food particles and search for any razor blades but none was found despite extensive suction and lavage of the stomach. The blades are likely in the small bowel. The duodenal bulb, second portion of the duodenum and third portion of the duodenum were normal. Impression: - Normal esophagus. - A large amount of food (residue) in the stomach. No razor blades were found despite extensive suction and lavage of the stomach and retrieval of large food particles. The foreign bodies are likely in the small bowel. - Normal duodenal bulb, second portion of the duodenum and third portion of the duodenum. - No evidence of mucosal injury or bleeding. - No specimens collected. Recommendation: - Admit the patient to hospital [facility] for ongoing care. - NPO. - Await CT scan abdomen. - Surgery evaluation today. - Perform serial abdominal exams and daily abdominal x-ray to monitor the passage of the foreign bodies. - If any signs of perforation, patient will need emergent surgical exploration. Marzena Correa MD 09/28/2017 1:20:33 AM This report has been signed electronically. Note Initiated On: 09/28/2017 12:07 AM I attest to the content of the Intraoperative Record and orders documented therein, exceptions below
[2017-09-28] MEDS ORDERED: ACETAMINOPHEN 325 MG TAB PO PRN (04:15)
--- NOTE | 2017-09-28 04:39 | History and Physical ---
History & Physical Date & Time of Service: Sep 28, 2017 at 04:22 Chief Complaint: Swallowed Foreign Body Primary Care Physician: Humberto JOHNSON History of Present Illness Source: patient, clinic records, hospital records 27 yo M with mental health issues presents to the ER from group home after swallowing two razor blades. He states that he swallowed a pen last May and continues to have discomfort in his RLQ. He states that the group home medics gave him ranitidine for this and he felt that if he swallowed the blades something more significant would be done about it. He states that he has very severe anxiety. He has otherwise been healthy prior to this with normal BMs and tolerating PO without issues. A KUB revealed the blades were in the gastric lumen. He underwent EGD from the ER by Dr. Correa which found a normal esophagus, food in the stomach that was suctioned out without evidence of the blades, a normal duodenum all without evidence of mucosal injury or bleeding. Past Medical/Surgical History Medical Problems: (1) Depression Status: Chronic (2) History of foreign body ingestion Status: Chronic (3) Malingering Status: Chronic (4) Mood disorder Status: Chronic (5) Seizure disorder Status: Chronic Family History Patient reports no known family medical history. Social History Smoking Status: Current Every Day Smoker Smokeless Tobacco Use: Unknown Alcohol Use: none Drug Use: marijuana Marital Status: single Housing status: other (incarcerated) Occupational Status: other Immunizations History of Influenza Vaccine: Unknown History of Tetanus Vaccine?: Unknown History of Pneumococcal: Unknown History of Hepatitis B Vaccine: Unknown Multi-Drug Resistant Organisms History of MDRO: Yes Type of MDRO: MRSA Allergies Coded Allergies: Ketorolac Tromethamine (Verified Allergy, Unknown, breathing problems, ) Penicillins (Verified Allergy, Unknown, unknown, 06/11/17) Home Medications Scheduled Gabapentin (Neurontin), [address] [place] Carbonate ([place] Carbonate), 600 MG PO BID Prazosin Hcl (Prazosin), 1 MG PO HS Quetiapine Fumarate (Seroquel), 300 MG PO HS Sertraline (Zoloft), 200 MG PO DAILY Review of Systems At least ten systems were reviewed and negative except as indicated in HPi above. Physical Exam Vital Signs Date Time Temp Pulse Resp B/P (MAP) Pulse Ox O2 Delivery O2 Flow Rate FiO2 09/28/17 03:45 36.6 78 20 129/83 09/28/17 02:58 Room Air 09/28/17 02:30 79 18 123/81 96 Room Air 09/28/17 02:20 80 16 125/86 95 Room Air 09/28/17 02:10 81 22 128/62 95 Room Air 09/28/17 02:00 90 18 126/84 95 Room Air 09/28/17 01:50 85 14 126/82 96 Room Air 09/28/17 01:40 91 16 113/73 95 Room Air 09/28/17 01:30 82 16 129/82 94 Room Air 09/28/17 01:20 97 22 140/95 97 Room Air 09/28/17 01:10 97 20 143/96 99 Room Air 09/28/17 01:01 36.6 95 14 152/98 99 Room Air 09/27/17 23:17 82 20 126/77 97 Room Air 09/27/17 21:33 36.8 92 18 130/80 100 Room Air General Appearance: WD/WN, no apparent distress Head: normocephalic, atraumatic Eyes: normal inspection, PERRL, sclerae normal, + pertinent finding (MMM) ENT: hearing grossly normal, pharynx normal Neck: supple, no adenopathy, trachea midline Respiratory/Chest: lungs clear, normal breath sounds, no respiratory distress, no accessory muscle use Cardiovascular: regular rate, rhythm, no edema, no gallop, no JVD, no murmur Abdomen/GI: normal bowel sounds, non tender, soft, no organomegaly Back: normal inspection, normal range of motion Extremities/Musculoskelatal: no pedal edema Neurologic/Psych: pile 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 as tested, no motor/sensory deficits, alert, normal mood/affect, oriented x 3 Skin: normal color, warm/dry, + pertinent finding (multiple tattooes) Diagnostics Laboratory Results 09/27/17 22:46 Red Blood Count 4.82, Mean Corpuscular Volume 95.9, Mean Corpuscular Hemoglobin 32.4, Mean Corpuscular Hemoglobin Concent 33.8, Mean Platelet Volume 9.3, Neutrophils (%) (Auto) 52.2, Lymphocytes (%) (Auto) 35.0, Monocytes (%) (Auto) 8.6, Eosinophils (%) (Auto) 3.7, Basophils (%) (Auto) 0.3, Neutrophils # (Auto) 5.67, Lymphocytes # (Auto) 3.79, Monocytes # (Auto) 0.93, Eosinophils # (Auto) 0.40, Basophils # (Auto) 0.03 09/27/17 22:46 Test 09/27/17 22:46 White Blood Count 10.84 K/uL (4.8-10.8) Red Blood Count 4.82 M/uL (4.7-6.1) Hemoglobin 15.6 g/dL (14.0-18.0) Hematocrit 46.2 % (42-52) Mean Corpuscular Volume 95.9 fL (80-100) Mean Corpuscular Hemoglobin 32.4 pg (25-34) Mean Corpuscular Hemoglobin Concent 33.8 g/dl (32-36) Platelet Count 207 K/uL (130-400) Mean Platelet Volume 9.3 fL (7.4-10.4) Neutrophils (%) (Auto) 52.2 % Lymphocytes (%) (Auto) 35.0 % Monocytes (%) (Auto) 8.6 % Eosinophils (%) (Auto) 3.7 % Basophils (%) (Auto) 0.3 % Neutrophils # (Auto) 5.67 K/uL (1.4-6.5) Lymphocytes # (Auto) 3.79 K/uL (1.2-3.4) Monocytes # (Auto) 0.93 K/uL (0.11-0.59) Eosinophils # (Auto) 0.40 K/uL (0-0.5) Basophils # (Auto) 0.03 K/uL (0-0.2) RDW Standard Deviation 45.3 fL (36.4-46.3) RDW Coefficient of Variation 13.0 % (11.5-14.5) Immature Granulocyte % (Auto) 0.2 % Immature Granulocyte # (Auto) 0.02 K/uL (0.00-0.02) Prothrombin Time 10.8 SECONDS (9.0-12.0) Prothromb Time International Ratio 1.0 (0.9-1.1) Activated Partial Thromboplast Time 25.0 SECONDS (21.0-31.0) Partial Thromboplastin Ratio 1.0 Anion Gap 3.0 mmol/L (3-11) Est Creatinine Clear Calc Drug Dose 108.9 ml/min Estimated GFR () 110.2 Estimated GFR (Non- 95.0 BUN/Creatinine Ratio 10.0 (10-20) Calcium Level 9.3 mg/dl (8.5-10.1) Total Bilirubin 0.3 mg/dl (0.2-1) Direct Bilirubin 0.1 mg/dl (0-0.2) Aspartate Amino Transf (AST/SGOT) 154 U/L (15-37) Alanine Aminotransferase (ALT/SGPT) 305 U/L (12-78) Alkaline Phosphatase 83 U/L (45-117) Total Protein 8.4 gm/dl (6.4-8.2) Albumin 4.5 gm/dl (3.4-5.0) Lipase 88 U/L (73-393) Results Past 24 Hours Test 09/27/17 22:46 Range/Units White Blood Count 10.84 4.8-10.8 K/uL Red Blood Count 4.82 4.7-6.1 M/uL Hemoglobin 15.6 14.0-18.0 g/dL Hematocrit 46.2 42-52 % Mean Corpuscular Volume 95.9 80-100 fL Mean Corpuscular Hemoglobin 32.4 25-34 pg Mean Corpuscular Hemoglobin Concent 33.8 32-36 g/dl Platelet Count 207 130-400 K/uL Mean Platelet Volume 9.3 7.4-10.4 fL Neutrophils (%) (Auto) 52.2 % Lymphocytes (%) (Auto) 35.0 % Monocytes (%) (Auto) 8.6 % Eosinophils (%) (Auto) 3.7 % Basophils (%) (Auto) 0.3 % Neutrophils # (Auto) 5.67 1.4-6.5 K/uL Lymphocytes # (Auto) 3.79 1.2-3.4 K/uL Monocytes # (Auto) 0.93 0.11-0.59 K/uL Eosinophils # (Auto) 0.40 0-0.5 K/uL Basophils # (Auto) 0.03 0-0.2 K/uL RDW Standard Deviation 45.3 36.4-46.3 fL RDW Coefficient of Variation 13.0 11.5-14.5 % Immature Granulocyte % (Auto) 0.2 % Immature Granulocyte # (Auto) 0.02 0.00-0.02 K/uL Prothrombin Time 10.8 9.0-12.0 SECONDS Prothromb Time International Ratio 1.0 0.9-1.1 Activated Partial Thromboplast Time 25.0 21.0-31.0 SECONDS Partial Thromboplastin Ratio 1.0 Sodium Level 138 136-145 mmol/L Potassium Level 3.6 3.5-5.1 mmol/L Chloride Level 104 98-107 mmol/L Carbon Dioxide Level 31 21-32 mmol/L Anion Gap 3.0 3-11 mmol/L Blood Urea Nitrogen 11 7-18 mg/dl Creatinine 1.06 0.60-1.40 mg/dl Est Creatinine Clear Calc Drug Dose 108.9 ml/min Estimated GFR () 110.2 Estimated GFR (Non- 95.0 BUN/Creatinine Ratio 10.0 10-20 Random Glucose 76 70-99 mg/dl Calcium Level 9.3 8.5-10.1 mg/dl Total Bilirubin 0.3 0.2-1 mg/dl Direct Bilirubin 0.1 0-0.2 mg/dl Aspartate Amino Transf (AST/SGOT) 154 15-37 U/L Alanine Aminotransferase (ALT/SGPT) 305 12-78 U/L Alkaline Phosphatase 83 45-117 U/L Total Protein 8.4 6.4-8.2 gm/dl Albumin 4.5 3.4-5.0 gm/dl Lipase 88 73-393 U/L Diagnostic Radiology KUB CLINICAL HISTORY: 27 years-old Male presenting with Swallowed razor blades. TECHNIQUE: Single supine view of the abdomen was obtained. COMPARISON: 07/19/2017. FINDINGS: Radiopaque foreign bodies project over the epigastrium consistent with given history of ingested razor blades. Mottled lucencies throughout the colon most likely stool. Moderate stool burden. Buttons project over the right abdomen, likely external to the patient. No bowel obstruction. Allowing for bowel gas and stool, no calcifications to suggest nephrolithiasis. Osseous structures normal. Lung bases clear. IMPRESSION: 1. Ingested foreign bodies consistent with razor blades, which project over the epigastrium likely in the gastric lumen. 2. Moderate stool burden suggests constipation. 3. No free air or bowel obstruction. CHEST 1 VW FRONT-NOT PORTABLE CLINICAL HISTORY: 27 years-old Male presenting with Swallowed razor blade. TECHNIQUE: Portable upright AP view of the chest was obtained. COMPARISON: 07/19/2017. FINDINGS: Cardiomediastinal silhouette normal. Lungs and pleural spaces clear. Osseous structures normal. Partially visualized metallic foreign body consistent with razor blades in the epigastrium. No pneumoperitoneum. A radiopaque button projects over the right base of the neck likely external to the patient. IMPRESSION: 1. No acute cardiopulmonary disease. 2. Please see separately dictated abdominal radiograph. Ingested foreign bodies consistent with razor blades. CT SCAN OF THE ABDOMEN AND PELVIS WITHOUT IV CONTRAST CLINICAL HISTORY: Foreign body ingestion. COMPARISON STUDY: KUB dated 09/27/2017. Abdominal CT dated 06/11/2017. TECHNIQUE: CT scan of the abdomen and pelvis is performed from the lung bases to the proximal femora. Images are reviewed in the axial, sagittal, and coronal planes. IV contrast was not administered for this examination as per the referring clinician. Note that the examination was performed in suboptimal fashion without IV contrast. A dose lowering technique was utilized adhering to the principles of ALARA. CT DOSE: 281.05 mGy.cm FINDINGS: Lung bases: The heart is normal in size and without pericardial effusion. The lung bases are clear noting bibasilar platelike atelectasis. Liver: The unenhanced liver is normal in size, contour, and attenuation. There is no intrahepatic biliary ductal dilatation. Gallbladder: Unremarkable. Spleen: Normal in size and attenuation. Pancreas: Unremarkable. Adrenal glands: Unremarkable. Kidneys: The unenhanced kidneys are normal in size and without hydronephrosis. There are no renal calculi identified. There is no evidence of contour deforming renal mass lesion. Abdominal vasculature: The abdominal aorta is normal in course and caliber. Stomach and bowel: The stomach and duodenum are normal in configuration. Metallic foreign bodies are present within the distal stomach as seen on image #158. There is moderate colonic fecal retention. No bowel obstruction is seen. The appendix is well-visualized and normal. Peritoneum: There is no intraperitoneal free air or abdominal ascites. There is a small fat-containing umbilical hernia. A surgical scar is suggested in the ventral pelvis. Lymphadenopathy: None. Pelvic viscera: The bladder, prostate, and seminal vesicles are normal as visualized. Skeletal structures: No lytic or blastic lesions are seen. A hemitransitional right lumbosacral segment is incidentally noted. IMPRESSION: 1. There are no acute infectious or inflammatory findings in the abdomen or pelvis. 2. Metallic foreign bodies are present in the distal stomach. 3. Moderate constipation. Impression Assessment and Plan 27 yo M with mental health issues who is currently incarcerated swallowed two razor blades 1. Swallowed foreign body-plain films confirm presence of blades, however EGD was unable to locate them visually. CT A/P pending. Gen Surg consulted for serial exams and assistance with perforation should that occur. Currently patient is stable and has a benign abdomen. Regular diet and catch all stool in hat. Minimize narcotic use to avoid bowel dysmotility. APAP or oxycodone PRN pain, Zofran PRN nausea. 2. Anxiety/PTSD-continues on [facility], Sertraline, Seroquel, Prazosin. Mental Health consulted after concerning behavior exhibited 3. Seizures-cont gabapentin. Reports his last seizure was in the fall of last year. 4. Marijuana use and smoker-currently incarcerated with lack of access to illegal drugs. Nicotine patch provided. 5. Elevated transaminitis-slightly elevated in the past. Uncertain etiology. Trend in am and await CT imaging. DVT proph-not indicated, SCDs Full Code Dispo-med tele for expectant management, contact surgery for tachycardia or other signs of possible perforation including distended abdomen or worsening pain. Dinorah Harrison, [facility] Advanced Directives Existing Living Will: No Existing Power of Golf Course Designer: No VTE Prophylaxis VTE Risk Assessment Done? Y/N: Yes Risk Level: Moderate Given or contraindicated: Treatment not indicated
[2017-09-28] MEDS ORDERED: ONDANSETRON 4 MG TAB PO PRN (04:45)
[2017-09-28] MEDS: OXYCODONE HCL IR 5 MG TAB (IMMEDIATE RELEASE) PO PRN (04:59)
[2017-09-28] MEDS: LORAZEPAM 0.5 MG TAB PO PRN ×2 (04:59→10:57)
[2017-09-28] MEDS: MoRPHine SULFATE 2 MG/ML CARP IV PRN ×4 (06:34→19:25)
--- NOTE | 2017-09-28 07:08 | Surgery Consultation ---
Consultation Date of Consultation: Sep 28, 2017. Attending Physician: Jesse Oliver M.D. Reason for Consultation: Ingested foreign body. History of Present Illness Patient is a 27M who presented in the ED from his correctional facility due to ingesting 2 razor blades last evening. States he ate an apple right before he ingested them. Reports he did this because he swallowed a pen in May, and believes it is still in his abdomen. He reports some RLQ pain where he believes the pen is currently at. Patient has a history of swallowing objects and reports swallowing two screws back in May which passed. He has had EGD's in the past for foreign body retrieval. PMHx significant for seizures, anxiety and psychiatric illness. Patient reports he did have surgery once to retrieve something he swallowed but does not recall what the procedure was. Denies nausea /vomiting/fever/chills/recent illness. No BM yet. GI was consulted and EGD was performed last night in the OR. The foreign bodies were not found in the stomach or duodenum at this time. CT scan was later performed showing evidence of the foreign bodies in the distal stomach. WBC 10.84. Past Medical/Surgical History Medical Problems: (1) FB GI (foreign body in gastrointestinal tract) Status: Acute (2) Foreign body ingestion Status: Acute (3) History of foreign body ingestion Status: Chronic Family History Patient reports no known family medical history. Social History Smoking Status: Current Every Day Smoker Smokeless Tobacco Use: Unknown Alcohol Use: none Drug Use: marijuana Marital Status: single Housing Status: other Occupation Status: other Allergies Coded Allergies: Ketorolac Tromethamine (Verified Allergy, Unknown, breathing problems, ) Penicillins (Verified Allergy, Unknown, unknown, 06/11/17) Home Medications Scheduled Gabapentin (Neurontin), 600 MG PO TID [place] Carbonate ([place] Carbonate), 600 MG PO BID Prazosin Hcl (Prazosin), 1 MG PO HS Quetiapine Fumarate (Seroquel), 300 MG PO HS Sertraline (Zoloft), 200 MG PO DAILY Current Inpatient Medications Current Inpatient Medications Medications (Trade) Dose Ordered Sig/Cherri Route Start Time Stop Time Status Last Admin Dose Admin Sodium Chloride 500 ml @ 15 mls/hr Q24H ONCE IV 09/27/17 23:58 09/28/17 23:57 Acetaminophen (Tylenol Tab) 650 mg Q4H PRN PO 09/28/17 04:15 10/28/17 04:14 Morphine Sulfate (MoRPHine SULFATE INJ) 2 mg Q30M PRN IV 09/28/17 04:15 10/12/17 04:14 09/28/17 06:34 2 MG Nicotine (Nicoderm Cq 21MG Patch) 1 patch QAM TD 09/28/17 04:15 10/28/17 04:14 Miscellaneous (Remove Nicoderm Patch) 1 ea HS N/A 09/28/17 21:00 10/28/17 20:59 Lorazepam (Ativan Tab) 0.5 mg TID PRN PO 09/28/17 04:15 10/28/17 04:14 09/28/17 04:59 0.5 MG Oxycodone HCl (Roxicodone Immediate Rel Tab) 5 mg Q6H PRN PO 09/28/17 04:15 10/12/17 04:14 09/28/17 04:59 5 MG Gabapentin (Neurontin Tab) 600 mg TID PO 09/28/17 09:00 10/28/17 08:59 Quetiapine Fumarate (seroQUEL TAB) 300 mg HS PO 09/28/17 21:00 10/28/17 20:59 Sertraline HCl (Zoloft Tab) 200 mg DAILY PO 09/28/17 09:00 10/28/17 08:59 [place] Carbonate ([place] Carbonate Tab) 600 mg BID PO 09/28/17 09:00 10/28/17 08:59 Prazosin HCl (Prazosin) 1 mg HS PO 09/28/17 21:00 10/28/17 20:59 Ondansetron HCl (Zofran Tab) 4 mg Q8H PRN PO 09/28/17 04:45 10/28/17 04:44 Review of Systems Constitutional: No fever, No chills Respiratory: No shortness of breath Cardiovascular: No chest pain Abdomen: + pain (RLQ), No nausea, No vomiting, No diarrhea Genitourinary - Male: No dysuria Physical Exam Date Time Temp Pulse Resp B/P (MAP) Pulse Ox O2 Delivery O2 Flow Rate FiO2 09/28/17 03:45 36.6 78 20 129/83 09/28/17 02:58 Room Air 09/28/17 02:30 79 18 123/81 96 Room Air 09/28/17 02:20 80 16 125/86 95 Room Air 09/28/17 02:10 81 22 128/62 95 Room Air 09/28/17 02:00 90 18 126/84 95 Room Air 09/28/17 01:50 85 14 126/82 96 Room Air 09/28/17 01:40 91 16 113/73 95 Room Air 09/28/17 01:30 82 16 129/82 94 Room Air 09/28/17 01:20 97 22 140/95 97 Room Air 09/28/17 01:10 97 20 143/96 99 Room Air 09/28/17 01:01 36.6 95 14 152/98 99 Room Air 09/27/17 23:17 82 20 126/77 97 Room Air 09/27/17 21:33 36.8 92 18 130/80 100 Room Air General Appearance: WD/WN, no apparent distress Head: normocephalic, atraumatic ENT: hearing grossly normal Abdomen/GI: normal bowel sounds, non tender, soft, no organomegaly, no pulsatile mass Neurologic/Psych: alert, oriented x 3, + pertinent finding (Seems on edge, almost paranoid.) Skin: normal color, warm/dry Laboratory Results Last 24 Hours Test 09/27/17 22:46 09/28/17 04:44 White Blood Count 10.84 K/uL Red Blood Count 4.82 M/uL Hemoglobin 15.6 g/dL Hematocrit 46.2 % Mean Corpuscular Volume 95.9 fL Mean Corpuscular Hemoglobin 32.4 pg Mean Corpuscular Hemoglobin Concent 33.8 g/dl Platelet Count 207 K/uL Mean Platelet Volume 9.3 fL Neutrophils (%) (Auto) 52.2 % Lymphocytes (%) (Auto) 35.0 % Monocytes (%) (Auto) 8.6 % Eosinophils (%) (Auto) 3.7 % Basophils (%) (Auto) 0.3 % Neutrophils # (Auto) 5.67 K/uL Lymphocytes # (Auto) 3.79 K/uL Monocytes # (Auto) 0.93 K/uL Eosinophils # (Auto) 0.40 K/uL Basophils # (Auto) 0.03 K/uL RDW Standard Deviation 45.3 fL RDW Coefficient of Variation 13.0 % Immature Granulocyte % (Auto) 0.2 % Immature Granulocyte # (Auto) 0.02 K/uL Prothrombin Time 10.8 SECONDS Prothromb Time International Ratio 1.0 Activated Partial Thromboplast Time 25.0 SECONDS Partial Thromboplastin Ratio 1.0 Sodium Level 138 mmol/L Potassium Level 3.6 mmol/L Chloride Level 104 mmol/L Carbon Dioxide Level 31 mmol/L Anion Gap 3.0 mmol/L Blood Urea Nitrogen 11 mg/dl Creatinine 1.06 mg/dl Est Creatinine Clear Calc Drug Dose 108.9 ml/min Estimated GFR () 110.2 Estimated GFR (Non- 95.0 BUN/Creatinine Ratio 10.0 Random Glucose 76 mg/dl Calcium Level 9.3 mg/dl Total Bilirubin 0.3 mg/dl Direct Bilirubin 0.1 mg/dl Aspartate Amino Transf (AST/SGOT) 154 U/L Alanine Aminotransferase (ALT/SGPT) 305 U/L Alkaline Phosphatase 83 U/L Total Protein 8.4 gm/dl Albumin 4.5 gm/dl Lipase 88 U/L Assessment & Plan Ingested foreign body (2 razor blades) s/p unsuccessful removal with EGD. Agree with GI - appreciate recommendations. H&H stable, AM labs pending, no signs of bleeding on EGD. No signs of perforation or free air on CT. No acute surgical intervention indicated at this time. Repeat KUB today to follow location of ingested objects. Will continue to follow. [facility] General Surgery covering this weekend. Please Contact with questions or concerns.
--- NOTE | 2017-09-28 07:36 | DIAGNOSTIC IMAGING REPORT ---
CT SCAN OF THE ABDOMEN AND PELVIS WITHOUT IV CONTRAST CLINICAL HISTORY: Foreign body ingestion. COMPARISON STUDY: KUB dated 09/27/2017. Abdominal CT dated 06/11/2017. TECHNIQUE: CT scan of the abdomen and pelvis is performed from the lung bases to the proximal femora. Images are reviewed in the axial, sagittal, and coronal planes. IV contrast was not administered for this examination as per the referring clinician. Note that the examination was performed in suboptimal fashion without IV contrast. A dose lowering technique was utilized adhering to the principles of ALARA. CT DOSE: 281.05 mGy.cm FINDINGS: Lung bases: The heart is normal in size and without pericardial effusion. The lung bases are clear noting bibasilar platelike atelectasis. Liver: The unenhanced liver is normal in size, contour, and attenuation. There is no intrahepatic biliary ductal dilatation. Gallbladder: Unremarkable. Spleen: Normal in size and attenuation. Pancreas: Unremarkable. Adrenal glands: Unremarkable. Kidneys: The unenhanced kidneys are normal in size and without hydronephrosis. There are no renal calculi identified. There is no evidence of contour deforming renal mass lesion. Abdominal vasculature: The abdominal aorta is normal in course and caliber. Stomach and bowel: The stomach and duodenum are normal in configuration. Metallic foreign bodies are present within the distal stomach as seen on image #158. There is moderate colonic fecal retention. No bowel obstruction is seen. The appendix is well-visualized and normal. Peritoneum: There is no intraperitoneal free air or abdominal ascites. There is a small fat-containing umbilical hernia. A surgical scar is suggested in the ventral pelvis. Lymphadenopathy: None. Pelvic viscera: The bladder, prostate, and seminal vesicles are normal as visualized. Skeletal structures: No lytic or blastic lesions are seen. A hemitransitional right lumbosacral segment is incidentally noted. IMPRESSION: 1. There are no acute infectious or inflammatory findings in the abdomen or pelvis. 2. Metallic foreign bodies are present in the distal stomach. 3. Moderate constipation. Electronically signed by: James Rodarte M.D. 09/28/2017 7:34 AM Dictated Date/Time: 09/28/2017 7:10 AM
[2017-09-28 07:43] LABS: HEMOGLOBIN 14.9 g/dL (14.0-18.0); MEAN CELL VOLUME 96.2 fL (80-100); MEAN CORPUSCULAR HEMOGLOBIN 31.8 pg (25-34); MEAN CORPUSCULAR HGB CONC 33.1 g/dl (32-36); MEAN PLATELET VOLUME 9.1 fL (7.4-10.4); PLATELET COUNT 200 K/uL (130-400); RED CELL DISTRIBUTION WIDTH CV 13.1 % (11.5-14.5); RED CELL DISTRIBUTION WIDTH SD 45.4 fL (36.4-46.3); WHITE BLOOD COUNT 11.06 K/uL (4.8-10.8)
[2017-09-28 08:00] LABS: CALCIUM 9.5 mg/dl (8.5-10.1); CREATININE 0.93 mg/dl (0.60-1.40)
[2017-09-28 08:03] LABS: TOTAL PROTEIN 7.9 gm/dl (6.4-8.2)
[2017-09-28] MEDS: NICOTINE 21 MG/24 HR TDSY TD SCH ×2 (09:00→10:55)
--- NOTE | 2017-09-28 09:59 | DIAGNOSTIC IMAGING REPORT ---
KUB CLINICAL HISTORY: Foreign body ingestion. FINDINGS: 2 AP supine abdominal radiographs are compared to abdominal radiographs and abdominal CT dated 09/27/2017. There is a nonobstructed abdominal bowel gas pattern noting moderate colonic fecal retention. 2 metallic foreign bodies are again seen projecting over the left upper quadrant, likely located in the stomach. No evidence of intraperitoneal free air is seen on these supine views. There are no abnormal abdominal calcifications. A small phlebolith is observed in the pelvis. The bony structures appear intact. IMPRESSION: 1. Two radiodense/metallic foreign bodies are again seen projecting over the left upper quadrant. These are likely located in the stomach. 2. Moderate constipation. No bowel obstruction is identified. Electronically signed by: James Rodarte M.D. 09/28/2017 9:57 AM Dictated Date/Time: 09/28/2017 9:56 AM
[2017-09-28] MEDS ORDERED: D5W AND NSS 1,000 ML IV SCH (10:45)
[2017-09-28] MEDS: LITHIUM CARBONATE 300 MG TAB PO SCH ×2 (10:53→20:28)
[2017-09-28] MEDS: SERTRALINE HCL 100 MG TAB PO SCH (10:54)
[2017-09-28] MEDS: GABAPENTIN 600 MG TAB PO SCH ×3 (10:54→20:28)
--- NOTE | 2017-09-28 11:52 | Gastroenterology Progress Note ---
Progress Note Date of Service: Sep 28, 2017 Subjective Pt evaluation today including: conversation w/ patient, physical exam, chart review, lab review, review of inpatient medication list Pt ate solid breakfast this AM. KUB showed razors in LUQ, likely distal stomach. He is c/o abd pain, also feels very anxious. He is refusing repeat EGD. Review of Systems Constitutional: No fever Respiratory: No cough Cardiac: No chest pain Abdomen: + pain, No nausea Medications Current Inpatient Medications Medications (Trade) Dose Ordered Sig/Cherri Route Start Time Stop Time Status Last Admin Dose Admin Acetaminophen (Tylenol Tab) 650 mg Q4H PRN PO 09/28/17 04:15 10/28/17 04:14 Morphine Sulfate (MoRPHine SULFATE INJ) 2 mg Q30M PRN IV 09/28/17 04:15 10/12/17 04:14 09/28/17 10:51 2 MG Nicotine (Nicoderm Cq 21MG Patch) 1 patch QAM TD 09/28/17 04:15 10/28/17 04:14 09/28/17 10:55 1 PATCH Miscellaneous (Remove Nicoderm Patch) 1 ea HS N/A 09/28/17 21:00 10/28/17 20:59 Lorazepam (Ativan Tab) 0.5 mg TID PRN PO 09/28/17 04:15 10/28/17 04:14 09/28/17 10:57 0.5 MG Oxycodone HCl (Roxicodone Immediate Rel Tab) 5 mg Q6H PRN PO 09/28/17 04:15 10/12/17 04:14 09/28/17 04:59 5 MG Gabapentin (Neurontin Tab) 600 mg TID PO 09/28/17 09:00 10/28/17 08:59 09/28/17 10:54 600 MG Quetiapine Fumarate (seroQUEL TAB) 300 mg HS PO 09/28/17 21:00 10/28/17 20:59 Sertraline HCl (Zoloft Tab) 200 mg DAILY PO 09/28/17 09:00 10/28/17 08:59 09/28/17 10:54 200 MG [place] Carbonate ([place] Carbonate Tab) 600 mg BID PO 09/28/17 09:00 10/28/17 08:59 09/28/17 10:53 600 MG Prazosin HCl (Prazosin) 1 mg HS PO 09/28/17 21:00 10/28/17 20:59 Ondansetron HCl (Zofran Tab) 4 mg Q8H PRN PO 09/28/17 04:45 10/28/17 04:44 Dextrose/Sodium Chloride 1,000 ml @ 100 mls/hr Q10H IV 09/28/17 10:45 10/28/17 10:44 Objective Vital Signs Date Time Temp Pulse Resp B/P (MAP) Pulse Ox O2 Delivery O2 Flow Rate FiO2 09/28/17 08:18 36.5 81 18 113/68 (83) 100 Room Air 09/28/17 03:45 36.6 78 20 129/83 09/28/17 02:58 Room Air 09/28/17 02:30 79 18 123/81 96 Room Air 09/28/17 02:20 80 16 125/86 95 Room Air 09/28/17 02:10 81 22 128/62 95 Room Air 09/28/17 02:00 90 18 126/84 95 Room Air 09/28/17 01:50 85 14 126/82 96 Room Air 09/28/17 01:40 91 16 113/73 95 Room Air 09/28/17 01:30 82 16 129/82 94 Room Air 09/28/17 01:20 97 22 140/95 97 Room Air 09/28/17 01:10 97 20 143/96 99 Room Air 09/28/17 01:01 36.6 95 14 152/98 99 Room Air 09/27/17 23:17 82 20 126/77 97 Room Air 09/27/17 21:33 36.8 92 18 130/80 100 Room Air Physical Exam General Appearance: no apparent distress, + thin Eyes: normal inspection, PERRL, EOMI Neck: supple, no JVD, trachea midline Respiratory/Chest: normal breath sounds, no respiratory distress, no accessory muscle use Cardiovascular: regular rate, rhythm, no gallop, no murmur Abdomen: soft, + tenderness (diffuse) Extremities: normal inspection, no pedal edema, no calf tenderness Neurologic/Psych: alert, normal mood/affect, oriented x 3 Skin: normal color, no jaundice, no rash Laboratory Results Last 24 Hours Test 09/27/17 22:46 09/28/17 07:11 White Blood Count 10.84 K/uL 11.06 K/uL Red Blood Count 4.82 M/uL 4.68 M/uL Hemoglobin 15.6 g/dL 14.9 g/dL Hematocrit 46.2 % 45.0 % Mean Corpuscular Volume 95.9 fL 96.2 fL Mean Corpuscular Hemoglobin 32.4 pg 31.8 pg Mean Corpuscular Hemoglobin Concent 33.8 g/dl 33.1 g/dl Platelet Count 207 K/uL 200 K/uL Mean Platelet Volume 9.3 fL 9.1 fL Neutrophils (%) (Auto) 52.2 % Lymphocytes (%) (Auto) 35.0 % Monocytes (%) (Auto) 8.6 % Eosinophils (%) (Auto) 3.7 % Basophils (%) (Auto) 0.3 % Neutrophils # (Auto) 5.67 K/uL Lymphocytes # (Auto) 3.79 K/uL Monocytes # (Auto) 0.93 K/uL Eosinophils # (Auto) 0.40 K/uL Basophils # (Auto) 0.03 K/uL RDW Standard Deviation 45.3 fL 45.4 fL RDW Coefficient of Variation 13.0 % 13.1 % Immature Granulocyte % (Auto) 0.2 % Immature Granulocyte # (Auto) 0.02 K/uL Prothrombin Time 10.8 SECONDS Prothromb Time International Ratio 1.0 Activated Partial Thromboplast Time 25.0 SECONDS Partial Thromboplastin Ratio 1.0 Sodium Level 138 mmol/L 140 mmol/L Potassium Level 3.6 mmol/L 4.0 mmol/L Chloride Level 104 mmol/L 105 mmol/L Carbon Dioxide Level 31 mmol/L 28 mmol/L Anion Gap 3.0 mmol/L 6.0 mmol/L Blood Urea Nitrogen 11 mg/dl 9 mg/dl Creatinine 1.06 mg/dl 0.93 mg/dl Est Creatinine Clear Calc Drug Dose 108.9 ml/min 129.1 ml/min Estimated GFR () 110.2 129.0 Estimated GFR (Non- 95.0 111.3 BUN/Creatinine Ratio 10.0 9.5 Random Glucose 76 mg/dl 103 mg/dl Calcium Level 9.3 mg/dl 9.5 mg/dl Total Bilirubin 0.3 mg/dl 0.3 mg/dl Direct Bilirubin 0.1 mg/dl 0.1 mg/dl Aspartate Amino Transf (AST/SGOT) 154 U/L 137 U/L Alanine Aminotransferase (ALT/SGPT) 305 U/L 276 U/L Alkaline Phosphatase 83 U/L 80 U/L Total Protein 8.4 gm/dl 7.9 gm/dl Albumin 4.5 gm/dl 4.0 gm/dl Lipase 88 U/L Assessment and Plan Pt is a 27 y/o inmate who swallowed 2 metal razors yesterday. Attempted urgent EGD unsuccessful to locate the razors despite suction and lavage as there was a lot of food material in stomach. CT at 2AM and KUB 8AM showed razors likely in distal stomach. He is c/o abd pain. He ate solid breakfast this AM (ordered by hospitalist), and refused to give up meal tray when RN attempted to take it away from him once I had ordered him to be NPO until further evaluation. He is refusing repeat EGD at this time. I reviewed with him risk of perforation, bleeding, infection, . He has hx of bowel perforation years ago from razor ingestion requiring surgery. He is aware of risks having razor remaining in his GI tract. Surgery team is aware of the current situation, will follow with serial KUBs. At this time, since pt is refusing repeat EGD, pls call if any new questions/concerns arise. I have reviewed the case and films with ALIA Ordoñez. Patient does not want/refuses endoscopy. Follow serial KUB's over the next week (can be as out patient) to confirm passage of objects. Watch for signs of peritonitis. Khang Cortez MD
[2017-09-28] MEDS ORDERED: LORAZEPAM 2 MG/ML 1 ML VIAL IV PRN (12:15)
[2017-09-28] MEDS: SODIUM CHLORIDE 0.9% 1000ML 1,000 ML IV SCH (14:05)
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
--- NOTE | 2017-09-28 20:19 | Progress Note ---
Internal Med Progress Note Date of Service: Sep 28, 2017. Provider Documentation: SUBJECTIVE: complains of abdominal pain says he swallowed pen in May and thinks it still in his abdomen that's what causing his pain he though if swallow razors then Pen issue will also be solved that's he reason he did it this time hx of swallowing foreign materials foreign material still in stomach but patient refusing for repeat egd today as yesterday evening egd was not successful a. Also he wants to pass them on hios own because they may stuck with pen and then we can do surgery to remove the pen and razors. Explained the risk of passing on his own like bleeding and perforation but he wants to pass them on is own He wants to eat. afebrile no sob no nausea OBJECTIVE: Vital Signs-as noted below Exam: General-alert and oriented. Not in distress ENT-Normal hearing Neck-no neck masses Lungs-cta b/l no wheezing or crackles Heart-S 1 and S 2heard regular rate and rhythm no murmurs Abdomen-soft bowel sounds present tender i epigastric and ruq regions no distension Extremities-no edema no erythema Neuro-alert and awake moves extremities Lab data as noted below. ASSESSMENT & PLAN: 27 yo M with mental health issues who is currently incarcerated swallowed two razor blades 1. Swallowed foreign body-plain films confirm presence of blades, however EGD was unable to locate them visually yesterday . CT A/P shows them still in stomach. refusing repeat egd today. Wants to pass them on his own though explained the risk. He thinks there is also pen inside and it will be taken out together with razors if they are stuck. Surgery on board. Seen by GI. 2. Anxiety/PTSD-continues on [place], Sertraline, Seroquel, Prazosin. Mental Health consulted - has competence to make decisions.. malingering. 3. Seizures-On gabapentin. Stable. 4. Marijuana use and smoker-currently incarcerated with lack of access to illegal drugs. Nicotine patch . 5. Elevated transaminitis-slightly elevated in the past. trending down. Ct unremarkable DVT PROPHYLAXIS scds DISPOSITION to be determined back to retirement when stable Vital Signs: Date Time Temp Pulse Resp B/P (MAP) Pulse Ox O2 Delivery O2 Flow Rate FiO2 09/28/17 18:01 100 Room Air 09/28/17 16:45 36.3 69 20 122/71 (88) 100 Room Air 09/28/17 12:05 36.6 64 19 115/69 (84) 98 Room Air 09/28/17 08:18 36.5 81 18 113/68 (83) 100 Room Air 09/28/17 08:00 96 Room Air 09/28/17 03:45 36.6 78 20 129/83 09/28/17 02:58 Room Air 09/28/17 02:30 79 18 123/81 96 Room Air 09/28/17 02:20 80 16 125/86 95 Room Air 09/28/17 02:10 81 22 128/62 95 Room Air 09/28/17 02:00 90 18 126/84 95 Room Air 09/28/17 01:50 85 14 126/82 96 Room Air 09/28/17 01:40 91 16 113/73 95 Room Air 09/28/17 01:30 82 16 129/82 94 Room Air 09/28/17 01:20 97 22 140/95 97 Room Air 09/28/17 01:10 97 20 143/96 99 Room Air 09/28/17 01:01 36.6 95 14 152/98 99 Room Air 09/27/17 23:17 82 20 126/77 97 Room Air 09/27/17 21:33 36.8 92 18 130/80 100 Room Air Lab Results: Results Past 24 Hours Test 09/27/17 22:46 09/28/17 07:11 Range/Units White Blood Count 10.84 11.06 4.8-10.8 K/uL Red Blood Count 4.82 4.68 4.7-6.1 M/uL Hemoglobin 15.6 14.9 14.0-18.0 g/dL Hematocrit 46.2 45.0 42-52 % Mean Corpuscular Volume 95.9 96.2 80-100 fL Mean Corpuscular Hemoglobin 32.4 31.8 25-34 pg Mean Corpuscular Hemoglobin Concent 33.8 33.1 32-36 g/dl Platelet Count 207 200 130-400 K/uL Mean Platelet Volume 9.3 9.1 7.4-10.4 fL Neutrophils (%) (Auto) 52.2 % Lymphocytes (%) (Auto) 35.0 % Monocytes (%) (Auto) 8.6 % Eosinophils (%) (Auto) 3.7 % Basophils (%) (Auto) 0.3 % Neutrophils # (Auto) 5.67 1.4-6.5 K/uL Lymphocytes # (Auto) 3.79 1.2-3.4 K/uL Monocytes # (Auto) 0.93 0.11-0.59 K/uL Eosinophils # (Auto) 0.40 0-0.5 K/uL Basophils # (Auto) 0.03 0-0.2 K/uL RDW Standard Deviation 45.3 45.4 36.4-46.3 fL RDW Coefficient of Variation 13.0 13.1 11.5-14.5 % Immature Granulocyte % (Auto) 0.2 % Immature Granulocyte # (Auto) 0.02 0.00-0.02 K/uL Prothrombin Time 10.8 9.0-12.0 SECONDS Prothromb Time International Ratio 1.0 0.9-1.1 Activated Partial Thromboplast Time 25.0 21.0-31.0 SECONDS Partial Thromboplastin Ratio 1.0 Sodium Level 138 140 136-145 mmol/L Potassium Level 3.6 4.0 3.5-5.1 mmol/L Chloride Level 104 105 98-107 mmol/L Carbon Dioxide Level 31 28 21-32 mmol/L Anion Gap 3.0 6.0 3-11 mmol/L Blood Urea Nitrogen 11 9 7-18 mg/dl Creatinine 1.06 0.93 0.60-1.40 mg/dl Est Creatinine Clear Calc Drug Dose 108.9 129.1 ml/min Estimated GFR () 110.2 129.0 Estimated GFR (Non- 95.0 111.3 BUN/Creatinine Ratio 10.0 9.5 10-20 Random Glucose 76 103 70-99 mg/dl Calcium Level 9.3 9.5 8.5-10.1 mg/dl Total Bilirubin 0.3 0.3 0.2-1 mg/dl Direct Bilirubin 0.1 0.1 0-0.2 mg/dl Aspartate Amino Transf (AST/SGOT) 154 137 15-37 U/L Alanine Aminotransferase (ALT/SGPT) 305 276 12-78 U/L Alkaline Phosphatase 83 80 45-117 U/L Total Protein 8.4 7.9 6.4-8.2 gm/dl Albumin 4.5 4.0 3.4-5.0 gm/dl Lipase 88 73-393 U/L
[2017-09-28] MEDS: PRAZOSIN HCL 1 MG CAP PO SCH ×3 (20:29→22:00)
[2017-09-28] MEDS: QUETIAPINE FUMARATE 300 MG TAB PO SCH ×2 (20:29→21:32)
[2017-09-29] VITALS: BP 115/72; PULSE 73; TEMP 36.5; O2SAT 100
[2017-09-29] MEDS: OXYCODONE HCL IR 5 MG TAB (IMMEDIATE RELEASE) PO PRN ×2 (00:08→14:03)
[2017-09-29] MEDS: MoRPHine SULFATE 2 MG/ML CARP IV PRN ×2 (00:32→12:31)
[2017-09-29] MEDS ORDERED: LORAZEPAM INJ 0.5 MG in SYRINGE 0.75 ML IV PRN (00:45)
[2017-09-29 07:11] VITALS: BP 120/73; PULSE 67; TEMP 36.3; O2SAT 100
--- NOTE | 2017-09-29 08:51 | Progress Note ---
Progress Note Date of Service Sep 29, 2017. Progress Note Pt not seen today but last admission and notes from current admission reviewed. During his last admission, he repeatedly swallowed things from his hospital room (even removing nails from the bathroom wall and swallowing the hook that attaches remote to the bed). This was despite having guards in the room. He demonstrates evidence of malingering and manipulation (wanting to stay in hospital, wanting medications). There would be no role for surgical intervention in his case short of peritonitis. This could be monitored at the correction and he could be sent back here should he develops signs of bowel perforation (increased pain, distention, vomiting). Discussed with Dr. Oliver. As pt is refusing repeat egd (which may not be successful anyway as first egd was unable to retrieve objects), I would have no objection to his being monitored at the correction.
[2017-09-29] MEDS: SODIUM CHLORIDE 0.9% 1000ML 1,000 ML IV SCH (09:52)
[2017-09-29] MEDS: GABAPENTIN 600 MG TAB PO SCH ×4 (12:25→20:05)
[2017-09-29] MEDS: LITHIUM CARBONATE 300 MG TAB PO SCH ×3 (12:25→20:05)
[2017-09-29] MEDS: SERTRALINE HCL 100 MG TAB PO SCH (12:26)
[2017-09-29] MEDS: NICOTINE 21 MG/24 HR TDSY TD SCH (12:27)
[2017-09-29] MEDS: LORAZEPAM 0.5 MG TAB PO PRN (12:31)
--- NOTE | 2017-09-29 13:50 | DIAGNOSTIC IMAGING REPORT ---
CHEST ONE VIEW PORTABLE CLINICAL HISTORY: 27 years-old Male presenting with f/u foreign body. TECHNIQUE: Portable upright AP view of the chest was obtained. COMPARISON: 09/27/2017. FINDINGS: Cardiomediastinal silhouette normal. Lungs and pleural spaces clear. Osseous structures normal. Upper abdomen normal. IMPRESSION: 1. No acute cardiopulmonary disease. No radiographic evidence of foreign body in the thorax. Electronically signed by: Camden Bey M.D. 09/29/2017 1:49 PM Dictated Date/Time: 09/29/2017 1:48 PM
--- NOTE | 2017-09-29 13:51 | DIAGNOSTIC IMAGING REPORT ---
KUThierry CLINICAL HISTORY: 27 years-old Male presenting with f/u foreign body. TECHNIQUE: Single supine view of the abdomen was obtained. COMPARISON: 09/28/2017. FINDINGS: Nonobstructive bowel gas pattern. Marked stool burden to the level of the descending colon. No gross pneumoperitoneum. The metallic foreign bodies project over the mid abdomen, possibly within the gastric lumen. Osseous structures normal. IMPRESSION: 1. Persistent foreign bodies consistent with razor blades project over the mid abdomen possibly within the gastric lumen. 2. Marked stool burden consistent with constipation. Electronically signed by: Camden Bey M.D. 09/29/2017 1:50 PM Dictated Date/Time: 09/29/2017 1:49 PM
[2017-09-29 14:21] VITALS: BP 114/74; PULSE 72; TEMP 36.8; O2SAT 100
[2017-09-29] MEDS: QUETIAPINE FUMARATE 25 MG TAB PO PRN (17:02)
[2017-09-29] MEDS: D5W AND LACTATED RINGERS 1,000 ML IV SCH (17:57)
--- NOTE | 2017-09-29 18:01 | Progress Note ---
Medicine Progress Note Date & Time of Visit: Sep 29, 2017 at 16:30 . Subjective Patient states that he is having severe abdominal pain. No nausea, vomiting, melena, hematochezia. No fever. . Objective Last 8 Hrs Date Time Temp Pulse Resp B/P (MAP) Pulse Ox O2 Delivery O2 Flow Rate FiO2 09/29/17 16:00 Room Air 09/29/17 14:21 36.8 72 18 114/74 (87) 100 Room Air 09/29/17 12:45 Room Air Physical Exam: General- lying in bed, no apparent distress Lungs- clear to auscultation; no respiratory distress Cardiovascular- RRR; no JVD; no pretibial edema Abdomen- + bowel sounds, nondistended, soft, nontender Extremities- no cyanosis; no calf tenderness Neuro- alert, oriented Skin- warm & dry . Laboratory Results: Last 24 Hours Test 09/29/17 07:58 [place] Level 0.9 mMOL/L Diagnostic Imaging: KUB CLINICAL HISTORY: 27 years-old Male presenting with f/u foreign body. TECHNIQUE: Single supine view of the abdomen was obtained. COMPARISON: 09/28/2017. FINDINGS: Nonobstructive bowel gas pattern. Marked stool burden to the level of the descending colon. No gross pneumoperitoneum. The metallic foreign bodies project over the mid abdomen, possibly within the gastric lumen. Osseous structures normal. IMPRESSION: 1. Persistent foreign bodies consistent with razor blades project over the mid abdomen possibly within the gastric lumen. 2. Marked stool burden consistent with constipation. Electronically signed by: Camden Bey M.D. 09/29/2017 1:50 PM . Assessment & Plan INGESTED FOREIGN BODIES Intentional ingestion of razor blades. Emergent EGD 09/27 showed retained gastric contents, no foreign bodies could be identified. CT abdomen and pelvis performed 09/28 after EGD demonstrated metallic foreign bodies in the distal stomach. Patient refused repeat EGD 09/28. KUB today as noted above shows persistent foreign bodies projecting over mid abdomen, possibly within gastric lumen. Patient now states that he would like repeat EGD. Will keep NPO. Check repeat CT to determined current location. Possible repeat EGD if foreign bodies retrievable by endoscopy. No indication for exploratory lap at this time. No indication for analgesics at this time. Patient requesting IV morphine so that he can take a nap. Explained to him that analgesics could mask a perforated viscus and should be avoided. ANXIETY / PERSONALITY DISORDERS Patient has been requesting IV lorazepam. No indication at this time. Continue meds per Psych. POSSIBLE SEIZURE DISORDER Continue gabapentin. VTE PROPHYLAXIS SCD's. DISPOSITION Expected return to [facility]. . Current Inpatient Medications: Current Inpatient Medications Medications (Trade) Dose Ordered Sig/Cherri Route Start Time Stop Time Status Last Admin Dose Admin Acetaminophen (Tylenol Tab) 650 mg Q4H PRN PO 09/28/17 04:15 10/28/17 04:14 Nicotine (Nicoderm Cq 21MG Patch) 1 patch QAM TD 09/28/17 04:15 10/28/17 04:14 09/29/17 12:27 1 PATCH Miscellaneous (Remove Nicoderm Patch) 1 ea HS N/A 09/28/17 21:00 10/28/17 20:59 09/28/17 21:00 1 EA Gabapentin (Neurontin Tab) 600 mg TID PO 09/28/17 09:00 10/28/17 08:59 09/29/17 17:02 600 MG Quetiapine Fumarate (seroQUEL TAB) 300 mg HS PO 09/28/17 21:00 10/28/17 20:59 09/28/17 20:29 300 MG Sertraline HCl (Zoloft Tab) 200 mg DAILY PO 09/28/17 09:00 10/28/17 08:59 09/29/17 12:26 200 MG [place] Carbonate ([place] Carbonate Tab) 600 mg BID PO 09/28/17 09:00 10/28/17 08:59 09/29/17 12:28 600 MG Prazosin HCl (Prazosin) 1 mg HS PO 09/28/17 21:00 10/28/17 20:59 Ondansetron HCl (Zofran Tab) 4 mg Q8H PRN PO 09/28/17 04:45 10/28/17 04:44 09/28/17 20:29 4 MG Quetiapine Fumarate (seroQUEL TAB) 50 mg TID PRN PO 09/28/17 15:30 10/28/17 15:29 09/29/17 17:02 50 MG Dextrose/Lactated Ringer's 1,000 ml @ 150 mls/hr Q6H40M IV 09/29/17 17:30 10/29/17 17:29
--- NOTE | 2017-09-29 18:32 | DIAGNOSTIC IMAGING REPORT ---
ABD/PELVIS NO IV OR ORAL CONT CLINICAL HISTORY: 27 years-old Male presenting with follow-up ingested foreign bodies. TECHNIQUE: Multidetector CT of the abdomen and pelvis was performed without the use of intravenous contrast. IV contrast: None. A dose lowering technique was used consistent with the principles of ALARA (as low as reasonably achievable). COMPARISON: 09/28/2017. CT DOSE (mGy.cm): The estimated cumulative dose is 290.04 mGy.cm. FINDINGS: Tribunal Member topogram: Redemonstration of the radiopaque foreign body projecting over the mid abdomen. Additionally, there is a new foreign body which was not present on most recent abdominal radiograph performed at 1:37 PM today. Lung bases: Minimal basilar opacities, likely atelectasis. Normal heart size. No pericardial or pleural effusion. Liver: Normal morphology. Normal density. Biliary: No gross biliary ductal dilatation allowing for noncontrast technique. Gallbladder decompressed. Pancreas: Normal noncontrast appearance. Spleen: Normal noncontrast appearance. Adrenal glands: Normal noncontrast appearance. Kidneys and ureters: Normal. No hydronephrosis. Bladder: Distended. Pelvic organs: Prostate and seminal vesicles normal. Bowel: Moderate stool burden throughout normal caliber colon. The appendix is normal. No bowel obstruction. A new radiopaque foreign body is evident in the stomach. Redemonstration of the original foreign body, which has now passed into the descending portion of the duodenum. Peritoneal cavity: No free fluid or intraperitoneal gas. Lymph nodes: No gross lymphadenopathy allowing for noncontrast technique. Vasculature: Normal noncontrast appearance. Abdominal wall: Postsurgical changes of the midline abdominal wall. Musculoskeletal: Normal. IMPRESSION: 1. Apparent new radiopaque foreign body in the gastric lumen. Passage of the previously noted foreign body into the descending duodenum. Only one foreign body was evident on abdominal radiograph at 1:37 PM today. No bowel obstruction or perforation. 2. Distended bladder. Correlate clinically to exclude outlet obstruction. 3. Findings consistent with constipation. The report will be called/faxed according to standard departmental protocol. Electronically signed by: Camden Bey M.D. 09/29/2017 6:31 PM Dictated Date/Time: 09/29/2017 6:24 PM
[2017-09-29] MEDS: PRAZOSIN HCL 1 MG CAP PO SCH (20:05)
[2017-09-29] MEDS: QUETIAPINE FUMARATE 300 MG TAB PO SCH (20:06)
[2017-09-30] VITALS (7 sets, daily range): BP systolic 95–119; BP diastolic 60–75; PULSE 72–87; TEMP 36.4–36.8; O2SAT 94–100
[2017-09-30] MEDS: D5W AND LACTATED RINGERS 1,000 ML IV SCH ×3 (00:42→11:46)
[2017-09-30] MEDS: LITHIUM CARBONATE 300 MG TAB PO SCH ×2 (07:13→09:54)
[2017-09-30] MEDS: GABAPENTIN 600 MG TAB PO SCH ×3 (07:14→13:54)
[2017-09-30] MEDS: SERTRALINE HCL 100 MG TAB PO SCH ×2 (07:14→09:54)
[2017-09-30] MEDS ORDERED: EpHEDrine SULFATE INJ 50 MG/ML AMP IV PRN (07:30)
[2017-09-30] MEDS ORDERED: ATROPINE SULFATE 0.1 MG/ML 5ML SYR IV PRN (07:30)
[2017-09-30] MEDS ORDERED: ONDANSETRON INJ 2 MG/ML 2 ML VIAL IV PRN (07:30)
[2017-09-30] MEDS ORDERED: GLYCOPYRROLATE INJ 0.2 MG/ML VIAL ONE (07:31)
[2017-09-30] MEDS ORDERED: MIDAZOLAM HCL 1 MG/ML 2ML VIAL ONE (07:31)
[2017-09-30] MEDS ORDERED: ONDANSETRON INJ 2 MG/ML 2 ML VIAL ONE (07:31)
[2017-09-30] MEDS ORDERED: PROPOFOL IV EMULSION 10 MG/ML 20 ML VIAL IV ONE ×3 (07:31→07:44)
[2017-09-30] MEDS ORDERED: LIDOCAINE HCL 2% 2 ML VIAL (20MG/ML) ONE (07:31)
[2017-09-30] MEDS ORDERED: SUCCINYLCHOLINE CHLORIDE 20 MG/ML 10 ML VIAL IV ONE (07:31)
[2017-09-30] MEDS ORDERED: FENTANYL CITRATE INJ 50 MCG/1 ML 2 ML VIAL ONE (07:31)
[2017-09-30] MEDS ORDERED: PHENYLEPHRINE HCL INJ 10 MG/ML VIAL ONE (07:31)
[2017-09-30] MEDS ORDERED: DEXAMETHASONE SOD INJ 4 MG/ML VIAL ONE (07:31)
[2017-09-30] MEDS ORDERED: NEOSTIGMINE METHYLSULFATE 5 MG/5 ML SYR ONE (07:31)
[2017-09-30] MEDS ORDERED: EpHEDrine SULFATE INJ 50 MG/ML AMP ONE (07:31)
[2017-09-30 07:34] LABS: HEMATOCRIT 43.2 % (42-52); HEMOGLOBIN 14.1 g/dL (14.0-18.0); MEAN CELL VOLUME 96.9 fL (80-100); MEAN CORPUSCULAR HEMOGLOBIN 31.6 pg (25-34); MEAN CORPUSCULAR HGB CONC 32.6 g/dl (32-36); MEAN PLATELET VOLUME 9.1 fL (7.4-10.4); PLATELET COUNT 176 K/uL (130-400); RED CELL DISTRIBUTION WIDTH CV 13.1 % (11.5-14.5); RED CELL DISTRIBUTION WIDTH SD 46.1 fL (36.4-46.3); WHITE BLOOD COUNT 7.57 K/uL (4.8-10.8)
[2017-09-30] MEDS: NICOTINE 21 MG/24 HR TDSY TD SCH ×2 (07:35→09:54)
[2017-09-30] MEDS ORDERED: EpHEDrine SULFATE 50MG/5ML SYR ONE ×2 (07:45→08:32)
--- NOTE | 2017-09-30 08:08 | Gastroenterology Progress Note ---
Progress Note Date of Service: Sep 30, 2017 Subjective Pt evaluation today including: conversation w/ patient, physical exam Patient with a history of recurrent foreign body ingestion, sp EGD several days ago to remove a razor blade (not found). Patient had refused a repeat attempt and now agrees with a repeat EGD. It appears on CT he has swallowed additional objects while in the hospital. Review of Systems ENT: + see HPI, + nasal symptoms, No hearing loss, No trouble swallowing Respiratory: No cough, No wheezing, No dyspnea at rest Cardiac: No chest pain, No PND, No palpitations Medications Current Inpatient Medications Medications (Trade) Dose Ordered Sig/Cherri Route Start Time Stop Time Status Last Admin Dose Admin Acetaminophen (Tylenol Tab) 650 mg Q4H PRN PO 09/28/17 04:15 10/28/17 04:14 Nicotine (Nicoderm Cq 21MG Patch) 1 patch QAM TD 09/28/17 04:15 10/28/17 04:14 09/29/17 12:27 1 PATCH Miscellaneous (Remove Nicoderm Patch) 1 ea HS N/A 09/28/17 21:00 10/28/17 20:59 09/28/17 21:00 1 EA Gabapentin (Neurontin Tab) 600 mg TID PO 09/28/17 09:00 10/28/17 08:59 09/29/17 20:05 600 MG Quetiapine Fumarate (seroQUEL TAB) 300 mg HS PO 09/28/17 21:00 10/28/17 20:59 09/29/17 20:06 300 MG Sertraline HCl (Zoloft Tab) 200 mg DAILY PO 09/28/17 09:00 10/28/17 08:59 09/29/17 12:26 200 MG [place] Carbonate ([place] Carbonate Tab) 600 mg BID PO 09/28/17 09:00 10/28/17 08:59 09/29/17 20:05 600 MG Prazosin HCl (Prazosin) 1 mg HS PO 09/28/17 21:00 10/28/17 20:59 09/29/17 20:05 1 MG Ondansetron HCl (Zofran Tab) 4 mg Q8H PRN PO 09/28/17 04:45 10/28/17 04:44 09/28/17 20:29 4 MG Quetiapine Fumarate (seroQUEL TAB) 50 mg TID PRN PO 09/28/17 15:30 10/28/17 15:29 09/29/17 17:02 50 MG Dextrose/Lactated Ringer's 1,000 ml @ 150 mls/hr Q6H40M IV 09/29/17 17:30 10/29/17 17:29 09/30/17 07:34 150 MLS/HR Ondansetron HCl (Zofran Inj) 4 mg ONE PRN IV 09/30/17 07:30 09/30/17 13:00 Ephedrine Sulfate (EpHEDrine SULFATE INJ) 5 mg Q5M PRN IV 09/30/17 07:30 09/30/17 13:00 Atropine Sulfate (Atropine Sulfate 0.1mg/ml Inj) 0.5 mg Q1M PRN IV 09/30/17 07:30 09/30/17 13:00 Objective Vital Signs Date Time Temp Pulse Resp B/P (MAP) Pulse Ox O2 Delivery O2 Flow Rate FiO2 09/30/17 00:00 Room Air 09/29/17 20:00 Room Air 09/29/17 16:00 Room Air 09/29/17 14:21 36.8 72 18 114/74 (87) 100 Room Air 09/29/17 12:45 Room Air Physical Exam General Appearance: no apparent distress Eyes: PERRL Respiratory/Chest: lungs clear Cardiovascular: regular rate, rhythm Abdomen: soft Laboratory Results Last 24 Hours Test 09/30/17 07:02 White Blood Count 7.57 K/uL Red Blood Count 4.46 M/uL Hemoglobin 14.1 g/dL Hematocrit 43.2 % Mean Corpuscular Volume 96.9 fL Mean Corpuscular Hemoglobin 31.6 pg Mean Corpuscular Hemoglobin Concent 32.6 g/dl RDW Standard Deviation 46.1 fL RDW Coefficient of Variation 13.1 % Platelet Count 176 K/uL Mean Platelet Volume 9.1 fL Assessment and Plan EGD for foreign body retrieval. I have discussed the risks to include bleeding , infection, perforation, pain, and failed retrieval. After EGD I would suggest return to skilled nursing for continued monitoring as surgery would generally only be offered in the event of perforation (see surgery note). This patient has a history of recurrent ingestions even under strict monitoring and will likely have repeat presentations in the future.
[2017-09-30 08:15] LABS: CALCIUM 8.7 mg/dl (8.5-10.1); CREATININE 0.77 mg/dl (0.60-1.40); POTASSIUM 3.6 mmol/L (3.5-5.1)
[2017-09-30] MEDS ORDERED: ROCURONIUM BROMIDE 10 MG/ML 5 ML VIAL IV ONE (08:32)
--- NOTE | 2017-09-30 08:33 | [facility] Post Operative Brief Note ---
Immediate Operative Summary Operative Date Sep 30, 2017. Pre-Operative Diagnosis Ingestion of foreign body Post-Operative Diagnosis Ingestion of foreign body Procedure(s) Performed Esophagogastroduodenoscopy Surgeon Dr. Marion Turner Industrial Design Engineer Surgeon(s) Endoscopy staff Estimated Blood Loss 0mL Findings See Below No foreign bodies seen today to the 4th portion of the doudenum Specimens None Drains None Anesthesia Type General Complication(s) none Disposition Accompanied Pt To Recover: no Disposition: Recovery Room / PACU
--- NOTE | 2017-09-30 08:54 | Progress Note ---
Progress Note Date of Service Sep 30, 2017. Progress Note Upper endoscopy completed this morning. Please see note for full details of procedure. Findings No foreign body seen in the upper digestive tract. I was able to evaluate up to the fourth portion of the duodenum. Impression: Patient with a history of recurrent swallowing of foreign bodies. This is an intentional act as the patient has had several prior admissions for the same problems. We are unable to find the swallowed objects despite to recent upper endoscopies. Given this I would suggest that the patient be returned to custodial for further monitoring. Recommendations Advance diet as tolerated Swallowed objects appear to pass into the distal small bowel Consider return to custodial for continued monitoring Will sign off for the present time
--- NOTE | 2017-09-30 09:28 | Anesthesiology Progress Note ---
Anesthesia Post Op Note Date & Time Sep 30, 2017 at 09:28 Vital Signs Vital Signs Past 12 Hours Date Time Temp Pulse Resp B/P (MAP) Pulse Ox O2 Delivery O2 Flow Rate FiO2 09/30/17 09:20 36.2 63 16 103/59 95 Room Air 09/30/17 09:15 64 16 108/64 97 Room Air 09/30/17 09:05 59 16 109/62 100 Oxymask 10 09/30/17 08:55 66 12 113/69 100 Oxymask 10 09/30/17 08:45 36.0 64 12 108/58 100 Oxymask 10 09/30/17 08:14 36.6 72 20 95/60 (72) 95 Room Air 09/30/17 00:00 Room Air Notes Mental Status: alert / awake / arousable, participated in evaluation Pt Amnestic to Procedure: Yes Nausea / Vomiting: adequately controlled Pain: adequately controlled Airway Patency, RR, SpO2: stable & adequate BP & HR: stable & adequate Hydration State: stable & adequate Anesthetic Complications: no major complications apparent
--- NOTE | 2017-09-30 10:07 | Surgery Progress Note ---
Surgery Progress Note Date of Service Sep 30, 2017. Subjective + complaints (some belly pain after EGD but eating well) Objective Vital Signs: Date Time Temp Pulse Resp B/P (MAP) Pulse Ox O2 Delivery O2 Flow Rate FiO2 09/30/17 09:30 88 15 103/59 95 Room Air 09/30/17 09:25 63 16 103/59 95 Room Air 09/30/17 09:20 36.2 63 16 103/59 95 Room Air 09/30/17 09:15 64 16 108/64 97 Room Air 09/30/17 09:05 59 16 109/62 100 Oxymask 10 09/30/17 08:55 66 12 113/69 100 Oxymask 10 09/30/17 08:45 36.0 64 12 108/58 100 Oxymask 10 09/30/17 08:14 36.6 72 20 95/60 (72) 95 Room Air 09/30/17 00:00 Room Air 09/29/17 20:00 Room Air 09/29/17 16:00 Room Air 09/29/17 14:21 36.8 72 18 114/74 (87) 100 Room Air 09/29/17 12:45 Room Air General Appearance: WD/WN, no apparent distress Head: normocephalic, atraumatic Neck: supple Abdomen: normal bowel sounds, soft, + distended, + tenderness (mild) Extremities: non-tender, no pedal edema Laboratory Results: Results Past 24 Hours Test 09/30/17 07:02 Range/Units White Blood Count 7.57 4.8-10.8 K/uL Red Blood Count 4.46 4.7-6.1 M/uL Hemoglobin 14.1 14.0-18.0 g/dL Hematocrit 43.2 42-52 % Mean Corpuscular Volume 96.9 80-100 fL Mean Corpuscular Hemoglobin 31.6 25-34 pg Mean Corpuscular Hemoglobin Concent 32.6 32-36 g/dl RDW Standard Deviation 46.1 36.4-46.3 fL RDW Coefficient of Variation 13.1 11.5-14.5 % Platelet Count 176 130-400 K/uL Mean Platelet Volume 9.1 7.4-10.4 fL Sodium Level 143 136-145 mmol/L Potassium Level 3.6 3.5-5.1 mmol/L Chloride Level 108 98-107 mmol/L Carbon Dioxide Level 28 21-32 mmol/L Anion Gap 8.0 3-11 mmol/L Blood Urea Nitrogen 8 7-18 mg/dl Creatinine 0.77 0.60-1.40 mg/dl Est Creatinine Clear Calc Drug Dose 156.0 ml/min Estimated GFR () 143.1 Estimated GFR (Non- 123.5 BUN/Creatinine Ratio 9.7 10-20 Random Glucose 94 70-99 mg/dl Calcium Level 8.7 8.5-10.1 mg/dl Assessment & Plan Ingested foreign body(razor blade) -EGD not successful -no peritonitis -surgical intervention only if peritonitis
--- NOTE | 2017-09-30 10:21 | DIAGNOSTIC IMAGING REPORT ---
[place] CLINICAL HISTORY: f/u ingested foreign bodies foreign bodies COMPARISON STUDY: 09/29/2017 FINDINGS: Foreign bodies present described are now located with thin the a sending and descending colon. Bowel pattern is nonobstructive. There are no signs of free air. IMPRESSION: Foreign bodies present described are now located within the ascending and descending colon. Nonobstructive bowel pattern. The above report was generated using voice recognition software. It may contain grammatical, syntax or spelling errors. Electronically signed by: Watson Shoemaker M.D. 09/30/2017 10:20 AM Dictated Date/Time: 09/30/2017 10:19 AM
[2017-09-30] MEDS: QUETIAPINE FUMARATE 25 MG TAB PO PRN (11:46)
--- NOTE | 2017-09-30 13:07 | Progress Note ---
Medicine Progress Note Date & Time of Visit: Sep 30, 2017 at 12:59 . Subjective Repeat EGD this morning went well. No foreign bodies in stomach at this time. . Objective Last 8 Hrs Date Time Temp Pulse Resp B/P (MAP) Pulse Ox O2 Delivery O2 Flow Rate FiO2 09/30/17 11:50 84 16 119/75 (90) 99 Room Air 09/30/17 10:50 36.8 77 18 115/73 (87) 100 Room Air 09/30/17 10:20 36.4 87 16 105/68 (80) 99 Room Air 09/30/17 09:50 36.6 83 16 108/65 (79) 94 Room Air 09/30/17 09:50 94 Room Air 09/30/17 09:30 88 15 103/59 95 Room Air 09/30/17 09:25 63 16 103/59 95 Room Air 09/30/17 09:20 36.2 63 16 103/59 95 Room Air 09/30/17 09:15 64 16 108/64 97 Room Air 09/30/17 09:05 59 16 109/62 100 Oxymask 10 09/30/17 08:55 66 12 113/69 100 Oxymask 10 09/30/17 08:45 36.0 64 12 108/58 100 Oxymask 10 09/30/17 08:14 36.6 72 20 95/60 (72) 95 Room Air 09/30/17 07:40 100 Room Air Physical Exam: General- lying in bed, no apparent distress Abdomen- + bowel sounds, nondistended, soft, nontender Neuro- alert, oriented Skin- warm & dry . Laboratory Results: Last 24 Hours Test 09/30/17 07:02 White Blood Count 7.57 K/uL Red Blood Count 4.46 M/uL Hemoglobin 14.1 g/dL Hematocrit 43.2 % Mean Corpuscular Volume 96.9 fL Mean Corpuscular Hemoglobin 31.6 pg Mean Corpuscular Hemoglobin Concent 32.6 g/dl RDW Standard Deviation 46.1 fL RDW Coefficient of Variation 13.1 % Platelet Count 176 K/uL Mean Platelet Volume 9.1 fL Sodium Level 143 mmol/L Potassium Level 3.6 mmol/L Chloride Level 108 mmol/L Carbon Dioxide Level 28 mmol/L Anion Gap 8.0 mmol/L Blood Urea Nitrogen 8 mg/dl Creatinine 0.77 mg/dl Est Creatinine Clear Calc Drug Dose 156.0 ml/min Estimated GFR () 143.1 Estimated GFR (Non- 123.5 BUN/Creatinine Ratio 9.7 Random Glucose 94 mg/dl Calcium Level 8.7 mg/dl Assessment & Plan INGESTED FOREIGN BODIES Intentional ingestion of razor blades. Emergent EGD 09/27 showed retained gastric contents, no foreign bodies could be identified. CT abdomen and pelvis performed 09/28 after EGD demonstrated metallic foreign bodies in the distal stomach. Patient refused repeat EGD 09/28. KUB 09/29 showed persistent foreign bodies projecting over mid abdomen, possibly within gastric lumen. Patient indicated 09/29 that he would consider repeat EGD. He ingested another foreign body (metallic clip from [employer]). Repeat CT 09/29 showed new radiopaque foreign body in the gastric lumen and passage of the previously noted foreign body into the descending duodenum. Repeat EGD 09/30 did not show any foreign bodies in the stomach. Repeat KUB 09/30 showed that foreign bodies migrated to the ascending and descending colon. No indication for exploratory lap at this time. No indication for analgesics at this time. Patient should have daily abdominal films until foreign bodies are passed. Emergent surgical consultation for signs / symptoms of perforated viscus / peritonitis (fever, tachycardia, hypotension, rigid abdomen). All efforts should be made to restrict access to any objects that might be ingested in the future. ANXIETY / PERSONALITY DISORDERS Patient has been requesting IV lorazepam. No indication at this time. Continue meds per Psych. POSSIBLE SEIZURE DISORDER Continue gabapentin. VTE PROPHYLAXIS SCD's. DISPOSITION Returning to to [facility]. . Consultants: Psychiatry GI General Surgery . Procedures: EGD x 2 CT abdomen and pelvis x 2 IV fluids IV meds . Current Inpatient Medications: Current Inpatient Medications Medications (Trade) Dose Ordered Sig/Cherri Route Start Time Stop Time Status Last Admin Dose Admin Acetaminophen (Tylenol Tab) 650 mg Q4H PRN PO 09/28/17 04:15 10/28/17 04:14 Nicotine (Nicoderm Cq 21MG Patch) 1 patch QAM TD 09/28/17 04:15 10/28/17 04:14 09/30/17 09:54 1 PATCH Miscellaneous (Remove Nicoderm Patch) 1 ea HS N/A 09/28/17 21:00 10/28/17 20:59 09/28/17 21:00 1 EA Gabapentin (Neurontin Tab) 600 mg TID PO 09/28/17 09:00 10/28/17 08:59 09/30/17 09:54 600 MG Quetiapine Fumarate (seroQUEL TAB) 300 mg HS PO 09/28/17 21:00 10/28/17 20:59 09/29/17 20:06 300 MG Sertraline HCl (Zoloft Tab) 200 mg DAILY PO 09/28/17 09:00 10/28/17 08:59 09/30/17 09:54 200 MG [place] Carbonate ([place] Carbonate Tab) 600 mg BID PO 09/28/17 09:00 10/28/17 08:59 09/30/17 09:54 600 MG Prazosin HCl (Prazosin) 1 mg HS PO 09/28/17 21:00 10/28/17 20:59 09/29/17 20:05 1 MG Ondansetron HCl (Zofran Tab) 4 mg Q8H PRN PO 09/28/17 04:45 10/28/17 04:44 09/28/17 20:29 4 MG Quetiapine Fumarate (seroQUEL TAB) 50 mg TID PRN PO 09/28/17 15:30 10/28/17 15:29 09/30/17 11:46 50 MG Dextrose/Lactated Ringer's 1,000 ml @ 150 mls/hr Q6H40M IV 09/29/17 17:30 10/29/17 17:29 09/30/17 11:46 150 MLS/HR Ondansetron HCl (Zofran Inj) 4 mg ONE PRN IV 09/30/17 07:30 09/30/17 13:00 Ephedrine Sulfate (EpHEDrine SULFATE INJ) 5 mg Q5M PRN IV 09/30/17 07:30 09/30/17 13:00 Atropine Sulfate (Atropine Sulfate 0.1mg/ml Inj) 0.5 mg Q1M PRN IV 09/30/17 07:30 09/30/17 13:00
[2017-09-30] MEDS ORDERED: MRLP17X PO (13:09)
--- NOTE | 2017-09-30 13:12 | Discharge Instructions ---
Discharge Instructions Date of Service Sep 30, 2017. Admission Reason for Admission: swallowed foreign bodies . Discharge Discharge Diagnosis / Problem: swallowed foreign bodies Discharge Goals Goal(s): Specific goals (avoid further ingestion of foreign bodies) Activity Recommendations Activity Limitations: resume your previous activity . Instructions / Follow-Up Instructions / Follow-Up Please make all efforts to avoid ingestion of foreign bodies. Check daily abdominal films (KUB) until foreign bodies pass. Emergent surgical evaluation for fever, tachycardia, hypotension, rigid abdomen. Thank you for receiving this patient in transfer. Please call if you have any questions. Jesse Oliver . Current Hospital Diet Patient's current hospital diet: Regular Diet, Full Liquid Diet Discharge Diet Recommended Diet: Regular Diet Procedures Procedures Performed: Esophagogastroduodenoscopy CT abdomen and pelvis Pending Studies Studies pending at discharge: no Medical Emergencies . Who to Call and When: Medical Emergencies: If at any time you feel your situation is an emergency, please call 911 immediately. . Non-Emergent Contact Non-Emergency issues call your: Primary Care Provider, Hospital Doctor . . "Provider Documentation" section prepared by Jesse Oliver. . VTE Core Measure Inpt VTE Proph given/why not?: Treatment not indicated
--- NOTE | 2017-09-30 13:15 | Discharge Summary ---
Discharge Summary Date of Service Sep 30, 2017. Discharge Summary Admission Date: Sep 28, 2017 at 02:28 Discharge Date: Sep 30, 2017 Discharge Disposition: Home ([facility]) Principal Diagnosis: ingested foreign bodies . Secondary Diagnoses/Problems: Chronic Medical Problems: (1) Depression Status: Chronic (2) History of foreign body ingestion Status: Chronic (3) Malingering Status: Chronic (4) Mood disorder Status: Chronic (5) Seizure disorder Status: Chronic . Procedures: EGD x 2 CT abdomen and pelvis x 2 IV fluids IV meds . Consultations: Psychiatry GI General Surgery . Medication Reconciliation New Medications: Polyethylene (Miralax) 17 Gm Pow 17 GM PO DAILY PRN for Constipation for 30 Days Continued Medications: Gabapentin (Neurontin) 600 Mg Tab 600 MG PO TID, TAB [place] Carbonate ([place] Carbonate) 300 Mg Cap 600 MG PO BID, CAP 2 TABLET DOSE Prazosin Hcl (Prazosin) 1 Mg Cap 1 MG PO HS, CAP Quetiapine Fumarate (Seroquel) 300 Mg Tab 300 MG PO HS, TAB Sertraline (Zoloft) 100 Mg Tab 200 MG PO DAILY, TAB 2 TABLET DOSE Admission Information HPI (per Admitting provider): 27 yo M with mental health issues presents to the ER from nursing home after swallowing two razor blades. He states that he swallowed a pen last May and continues to have discomfort in his RLQ. He states that the nursing home medics gave him ranitidine for this and he felt that if he swallowed the blades something more significant would be done about it. He states that he has very severe anxiety. He has otherwise been healthy prior to this with normal BMs and tolerating PO without issues. A KUB revealed the blades were in the gastric lumen. He underwent EGD from the ER by Dr. Correa which found a normal esophagus, food in the stomach that was suctioned out without evidence of the blades, a normal duodenum all without evidence of mucosal injury or bleeding. . Physical Exam (per Admitting): General Appearance: WD/WN, no apparent distress Head: normocephalic, atraumatic Eyes: normal inspection, PERRL, sclerae normal, + pertinent finding (MMM) ENT: hearing grossly normal, pharynx normal Neck: supple, no adenopathy, trachea midline Respiratory/Chest: lungs clear, normal breath sounds, no respiratory distress, no accessory muscle use Cardiovascular: regular rate, rhythm, no edema, no gallop, no JVD, no murmur Abdomen/GI: normal bowel sounds, non tender, soft, no organomegaly Back: normal inspection, normal range of motion Extremities/Musculoskelatal: no pedal edema Neurologic/Psych: salon professional II-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 Emergent EGD 09/27 showed retained gastric contents, no foreign bodies could be identified. CT abdomen and pelvis performed 09/28 after EGD demonstrated metallic foreign bodies in the distal stomach. Patient refused repeat EGD 09/28. KUB 09/29 showed persistent foreign bodies projecting over mid abdomen, possibly within gastric lumen. Patient indicated 09/29 that he would consider repeat EGD. He ingested another foreign body (metallic clip from call [place]). Repeat CT 09/29 showed new radiopaque foreign body in the gastric lumen and passage of the previously noted foreign body into the descending duodenum. Repeat EGD 09/30 did not show any foreign bodies in the stomach. Repeat KUB 09/30 showed that foreign bodies migrated to the ascending and descending colon. No indication for exploratory lap at this time. No indication for analgesics at this time. Patient should have daily abdominal films until foreign bodies are passed. Emergent surgical consultation for signs / symptoms of perforated viscus / peritonitis (fever, tachycardia, hypotension, rigid abdomen). All efforts should be made to restrict access to any objects that might be ingested in the future. ANXIETY / PERSONALITY DISORDERS Patient has been requesting IV lorazepam. No indication at this time. Continue meds per Psych. POSSIBLE SEIZURE DISORDER Continue gabapentin. VTE PROPHYLAXIS SCD's. DISPOSITION Returning to to [facility]. . Total time spent on discharge = 35 min. This includes examination of the patient, discharge planning, medication reconciliation, and communication with other providers. . Discharge Instructions Date of Service Sep 30, 2017. Admission Reason for Admission: swallowed foreign bodies . Discharge Discharge Diagnosis / Problem: swallowed foreign bodies Discharge Goals Goal(s): Specific goals (avoid further ingestion of foreign bodies) Activity Recommendations Activity Limitations: resume your previous activity . Instructions / Follow-Up Instructions / Follow-Up Please make all efforts to avoid ingestion of foreign bodies. Check daily abdominal films (KUB) until foreign bodies pass. Emergent surgical evaluation for fever, tachycardia, hypotension, rigid abdomen. Thank you for receiving this patient in transfer. Please call if you have any questions. Jesse Oliver . Current Hospital Diet Patient's current hospital diet: Regular Diet, Full Liquid Diet Discharge Diet Recommended Diet: Regular Diet Procedures Procedures Performed: Esophagogastroduodenoscopy CT abdomen and pelvis Pending Studies Studies pending at discharge: no Medical Emergencies . Who to Call and When: Medical Emergencies: If at any time you feel your situation is an emergency, please call 911 immediately. . Non-Emergent Contact Non-Emergency issues call your: Primary Care Provider, Hospital Doctor . . "Provider Documentation" section prepared by Jesse Oliver. . VTE Core Measure Inpt VTE Proph given/why not?: Treatment not indicated . Additional Copies To [facility] JOHNSON
== END 2017-09-30 15:21 | disposition home or self-care (01) | DRG 395 ==
LOC: C.EDB 21:30 → C.2T 09-28 02:28 → ENRESERV 09-28 20:04 → C.MS4W 09-28 21:12
PROVIDERS: ADMIT Hospitalist; ATTEND Hospitalist
PROC: 3E1G88Z Irrigation of Upper GI using Irrigating Substance, Via Natural or Artificial Opening Endoscopic (ICD-10-PCS; principal; 2017-09-28)
PROC: 0DJ08ZZ Inspection of Upper Intestinal Tract, Via Natural or Artificial Opening Endoscopic (ICD-10-PCS; 2017-09-30)
DX: T18.2XXA Foreign body in stomach, initial encounter (principal); F41.8 Other specified anxiety disorders; G40.909 Epilepsy, unspecified, not intractable, without status epilepticus; F17.200 Nicotine dependence, unspecified, uncomplicated; F12.11 Cannabis abuse, in remission; F60.89 Other specific personality disorders; Z88.0 Allergy status to penicillin; F39 Unspecified mood [affective] disorder; X78.8XXA Intentional self-harm by other sharp object, initial encounter; Y92.149 Unspecified place in prison as the place of occurrence of the external cause

== ENCOUNTER 2017-12-12 14:49 | Inpatient (IN) | payer OTHER ==
[~2017-12-12] VITALS: Ht 190.5 cm; Wt 73.0 kg
[~2017-12-12 14:49] MED LIST changes: -ACET300T2 PO; -DIPH25CA5 PO; -EMOL-31 TOP; -HYDR0.5C TOP; -LITH1TAB PO; +LTHSR/300 PO; -MINO100C22 PO; -MOML PO; +MRLP17X PO; -PERP1TAB10 PO; -PROP10TA7 PO
--- NOTE | 2017-12-12 15:51 | DIAGNOSTIC IMAGING REPORT ---
ABDOMEN 2VIEW W/PA CHEST RTN CLINICAL HISTORY: Swallowed 2 pieces of metal, felt pop, bloody emesis COMPARISON STUDY: 09/30/2017 FINDINGS: The erect chest reveals no free intraperitoneal air. There is no pneumomediastinum. There is no focal pulmonary consolidation. Erect and supine views the abdomen reveal no abnormally dilated loops of large or small bowel. There are metallic foreign bodies measuring approximately 6 cm in length projected over the right lower quadrant and left upper quadrant. IMPRESSION: 2 metallic foreign bodies are visualized within the abdomen. There is no current evidence of bowel obstruction. There is no free intraperitoneal air. Electronically signed by: Berry Carmona M.D. 12/12/2017 3:50 PM Dictated Date/Time: 12/12/2017 3:48 PM
[2017-12-12] MEDS ORDERED: OPTIRAY 320 IV PRN (16:00)
[2017-12-12] MEDS ORDERED: ONDANSETRON INJ 2 MG/ML 2 ML VIAL IV STA (16:10)
[2017-12-12] MEDS ORDERED: SODIUM CHLORIDE 0.9% 1000ML 1,000 ML IV STA (16:10)
[2017-12-12] MEDS ORDERED: MoRPHine SULFATE 4 MG/ML 1 ML CARP\\VIAL IV STA ×3 (16:45→19:06)
[2017-12-12 16:46] LABS: BASO % 0.4 %; BASO ABS # 0.04 K/uL (0-0.2); EOS % 2.9 %; HEMATOCRIT 47.1 % (42-52); HEMOGLOBIN 15.5 g/dL (14.0-18.0); IG# 0.01 K/uL (0.00-0.02); LYMPH % 33.3 %; MEAN CELL VOLUME 95.2 fL (80-100); MEAN CORPUSCULAR HEMOGLOBIN 31.3 pg (25-34); MEAN CORPUSCULAR HGB CONC 32.9 g/dl (32-36); MEAN PLATELET VOLUME 9.3 fL (7.4-10.4); MONO % 6.8 %; MONO ABS # 0.69 K/uL (0.11-0.59); NEUT % 56.5 %; NEUT ABS # 5.78 K/uL (1.4-6.5); PLATELET COUNT 213 K/uL (130-400); RED CELL DISTRIBUTION WIDTH CV 13.6 % (11.5-14.5); RED CELL DISTRIBUTION WIDTH SD 47.9 fL (36.4-46.3); WHITE BLOOD COUNT 10.22 K/uL (4.8-10.8)
[2017-12-12] MEDS ORDERED: CLON1TAB3 PO (17:00)
[2017-12-12 17:11] LABS: ALBUMIN 4.5 gm/dl (3.4-5.0); CREATININE 1.01 mg/dl (0.60-1.40); POTASSIUM 3.6 mmol/L (3.5-5.1)
[2017-12-12 17:13] LABS: TOTAL PROTEIN 8.7 gm/dl (6.4-8.2)
--- NOTE | 2017-12-12 18:19 | DIAGNOSTIC IMAGING REPORT ---
CT OF THE CHEST WITH IV CONTRAST CLINICAL HISTORY: Swallowed metal objects, abd pain, bloody emesis COMPARISON STUDY: No previous studies for comparison. TECHNIQUE: Following the IV administration of 93 mL of Optiray-320, CT of the thorax was performed from the thoracic inlet to the lung bases. Images are reviewed in the axial, sagittal, and coronal planes. IV contrast was administered without complication. A dose lowering technique was utilized adhering to the principles of ALARA. CT DOSE: 655.60 mGycm FINDINGS: Thyroid: Imaged portions of the thyroid gland are normal in appearance. Thoracic aorta: The thoracic aorta is normal in course and caliber, noting standard 3-vessel arch anatomy. No aneurysm or dissection is seen. Pulmonary vasculature: The pulmonary trunk is normal in caliber. There are no central filling defects identified to suggest pulmonary embolus. Note that this examination was not protocoled for the evaluation of pulmonary emboli. HEART: The heart is normal in size and configuration, without pericardial effusion. Lungs and pleural spaces: There is no pneumothorax. There is no pneumomediastinum. There are no pleural effusions. There are dependent airspace opacities, likely representing atelectasis. Mediastinum: There is no mediastinal lymphadenopathy. Mercedes: Clear. Axilla: Clear. Upper abdomen: There is partial visualization of a metallic foreign body which appears to be located within the duodenum. This would be further discussed on a CT scan of the abdomen pelvis performed the same day. The scalp topogram also demonstrates a metallic foreign body projected over the ascending colon Skeletal structures: There are no lytic or blastic osseous lesions. IMPRESSION: 1. Dependent atelectatic changes 2. No evidence of pneumothorax. No evidence of pneumomediastinum. No pleural effusions 3. No evidence of pathologic adenopathy Electronically signed by: Berry Carmona M.D. 12/12/2017 6:03 PM Dictated Date/Time: 12/12/2017 5:59 PM
--- NOTE | 2017-12-12 18:32 | DIAGNOSTIC IMAGING REPORT ---
CT OF THE ABDOMEN AND PELVIS WITH CONTRAST CLINICAL HISTORY: Swallowed metal objects, abd pain, bloody emesis. COMPARISON STUDY: CT of the abdomen and pelvis November 27, 2017 and abdominal series performed earlier today. TECHNIQUE: Following IV administration of 93 mL of Optiray-320, axial images of the abdomen and pelvis were obtained from the lung bases to the proximal femurs. Images were reviewed in the axial, sagittal, and coronal planes. IV contrast was administered without complication. A dose lowering technique was utilized adhering to the principles of ALARA. FINDINGS: Lung bases are clear. No pneumatosis, free air or portal venous gas is present. Borderline splenomegaly is noted. The liver, adrenal glands, kidneys and pancreas are unremarkable. Note is made of an elongated 5 cm metallic density within the second portion of the duodenum. There is no adjacent extraluminal gas. There is no biliary or pancreatic ductal dilatation. Note is also made of an elongated 4.5 cm metallic density within the proximal ascending colon which appears to be distal to the ileocecal valve. The appendix is normal. Bladder is moderately distended. There is no lymphadenopathy. No free fluid. No pneumatosis is present. There are no suspicious osseous lesions. IMPRESSION: 5 cm elongated ingested metallic foreign body within the second portion of the duodenum and 4.5 cm elongated metallic foreign body within the proximal ascending colon. No evidence for perforation or bowel obstruction. Electronically signed by: Ulices Mari M.D. 12/12/2017 6:30 PM Dictated Date/Time: 12/12/2017 6:23 PM
[2017-12-12] MEDS ORDERED: ONDANSETRON INJ 2 MG/ML 2 ML VIAL IV PRN ×2 (20:00→22:30)
[2017-12-12] MEDS ORDERED: ACETAMINOPHEN 325 MG TAB PO PRN (20:00)
[2017-12-12] MEDS ORDERED: NITROGLYCERIN 0.4 MG SL PER TAB CHARGE SL PRN (20:00)
[2017-12-12] MEDS ORDERED: LORAZEPAM 2 MG/ML 1 ML VIAL IV PRN (20:15)
[2017-12-12] MEDS ORDERED: QUETIAPINE FUMARATE 300 MG TAB PO SCH (21:00)
[2017-12-12 21:09] VITALS: BP 122/72; PULSE 51; TEMP 36.8; O2SAT 98
[2017-12-12 21:30] VITALS: BP 122/72; PULSE 51; TEMP 36.8; O2SAT 98; Ht 190.5 cm; Wt 73.0 kg
[2017-12-12] MEDS ORDERED: LORAZEPAM INJ 0.5 MG in SYRINGE 0.75 ML IV PRN (21:45)
[2017-12-12] MEDS ORDERED: LITHIUM CARBONATE 300 MG TAB PO SCH (22:00)
--- NOTE | 2017-12-12 22:25 | Medical Consult ---
Consultation Note Date of Service Dec 12, 2017. Consultation Note 27 yo M who swallowed two long metal objects earlier this week. CT shows one object in duodenum, second object in ascending colon. CT does not show evidence of perforation. Currently denies abd pain. Past Medical/Surgical History Medical Problems: (1) FB GI (foreign body in gastrointestinal tract) Status: Acute (2) Foreign body ingestion Status: Acute (3) History of foreign body ingestion Status: Chronic Past Medical History: None Past Surgical History: None Social History Smoking Status: Current Every Day Smoker Marital Status: single Housing Status: other Occupation Status: other Allergies Coded Allergies: Ketorolac Tromethamine (Verified Allergy, Unknown, breathing problems, ) Penicillins (Verified Allergy, Unknown, unknown, 06/11/17) Current Medications Home Meds and Scripts Medications Dose Route/Sig Max Daily Dose Days Date Category Dose Instructions [place] Carbonate 300 Mg Cap 600 Mg PO BID 09/27/17 Reported 2 TABLET DOSE Zantac (Ranitidine HCl) 150 Mg Tab 150 Mg PO DAILY 09/27/17 Reported Zoloft (Sertraline HCl) 100 Mg Tab 200 Mg PO DAILY 07/19/17 Reported 2 TABLET DOSE Seroquel (Quetiapine Fumarate) 300 Mg Tab 300 Mg PO HS 07/19/17 Reported Neurontin (Gabapentin) 600 Mg Tab 600 Mg PO TID 07/19/17 Reported Benadryl (Diphenhydramine Hcl) 25 Mg Cap 100 Mg PO HS 07/19/17 Reported Prazosin (Prazosin HCl) 1 Mg Cap 1 Mg PO HS 06/11/17 Reported Review of Systems Constitutional: No fever, No chills Eyes: No worsening of vision, No eye pain ENT: No hearing loss, No unusual epistaxis Respiratory: No cough, No sputum Cardiac: No chest pain, No edema Abdomen: + see HPI Musculoskeletal: No joint pain, No muscle pain Male : No dysuria, No incontinence Neuro: No paralysis, No weakness Heme: No abnormal bleeding/bruising, No night sweats Endo: No fatigue Skin: No rash, No itch Physical Exam Date Time Temp Pulse Resp B/P (MAP) Pulse Ox O2 Delivery O2 Flow Rate FiO2 12/12/17 21:09 36.8 51 20 122/72 (89) 98 Room Air 12/12/17 20:37 82 19 120/67 98 12/12/17 19:07 71 20 100 12/12/17 17:46 59 20 130/71 100 Room Air 12/12/17 17:09 79 16 98 Room Air 12/12/17 16:23 84 17 119/71 99 Room Air 12/12/17 14:57 36.8 80 20 107/69 99 Room Air General Appearance: no apparent distress Eyes: PERRL ENT: pharynx normal Neck: supple, no JVD Respiratory/Chest: lungs clear, normal breath sounds Cardiovascular: regular rate, rhythm, no murmur Abdomen: normal bowel sounds, non tender, soft Neurologic/Psych: oriented x 3 Skin: no rash Laboratory Results Last 24 Hours Test 12/12/17 16:15 White Blood Count 10.22 K/uL Red Blood Count 4.95 M/uL Hemoglobin 15.5 g/dL Hematocrit 47.1 % Mean Corpuscular Volume 95.2 fL Mean Corpuscular Hemoglobin 31.3 pg Mean Corpuscular Hemoglobin Concent 32.9 g/dl Platelet Count 213 K/uL Mean Platelet Volume 9.3 fL Neutrophils (%) (Auto) 56.5 % Lymphocytes (%) (Auto) 33.3 % Monocytes (%) (Auto) 6.8 % Eosinophils (%) (Auto) 2.9 % Basophils (%) (Auto) 0.4 % Neutrophils # (Auto) 5.78 K/uL Lymphocytes # (Auto) 3.40 K/uL Monocytes # (Auto) 0.69 K/uL Eosinophils # (Auto) 0.30 K/uL Basophils # (Auto) 0.04 K/uL RDW Standard Deviation 47.9 fL RDW Coefficient of Variation 13.6 % Immature Granulocyte % (Auto) 0.1 % Immature Granulocyte # (Auto) 0.01 K/uL Sodium Level 136 mmol/L Potassium Level 3.6 mmol/L Chloride Level 104 mmol/L Carbon Dioxide Level 29 mmol/L Anion Gap 3.0 mmol/L Blood Urea Nitrogen 16 mg/dl Creatinine 1.01 mg/dl Est Creatinine Clear Calc Drug Dose 112.4 ml/min Estimated GFR () 116.8 Estimated GFR (Non- 100.8 BUN/Creatinine Ratio 16.1 Random Glucose 81 mg/dl Calcium Level 10.0 mg/dl Total Bilirubin 0.6 mg/dl Aspartate Amino Transf (AST/SGOT) 176 U/L Alanine Aminotransferase (ALT/SGPT) 317 U/L Alkaline Phosphatase 88 U/L Total Protein 8.7 gm/dl Albumin 4.5 gm/dl Globulin 4.2 gm/dl Albumin/Globulin Ratio 1.1 Impression Swallowed foreign body - Will attempt endoscopic removal.
--- NOTE | 2017-12-12 22:28 | HISTORY & PHYSICAL EXAMINATION ---
DATE OF ADMISSION: 12/12/2017 CHIEF COMPLAINT: Foreign body ingestion. HISTORY OF PRESENT ILLNESS: This is a 27-year-old male with past medical history significant for depression, history of recurrent foreign body ingestions, malingering, mood disorder, seizure disorder, who is currently in shelter, presents with swallowing 2 metal sheets. Patient states he got upset because he may not get discharge from shelter January 06, so he got mad and said he took 2 metal sheets, bent them, and swallowed them. He said he swallowed it on Sunday night and he told the shelter. They said they were simply watching it. They got an x-ray today. Patient says he is not eating much since that happened, and today morning, he drank some milk. He was doing his laundry today when he felt a sharp pain in his abdomen, vomited some blood, and almost passed out, and then he was brought in here. Since then, he is doing okay, no more episodes of vomiting, but he has severe abdominal pain. Denies any blood in the stools. Subjective feeling of fever and chills and sweating. Currently resting comfortably and hemodynamically stable, does not seem to be in distress or is in significant pain. Denies any headaches. Complains of blurred vision. He has some sore throat, no difficulty swallowing, no chest pain, no shortness of breath, no cough. ALLERGIES: KETOROLAC AND PENICILLIN. PAST MEDICAL HISTORY: As mentioned above. PAST SURGICAL HISTORY: History of abdominal surgery for foreign body ingestions. FAMILY HISTORY: He says depression, bipolar. SOCIAL HISTORY: Smokes 1 pack a day. As per records, does use marijuana but denies currently. Denies any alcohol use. Currently incarcerated. HOME MEDICATIONS: Neurontin 600 mg p.o. t.i.d., lithium 600 mg p.o. b.i.d., Prazosin 1 mg p.o. at bedtime, Seroquel 300 mg p.o. at bedtime, Zoloft 200 mg p.o. daily. REVIEW OF SYMPTOMS: As per HPI. Rest of the symptoms negative. PHYSICAL EXAMINATION: GENERAL: The patient is of moderate build, not in distress. VITAL SIGNS: Temperature 36.8, pulse is 71, respiratory rate 20, blood pressure 130/71, oxygen saturation 100% on room air. HEENT: No pallor, no icterus. Pupils equal, round, reactive. NECK: No JVD, no neck masses, no carotid bruits. CARDIOVASCULAR SYSTEM: S1 and S2 heard, regular rate and rhythm, no murmur, no gallop. RESPIRATORY SYSTEM: Normal AP diameter. No accessory muscle use. No wheezing, no crackles. GASTROINTESTINAL: Abdomen is soft, bowel sounds present, mild tenderness in right upper quadrant and epigastric region. No guarding, no rigidity. CENTRAL NERVOUS SYSTEM: Cranial nerves II through XII intact. Nonfocal. EXTREMITIES: No edema, no erythema. LABORATORY DATA: WBC 10.2, hemoglobin 15.5, hematocrit 47.1, platelets 213. Sodium 136, potassium 3.6, chloride 104, bicarbonate 29, BUN 16, creatinine 1, serum glucose 81, calcium 10, total bilirubin 0.6, AST 136, ALT 317, alkaline phosphatase 88. IMAGING: Chest x-ray and abdominal x-ray: 2 metallic foreign bodies elicited in the abdomen. There is no current evidence of bowel obstruction. There is no free intraperitoneal air. Chest CT: No evidence of pneumothorax. No acute findings seen. CT of the abdomen and pelvis shows 5 cm elongated ingested metallic foreign body in the second portion of the duodenum and a 4.5 cm elongated metallic foreign body in the proximal ascending colon. No evidence of perforation or bowel obstruction. ASSESSMENT AND PLAN: This is a 27-year-old male who presents with foreign body ingestion. 1. Foreign body ingestion. Got upset because he may not get discharge from shelter on January 06 and bent 2 metallic sheets and swallowed him. CAT scan shows 1 in the duodenum and 1 in the ascending colon. History of foreign body ingestions in the past, last time in September he passed on his own, . GI is planning to do endoscopy tonight, n.p.o., IV fluids, pain control, and we will also consult surgery in the a.m. and closely monitor. 2. History of anxiety and depression. Holding home p.o. medications of Zoloft, Seroquel, and lithium for now until EGD is done and restart these medications and consult psychiatry for his recurrent foreign body ingestions. 3. History of seizures. We will continue gabapentin. 4. History of marijuana use as per records. Currently incarcerated. Denies any drugs currently. 5. Elevated transaminase, was there in the last admission also. Will trend labs in the a.m. 6. Deep venous thrombosis prophylaxis. Sequential compression devices. 7. Disposition: Admit to tele floor. Expect to discharge back to correction facility when stable. Level 1 full code. MTDD
[2017-12-12] MEDS ORDERED: MEPERIDINE HCL 25 MG/ML CARP IV PRN (22:30)
[2017-12-12] MEDS ORDERED: HYDROmorphone INJ 2 MG/ML SYR/VIAL IV PRN (22:30)
[2017-12-12] MEDS ORDERED: ATROPINE SULFATE 0.1 MG/ML 5ML SYR IV PRN (22:30)
[2017-12-12] MEDS ORDERED: NALOXONE HCL 0.4 MG/1 ML VIAL/CARP IV PRN (22:30)
[2017-12-12] MEDS ORDERED: LABETALOL HCL IV 5 MG/ML 20ML IV PRN (22:30)
[2017-12-12] MEDS ORDERED: FENTANYL CITRATE INJ 50 MCG/1 ML 2 ML VIAL IV PRN (22:30)
[2017-12-12] MEDS ORDERED: PHENYLEPHRINE 100MCG/ML 5ML SYR IV PRN (22:30)
[2017-12-12] MEDS ORDERED: EpHEDrine SULFATE INJ 50 MG/ML AMP IV PRN (22:30)
[2017-12-12] MEDS ORDERED: FLUMAZENIL 0.1 MG/1 ML 10 ML VIAL IV PRN (22:30)
[2017-12-12] MEDS ORDERED: MIDAZOLAM HCL 1 MG/ML 2ML VIAL ONE (22:49)
[2017-12-12] MEDS ORDERED: FENTANYL CITRATE INJ 50 MCG/1 ML 2 ML VIAL ONE (22:53)
[2017-12-12] MEDS ORDERED: PROPOFOL IV EMULSION 10 MG/ML 20 ML VIAL IV ONE (22:53)
[2017-12-12] MEDS ORDERED: SUCCINYLCHOLINE CHLORIDE 20 MG/ML 10 ML VIAL IV ONE (23:06)
[2017-12-12] MEDS ORDERED: LIDOCAINE HCL 2% 2 ML VIAL (20MG/ML) ONE (23:06)
[2017-12-12] MEDS ORDERED: DEXAMETHASONE SOD INJ 4 MG/ML VIAL ONE (23:08)
[2017-12-12] MEDS ORDERED: ONDANSETRON INJ 2 MG/ML 2 ML VIAL ONE (23:08)
[2017-12-12] MEDS ORDERED: GLUCAGON FOR INJ 1 MG VIAL ONE (23:43)
--- NOTE | 2017-12-13 00:11 | Anesthesiology Progress Note ---
Anesthesia Post Op Note Date & Time Dec 13, 2017 at 00:11 Vital Signs Pain Intensity: 2 Vital Signs Past 12 Hours Date Time Temp Pulse Resp B/P (MAP) Pulse Ox O2 Delivery O2 Flow Rate FiO2 12/13/17 00:00 36.4 58 18 114/74 97 Room Air 12/12/17 23:50 67 18 110/76 93 Room Air 12/12/17 23:40 36.7 75 19 86/69 97 Room Air 12/12/17 23:30 36.7 74 12 118/78 96 Room Air 12/12/17 21:30 36.8 51 20 122/72 98 Room Air 12/12/17 21:09 36.8 51 20 122/72 (89) 98 Room Air 12/12/17 20:37 82 19 120/67 98 12/12/17 19:07 71 20 100 12/12/17 17:46 59 20 130/71 100 Room Air 12/12/17 17:09 79 16 98 Room Air 12/12/17 16:23 84 17 119/71 99 Room Air 12/12/17 14:57 36.8 80 20 107/69 99 Room Air Notes Mental Status: alert / awake / arousable, participated in evaluation Pt Amnestic to Procedure: Yes Nausea / Vomiting: adequately controlled Pain: adequately controlled Airway Patency, RR, SpO2: stable & adequate BP & HR: stable & adequate Hydration State: stable & adequate Anesthetic Complications: no major complications apparent
[2017-12-13 00:28] VITALS: BP 117/72; PULSE 58; TEMP 36.7; O2SAT 98
[2017-12-13] MEDS ORDERED: QUETIAPINE FUMARATE 300 MG TAB PO ONE (01:15)
[2017-12-13] MEDS ORDERED: POLYETHYLENE (MIRALAX) 17 GM PACK PO PRN (01:15)
--- NOTE | 2017-12-13 01:29 | EMERGENCY ROOM VISIT NOTE ---
History First contact with patient: 15:07 Chief Complaint: FOREIGNBODY ANY BODY PART Stated Complaint: HX FOREIGN BODY INGESTION, SWALLOWED FOREIGN BODY History of Present Illness The patient is a 27 year old male who presents to the Emergency Room via [facility] [employer] with complaints of "history foreign body ingestion, swallowed foreign body". The patient states that he was angry on Sunday and swallowed 2 pieces of metal. He now notes pain in the abdomen and today around 1 PM felt a pop and now is vomiting blood. He was sent here from [facility] [place] for evaluation. Patient rates his overall abdominal pain as an 8/10. Review of Systems A complete 10-point Review of Systems was discussed with the patient, with pertinent positives and negatives listed in the History of Present Illness. All remaining Review of Systems questions can be considered negative unless otherwise specified. Past Medical/Surgical History Medical Problems: (1) Depression (2) History of foreign body ingestion (3) Malingering (4) Mood disorder (5) Seizure disorder (6) Swallowed foreign body Family History Patient reports no known family medical history. Social History Smoking Status: Current Every Day Smoker Drug Use: marijuana Marital Status: single Housing Status: other Occupation Status: other Current/Historical Medications Scheduled Clonazepam (Klonopin), 1 TAB PO QAM Gabapentin (Neurontin), 600 MG PO TID Hagaman Carbonate (Hagaman Carbonate), 600 MG PO BID Prazosin Hcl (Prazosin), 1 MG PO HS Quetiapine Fumarate (Seroquel), 300 MG PO HS Sertraline (Zoloft), 200 MG PO DAILY Scheduled PRN Polyethylene (Miralax), 17 GM PO DAILY PRN for Constipation Physical Exam Vital Signs Date Time Temp Pulse Resp B/P (MAP) Pulse Ox O2 Delivery O2 Flow Rate FiO2 12/12/17 19:07 71 20 100 12/12/17 17:46 59 20 130/71 100 Room Air 12/12/17 17:09 79 16 98 Room Air 12/12/17 16:23 84 17 119/71 99 Room Air 12/12/17 14:57 36.8 80 20 107/69 99 Room Air Physical Exam VITAL SIGNS - Vital signs and nursing notes were reviewed. Stable. GENERAL -27-year-old male appearing his stated age who is in no acute distress. Communicates well with provider and answers questions appropriately. SKIN - Without rashes. No meningeal or petechial rash. HEAD - NC/AT. EYES - PERRL with EOMI bilaterally. Sclera anicteric. EARS - No deformities of external structures noted on gross examination bilaterally. NOSE - Midline and without cyanosis. No epistaxis or purulent drainage noted. MOUTH/OROPHARYNX - Without perioral cyanosis. NECK - Neck with FROM. Supple to palpation. LUNGS - Chest wall symmetric without accessory muscle use, intercostals retractions, or central cyanosis. Normal vesicular breath sounds CTA B/L. No wheezes, rales, or rhonchi appreciated. CARDIAC - RRR with S1/S2. No murmur, rubs, or gallops appreciated. ABDOMEN - Abdominal contour normal without pulsations or visible masses. Left upper and right lower quadrant tenderness with small hardened areas felt in these regions per NEUROLOGIC - Cranial nerves II through XII grossly intact. Sensory intact to light touch throughout. PSYCH - A&O, and cooperates fully with examiner. Pt is very pleasant and interacts well with examiner. Medical Decision & Procedures ER Provider Diagnostic Interpretation: ABDOMEN 2VIEW W/PA CHEST RTN CLINICAL HISTORY: Swallowed 2 pieces of metal, felt pop, bloody emesis COMPARISON STUDY: 09/30/2017 FINDINGS: The erect chest reveals no free intraperitoneal air. There is no pneumomediastinum. There is no focal pulmonary consolidation. Erect and supine views the abdomen reveal no abnormally dilated loops of large or small bowel. There are metallic foreign bodies measuring approximately 6 cm in length projected over the right lower quadrant and left upper quadrant. IMPRESSION: 2 metallic foreign bodies are visualized within the abdomen. There is no current evidence of bowel obstruction. There is no free intraperitoneal air. Electronically signed by: Berry Carmona M.D. 12/12/2017 3:50 PM Dictated Date/Time: 12/12/2017 3:[address] OF THE CHEST WITH IV CONTRAST CLINICAL HISTORY: Swallowed metal objects, abd pain, bloody emesis COMPARISON STUDY: No previous studies for comparison. TECHNIQUE: Following the IV administration of 93 mL of Optiray-320, CT of the thorax was performed from the thoracic inlet to the lung bases. Images are reviewed in the axial, sagittal, and coronal planes. IV contrast was administered without complication. A dose lowering technique was utilized adhering to the principles of ALARA. CT DOSE: 655.60 mGycm FINDINGS: Thyroid: Imaged portions of the thyroid gland are normal in appearance. Thoracic aorta: The thoracic aorta is normal in course and caliber, noting standard 3-vessel arch anatomy. No aneurysm or dissection is seen. Pulmonary vasculature: The pulmonary trunk is normal in caliber. There are no central filling defects identified to suggest pulmonary embolus. Note that this examination was not protocoled for the evaluation of pulmonary emboli. HEART: The heart is normal in size and configuration, without pericardial effusion. Lungs and pleural spaces: There is no pneumothorax. There is no pneumomediastinum. There are no pleural effusions. There are dependent airspace opacities, likely representing atelectasis. Mediastinum: There is no mediastinal lymphadenopathy. Mercedes: Clear. Axilla: Clear. Upper abdomen: There is partial visualization of a metallic foreign body which appears to be located within the duodenum. This would be further discussed on a CT scan of the abdomen pelvis performed the same day. The scalp topogram also demonstrates a metallic foreign body projected over the ascending colon Skeletal structures: There are no lytic or blastic osseous lesions. IMPRESSION: 1. Dependent atelectatic changes 2. No evidence of pneumothorax. No evidence of pneumomediastinum. No pleural effusions 3. No evidence of pathologic adenopathy Electronically signed by: Berry Carmona M.D. 12/12/2017 6:03 PM Dictated Date/Time: 12/12/2017 5:[address] OF THE ABDOMEN AND PELVIS WITH CONTRAST CLINICAL HISTORY: Swallowed metal objects, abd pain, bloody emesis. COMPARISON STUDY: CT of the abdomen and pelvis November 27, 2017 and abdominal series performed earlier today. TECHNIQUE: Following IV administration of 93 mL of Optiray-320, axial images of the abdomen and pelvis were obtained from the lung bases to the proximal femurs. Images were reviewed in the axial, sagittal, and coronal planes. IV contrast was administered without complication. A dose lowering technique was utilized adhering to the principles of ALARA. FINDINGS: Lung bases are clear. No pneumatosis, free air or portal venous gas is present. Borderline splenomegaly is noted. The liver, adrenal glands, kidneys and pancreas are unremarkable. Note is made of an elongated 5 cm metallic density within the second portion of the duodenum. There is no adjacent extraluminal gas. There is no biliary or pancreatic ductal dilatation. Note is also made of an elongated 4.5 cm metallic density within the proximal ascending colon which appears to be distal to the ileocecal valve. The appendix is normal. Bladder is moderately distended. There is no lymphadenopathy. No free fluid. No pneumatosis is present. There are no suspicious osseous lesions. IMPRESSION: 5 cm elongated ingested metallic foreign body within the second portion of the duodenum and 4.5 cm elongated metallic foreign body within the proximal ascending colon. No evidence for perforation or bowel obstruction. Electronically signed by: Ulices Mari M.D. 12/12/2017 6:30 PM Dictated Date/Time: 12/12/2017 6:23 PM Laboratory Results 12/12/17 16:15 Red Blood Count 4.95, Mean Corpuscular Volume 95.2, Mean Corpuscular Hemoglobin 31.3, Mean Corpuscular Hemoglobin Concent 32.9, Mean Platelet Volume 9.3, Neutrophils (%) (Auto) 56.5, Lymphocytes (%) (Auto) 33.3, Monocytes (%) (Auto) 6.8, Eosinophils (%) (Auto) 2.9, Basophils (%) (Auto) 0.4, Neutrophils # (Auto) 5.78, Lymphocytes # (Auto) 3.40, Monocytes # (Auto) 0.69, Eosinophils # (Auto) 0.30, Basophils # (Auto) 0.04 12/12/17 16:15 Test 12/12/17 16:15 White Blood Count 10.22 K/uL (4.8-10.8) Red Blood Count 4.95 M/uL (4.7-6.1) Hemoglobin 15.5 g/dL (14.0-18.0) Hematocrit 47.1 % (42-52) Mean Corpuscular Volume 95.2 fL (80-100) Mean Corpuscular Hemoglobin 31.3 pg (25-34) Mean Corpuscular Hemoglobin Concent 32.9 g/dl (32-36) Platelet Count 213 K/uL (130-400) Mean Platelet Volume 9.3 fL (7.4-10.4) Neutrophils (%) (Auto) 56.5 % Lymphocytes (%) (Auto) 33.3 % Monocytes (%) (Auto) 6.8 % Eosinophils (%) (Auto) 2.9 % Basophils (%) (Auto) 0.4 % Neutrophils # (Auto) 5.78 K/uL (1.4-6.5) Lymphocytes # (Auto) 3.40 K/uL (1.2-3.4) Monocytes # (Auto) 0.69 K/uL (0.11-0.59) Eosinophils # (Auto) 0.30 K/uL (0-0.5) Basophils # (Auto) 0.04 K/uL (0-0.2) RDW Standard Deviation 47.9 fL (36.4-46.3) RDW Coefficient of Variation 13.6 % (11.5-14.5) Immature Granulocyte % (Auto) 0.1 % Immature Granulocyte # (Auto) 0.01 K/uL (0.00-0.02) Anion Gap 3.0 mmol/L (3-11) Est Creatinine Clear Calc Drug Dose 112.4 ml/min Estimated GFR () 116.8 Estimated GFR (Non- 100.8 BUN/Creatinine Ratio 16.1 (10-20) Calcium Level 10.0 mg/dl (8.5-10.1) Total Bilirubin 0.6 mg/dl (0.2-1) Aspartate Amino Transf (AST/SGOT) 176 U/L (15-37) Alanine Aminotransferase (ALT/SGPT) 317 U/L (12-78) Alkaline Phosphatase 88 U/L (45-117) Total Protein 8.7 gm/dl (6.4-8.2) Albumin 4.5 gm/dl (3.4-5.0) Globulin 4.2 gm/dl (2.5-4.0) Albumin/Globulin Ratio 1.1 (0.9-2) Medications Administered Medications (Trade) Dose Ordered Sig/Cherri Route Start Time Stop Time Status Last Admin Dose Admin Sodium Chloride 1,000 ml @ 999 mls/hr Q1H1M STAT IV 12/12/17 16:10 12/12/17 17:13 DC 12/12/17 16:31 999 MLS/HR Ondansetron HCl (Zofran Inj) 4 mg NOW STAT IV 12/12/17 16:10 12/12/17 16:12 DC 12/12/17 16:41 4 MG Morphine Sulfate (MoRPHine SULFATE INJ) 2 mg NOW STAT IV 12/12/17 16:45 12/12/17 17:13 DC 12/12/17 17:09 2 MG Morphine Sulfate (MoRPHine SULFATE INJ) 2 mg NOW STAT IV 12/12/17 18:57 12/12/17 18:58 DC 12/12/17 19:05 2 MG Morphine Sulfate (MoRPHine SULFATE INJ) 4 mg NOW STAT IV 12/12/17 19:06 12/12/17 19:07 DC 12/12/17 19:47 4 MG Medical Decision Patient was seen and evaluated as above in room C01. Review was performed of nursing notes and vital signs. After obtaining a thorough history and physical examination the above work up was performed. He has abdominal pain. X-ray was obtained and reveals these foreign bodies. Because of his subjective complaint of emesis that was bloody I did elect to obtain a CT scan of the abdomen and chest. Results as above. Again 2 foreign bodies noted. I spoke with general surgery, Dr. Moffett as well as Dr. Rob. He will be admitted by medicine for evaluation tomorrow. No concerning leukocytosis, anemia or metabolic process. He was given morphine, Zofran and fluids. In the evaluation and treatment of this patient the following differential diagnoses were entertained: Retained foreign body, perforation, among others. Impression Primary Impression: Swallowed foreign body Departure Information Dispostion Admitted as an inpatient Condition FAIR Referrals Humberto JOHNSON (PCP) Forms WORK / SCHOOL INSTRUCTIONS, HOME CARE DOCUMENTATION FORM, IMPORTANT VISIT INFORMATION Patient Instructions [facility]
[2017-12-13] MEDS: D5NSS + 20MEQ KCL 1,000 ML IV SCH ×2 (01:46→07:39)
[2017-12-13] MEDS: NICOTINE 21 MG/24 HR TDSY TD SCH ×2 (01:46→08:59)
[2017-12-13] MEDS: PANTOprazole INJ 40 MG in SYRINGE 0 ML IV SCH ×2 (01:46→08:54)
[2017-12-13 02:57] VITALS: BP 100/61; PULSE 63; TEMP 36.6; O2SAT 95
[2017-12-13 07:21] LABS: BASO % 0.1 %; BASO ABS # 0.01 K/uL (0-0.2); EOS % 0.2 %; EOS ABS # 0.02 K/uL (0-0.5); HEMATOCRIT 43.3 % (42-52); HEMOGLOBIN 14.2 g/dL (14.0-18.0); IG# 0.02 K/uL (0.00-0.02); LYMPH ABS # 2.06 K/uL (1.2-3.4); MEAN CELL VOLUME 95.2 fL (80-100); MEAN CORPUSCULAR HEMOGLOBIN 31.2 pg (25-34); MEAN CORPUSCULAR HGB CONC 32.8 g/dl (32-36); MEAN PLATELET VOLUME 9.2 fL (7.4-10.4); MONO % 4.5 %; MONO ABS # 0.42 K/uL (0.11-0.59); NEUT ABS # 6.82 K/uL (1.4-6.5); PLATELET COUNT 200 K/uL (130-400); RED CELL DISTRIBUTION WIDTH CV 13.5 % (11.5-14.5); WHITE BLOOD COUNT 9.35 K/uL (4.8-10.8)
[2017-12-13 07:54] VITALS: BP 93/51; PULSE 79; TEMP 36.5; O2SAT 98
[2017-12-13 08:09] LABS: ALBUMIN 3.6 gm/dl (3.4-5.0); CALCIUM 8.9 mg/dl (8.5-10.1); CREATININE 0.96 mg/dl (0.60-1.40); POTASSIUM 4.4 mmol/L (3.5-5.1); TOTAL PROTEIN 7.1 gm/dl (6.4-8.2)
[2017-12-13] MEDS: MoRPHine SULFATE 4 MG/ML 1 ML CARP\\VIAL IV PRN ×2 (08:58→12:10)
[2017-12-13] MEDS ORDERED: CLONAZEPAM 1 MG TAB PO SCH (09:00)
[2017-12-13] MEDS ORDERED: SERTRALINE HCL 100 MG TAB PO SCH (09:00)
[2017-12-13] MEDS ORDERED: GABAPENTIN 600 MG TAB PO SCH (09:00)
[2017-12-13] MEDS ORDERED: DOCUSATE SODIUM 100 MG CAP PO SCH (10:00)
--- NOTE | 2017-12-13 10:12 | Progress Note ---
Internal Med Progress Note Date of Service: Dec 13, 2017. Provider Documentation: SUBJECTIVE: Seen and examined at bedside States having minimal abdominal pain which is improving Denies chest pain, SOB Guards at bedside No other complaints OBJECTIVE: Vital Signs-as noted below Physical Exam: Vitals signs as noted above General Appearance:Moderately built and nourished, no apparent distress Head: normocephalic, Atraumatic Eyes: normal inspection, EOMI, PERRL Neck: supple, Trachea midline Respiratory/Chest: Normal breath sounds, CTA Cardiovascular: S1, S2, No murmur Abdomen/GI:Soft, mild RUQ tender, Bowel sounds present Extremities/Musculoskelatal:normal inspection, no edema Neurologic/Psych:AAOX3, grossly no focal neurological deficits Skin: normal color, warm Lab data as noted below. ASSESSMENT & PLAN: Patient is a 27 yr male who presents with foreign body ingestion Foreign body ingestion: Patient was upset 2/2 that he may not get discharge from jail on January 06 and bent 2 metallic sheets and swallowed him. CT scan: 2 foreign bodies, 1 in the duodenum and 1 in the ascending colon. No evidence for perforation or bowel obstruction. H/O foreign body ingestions in the past S/P EGD and removal of foreign body from 3rd portion of duodenum IV fluids Started on bowel regimen Appreciate GI input. No indication for any surgical procedure. Discussed with surgery as well Repeat KUB:Nonobstructed abdominal bowel gas pattern.. A metallic foreign body projects over the right lower quadrant, possibly located within the right colon. H/O anxiety, depression. Continue home medications Psychiatry consulted H/O seizures: continue gabapentin H/O Marijuana Currently incarcerated Mild elevated transaminase trending down DVT Px: SCDs Code Status: full code Disposition: Plan to discharge back to correction facility today Follow up with your Physician at Correction facility tomorrow as advised Take stool softeners as prescribed Seek immediate medical attention if your symptoms reoccur or worsen Get KUB tomorrow (12/14/17) as advised and follow up with your Physician. Vital Signs: Date Time Temp Pulse Resp B/P (MAP) Pulse Ox O2 Delivery O2 Flow Rate FiO2 12/13/17 12:25 Room Air 12/13/17 11:33 36.9 86 18 125/69 (87) 99 12/13/17 08:00 Room Air 12/13/17 07:54 36.5 79 18 93/51 (65) 98 12/13/17 04:00 Room Air 12/13/17 02:57 36.6 63 18 100/61 (74) 95 Room Air 12/13/17 00:28 36.7 58 19 117/72 (87) 98 Room Air 12/13/17 00:00 36.4 58 18 114/74 97 Room Air 12/12/17 23:50 67 18 110/76 93 Room Air 12/12/17 23:40 36.7 75 19 86/69 97 Room Air 12/12/17 23:30 36.7 74 12 118/78 96 Room Air 12/12/17 21:30 36.8 51 20 122/72 98 Room Air 12/12/17 21:09 36.8 51 20 122/72 (89) 98 Room Air 12/12/17 20:37 82 19 120/67 98 12/12/17 19:07 71 20 100 12/12/17 17:46 59 20 130/71 100 Room Air 12/12/17 17:09 79 16 98 Room Air 12/12/17 16:23 84 17 119/71 99 Room Air 12/12/17 14:57 36.8 80 20 107/69 99 Room Air Lab Results: Results Past 24 Hours Test 12/12/17 16:15 12/13/17 06:44 Range/Units White Blood Count 10.22 9.35 4.8-10.8 K/uL Red Blood Count 4.95 4.55 4.7-6.1 M/uL Hemoglobin 15.5 14.2 14.0-18.0 g/dL Hematocrit 47.1 43.3 42-52 % Mean Corpuscular Volume 95.2 95.2 80-100 fL Mean Corpuscular Hemoglobin 31.3 31.2 25-34 pg Mean Corpuscular Hemoglobin Concent 32.9 32.8 32-36 g/dl Platelet Count 213 200 130-400 K/uL Mean Platelet Volume 9.3 9.2 7.4-10.4 fL Neutrophils (%) (Auto) 56.5 73.0 % Lymphocytes (%) (Auto) 33.3 22.0 % Monocytes (%) (Auto) 6.8 4.5 % Eosinophils (%) (Auto) 2.9 0.2 % Basophils (%) (Auto) 0.4 0.1 % Neutrophils # (Auto) 5.78 6.82 1.4-6.5 K/uL Lymphocytes # (Auto) 3.40 2.06 1.2-3.4 K/uL Monocytes # (Auto) 0.69 0.42 0.11-0.59 K/uL Eosinophils # (Auto) 0.30 0.02 0-0.5 K/uL Basophils # (Auto) 0.04 0.01 0-0.2 K/uL RDW Standard Deviation 47.9 47.0 36.4-46.3 fL RDW Coefficient of Variation 13.6 13.5 11.5-14.5 % Immature Granulocyte % (Auto) 0.1 0.2 % Immature Granulocyte # (Auto) 0.01 0.02 0.00-0.02 K/uL Sodium Level 136 140 136-145 mmol/L Potassium Level 3.6 4.4 3.5-5.1 mmol/L Chloride Level 104 109 98-107 mmol/L Carbon Dioxide Level 29 26 21-32 mmol/L Anion Gap 3.0 5.0 3-11 mmol/L Blood Urea Nitrogen 16 14 7-18 mg/dl Creatinine 1.01 0.96 0.60-1.40 mg/dl Est Creatinine Clear Calc Drug Dose 112.4 118.3 ml/min Estimated GFR () 116.8 124.2 Estimated GFR (Non- 100.8 107.1 BUN/Creatinine Ratio 16.1 14.2 10-20 Random Glucose 81 125 70-99 mg/dl Calcium Level 10.0 8.9 8.5-10.1 mg/dl Total Bilirubin 0.6 0.6 0.2-1 mg/dl Aspartate Amino Transf (AST/SGOT) 176 135 15-37 U/L Alanine Aminotransferase (ALT/SGPT) 317 262 12-78 U/L Alkaline Phosphatase 88 80 45-117 U/L Total Protein 8.7 7.1 6.4-8.2 gm/dl Albumin 4.5 3.6 3.4-5.0 gm/dl Globulin 4.2 2.5-4.0 gm/dl Albumin/Globulin Ratio 1.1 0.9-2 Magnesium Level 2.1 1.8-2.4 mg/dl Direct Bilirubin 0.1 0-0.2 mg/dl Lipase 72 73-393 U/L Acetaminophen Level < 2 10-30 ug/ml Hepatitis B Surface Antigen NEG NEG Hepatitis C Antibody PRELIM POS NEG
[2017-12-13 10:21] LABS: HEP C IGG 13 YRS+OLDER_RFLX PRELIM POS (NEG)
--- NOTE | 2017-12-13 11:11 | DIAGNOSTIC IMAGING REPORT ---
KUB CLINICAL HISTORY: Foreign body ingestion. FINDINGS: 2 AP supine abdominal radiographs are compared to abdominal radiograph and CT dated 12/12/2017. There is a nonobstructed abdominal bowel gas pattern. No evidence of intraperitoneal free air is seen on these supine images. A metallic foreign body measuring up to 5.4 cm projects over the right lower quadrant. Small phleboliths are observed in the pelvis. The lung bases appear clear. The bony structures appear intact. IMPRESSION: 1. Nonobstructed abdominal bowel gas pattern. 2. A metallic foreign body projects over the right lower quadrant, possibly located within the right colon. Electronically signed by: James Rodarte M.D. 12/13/2017 11:09 AM Dictated Date/Time: 12/13/2017 11:07 AM
[2017-12-13 11:33] VITALS: BP 125/69; PULSE 86; TEMP 36.9; O2SAT 99
--- NOTE | 2017-12-13 11:34 | GI REPORT ---
Patient Name: Silviano Tovar Procedure Date: 12/12/2017 10:37 PM Date of : 1990 Admit Type: Inpatient Age: 27 Gender: Male Attending MD: Kurt Rob MD Procedure: Upper GI endoscopy Providers: Kurt Rob MD Referring MD: Humberto Vergara Indications: Foreign body in the small bowel Medicines: See the Anesthesia note for documentation of the administered medications Complications: No immediate complications. Estimated Blood Loss: Estimated blood loss: none. Procedure: Pre-Anesthesia Assessment: - ASA Grade Assessment: II - A patient with mild systemic disease. After obtaining informed consent, the endoscope was passed under direct vision. Throughout the procedure, the patient's blood pressure, pulse, and oxygen saturations were monitored continuously. The Scope was introduced through the mouth, and advanced to the third part of duodenum. The upper GI endoscopy was accomplished without difficulty. The patient tolerated the procedure well. Findings: There was mild trauma to the hypopharynx and the upper esophagus. There were mild rings of the upper esophagus. The stomach was unremarkable. The duodenal bulb was unremarkable. There was mild erytheam at the duodenal bulb. There was a piece of metal in the third portion of the duodenum. This was removed with a snare. Recommendation: -Strict NPO overnight except for meds. May be discharged in am. Kurt Rob M.D. Kurt Rob MD 12/12/2017 11:19:03 PM This report has been signed electronically. Note Initiated On: 12/12/2017 10:37 PM Number of Addenda: 0 I attest to the content of the Intraoperative Record and orders documented therein, exceptions below {[id number]}
[2017-12-13] MEDS ORDERED: CLC100 PO (12:47)
[2017-12-13] MEDS ORDERED: PANT1TAB3 PO (12:47)
--- NOTE | 2017-12-13 12:50 | Discharge Summary ---
Discharge Summary Date of Service Dec 13, 2017. Discharge Summary Admission Date: Dec 12, 2017 at 19:57 Discharge Date: Dec 13, 2017 Discharge Disposition: Home ([facility]) Principal Diagnosis: Foreign body Ingestion Procedures: S/P EGD and removal of foreign body from 3rd portion of duodenum CT ABD: 5 cm elongated ingested metallic foreign body within the second portion of the duodenum and 4.5 cm elongated metallic foreign body within the proximal ascending colon. No evidence for perforation or bowel obstruction. CT chest: 1. Dependent atelectatic changes 2. No evidence of pneumothorax. No evidence of pneumomediastinum. No pleural effusions 3. No evidence of pathologic adenopathy KUB: 1. Nonobstructed abdominal bowel gas pattern. 2. A metallic foreign body projects over the right lower quadrant, possibly located within the right colon. Consultations: GI, psychiatry Pending Studies/Follow-Up: Follow up with your Physician at Correction facility tomorrow as advised Take stool softeners as prescribed Seek immediate medical attention if your symptoms reoccur or worsen Get KUB tomorrow (12/14/17) as advised and follow up with your Physician. Medication Reconciliation New Medications: Pantoprazole (Protonix) 40 Mg Tab 1 TAB PO DAILY for 30 Days, #30 TAB 0 Refills Docusate Sodium (Docusate Sodium) 100 Mg Cap 100 MG PO BID for 14 Days, #28 CAP Continued Medications: Clonazepam (Klonopin) 1 Mg Tab 1 TAB PO QAM Gabapentin (Neurontin) 600 Mg Tab 600 MG PO TID, TAB [place] Carbonate ([place] Carbonate) 300 Mg Cap 600 MG PO BID, CAP 2 TABLET DOSE Polyethylene (Miralax) 17 Gm Pow 17 GM PO DAILY PRN for Constipation for 30 Days Prazosin Hcl (Prazosin) 1 Mg Cap 1 MG PO HS, CAP Quetiapine Fumarate (Seroquel) 300 Mg Tab 300 MG PO HS, TAB Sertraline (Zoloft) 100 Mg Tab 200 MG PO DAILY, TAB 2 TABLET DOSE Admission Information HPI (per Admitting provider): CHIEF COMPLAINT: Foreign body ingestion. HISTORY OF PRESENT ILLNESS: This is a 27-year-old male with past medical history significant for depression, history of recurrent foreign body ingestions, malingering, mood disorder, seizure disorder, who is currently in long-term, presents with swallowing 2 metal sheets. Patient states he got upset because he may not get discharge from long-term January 06, so he got mad and said he took 2 metal sheets, bent them, and swallowed them. He said he swallowed it on Sunday night and he told the long-term. They said they were simply watching it. They got an x-ray today. Patient says he is not eating much since that happened, and today morning, he drank some milk. He was doing his laundry today when he felt a sharp pain in his abdomen, vomited some blood, and almost passed out, and then he was brought in here. Since then, he is doing okay, no more episodes of vomiting, but he has severe abdominal pain. Denies any blood in the stools. Subjective feeling of fever and chills and sweating. Currently resting comfortably and hemodynamically stable, does not seem to be in distress or is in significant pain. Denies any headaches. Complains of blurred vision. He has some sore throat, no difficulty swallowing, no chest pain, no shortness of breath, no cough. Physical Exam (per Admitting): PHYSICAL EXAMINATION: GENERAL: The patient is of moderate build, not in distress. VITAL SIGNS: Temperature 36.8, pulse is 71, respiratory rate 20, blood pressure 130/71, oxygen saturation 100% on room air. HEENT: No pallor, no icterus. Pupils equal, round, reactive. NECK: No JVD, no neck masses, no carotid bruits. CARDIOVASCULAR SYSTEM: S1 and S2 heard, regular rate and rhythm, no murmur, no gallop. RESPIRATORY SYSTEM: Normal AP diameter. No accessory muscle use. No wheezing, no crackles. GASTROINTESTINAL: Abdomen is soft, bowel sounds present, mild tenderness in right upper quadrant and epigastric region. No guarding, no rigidity. CENTRAL NERVOUS SYSTEM: Cranial nerves II through XII intact. Nonfocal. EXTREMITIES: No edema, no erythema. Hospital Course Patient is a 27 yr male who presents with foreign body ingestion Foreign body ingestion: Patient was upset 2/2 that he may not get discharge from long-term on January 06 and bent 2 metallic sheets and swallowed him. CT scan: 2 foreign bodies, 1 in the duodenum and 1 in the ascending colon. No evidence for perforation or bowel obstruction. H/O foreign body ingestions in the past S/P EGD and removal of foreign body from 3rd portion of duodenum IV fluids Started on bowel regimen Appreciate GI input. No indication for any surgical procedure. Discussed with surgery as well Repeat KUB:Non obstructed abdominal bowel gas pattern.. A metallic foreign body projects over the right lower quadrant, possibly located within the right colon. H/O anxiety, depression. Continue home medications Psychiatry consulted Patient non compliant with medications as per Psychiatry note Appreciate Psychiatry Input H/O seizures: continue gabapentin H/O Marijuana Currently incarcerated Mild elevated transaminase trending down DVT Px: SCDs Code Status: full code Disposition: Plan to discharge back to correction facility today Follow up with your Physician at Correction facility tomorrow as advised Take stool softeners as prescribed Seek immediate medical attention if your symptoms reoccur or worsen Get KUB tomorrow (12/14/17) as advised and follow up with your Physician. Total time spent on discharge =35 minutes This includes examination of the patient, discharge planning, medication reconciliation, and communication with other providers. Discharge Instructions Discharge Instructions Date of Service Dec 13, 2017. Admission Reason for Admission: Hx Foreign Body Ingestion, Swallowed Foreign Body Discharge Discharge Diagnosis / Problem: Foreign body Ingestion Discharge Goals Goal(s): Decrease discomfort, Improve function Activity Recommendations Activity Limitations: resume your previous activity Exercise/Sports Limitations: as tolerated . Instructions / Follow-Up Instructions / Follow-Up Follow up with your Physician at Correction facility tomorrow as advised Take stool softeners as prescribed Seek immediate medical attention if your symptoms reoccur or worsen Get KUB tomorrow (12/14/17) as advised and follow up with your Physician. Current Hospital Diet Patient's current hospital diet: Regular Diet Discharge Diet Recommended Diet: Regular Diet Procedures Procedures Performed: Esophagogastroduodenoscopy Foreign Body Removal Pending Studies Studies pending at discharge: no Medical Emergencies . Who to Call and When: Medical Emergencies: If at any time you feel your situation is an emergency, please call 911 immediately. . Non-Emergent Contact Non-Emergency issues call your: Primary Care Provider, Billet Assembler Call Non-Emergent contact if: you have a fever, your pain is not controlled, your pain is worsening, your pain is unusual for you, your pain is concerning you, you have any medication questions Seek immediate medical attention if your symptoms reoccur or worsen . . "Provider Documentation" section prepared by Parth Kimball. . <Electronically signed by Parth Kimball MD> Signed: 12/13/17 1248 Signed: The status of this report is Signed * If report status is Draft, the document has not been finalized by the responsible provider.
[2017-12-13 12:51] VITALS: BP 125/69; PULSE 86; TEMP 36.9; O2SAT 99
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
[2017-12-13] MEDS ORDERED: PRAZOSIN HCL 1 MG CAP PO SCH (21:00)
[2017-12-17 07:33] LABS: HEPATITIS C RNA TMA QUAL Detected
== END 2017-12-13 14:37 | DRG 395 ==
LOC: C.EDB 14:51 → C.2T 19:57 → UNDOADMIN 19:57 → ENRESERV 20:22
PROVIDERS: ADMIT Internal Medicine; ATTEND Internal Medicine
PROC: 0DC98ZZ Extirpation of Matter from Duodenum, Via Natural or Artificial Opening Endoscopic (ICD-10-PCS; principal; 2017-12-12 10:30)
DX: T18.3XXA Foreign body in small intestine, initial encounter (principal); T18.4XXA Foreign body in colon, initial encounter; S19.85XA Other specified injuries of pharynx and cervical esophagus, initial encounter; R79.89 Other specified abnormal findings of blood chemistry; F32.9 Major depressive disorder, single episode, unspecified; G40.909 Epilepsy, unspecified, not intractable, without status epilepticus; F41.9 Anxiety disorder, unspecified; F17.200 Nicotine dependence, unspecified, uncomplicated; Z79.899 Other long term (current) drug therapy; Z88.6 Allergy status to analgesic agent; Z88.0 Allergy status to penicillin; Z81.8 Family history of other mental and behavioral disorders; X58.XXXA Exposure to other specified factors, initial encounter; Y92.149 Unspecified place in prison as the place of occurrence of the external cause; Y99.8 Other external cause status

== ENCOUNTER 2017-12-18 14:48 | Observation (INO) | payer OTHER ==
[~2017-12-18] VITALS: Ht 190.5 cm; Wt 71.7 kg
[~2017-12-18 14:48] MED LIST changes: +CLC100 PO; +CLON1TAB3 PO; +PANT1TAB3 PO
[2017-12-18] MEDS ORDERED: LORAZEPAM 2 MG/ML 1 ML VIAL IV STA ×2 (15:30→17:54)
--- NOTE | 2017-12-18 16:13 | DIAGNOSTIC IMAGING REPORT ---
CHEST ONE VIEW PORTABLE CLINICAL HISTORY: eval for FB/free air COMPARISON STUDY: 12/12/2017 FINDINGS: Lungs are clear. No evidence for cardiac enlargement. Diaphragms are smooth. 2 linear metallic foreign bodies overlying the gastric fundus. These potentially represent metallic pin tips. IMPRESSION: 2 small foreign bodies within the stomach. Negative chest. The above report was generated using voice recognition software. It may contain grammatical, syntax or spelling errors. Electronically signed by: Watson Shoemaker M.D. 12/18/2017 4:11 PM Dictated Date/Time: 12/18/2017 4:10 PM
[2017-12-18 16:52] LABS: BASO % 0.2 %; BASO ABS # 0.02 K/uL (0-0.2); EOS % 3.8 %; EOS ABS # 0.34 K/uL (0-0.5); HEMATOCRIT 44.3 % (42-52); HEMOGLOBIN 14.7 g/dL (14.0-18.0); IG# 0.02 K/uL (0.00-0.02); LYMPH ABS # 2.67 K/uL (1.2-3.4); MEAN CELL VOLUME 95.5 fL (80-100); MEAN CORPUSCULAR HEMOGLOBIN 31.7 pg (25-34); MEAN CORPUSCULAR HGB CONC 33.2 g/dl (32-36); MEAN PLATELET VOLUME 9.3 fL (7.4-10.4); MONO % 8.8 %; MONO ABS # 0.78 K/uL (0.11-0.59); NEUT ABS # 5.08 K/uL (1.4-6.5); PLATELET COUNT 198 K/uL (130-400); RED CELL DISTRIBUTION WIDTH CV 13.7 % (11.5-14.5); RED CELL DISTRIBUTION WIDTH SD 47.7 fL (36.4-46.3); WHITE BLOOD COUNT 8.91 K/uL (4.8-10.8)
[2017-12-18 17:13] LABS: ALBUMIN 4.1 gm/dl (3.4-5.0); CALCIUM 9.1 mg/dl (8.5-10.1); CREATININE 0.89 mg/dl (0.60-1.40); POTASSIUM 3.6 mmol/L (3.5-5.1)
[2017-12-18 17:16] LABS: TOTAL PROTEIN 7.7 gm/dl (6.4-8.2)
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
[2017-12-18] MEDS ORDERED: PROPOFOL IV EMULSION 10 MG/ML 20 ML VIAL ONE (17:51)
[2017-12-18] MEDS ORDERED: SUCCINYLCHOLINE CHLORIDE 20 MG/ML 10 ML VIAL IV ONE (17:51)
[2017-12-18] MEDS ORDERED: LIDOCAINE HCL 2% 2 ML VIAL (20MG/ML) ONE (17:51)
[2017-12-18] MEDS ORDERED: ROCURONIUM BROMIDE 10 MG/ML 5 ML VIAL ONE (17:51)
[2017-12-18] MEDS ORDERED: EpHEDrine SULFATE INJ 50 MG/ML AMP IV PRN (18:15)
[2017-12-18] MEDS ORDERED: ATROPINE SULFATE 0.1 MG/ML 5ML SYR IV PRN (18:15)
--- NOTE | 2017-12-18 18:25 | Endo History and Physical ---
History & Physical Date of Service: December 18, 2017. Chief Complaint: Foreign body removal Referring Physician: Dr. De La Rosa History of Present Illness Patient with recurrent foreign body ingestion, swallowed a number of objects this afternoon, referred by ER for EGD. Past Surgical History Hx Abdominal Surgery: Yes (Exp lap) Hx Post-Op Nausea and Vomiting: No Social History Smoking Status: Current Every Day Smoker Hx Substance Use: No Hx Alcohol Use: No Allergies Coded Allergies: Ketorolac Tromethamine (Verified Allergy, Unknown, breathing problems, 12/18) Penicillins (Verified Allergy, Unknown, unknown, 12/18/17) Current Medications Reported Home Medications Medications Dose Route/Sig Max Daily Dose Days Date Category Dose Instructions Protonix (Pantoprazole) 40 Mg Tab 1 Tab PO DAILY 30 12/13/17 Rx Docusate Sodium 100 Mg Cap 100 Mg PO BID 14 12/13/17 Rx Klonopin (Clonazepam) 1 Mg Tab 1 Tab PO QAM 12/12/17 Reported Miralax (Polyethylene) 17 Gm Pow 17 Gm PO DAILY PRN 30 09/30/17 Rx [place] Carbonate 300 Mg Cap 600 Mg PO BID 09/27/17 Reported 2 TABLET DOSE Zoloft (Sertraline HCl) 100 Mg Tab 200 Mg PO DAILY 07/19/17 Reported 2 TABLET DOSE Seroquel (Quetiapine Fumarate) 300 Mg Tab 300 Mg PO HS 07/19/17 Reported Neurontin (Gabapentin) 600 Mg Tab 600 Mg PO TID 07/19/17 Reported Prazosin (Prazosin HCl) 1 Mg Cap 1 Mg PO HS 06/11/17 Reported Vital Signs Weight (Kilograms): 73.800 Height (Feet): 6 Height (Inches): 3.00 Date Time Temp Pulse Resp B/P (MAP) Pulse Ox O2 Delivery O2 Flow Rate FiO2 12/18/17 18:15 67 16 117/73 100 Room Air 12/18/17 17:19 66 20 112/71 100 Room Air 12/18/17 16:36 65 16 109/73 100 Room Air 12/18/17 15:10 76 12/18/17 15:09 100 Room Air 12/18/17 15:01 37.9 76 12 126/79 100 Room Air Physical Exam General Appearance: no apparent distress Respiratory/Chest: Respiratory effort: no dyspnea Assessment and Plan EGD for foreign body removal. Risks discussed the with patient to include bleeding, infection, perforation, pain, infection, , aspiration and cardiovascular problems.
[2017-12-18] MEDS ORDERED: ONDANSETRON INJ 2 MG/ML 2 ML VIAL IV PRN (18:30)
[2017-12-18] MEDS ORDERED: ACETAMINOPHEN 325 MG TAB PO PRN (18:30)
[2017-12-18] MEDS ORDERED: DIPH25CA5 PO (18:34)
[2017-12-18] MEDS ORDERED: CLON0.5T3 PO (18:34)
[2017-12-18] MEDS ORDERED: GABA800T2 PO (18:34)
--- NOTE | 2017-12-18 18:35 | EMERGENCY ROOM VISIT NOTE ---
History Report prepared by Warren: Kendra Robin Under the Supervision of: Dr. Dale De La Rosa M.D. First contact with patient: 15:19 Chief Complaint: FOREIGNBODY ANY BODY PART History of Present Illness The patient is a 27 year old male who presents to the Emergency Room with complaints of an episode of foreign body ingestion at 1300 today. The patient swallowed some plastic spoons and 2 pens because he was upset. He has a history of swallowing objects. He had surgery after swallowing some sheet metal recently. He was told that he would not survive if he tried swallowing objects again. He was trying to hurt himself today. He has not tried swallowing anything else since then. He had a sharp pain in his abdomen. He passed out once today. He is feeling SOB and anxious. He has a history of seizures. He has not had any seizures recently. Source of History: patient Onset: 1300 Position: abdomen Quality: other (foreign body ingestion) Timing: other (episodic) Associated Symptoms: + LOC, + SOB, + abdominal pain Note: Pt reports anxiety. Review of Systems See HPI for pertinent positives & negatives. A total of 10 systems reviewed and were otherwise negative. Past Medical & Surgical Medical Problems: (1) Depression (2) History of foreign body ingestion (3) Malingering (4) Mood disorder (5) PTSD (post-traumatic stress disorder) (6) Seizure disorder Old medical records were reviewed. Nurse's notes were reviewed and I agree with. Family History Patient reports no known family medical history. Social History Smoking Status: Current Every Day Smoker Housing Status: other Occupation Status: other Current/Historical Medications Scheduled Clonazepam (Klonopin), 1 TAB PO QAM Clonazepam (Klonopin), 1 TAB PO HS Diphenhydramine Hcl (Benadryl), 100 MG PO HS Gabapentin (Neurontin), 1 TAB PO TID Woodmore Carbonate (Woodmore Carbonate), 600 MG PO BID Prazosin Hcl (Prazosin), 2 MG PO HS Quetiapine Fumarate (Seroquel), 400 MG PO HS Sertraline (Zoloft), 150 MG PO DAILY Allergies Coded Allergies: Ketorolac Tromethamine (Verified Allergy, Unknown, breathing problems, 12/18) Penicillins (Verified Allergy, Unknown, unknown, 12/18/17) Physical Exam Vital Signs Date Time Temp Pulse Resp B/P (MAP) Pulse Ox O2 Delivery O2 Flow Rate FiO2 12/18/17 18:15 67 16 117/73 100 Room Air 12/18/17 17:19 66 20 112/71 100 Room Air 12/18/17 16:36 65 16 109/73 100 Room Air 12/18/17 15:10 76 12/18/17 15:09 100 Room Air 12/18/17 15:01 37.9 76 12 126/79 100 Room Air Physical Exam General: Non-ill appearing young male in no acute distress, speaking and swallowing without difficulty. HEENT: Normal cephalic atraumatic. Pupils are equal round and reactive to light. Extraocular movements are intact. Oropharynx is pink with moist mucous membranes. No swelling of the mouth lips or tongue. Neck: Supple with a midline trachea. No meningeal signs or stiffness, no JVD or bruits. No Stridor. Chest: Clear to auscultation bilaterally. No wheezes or rhonchi. No increased work of breathing. Heart: regular rate and rhythm. Abdomen: Soft, nontender, nondistended without rebound guarding or rigidity. Well healing surgical incision. Extremities: No cyanosis clubbing or edema. No calf tenderness or assymetry Spine/Back. Non tender to palpation. No CVA tenderness Skin: Good turgor without rashes. Neurologic exam: Cranial nerves two through 12 are intact. Motor and sensation are intact and symmetrical throughout. Medical Decision & Procedures ER Provider Diagnostic Interpretation: X-ray results as stated below per interpretation by me and the radiologist. Radiology results as stated below per my review and radiologist interpretation: CHEST ONE VIEW PORTABLE CLINICAL HISTORY: eval for FB/free air COMPARISON STUDY: 12/12/2017 FINDINGS: Lungs are clear. No evidence for cardiac enlargement. Diaphragms are smooth. 2 linear metallic foreign bodies overlying the gastric fundus. These potentially represent metallic pin tips. IMPRESSION: 2 small foreign bodies within the stomach. Negative chest. The above report was generated using voice recognition software. It may contain grammatical, syntax or spelling errors. Electronically signed by: Watson Shoemaker M.D. 12/18/2017 4:11 PM Dictated Date/Time: 12/18/2017 4:10 [address] AND PELVIS CT WITHOUT CONTRAST HISTORY: History of foreign body ingestion. eval for FB, trauma from spoon/pen ingestion TECHNIQUE: Multiaxial CT images of the chest, abdomen and pelvis were performed without contrast. A dose lowering technique was utilized adhering to the principles of ALARA. COMPARISON STUDY: CT chest, abdomen and pelvis 12/12/2017. FINDINGS: CT CHEST: Thyroid is mildly heterogeneous without dominant nodule identified. Mild residual thymic tissue of the anterior mediastinum. Trace pericardial effusion. Heart is normal in size. Thoracic aorta is normal in course and caliber. No pathologic adenopathy identified within the chest. No pneumomediastinum, pneumothorax or foreign body of the chest identified. No pleural effusion or focal airspace consolidation. There is only minimal subsegmental dependent bibasilar atelectasis. No suspicious pulmonary nodules. Punctate calcified granuloma of the right upper lobe on image 77. Central airways are patent. No foreign body of the esophagus. CT ABDOMEN/PELVIS: Mild dependent subsegmental bibasilar atelectasis. No pneumatosis or pneumoperitoneum identified. Imaged inferior cardiac chambers are unremarkable. Evaluation of the solid abdominal organs is limited without the use of IV contrast. Within the limitations of the study, the liver, pancreas and adrenal glands appear unremarkable. The spleen measures in the upper limits of normal at 13 cm. Kidneys, ureters and bladder are unremarkable. Calcifications are seen within the central prostate. Aorta is normal in course and caliber. There is no bulky adenopathy identified. Mildly prominent periaortic lymph nodes measure up to 8 mm, likely physiologic. There are at least four linear ingested foreign bodies within the stomach measuring up to 11 cm in length. Two of the objects demonstrate metallic density along the proximal portions measuring up to 1.4 cm in length. No evidence of wall perforation or perigastric inflammatory changes. No small bowel obstruction or bowel wall thickening. There is moderate volume of formed colonic stool noted throughout. The previously described foreign bodies within the ascending colon and duodenum are no longer identified. The appendix appears normal. No ascites or mesenteric inflammatory changes. Postsurgical changes of the anterior abdominal wall with 1.2 cm fat filled periumbilical hernia. The bones appear intact. Transitional lumbosacral anatomy with pseudoarticulation of the right L5 transverse process. IMPRESSION: 1. At least four linear ingested foreign bodies within the stomach measure up to 11 cm in length. No evidence of gastric outlet obstruction, gastric wall perforation or perigastric inflammatory changes. 2. Recently noted ingested foreign bodies noted within the duodenum and ascending colon are no longer identified. 3. No acute process or foreign body of the chest. Electronically signed by: Tahir Champion M.D. 12/18/2017 5:15 PM Dictated Date/Time: 12/18/2017 5:02 PM Laboratory Results 12/18/17 16:25 Red Blood Count 4.64, Mean Corpuscular Volume 95.5, Mean Corpuscular Hemoglobin 31.7, Mean Corpuscular Hemoglobin Concent 33.2, Mean Platelet Volume 9.3, Neutrophils (%) (Auto) 57.0, Lymphocytes (%) (Auto) 30.0, Monocytes (%) (Auto) 8.8, Eosinophils (%) (Auto) 3.8, Basophils (%) (Auto) 0.2, Neutrophils # (Auto) 5.08, Lymphocytes # (Auto) 2.67, Monocytes # (Auto) 0.78, Eosinophils # (Auto) 0.34, Basophils # (Auto) 0.02 12/18/17 16:25 Test 12/18/17 16:25 12/18/17 16:46 White Blood Count 8.91 K/uL (4.8-10.8) Red Blood Count 4.64 M/uL (4.7-6.1) Hemoglobin 14.7 g/dL (14.0-18.0) Hematocrit 44.3 % (42-52) Mean Corpuscular Volume 95.5 fL (80-100) Mean Corpuscular Hemoglobin 31.7 pg (25-34) Mean Corpuscular Hemoglobin Concent 33.2 g/dl (32-36) Platelet Count 198 K/uL (130-400) Mean Platelet Volume 9.3 fL (7.4-10.4) Neutrophils (%) (Auto) 57.0 % Lymphocytes (%) (Auto) 30.0 % Monocytes (%) (Auto) 8.8 % Eosinophils (%) (Auto) 3.8 % Basophils (%) (Auto) 0.2 % Neutrophils # (Auto) 5.08 K/uL (1.4-6.5) Lymphocytes # (Auto) 2.67 K/uL (1.2-3.4) Monocytes # (Auto) 0.78 K/uL (0.11-0.59) Eosinophils # (Auto) 0.34 K/uL (0-0.5) Basophils # (Auto) 0.02 K/uL (0-0.2) RDW Standard Deviation 47.7 fL (36.4-46.3) RDW Coefficient of Variation 13.7 % (11.5-14.5) Immature Granulocyte % (Auto) 0.2 % Immature Granulocyte # (Auto) 0.02 K/uL (0.00-0.02) Anion Gap 3.0 mmol/L (3-11) Est Creatinine Clear Calc Drug Dose 129.0 ml/min Estimated GFR () 134.9 Estimated GFR (Non- 116.4 BUN/Creatinine Ratio 14.5 (10-20) Calcium Level 9.1 mg/dl (8.5-10.1) Total Bilirubin 0.3 mg/dl (0.2-1) Direct Bilirubin 0.1 mg/dl (0-0.2) Aspartate Amino Transf (AST/SGOT) 109 U/L (15-37) Alanine Aminotransferase (ALT/SGPT) 229 U/L (12-78) Alkaline Phosphatase 78 U/L (45-117) Total Protein 7.7 gm/dl (6.4-8.2) Albumin 4.1 gm/dl (3.4-5.0) Lipase 98 U/L (73-393) Bedside Troponin I < 0.030 ng/ml (0-0.045) Laboratory studies as stated above per my review. Medications Administered Medications (Trade) Dose Ordered Sig/Cherri Route Start Time Stop Time Status Last Admin Dose Admin Lorazepam (Ativan Inj) 0.5 mg NOW STAT IV 12/18/17 15:30 12/18/17 15:33 DC 12/18/17 16:33 0.5 MG ECG Per My Interpretation Indication: SOB/dyspnea Rate (beats per minute): 64 Rhythm: normal sinus Findings: no acute ischemic change, no ectopy, other (poor baseline) Comparison ECG Date: no prior available ED Course 1522: Past medical records reviewed. The patient was evaluated in room C4, and a complete history and physical examination were performed. 1530: Ativan Inj 0.5 mg IV. 1727: I discussed the patient's case with Dr. Turner, [facility] gastroenterology. He will be in to see the patient. 1737: I discussed with radiology who reports that a Gastrografin study is not a problem. 1742: I discussed the patient's case with ALIA Rodríguez [facility]. The patient will be evaluated for further management. 175: I reevaluated the patient. I discussed the results and treatment plan with the patient. He verbalized agreement of the treatment plan. The patient will be evaluated for further management. 1754: Ativan Inj 0.5 mg IV. Medical Decision Differentials include, but are not limited to; foreign body ingestion, esophageal obstruction, bowel obstruction, pneumothorax, syncope, infection. This patient comes in as described above. He purposely ingested to plastic spoons and 2 plastic pens in attempt to hurt himself at about 1:00 he has a history of doing this multiple times it was just in the hospital not too long ago for ingestions. He also said he was having pain and passed out. He appears in no respiratory distress. he is speaking and swallowing without difficulty has no evidence of any airway compromise. Chest x-ray was obtained and shows no free air. It appears that the pens are in the stomach. EKG does not suggest acute coronary syndrome or arrhythmia. He has no acute electrolyte or metabolic abnormalities. I did a CAT scan of the chest, abdomen, pelvis, and there are four long linear objects within the stomach. I did discuss case with Dr. Turner and he is going to take him to the endoscopy suite and attempt to remove these. I also talked to the [facility] and she is going to admit/observe the patient. As per Dr. Turner's request, I check with Dr. shoemaker in radiology who said that the patient should be able to have a Gastrografin swallow performed tonight after the endoscopy procedure to ensure there is no perforations. The patient was then admitted/observed. Medication Reconcilliation Current Medication List: was personally reviewed by me Blood Pressure Screening Patient's blood pressure: Normal blood pressure Blood pressure disposition: Did not require urgent referral Consults Time Called: 1726 Consulting Physician: [facility] gastroenterology Returned Call: [phone] I discussed the patient's case with him. He will be in to see the patient. Additional Consults: Time Called: 1739 Consulted Physician: ALIA Rodríguez [facility] hospitalist Returned Call: [phone] Additional Comments: Discussed the patient's case. The patient will be evaluated for further management. Impression Primary Impression: Foreign body ingestion Scribe Attestation The scribe's documentation has been prepared under my direction and personally reviewed by me in its entirety. I confirm that the note above accurately reflects all work, treatment, procedures, and medical decision making performed by me. Departure Information Dispostion Being Evaluated By Hospitalist Referrals Humberto JOHNSON (PCP) Patient Instructions My [facility]
--- NOTE | 2017-12-18 19:13 | GI REPORT ---
Patient Name: Silviano Tovar Procedure Date: 12/18/2017 6:34 PM Date of : 1990 Admit Type: Emergency Department Age: 27 Gender: Male Attending MD: Marion Turner DO Procedure: Upper GI endoscopy Providers: Marion Turner DO Referring MD: Dale Briggs Indications: Foreign body in the stomach Medicines: General Anesthesia Complications: No immediate complications. Estimated blood loss: Minimal. Estimated Blood Loss: Estimated blood loss: none. Procedure: Pre-Anesthesia Assessment: - Prior to the procedure, a History and Physical was performed, and patient medications, allergies and sensitivities were reviewed. The patient's tolerance of previous anesthesia was reviewed. - The risks and benefits of the procedure and the sedation options and risks were discussed with the patient. All questions were answered and informed consent was obtained. - Patient identification and proposed procedure were verified prior to the procedure by the physician, the nurse and the national flatbed truck driver. The procedure was verified in the procedure room. - Pre-procedure physical examination revealed no contraindications to sedation. - ASA Grade Assessment: II - A patient with mild systemic disease. - After reviewing the risks and benefits, the patient was deemed in satisfactory condition to undergo the procedure. - The anesthesia plan was to use general anesthesia. - Immediately prior to administration of medications, the patient was re-assessed for adequacy to receive sedatives. - The heart rate, respiratory rate, oxygen saturations, blood pressure, adequacy of pulmonary ventilation, and response to care were monitored throughout the procedure. - The physical status of the patient was re-assessed after the procedure. After obtaining informed consent, the endoscope was passed under direct vision. Throughout the procedure, the patient's blood pressure, pulse, and oxygen saturations were monitored continuously. The Scope was introduced through the mouth, and advanced to the second part of duodenum. The upper GI endoscopy was accomplished without difficulty. The patient tolerated the procedure well. Findings: The examined esophagus was normal. A medium amount of food (residue) was found in the gastric body. 2 pens and 2 pieces of plastic forks were found in the gastric fundus. A US endoscopy Guardus Overtube was carefully placed into the esophagus. Removal of the 4 plastic obsject was accomplished with a snare. Estimated blood loss: none. The esophagus, stomach and cricopharngeal region were carefully examined (no obvious trauma noted). The duodenal bulb and 2nd part of the duodenum were normal. Impression: - Normal esophagus. - A medium amount of food (residue) in the stomach. - 2 pens and 2 pieces of plastic forks were found in the stomach. Removal was successful. - Normal duodenal bulb and 2nd part of the duodenum. Recommendation: - Do an upper GI series (gastrograffin) today. If negative patient may be returned to his place of residence. Marion Turner D.O. Marion Turner, DO 12/18/2017 7:13:30 PM This report has been signed electronically. Note Initiated On: 12/18/2017 6:34 PM Number of Addenda: 0 I attest to the content of the Intraoperative Record and orders documented therein, exceptions below {[id number]}
--- NOTE | 2017-12-18 19:16 | [facility] Post Operative Brief Note ---
Immediate Operative Summary Operative Date December 18, 2017. Pre-Operative Diagnosis foreign body ingestion Post-Operative Diagnosis foreign body ingestion Procedure(s) Performed Esophagogastroduodenoscopy with extraction of four foreign bodies Sur[address] Dr. Marion Turner Merchandise Deliverer Surgeon(s) None Estimated Blood Loss none per surgeon Findings Consistent with Post-Op Diagnosis Specimens sPECIMENS SENT TO PATHOLOGY FOR DOCUMENTATION Drains None Anesthesia Type General Complication(s) none Disposition Accompanied Pt To Recover: no Disposition: Recovery Room / PACU
[2017-12-18] MEDS ORDERED: ONDANSETRON INJ 2 MG/ML 2 ML VIAL ONE (19:17)
--- NOTE | 2017-12-18 19:32 | Progress Note ---
Progress Note Date of Service December 18, 2017. Progress Note Patient underwent EGD this evening. We removed 2 pens and 2 pieces of a fork. There did not appear to be any obvious mucosal trauma at the end of the procedure. Given the length of the objects I would suggest that an upper GI series be attempted. These note the patient is already stated that he will not be cooperative with an upper GI series (preop and in post op). Recommendations Attempt an upper GI series If upper GI series negative patient can be sent back to residential Please feel free to call with any questions or concerns
--- NOTE | 2017-12-18 19:33 | Anesthesiology Progress Note ---
Anesthesia Post Op Note Date & Time December 18, 2017 at 19:33 Vital Signs Pain Intensity: 0 Vital Signs Past 12 Hours Date Time Temp Pulse Resp B/P (MAP) Pulse Ox O2 Delivery O2 Flow Rate FiO2 12/18/17 19:30 81 16 121/74 99 Room Air 12/18/17 19:20 37. 81 16 128/79 99 Room Air 12/18/17 18:15 67 16 117/73 100 Room Air 12/18/17 17:19 66 20 112/71 100 Room Air 12/18/17 16:36 65 16 109/73 100 Room Air 12/18/17 15:10 76 12/18/17 15:09 100 Room Air 12/18/17 15:01 37.9 76 12 126/79 100 Room Air Notes Mental Status: alert / awake / arousable, participated in evaluation Pt Amnestic to Procedure: Yes Nausea / Vomiting: adequately controlled Pain: adequately controlled Airway Patency, RR, SpO2: stable & adequate BP & HR: stable & adequate Hydration State: stable & adequate Anesthetic Complications: no major complications apparent
[2017-12-18] MEDS ORDERED: IV FLUIDS COMPLETED PRN (20:00)
--- NOTE | 2017-12-18 20:08 | History and Physical ---
History & Physical Date & Time of Service: December 18, 2017 ~ 18:00 Chief Complaint: Foreign body ingestion Primary Care Physician: Humberto JOHNSON History of Present Illness 27-year-old male who presents from [facility] after intentional foreign body ingestion. Patient is well-known to our service for this issue. Recently admitted last week for the same. Patient reports he got angry today over accusations of his behavior. He reports he then swallowed 2 plastic spoons and 2 pens. He then developed abdominal pain. He reports he was sitting on the side of his bunk was bending over to the abdominal pain with his hands around his neck he subsequently passed out hitting the floor. Patient reports he was trying to commit suicide today. He denies chest pain shortness of breath. No lightheadedness, dizziness, diaphoresis. No nausea, vomiting, or diarrhea. Denies fever and chills. No urinary symptoms. Imaging obtained in the ER confirm the presence of for foreign bodies in the stomach. Labs are unremarkable. Past Medical/Surgical History Medical Problems: (1) Depression Status: Chronic (2) History of foreign body ingestion Status: Chronic (3) Malingering Status: Chronic (4) Mood disorder Status: Chronic (5) PTSD (post-traumatic stress disorder) Status: Chronic (6) Seizure disorder Status: Chronic Family History Patient reports no known family medical history. Social History Smoking Status: Current Every Day Smoker Alcohol Use: none Housing status: other (Incarcerated) Allergies Coded Allergies: Ketorolac Tromethamine (Verified Allergy, Unknown, breathing problems, 12/18) Penicillins (Verified Allergy, Unknown, unknown, 12/18/17) Home Medications Scheduled Clonazepam (Klonopin), 1 TAB PO QAM Clonazepam (Klonopin), 1 TAB PO HS Diphenhydramine Hcl (Benadryl), 100 MG PO HS Gabapentin (Neurontin), 1 TAB PO TID [place] Carbonate ([place] Carbonate), 600 MG PO BID Prazosin Hcl (Prazosin), 2 MG PO HS Quetiapine Fumarate (Seroquel), 400 MG PO HS Sertraline (Zoloft), 150 MG PO DAILY Review of Systems ROS per HPI, all other systems reviewed and negative Physical Exam Vital Signs Date Time Temp Pulse Resp B/P (MAP) Pulse Ox O2 Delivery O2 Flow Rate FiO2 12/18/17 19:40 70 16 116/75 100 Room Air 12/18/17 19:30 81 16 121/74 99 Room Air 12/18/17 19:20 37. 81 16 128/79 99 Room Air 12/18/17 18:15 67 16 117/73 100 Room Air 12/18/17 17:19 66 20 112/71 100 Room Air 12/18/17 16:36 65 16 109/73 100 Room Air 12/18/17 15:10 76 12/18/17 15:09 100 Room Air 12/18/17 15:01 37.9 76 12 126/79 100 Room Air General Appearance: WD/WN, no apparent distress Head: normocephalic, atraumatic Eyes: normal inspection, EOMI, sclerae normal ENT: hearing grossly normal, + pertinent finding (Mucous membranes moist) Neck: supple, no JVD, no carotid bruits Respiratory/Chest: lungs clear, normal breath sounds, no respiratory distress Cardiovascular: regular rate, rhythm, no edema, normal peripheral pulses Abdomen/GI: normal bowel sounds, soft, no organomegaly, + tenderness (Mild, mid abdomen) Extremities/Musculoskelatal: normal inspection, no calf tenderness, normal capillary refill Neurologic/Psych: no motor/sensory deficits, alert, normal mood/affect, oriented x 3 Skin: normal color, warm/dry Diagnostics Laboratory Results Results Past 24 Hours Test 12/18/17 16:25 12/18/17 16:46 Range/Units White Blood Count 8.91 4.8-10.8 K/uL Red Blood Count 4.64 4.7-6.1 M/uL Hemoglobin 14.7 14.0-18.0 g/dL Hematocrit 44.3 42-52 % Mean Corpuscular Volume 95.5 80-100 fL Mean Corpuscular Hemoglobin 31.7 25-34 pg Mean Corpuscular Hemoglobin Concent 33.2 32-36 g/dl Platelet Count 198 130-400 K/uL Mean Platelet Volume 9.3 7.4-10.4 fL Neutrophils (%) (Auto) 57.0 % Lymphocytes (%) (Auto) 30.0 % Monocytes (%) (Auto) 8.8 % Eosinophils (%) (Auto) 3.8 % Basophils (%) (Auto) 0.2 % Neutrophils # (Auto) 5.08 1.4-6.5 K/uL Lymphocytes # (Auto) 2.67 1.2-3.4 K/uL Monocytes # (Auto) 0.78 0.11-0.59 K/uL Eosinophils # (Auto) 0.34 0-0.5 K/uL Basophils # (Auto) 0.02 0-0.2 K/uL RDW Standard Deviation 47.7 36.4-46.3 fL RDW Coefficient of Variation 13.7 11.5-14.5 % Immature Granulocyte % (Auto) 0.2 % Immature Granulocyte # (Auto) 0.02 0.00-0.02 K/uL Sodium Level 141 136-145 mmol/L Potassium Level 3.6 3.5-5.1 mmol/L Chloride Level 106 98-107 mmol/L Carbon Dioxide Level 32 21-32 mmol/L Anion Gap 3.0 3-11 mmol/L Blood Urea Nitrogen 13 7-18 mg/dl Creatinine 0.89 0.60-1.40 mg/dl Est Creatinine Clear Calc Drug Dose 129.0 ml/min Estimated GFR () 134.9 Estimated GFR (Non- 116.4 BUN/Creatinine Ratio 14.5 10-20 Random Glucose 60 70-99 mg/dl Calcium Level 9.1 8.5-10.1 mg/dl Total Bilirubin 0.3 0.2-1 mg/dl Direct Bilirubin 0.1 0-0.2 mg/dl Aspartate Amino Transf (AST/SGOT) 109 15-37 U/L Alanine Aminotransferase (ALT/SGPT) 229 12-78 U/L Alkaline Phosphatase 78 45-117 U/L Total Protein 7.7 6.4-8.2 gm/dl Albumin 4.1 3.4-5.0 gm/dl Lipase 98 73-393 U/L Bedside Troponin I < 0.030 0-0.045 ng/ml Diagnostic Radiology CXR IMPRESSION: 2 small foreign bodies within the stomach. Negative chest. CT CHEST/ABD/PELVIS IMPRESSION: 1. At least four linear ingested foreign bodies within the stomach measure up to 11 cm in length. No evidence of gastric outlet obstruction, gastric wall perforation or perigastric inflammatory changes. 2. Recently noted ingested foreign bodies noted within the duodenum and ascending colon are no longer identified. 3. No acute process or foreign body of the chest. Impression Assessment and Plan FOREIGN BODY INGESTION -Admit to telemetry -Patient presenting from [facility] after he ingested 2 spoons and 2 pens -Patient well-known to our service for this issue -No signs of perforation on CT -GI notified by ED, patient will be going to Endo lab this evening -GI requesting Gastrografin swallow after EGD ANXIETY, DEPRESSION, PTSD, SEIZURE DISORDER -Continue clonazepam, gabapentin, lithium, prazosin, Seroquel, sertraline -Patient admits he was trying to commit suicide with swallowing the foreign objects today -Patient will have one-to-one supervision with guards from the [facility] -Mental health evaluation SYNCOPE -Likely due to pressure that was applied on bilateral carotid arteries or vasovagal from abdominal pain DVT PROPHYLAXIS -SCDs due to invasive procedures today DISPOSITION -The patient will be placed as observation status for now until further work up is complete. Attending Addendum Patient was seen and examined. 27-year-old male from [facility] with PMH of mood disorder, PTSD, multiple admission foreign body ingestion was sent to the ER after intentional swallowing 4 objects. Patient was recently discharged last week for foreign body ingestion. Patient reports he got angry today over accusations of his behavior. He said that he swallowed 2 plastic spoons and 2 pens. Patient said that the reason he swallowed the object because he was trying to commit suicide today. CT abdomen and pelvic stone in the ER showed at least four linear ingested foreign bodies within the stomach measure up to 11 cm in length. No evidence of gastric outlet obstruction, gastric wall perforation or perigastric inflammatory changes. Recently noted ingested foreign bodies noted within the duodenum and ascending colon are no longer identified. EGD done by Dr. Turner with successful removal object of 2 pens and 2 pieces of plastic forks from the stomach. Upper GI series done post endoscopy showed no evidence of extraluminal contrast to suggest esophageal mucosal injury. Currently patient lying down watching TV. Denies any chest pain, palpitation, dizziness, shortness of breath, and abdominal pain. Patient said that he is hungry and would like to eat something. Case discussed with Dr. Turner and from GI standpoint to discharge back to [facility] on full liquid diet. I called [facility] and discussed the case with the nurse on site. We will do full liquid diet for now and advance as tolerate tomorrow. Also I informed nurse to put patient on suicidal watch. Advised nurse to keep away small objects from patient to prevent him from ingested more foreign bodies. Patient is stable to discharge tonight. : Resuscitation Status VTE Prophylaxis Will order VTE Prophylaxis: Yes
--- NOTE | 2017-12-18 20:12 | DIAGNOSTIC IMAGING REPORT ---
CHEST-PA,LAT AND OBLIQUE VIEWS HISTORY: 27 years-old Male FOREIGN BODY INGESTION (COMPLETE AFTER EGD) status post endoscopy with foreign body removal COMPARISON: Chest radiograph and CT chest, abdomen and pelvis 12/18/2017 TECHNIQUE: PA, lateral and oblique views of the chest were obtained following the oral administration of Gastrografin to assess for postprocedural esophageal injury FINDINGS: Gastrografin and air bubbles are noted within the esophagus and proximal gastric lumen. Minimal tertiary contractions of the esophagus are noted without contrast leak to suggest mucosal injury. Cardiomediastinal and hilar silhouettes are within normal limits. No pneumomediastinum, pneumothorax, pleural effusion or focal airspace consolidation. The bones appear intact. IMPRESSION: 1. No acute processes of the chest. 2. No evidence of extraluminal contrast to suggest esophageal mucosal injury. The above report was generated using voice recognition software. It may contain grammatical, syntax or spelling errors. Electronically signed by: Tahir Champion M.D. 12/18/2017 8:11 PM Dictated Date/Time: 12/18/2017 8:09 PM
[2017-12-18 20:14] VITALS: BP 118/74; PULSE 64; TEMP 37; O2SAT 100; Ht 190.5 cm; Wt 71.7 kg
[2017-12-18] MEDS ORDERED: GABAPENTIN 800 MG TAB PO SCH (21:00)
[2017-12-18] MEDS ORDERED: CLONAZEPAM 0.5 MG TAB PO SCH (21:00)
[2017-12-18] MEDS ORDERED: PRAZOSIN HCL 1 MG CAP PO SCH (21:00)
[2017-12-18] MEDS ORDERED: LITHIUM CARBONATE 300 MG TAB PO SCH (21:00)
[2017-12-18] MEDS ORDERED: QUETIAPINE FUMARATE 200 MG TAB PO SCH (21:00)
--- NOTE | 2017-12-18 21:23 | GASTROINTESTINAL CONSULTATION ---
DATE OF CONSULTATION: 12/18/2017 REQUESTING PHYSICIAN: Dr. De La Rosa. CHIEF COMPLAINT: Swallowed foreign objects. HISTORY OF PRESENT ILLNESS: Patient is a 27-year-old male with a past history notable for numerous ingestions presenting at the ER today for evaluation of a swallowed object. The patient reports that he swallowed several pens and several plastic spoons and perhaps fork because he was upset today. The patient last had a similar episode about 1 week ago for which the objects were removed. Patient does have a history of recurrent foreign body ingestion and has had numerous upper endoscopies. PAST MEDICAL HISTORY: Depression, malingering, seizure disorder. PAST SURGICAL HISTORY: Ex-lap about 8 months ago for a similar episode. OUTPATIENT MEDICATIONS: 1. Klonopin 1 tablet daily. 2. Docusate 100 mg twice daily. 3. Neurontin 600 mg t.i.d. 4. [place] 600 mg t.i.d. 5. Protonix 1 tablet daily. 6. Prazosin 1 mg daily. 7. Seroquel 300 mg at bedtime. 8. Zoloft 200 mg daily. ALLERGIES: KETOROLAC, PENICILLIN. REVIEW OF SYSTEMS: Please see admission H and P. PHYSICAL EXAMINATION: GENERAL: No apparent distress. VITAL SIGNS: Temperature 37.9 on admission, pulse 66, respiratory rate 20, blood pressure is 112/71, pulse ox 100%. HEENT: No scleral icterus. NECK: No JVD noted. A very limited physical exam was done as the patient made several threatening remarks to me and I was fearful. IMAGING STUDIES: CT dated 12/18/2017, 4 linear objects noted in the stomach, 1 measuring over 11 cm in length. IMPRESSION: A 27-year-old male with a history of foreign body ingestion, appears to be malingering given his multiple presentations over the past year to this hospital. Informed consent was obtained from the patient. We will attempt to remove the objects this evening. The patient should have a Gastrografin study upon completion of the upper endoscopy today. If no perforation is noted, the patient can be referred back to be present this evening. Please call with any questions or concerns. [facility]
--- NOTE | 2017-12-18 21:30 | Discharge Instructions ---
Discharge Instructions Date of Service December 18, 2017. Admission Reason for Admission: Swallowed Foreign Body Discharge Discharge Diagnosis / Problem: Intentional foreign body ingestion Discharge Goals Goal(s): Decrease discomfort, Improve function, Improve disease control Activity Recommendations Activity Limitations: resume your previous activity (as tolerated) . Instructions / Follow-Up Instructions / Follow-Up Follow up with primary care provider at [facility] Follow-up with your psychiatrist Monitor patient closely on suicidal watch Full liquid diet for now and advance as tolerated tomorrow. keep away small objects or any objects that able to swallow from patient to prevent him from ingested more foreign bodies. Current Hospital Diet Patient's current hospital diet: Full Liquid Diet Discharge Diet Recommended Diet: Regular Diet Procedures Procedures Performed: Esophagogastroduodenoscopy with extraction of four foreign bodies Pending Studies Studies pending at discharge: no Medical Emergencies . Who to Call and When: Medical Emergencies: If at any time you feel your situation is an emergency, please call 911 immediately. . Non-Emergent Contact Non-Emergency issues call your: Primary Care Provider Call Non-Emergent contact if: you have any medication questions . . "Provider Documentation" section prepared by Roxie Steen. .
[2017-12-18 21:34] VITALS: BP 118/74; PULSE 64; TEMP 37; O2SAT 100
--- NOTE | 2017-12-18 21:37 | Discharge Summary ---
Discharge Summary Date of Service December 18, 2017. Discharge Summary Admission Date: December 18, 2017 at 18:27 Discharge Date: December 18, 2017 Principal Diagnosis: Intentional foreign body ingestion Secondary Diagnoses/Problems: Mood disorder PTSD Medication Reconciliation Continued Medications: Clonazepam (Klonopin) 1 Mg Tab 1 TAB PO QAM Clonazepam (Klonopin) 0.5 Mg Tab 1 TAB PO HS for 30 Days, TAB 1 Refill Diphenhydramine Hcl (Benadryl) 25 Mg Cap 100 MG PO HS, CAP Gabapentin (Neurontin) 800 Mg Tab 1 TAB PO TID for 30 Days, #90 TAB 3 Refills [place] Carbonate ([place] Carbonate) 300 Mg Cap 600 MG PO BID, CAP 2 TABLET DOSE Prazosin Hcl (Prazosin) 1 Mg Cap 2 MG PO HS, CAP Quetiapine Fumarate (Seroquel) 300 Mg Tab 400 MG PO HS, TAB Sertraline (Zoloft) 100 Mg Tab 150 MG PO DAILY, TAB Admission Information HPI (per Admitting provider): 27-year-old male who presents from [facility] after intentional foreign body ingestion. Patient is well-known to our service for this issue. Recently admitted last week for the same. Patient reports he got angry today over accusations of his behavior. He reports he then swallowed 2 plastic spoons and 2 pens. He then developed abdominal pain. He reports he was sitting on the side of his bunk was bending over to the abdominal pain with his hands around his neck he subsequently passed out hitting the floor. Patient reports he was trying to commit suicide today. He denies chest pain shortness of breath. No lightheadedness, dizziness, diaphoresis. No nausea, vomiting, or diarrhea. Denies fever and chills. No urinary symptoms. Imaging obtained in the ER confirm the presence of for foreign bodies in the stomach. Labs are unremarkable. Physical Exam (per Admitting): General Appearance: WD/WN, no apparent distress Head: normocephalic, atraumatic Eyes: normal inspection, EOMI, sclerae normal ENT: hearing grossly normal, + pertinent finding (Mucous membranes moist) Neck: supple, no JVD, no carotid bruits Respiratory/Chest: lungs clear, normal breath sounds, no respiratory distress Cardiovascular: regular rate, rhythm, no edema, normal peripheral pulses Abdomen/GI: normal bowel sounds, soft, no organomegaly, + tenderness (Mild, mid abdomen) Extremities/Musculoskelatal: normal inspection, no calf tenderness, normal capillary refill Neurologic/Psych: no motor/sensory deficits, alert, normal mood/affect, oriented x 3 Skin: normal color, warm/dry Hospital Course 27-year-old male from [facility] with PMH of mood disorder, PTSD, multiple admission foreign body ingestion was sent to the ER after intentional swallowing 4 objects. Patient was recently discharged last week for foreign body ingestion. Patient reports he got angry today over accusations of his behavior. He said that he swallowed 2 plastic spoons and 2 pens. Patient said that the reason he swallowed the object because he was trying to commit suicide today. CT abdomen and pelvic stone in the ER showed at least four linear ingested foreign bodies within the stomach measure up to 11 cm in length. No evidence of gastric outlet obstruction, gastric wall perforation or perigastric inflammatory changes. Recently noted ingested foreign bodies noted within the duodenum and ascending colon are no longer identified. EGD done by Dr. Turner with successful removal object of 2 pens and 2 pieces of plastic forks from the stomach. Upper GI series done post endoscopy showed no evidence of extraluminal contrast to suggest esophageal mucosal injury. Currently patient lying in bed watching TV. Denies any chest pain, palpitation, dizziness, shortness of breath, and abdominal pain. Patient said that he is hungry and would like to eat something. Case discussed with Dr. Turner and from GI standpoint to discharge back to long-term on full liquid diet. I called [facility] and discussed the case with the nurse on site. We will do full liquid diet for now and advance as tolerate tomorrow. Also I informed nurse to put patient on suicidal watch. Advised nurse to keep away small objects from patient to prevent him from ingested more foreign bodies. Patient is stable to discharge. Total time spent on discharge = 35 minutes This includes examination of the patient, discharge planning, medication reconciliation, and communication with other providers. Discharge Instructions Discharge Instructions Date of Service December 18, 2017. Admission Reason for Admission: Swallowed Foreign Body Discharge Discharge Diagnosis / Problem: Intentional foreign body ingestion Discharge Goals Goal(s): Decrease discomfort, Improve function, Improve disease control Activity Recommendations Activity Limitations: resume your previous activity (as tolerated) . Instructions / Follow-Up Instructions / Follow-Up Follow up with primary care provider at [facility] Follow-up with your psychiatrist Monitor patient closely on suicidal watch Full liquid diet for now and advance as tolerated tomorrow. keep away small objects or any objects that able to swallow from patient to prevent him from ingested more foreign bodies. Current Hospital Diet Patient's current hospital diet: Full Liquid Diet Discharge Diet Recommended Diet: Regular Diet Procedures Procedures Performed: Esophagogastroduodenoscopy with extraction of four foreign bodies Pending Studies Studies pending at discharge: no Medical Emergencies . Who to Call and When: Medical Emergencies: If at any time you feel your situation is an emergency, please call 911 immediately. . Non-Emergent Contact Non-Emergency issues call your: Primary Care Provider Call Non-Emergent contact if: you have any medication questions . . "Provider Documentation" section prepared by Roxie Steen. . Additional Copies To Humberto JOHNSON
[2017-12-19] MEDS ORDERED: CLONAZEPAM 1 MG TAB PO SCH (09:00)
[2017-12-19] MEDS ORDERED: SERTRALINE HCL 50 MG TAB PO SCH (09:00)
--- NOTE | 2017-12-20 08:32 | Psychiatric Consultation ---
Psychiatric Consultation Date of Service: December 18, 2017. Consult placed at 1831 for "ingestion of foreign body". Patient discharged at 2151 prior to being seen by psychiatry.
== END 2017-12-18 21:52 ==
LOC: EDBD 14:48 → C.EDC 14:49 → C.2T 18:27 → ENRESERV 19:35
PROVIDERS: ADMIT Internal Medicine; ATTEND Hospitalist
DX: T18.9XXA Foreign body of alimentary tract, part unspecified, initial encounter (principal); R45.851 Suicidal ideations; F43.10 Post-traumatic stress disorder, unspecified; F31.9 Bipolar disorder, unspecified; F17.200 Nicotine dependence, unspecified, uncomplicated; Z88.0 Allergy status to penicillin; Z88.6 Allergy status to analgesic agent; X83.8XXA Intentional self-harm by other specified means, initial encounter; R56.9 Unspecified convulsions; R55 Syncope and collapse; B19.20 Unspecified viral hepatitis C without hepatic coma

== ENCOUNTER 2017-12-31 15:11 | Emergency (ER) | payer OTHER ==
[~2017-12-31] VITALS: Ht 190.5 cm; Wt 76.8 kg
[~2017-12-31 15:11] MED LIST changes: -CLC100 PO; +CLON0.5T3 PO; +DIPH25CA5 PO; -GABA600T PO; +GABA800T2 PO; -MRLP17X PO; -PANT1TAB3 PO
[2017-12-31 15:14] VITALS: Ht 190.5 cm; Wt 76.8 kg
[2017-12-31] MEDS ORDERED: PRAZ2CAP3 PO (15:33)
[2017-12-31] MEDS ORDERED: SERT100T PO (15:33)
[2017-12-31 16:15] LABS: BASO % 0.4 %; BASO ABS # 0.03 K/uL (0-0.2); EOS % 6.9 %; HEMATOCRIT 43.9 % (42-52); HEMOGLOBIN 14.3 g/dL (14.0-18.0); IG# 0.01 K/uL (0.00-0.02); LYMPH % 34.4 %; LYMPH ABS # 2.48 K/uL (1.2-3.4); MEAN CELL VOLUME 96.5 fL (80-100); MEAN CORPUSCULAR HEMOGLOBIN 31.4 pg (25-34); MEAN CORPUSCULAR HGB CONC 32.6 g/dl (32-36); MEAN PLATELET VOLUME 9.3 fL (7.4-10.4); MONO % 9.4 %; MONO ABS # 0.68 K/uL (0.11-0.59); NEUT % 48.8 %; PLATELET COUNT 179 K/uL (130-400); RED CELL DISTRIBUTION WIDTH SD 49.8 fL (36.4-46.3)
--- NOTE | 2017-12-31 16:30 | DIAGNOSTIC IMAGING REPORT ---
ABDOMEN 2VIEW W/PA CHEST RTN CLINICAL HISTORY: 27 years-old Male presenting with eval for FB, reportedly ate four pens. TECHNIQUE: PA view of the chest and supine and upright views of the abdomen were obtained. COMPARISON: 12/18/2017. FINDINGS: Cardiomediastinal silhouette normal. Lungs and pleural spaces clear. Four partially radiodense foreign bodies project over the epigastrium likely within the gastric antrum. Marked stool burden noted throughout the colon to the level of the junction of the descending and sigmoid colon. No large stool burden in the rectum. Nonobstructive bowel gas pattern. No gross pneumatosis or pneumoperitoneum. Allowing for bowel gas and stool, no calcifications to suggest nephrolithiasis. Osseous structures normal. IMPRESSION: 1. No acute cardiopulmonary disease. 2. Four radiodense foreign bodies consistent with pens project over the epigastrium likely within the gastric antrum. No free air or pneumatosis. The report will be called/faxed according to standard departmental protocol. Electronically signed by: Camden Bey M.D. 12/31/2017 4:29 PM Dictated Date/Time: 12/31/2017 4:26 PM
[2017-12-31 16:33] LABS: CALCIUM 9.3 mg/dl (8.5-10.1); CREATININE 0.96 mg/dl (0.60-1.40); POTASSIUM 3.7 mmol/L (3.5-5.1)
[2017-12-31] MEDS ORDERED: ONDANSETRON INJ 2 MG/ML 2 ML VIAL IV STA (17:00)
[2017-12-31] MEDS ORDERED: MoRPHine SULFATE 2 MG/ML CARP IV STA (17:00)
[2017-12-31 17:37] VITALS: O2SAT 98
[2017-12-31] MEDS ORDERED: SODIUM CHLORIDE 0.9% 500ML 500 ML IV ONE (17:58)
--- NOTE | 2017-12-31 17:58 | Gastrointestinal Consultation ---
Gastrointestinal Consultation Date of Consultation: December 31, 2017 Attending Physician: Consulting Physician: Reason for Consultation: Foreign body in stomach History of Present Illness Patient is a 27 year old male with psych disorder, sent from care home facility after swallowing multiple plastic pens. Reports mild intermittent abdominal pain , no nausea or vomiting, no diarrhea or constipation. Had multiple prior EGDs for the same, last was 2 weeks ago. Past Medical/Surgical History Medical Problems: (1) FB GI (foreign body in gastrointestinal tract) Status: Acute (2) Foreign body ingestion Status: Acute Past Medical History: as above. Past Surgical History: None Family History Patient reports no known family medical history. Social History Smoking Status: Current Every Day Smoker Housing Status: other Allergies Coded Allergies: Ketorolac Tromethamine (Verified Allergy, Unknown, breathing problems, ) Penicillins (Verified Allergy, Unknown, unknown, 12/31/17) Current Medications Home Meds and Scripts Medications Dose Route/Sig Max Daily Dose Days Date Category Dose Instructions Zoloft (Sertraline Hcl) 100 Mg Tab 200 Mg PO DAILY 12/31/17 Reported Prazosin (Prazosin HCl) 2 Mg Cap 2 Mg PO HS 12/31/17 Reported Benadryl (Diphenhydramine Hcl) 25 Mg Cap 100 Mg PO HS 12/18/17 Reported Neurontin (Gabapentin) 800 Mg Tab 1 Tab PO TID 30 12/18/17 Reported Klonopin (Clonazepam) 0.5 Mg Tab 1 Tab PO HS 30 12/18/17 Reported Klonopin (Clonazepam) 1 Mg Tab 1 Tab PO QAM 12/12/17 Reported [place] Carbonate 300 Mg Cap 600 Mg PO BID 09/27/17 Reported 2 TABLET DOSE Seroquel (Quetiapine Fumarate) 300 Mg Tab 400 Mg PO HS 07/19/17 Reported Review of Systems Constitutional: No fever, No chills Eyes: No worsening of vision, No eye pain ENT: No hearing loss, No unusual epistaxis Respiratory: No cough, No sputum Cardiac: No chest pain, No orthopnea Abdomen: + see HPI Musculoskeletal: No joint pain Male : No dysuria, No urinary frequency Neuro: No memory loss Psych: No anxiety Endo: No fatigue Skin: No rash Physical Exam Date Time Temp Pulse Resp B/P (MAP) Pulse Ox O2 Delivery O2 Flow Rate FiO2 12/31/17 17:37 80 20 119/78 98 Room Air 12/31/17 16:55 86 20 126/76 98 Room Air 12/31/17 15:14 36.7 98 18 122/83 100 Room Air General Appearance: no apparent distress Eyes: PERRL ENT: hearing grossly normal Neck: supple, no adenopathy Respiratory/Chest: lungs clear, normal breath sounds Cardiovascular: regular rate, rhythm Abdomen: normal bowel sounds, non tender, soft Extremities: normal range of motion Neurologic/Psych: oriented x 3 Skin: no jaundice Laboratory Results Last 24 Hours Test 12/31/17 15:45 White Blood Count 7.20 K/uL Red Blood Count 4.55 M/uL Hemoglobin 14.3 g/dL Hematocrit 43.9 % Mean Corpuscular Volume 96.5 fL Mean Corpuscular Hemoglobin 31.4 pg Mean Corpuscular Hemoglobin Concent 32.6 g/dl Platelet Count 179 K/uL Mean Platelet Volume 9.3 fL Neutrophils (%) (Auto) 48.8 % Lymphocytes (%) (Auto) 34.4 % Monocytes (%) (Auto) 9.4 % Eosinophils (%) (Auto) 6.9 % Basophils (%) (Auto) 0.4 % Neutrophils # (Auto) 3.50 K/uL Lymphocytes # (Auto) 2.48 K/uL Monocytes # (Auto) 0.68 K/uL Eosinophils # (Auto) 0.50 K/uL Basophils # (Auto) 0.03 K/uL RDW Standard Deviation 49.8 fL RDW Coefficient of Variation 14.0 % Immature Granulocyte % (Auto) 0.1 % Immature Granulocyte # (Auto) 0.01 K/uL Sodium Level 140 mmol/L Potassium Level 3.7 mmol/L Chloride Level 106 mmol/L Carbon Dioxide Level 32 mmol/L Anion Gap 2.0 mmol/L Blood Urea Nitrogen 17 mg/dl Creatinine 0.96 mg/dl Est Creatinine Clear Calc Drug Dose 124.4 ml/min Estimated GFR () 124.2 Estimated GFR (Non- 107.1 BUN/Creatinine Ratio 18.1 Random Glucose 91 mg/dl Calcium Level 9.3 mg/dl Impression Patient is a 27 year old male has Xray showing multiple foreign bodies in the epigastric area consistent with Hx of swallowing multiple plastic pens. No signs of perforation. Plan EGD today. Patient was explained in details about the risk, benefit and alternatives and agreed.
[2017-12-31] MEDS ORDERED: PROPOFOL IV EMULSION 10 MG/ML 20 ML VIAL ONE (18:01)
[2017-12-31] MEDS ORDERED: LARYING-O-JET KIT (LTA) ONE (18:01)
[2017-12-31] MEDS ORDERED: LIDOCAINE HCL 2% 2 ML VIAL (20MG/ML) ONE (18:01)
[2017-12-31] MEDS ORDERED: SUCCINYLCHOLINE CHLORIDE 20 MG/ML 10 ML VIAL IV ONE (18:01)
[2017-12-31] MEDS ORDERED: MEPERIDINE HCL 25 MG/ML CARP IV PRN (18:15)
[2017-12-31] MEDS ORDERED: HYDROmorphone INJ 0.5 MG/0.5 ML SYR IV PRN (18:15)
[2017-12-31] MEDS ORDERED: EpHEDrine SULFATE INJ 50 MG/ML AMP IV PRN (18:15)
[2017-12-31] MEDS ORDERED: ONDANSETRON INJ 2 MG/ML 2 ML VIAL IV PRN (18:15)
[2017-12-31] MEDS ORDERED: ATROPINE SULFATE 0.1 MG/ML 5ML SYR IV PRN (18:15)
[2017-12-31] MEDS ORDERED: FENTANYL CITRATE INJ 50 MCG/1 ML 2 ML VIAL IV PRN (18:15)
[2017-12-31] MEDS ORDERED: LABETALOL HCL IV 5 MG/ML 20ML IV PRN (18:15)
--- NOTE | 2017-12-31 19:21 | [facility] Post Operative Brief Note ---
Immediate Operative Summary Operative Date December 31, 2017. Pre-Operative Diagnosis Foreign bodies in stomach Post-Operative Diagnosis Foreign bodies in stomach Procedure(s) Performed Esophagogastroduodenoscopy, and removal of foreign bodies plastic pens Surgeon Marzena Correa Rubber Calender Helper Surgeon(s) none Estimated Blood Loss 0cc Findings See Below 4 plastic pens removed Specimens A. Foreign body removals x4 Anesthesia Type General
--- NOTE | 2017-12-31 19:34 | EMERGENCY ROOM VISIT NOTE ---
History Report prepared by Warren: Jeet Aguilar Under the Supervision of: Dr. Silviano Pineda M.D. First contact with patient: 15:20 Chief Complaint: OTHER COMPLAINT Stated Complaint: EDOSCOPOMY History of Present Illness The patient is a 27 year old male who presents to the Emergency Room with complaints of constant abdominal pain beginning ten days ago. The patient is a prisoner and is accompanied by [facility] staff. He states that he was admitted on December 18, 2017, after he swallowed two pens and two plastic spoons. Per EMR, the patient had an endoscopy done by Dr. Turner who extracted the foreign bodies from the patient's stomach. The patient notes that he was discharged, and became upset talking to his psychiatrist at the [facility]. He reports that he then swallowed four pens on December 21, 2017, and has been experiencing abdominal pain since then. He rates his abdominal pain as an 8/10. The patient states that he has been having repeat X-RAYs done over the week which show that the pens are still in his stomach. He denies any fever or vomiting. Source of History: patient, other (EMR) Onset: ten days ago Position: abdomen Symptom Intensity: 8/10 Timing: constant Associated Symptoms: + vomiting, No fevers Review of Systems See HPI for pertinent positives & negatives. A total of 10 systems reviewed and were otherwise negative. Past Medical & Surgical Medical Problems: (1) Depression (2) History of foreign body ingestion (3) Malingering (4) Mood disorder (5) PTSD (post-traumatic stress disorder) (6) Seizure disorder Family History Patient reports no known family medical history. 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 (prisoner) Current/Historical Medications Scheduled Clonazepam (Klonopin), 1 TAB PO QAM Clonazepam (Klonopin), 1 TAB PO HS Diphenhydramine Hcl (Benadryl), 100 MG PO HS Gabapentin (Neurontin), 1 TAB PO TID [place] Carbonate ([place] Carbonate), 600 MG PO BID Prazosin Hcl (Prazosin), 2 MG PO HS Quetiapine Fumarate (Seroquel), 400 MG PO HS Sertraline Hcl (Zoloft), 200 MG PO DAILY Allergies Coded Allergies: Ketorolac Tromethamine (Verified Allergy, Unknown, breathing problems, ) Penicillins (Verified Allergy, Unknown, unknown, 12/31/17) Physical Exam Vital Signs Date Time Temp Pulse Resp B/P (MAP) Pulse Ox O2 Delivery O2 Flow Rate FiO2 12/31/17 17:37 80 20 119/78 98 Room Air 12/31/17 16:55 86 20 126/76 98 Room Air 12/31/17 15:14 36.7 98 18 122/83 100 Room Air Physical Exam Constitutional: Vital signs reviewed. Eyes: Pupils are equal round reactive to light. Conjunctiva are noninjected. ENT: Pharynx is clear without erythema or exudate. Mucous membranes are moist. Neck supple without meningeal signs. Respiratory: Clear to auscultation bilaterally. Breath sounds are equal bilaterally. Cardiovascular: Regular rate and rhythm. No rubs or gallops. GI: Soft, nondistended and nontender. Bowel sounds are present. Musculoskeletal: No peripheral edema. No lower extremity tenderness. Integumentary: No cyanosis. Neurological: The patient is awake and alert. No focal deficits. Psychiatric: Normal affect. Medical Decision & Procedures ER Provider Diagnostic Interpretation: Radiology results as stated below per my review and the radiologist's interpretation: ABDOMEN 2VIEW W/PA CHEST RTN CLINICAL HISTORY: 27 years-old Male presenting with eval for FB, reportedly ate four pens. TECHNIQUE: PA view of the chest and supine and upright views of the abdomen were obtained. COMPARISON: 12/18/2017. FINDINGS: Cardiomediastinal silhouette normal. Lungs and pleural spaces clear. Four partially radiodense foreign bodies project over the epigastrium likely within the gastric antrum. Marked stool burden noted throughout the colon to the level of the junction of the descending and sigmoid colon. No large stool burden in the rectum. Nonobstructive bowel gas pattern. No gross pneumatosis or pneumoperitoneum. Allowing for bowel gas and stool, no calcifications to suggest nephrolithiasis. Osseous structures normal. IMPRESSION: 1. No acute cardiopulmonary disease. 2. Four radiodense foreign bodies consistent with pens project over the epigastrium likely within the gastric antrum. No free air or pneumatosis. The report will be called/faxed according to standard departmental protocol. Electronically signed by: Camden Bey M.D. 12/31/2017 4:29 PM Laboratory Results 12/31/17 15:45 Red Blood Count 4.55, Mean Corpuscular Volume 96.5, Mean Corpuscular Hemoglobin 31.4, Mean Corpuscular Hemoglobin Concent 32.6, Mean Platelet Volume 9.3, Neutrophils (%) (Auto) 48.8, Lymphocytes (%) (Auto) 34.4, Monocytes (%) (Auto) 9.4, Eosinophils (%) (Auto) 6.9, Basophils (%) (Auto) 0.4, Neutrophils # (Auto) 3.50, Lymphocytes # (Auto) 2.48, Monocytes # (Auto) 0.68, Eosinophils # (Auto) 0.50, Basophils # (Auto) 0.03 12/31/17 15:45 Test 12/31/17 15:45 White Blood Count 7.20 K/uL (4.8-10.8) Red Blood Count 4.55 M/uL (4.7-6.1) Hemoglobin 14.3 g/dL (14.0-18.0) Hematocrit 43.9 % (42-52) Mean Corpuscular Volume 96.5 fL (80-100) Mean Corpuscular Hemoglobin 31.4 pg (25-34) Mean Corpuscular Hemoglobin Concent 32.6 g/dl (32-36) Platelet Count 179 K/uL (130-400) Mean Platelet Volume 9.3 fL (7.4-10.4) Neutrophils (%) (Auto) 48.8 % Lymphocytes (%) (Auto) 34.4 % Monocytes (%) (Auto) 9.4 % Eosinophils (%) (Auto) 6.9 % Basophils (%) (Auto) 0.4 % Neutrophils # (Auto) 3.50 K/uL (1.4-6.5) Lymphocytes # (Auto) 2.48 K/uL (1.2-3.4) Monocytes # (Auto) 0.68 K/uL (0.11-0.59) Eosinophils # (Auto) 0.50 K/uL (0-0.5) Basophils # (Auto) 0.03 K/uL (0-0.2) RDW Standard Deviation 49.8 fL (36.4-46.3) RDW Coefficient of Variation 14.0 % (11.5-14.5) Immature Granulocyte % (Auto) 0.1 % Immature Granulocyte # (Auto) 0.01 K/uL (0.00-0.02) Anion Gap 2.0 mmol/L (3-11) Est Creatinine Clear Calc Drug Dose 124.4 ml/min Estimated GFR () 124.2 Estimated GFR (Non- 107.1 BUN/Creatinine Ratio 18.1 (10-20) Calcium Level 9.3 mg/dl (8.5-10.1) Laboratory results as reviewed by me. Medications Administered Medications (Trade) Dose Ordered Sig/Cherri Route Start Time Stop Time Status Last Admin Dose Admin Morphine Sulfate (MoRPHine SULFATE INJ) 2 mg NOW STAT IV 12/31/17 17:00 12/31/17 17:02 DC 12/31/17 17:14 2 MG Ondansetron HCl (Zofran Inj) 4 mg NOW STAT IV 12/31/17 17:00 12/31/17 17:02 DC 12/31/17 17:14 4 MG ED Course 1521: The patient was evaluated in room A10. A complete history and physical exam was performed. 1655: Discussed the patient's case with Dr. Correa - Gastroenterology, [facility]. He will come down to do an endoscopy on the patient. 1559: I reevaluated and updated the patient. He requests medication for pain. He agrees to EGD. 1700: Zofran Inj 4mg IV, Morphine Sulfate 2mg IV 1748: The patient was taken to endoscopy. Medical Decision This is a 27-year-old male who presents with ingestion of foreign body. Differential diagnosis includes esophageal foreign body, enteric foreign body, perforation, malingering, psychiatric disorder. I did perform a limited focused review of portions of the patient's old chart on the electronic medical record. The patient was last seen on December 18, 2017, after he swallowed two pens and two plastic spoons while trying to commit suicide. He was seen by psychiatry case management at this time. He has a history of PTSD and mood disorder. Dr. Turner performed an endoscopy on the patient with extraction of four foreign bodies. I did evaluate the patient as noted above. IV access was established. The patient is well-appearing on examination. He is not have any abdominal tenderness to suggest an acute surgical process. He does repeatedly asked for pain medication. He was given morphine 2 mg IV and Zofran 4 mg IV. I did order and personally review the patient's abdominal and chest x-ray as described above. There is no evidence of free air. He does have for foreign bodies in his stomach. I did order and review the patient's blood work as noted in the electronic medical record. His white blood cell count is not elevated. He is not anemic. I did discuss the test results with the patient. I did discuss case with the real estate investor who is very familiar with this patient. He was taken to endoscopy for extraction of foreign bodies and further care. Medication Reconcilliation Current Medication List: was personally reviewed by me Blood Pressure Screening Patient's blood pressure: Normal blood pressure Blood pressure disposition: Did not require urgent referral Consults Time Called: 1635 [facility]: [phone] Discussed the patient's case with Dr. Correa. He will come down to do an endoscopy on the patient. Impression Primary Impression: Foreign body ingestion Scribe Attestation The scribe's documentation has been prepared under my direct and personally reviewed by me in its entirety. I confirm that the note above accurately reflects all work, treatment, procedures, and medical decision making performed by me. Departure Information Dispostion Other (Taken to endoscopy) Referrals Humberto JOHNSON (PCP) Forms HOME CARE DOCUMENTATION FORM, IMPORTANT VISIT INFORMATION, WORK / SCHOOL INSTRUCTIONS Patient Instructions My [facility] Problem Qualifiers Primary Impression: Foreign body ingestion Encounter type: initial encounter Qualified Codes: T18.9XXA - Foreign body of alimentary tract, part unspecified, initial encounter
--- NOTE | 2017-12-31 19:37 | Anesthesiology Progress Note ---
Anesthesia Post Op Note Date & Time December 31, 2017 at 19:37 Vital Signs Pain Intensity: 0 Vital Signs Past 12 Hours Date Time Temp Pulse Resp B/P (MAP) Pulse Ox O2 Delivery O2 Flow Rate FiO2 12/31/17 19:25 36.4 88 16 127/80 99 Room Air 12/31/17 17:37 80 20 119/78 98 Room Air 12/31/17 16:55 86 20 126/76 98 Room Air 12/31/17 15:14 36.7 98 18 122/83 100 Room Air Notes Mental Status: alert / awake / arousable, participated in evaluation Pt Amnestic to Procedure: Yes Nausea / Vomiting: adequately controlled Pain: adequately controlled Airway Patency, RR, SpO2: stable & adequate BP & HR: stable & adequate Hydration State: stable & adequate Anesthetic Complications: no major complications apparent
--- NOTE | 2017-12-31 19:44 | GI REPORT ---
Patient Name: Silviano Tovar Procedure Date: 12/31/2017 6:18 PM Date of : 1990 Admit Type: Emergency Department Age: 27 Gender: Male Attending MD: Marzena Correa MD Procedure: Upper GI endoscopy Providers: Marzena Correa MD Referring MD: Silviano Pineda Indications: Foreign body in the stomach Medicines: General Anesthesia Complications: No immediate complications. Estimated Blood Loss: Estimated blood loss: none. Procedure: Pre-Anesthesia Assessment: - Prior to the procedure, a History and Physical was performed, and patient medications and allergies were reviewed. The patient is competent. The risks and benefits of the procedure and the sedation options and risks were discussed with the patient. All questions were answered and informed consent was obtained. Patient identification and proposed procedure were verified by the physician and the nurse in the procedure room. Mental Status Examination: alert and oriented. Airway Examination: normal oropharyngeal airway and neck mobility. Respiratory Examination: clear to auscultation. CV Examination: normal. ASA Grade Assessment: III - A patient with severe systemic disease. After reviewing the risks and benefits, the patient was deemed in satisfactory condition to undergo the procedure. The anesthesia plan was to use general anesthesia. Immediately prior to administration of medications, the patient was re-assessed for adequacy to receive sedatives. The heart rate, respiratory rate, oxygen saturations, blood pressure, adequacy of pulmonary ventilation, and response to care were monitored throughout the procedure. The physical status of the patient was re-assessed after the procedure. After obtaining informed consent, the endoscope was passed under direct vision. Throughout the procedure, the patient's blood pressure, pulse, and oxygen saturations were monitored continuously. The Scope was introduced through the mouth, and advanced to the second part of duodenum. The upper GI endoscopy was accomplished without difficulty. The patient tolerated the procedure well. Findings: The examined esophagus was normal. The entire examined stomach was normal. No foreign bodies seen. A foreign body ( four plastic pens) was found in the second portion of the duodenum extending into the third portion of duodenum. There was an area of slight mucosal disruption in the second portion of the duodenum likely from the metallic head of the pen, no active bleeding or perforation. Removal of 4 plastic pens with pointed metallic head was accomplished by moving the pens gently from the duodenum into the stomach using a Raptor fdevice. Once all pens in stomach, an esophageal overtube was placed to protec the esophagus during the removal. Raptor grasping device and snare were used to remove the foreign bodies from the stomach. One hemostatic clip was successfully placed (MR conditional) on the superfical mucosal disruption in the duodenum. There was no bleeding at the end of the procedure. Impression: - Normal esophagus. - Normal stomach. - Duodenal foreign body (4 plastic pens with pointed metallic heads). Removal was successful. Recommendation: - Observe patient in recovery. - Discharge patient to home (with escort). - Clear liquid diet today then advance tomorrow. Marzena Correa MD 12/31/2017 7:43:37 PM This report has been signed electronically. Note Initiated On: 12/31/2017 6:18 PM Number of Addenda: 0 I attest to the content of the Intraoperative Record and orders documented therein, exceptions below {[id number]}
--- NOTE | 2017-12-31 19:45 | Discharge Instructions ---
Endoscopy Patient Instructions Date / Procedure(s) Performed December 31, 2017. EGD Allergy Information Coded Allergies: Ketorolac Tromethamine (Verified Allergy, Unknown, breathing problems, ) Penicillins (Verified Allergy, Unknown, unknown, 12/31/17) Discharge Date / Findings December 31, 2017. 4 plastic pens removed from the duodenum. Provider Instructions Activity Restrictions - No exercising or heavy lifting for 24 hours. - Do not drink alcohol the day of the procedure. - Do not drive a car or operate machinery until the day after the procedure. - Do not make any important decisions or sign important papers in 24 hours after the procedure. Following Day: - Return to full activity which may include returning to work/school. Diet Clear liquid diet today and advance tomorrow. Treatment For Common After Affects For mild abdominal pain, bloating, or excessive gas: - Rest - Eat lightly - Lie on right side Follow-Up Information Follow-up with as scheduled Anesthesia Information What You Should Know You have had a procedure that required some medicine to reduce anxiety and discomfort. This treatment is called moderate sedation. After receiving the treatment, you may be sleepy, but you will be able to breathe on your own. The effects of the treatment may last for several hours. Follow these instructions along with Activity/Diet recommendations noted above: * Do NOT do anything where dizziness or clumsiness would be dangerous. * Rest quietly at home today, then you can be up and about tomorrow. * Have a responsible person stay with you the rest of today. * You may have had an I.V. today. If so, you may take the dressing off later today. Recommendations Call your doctor if: * Trouble breathing * Continuous vomiting for more than 24 hours * Temperature above 101 degrees * Severe abdominal pain or bloating * Pain not relieved by pain medicine ordered * There is increased drainage or redness from any incision * A large amount of rectal bleeding greater than 2-3 tablespoons. (If you had a polyp/s removed or have hemorrhoids, a small amount of blood - from the rectum is to be expected.) * You have any unanswered questions or concerns. IN THE EVENT OF A SERIOUS EMERGENCY, GO TO THE NEAREST EMERGENCY ROOM Your discharge instructions were prepared by provider Marzena Correa. Patient Instructions Signature Page Silviano Tovar Patient (or Guardian) Signature/Date: I have read and understand the instructions given to me by my caregivers. Caregiver/RN/Doctor Signature/Date: The above-named patient and/or guardian has received patient instructions on this date. + Original Patient Signature Page (only) stays with chart. Please make copy for patient.
[2017-12-31 20:05] VITALS: BP 123/80; PULSE 75; TEMP 36.5; O2SAT 99
== END 2017-12-31 17:50 | disposition home or self-care (01) ==
LOC: C.EDB 15:12 → C.EDA 17:50
DX: T18.3XXA Foreign body in small intestine, initial encounter (principal); G40.909 Epilepsy, unspecified, not intractable, without status epilepticus; F41.9 Anxiety disorder, unspecified; X58.XXXA Exposure to other specified factors, initial encounter; F60.89 Other specific personality disorders; Z88.0 Allergy status to penicillin; Z88.8 Allergy status to other drugs, medicaments and biological substances; F17.200 Nicotine dependence, unspecified, uncomplicated; Z79.899 Other long term (current) drug therapy

== ENCOUNTER 2020-04-28 18:22 | Observation (INO) ==
--- NOTE | 2020-04-28 19:18 | Emergency Department Note ---
Impression & Plan Foreign body ingestion, Hematemesis, Abdominal pain ED Provider Note NAME: JUANITA [id number] XU AGE: 30 SEX: M : 1990 ARRIVES VIA: Walk-In INFORMANT: Patient ED PROVIDER(S): Angel Isaac DO CHIEF COMPLAINT: Swallowed glasses HPI: Patient is a 30-year-old male who presents the ER with a history of ingestion of foreign bodies for swallowing parts of his eye glasses. He notes there were a total of 5 inches in length each. The arms of the glasses were which she swallowed. He believes they were sharp. He notes that since then he has been vomiting up some blood. The cards to confirm this. He admits to mild abdominal discomfort and feels like it stabbing. He has a history of a perforated viscus per his report. Denies any dysuria urgency or frequency. No cough. No loss of taste or smell. Was on Suboxone and they recently stopped that had he notes that is part of the reason why he did this. ROS: See above HPI for pertinent positives & negatives. A total of 10 systems reviewed and were otherwise negative. PAST MEDICAL HISTORY:See Below PAST SURGICAL HISTORY:See Below FAMILY HISTORY:See Below SOCIAL HISTORY:See Below HOME MEDICATIONS:See Below ALLERGIES:See Below VITALS:See Below PHYSICAL EXAMINATION: GENERAL: Sitting up in bed, alert, well appearing, well nourished, no distress, non-toxic EYE EXAM: normal conjunctiva. OROPHARYNX: no exudate, no erythema, lips, buccal mucosa, and tongue normal and mucous membranes are moist NECK: supple, no nuchal rigidity, no adenopathy, non-tender LUNGS: Clear to auscultation. Normal chest wall mechanics HEART: no murmurs, S1 normal and S2 normal ABDOMEN: abdomen soft, non-tender, normo-active bowel sounds, no masses, no rebound or guarding. BACK: Back is symmetrical on inspection and there is no deformity, no midline tenderness, no CVA tenderness. SKIN: no rashes and no bruising UPPER EXTREMITIES: upper extremities are grossly normal. LOWER EXTREMITIES: No pitting edema. NEURO EXAM: Normal sensorium, cranial nerves II-XII grossly intact, normal speech, no gross weakness of arms, no gross weakness of legs. MEDICAL DECISION MAKING: Patient is a 30-year-old male with a past medical history of ingestion of foreign bodies that presents the ER following ingesting both arms of his eyeglasses. He has been vomiting small amounts of blood since then. Occurred earlier today. He does note to some mild abdominal pain. Patient denies any chest pain or shortness of breath. IV was established blood work was obtained. Labs show a mild leukocytosis. No significant anemia. BMP with slightly elevated chloride. LFTs bilirubin was unremarkable. Lipase was normal. KUB shows arm of the glasses in the stomach. Consulted gastroenterology Dr. Larose who recommended cover testing and EGD tonight. He also recommended admission. Discussed with Dr. Dunn shortly thereafter for admission. Patient was updated bedside. Triage Nursing notes reviewed. Prior medical records reviewed Vital Signs: reviewed and remarkable for no significant abnormalities Differential diagnosis: Differential diagnoses includes but is not limited to gastritis, peptic ulcer disease, GERD, gallbladder disease, pancreatitis, small bowel obstruction, acute coronary syndrome, pericarditis, ischemic bowel, irritable bowel disease, irritable bowel syndrome, appendicitis, diverticulitis, malignancy, hernia, uri nary tract infection, torsion, perforation, trauma, infectious. ER treatment provided: See below Diagnostics interpreted by me: ECG: none Cardiac Monitoring: An order was placed for continuous cardiac monitoring. The monitor shows a rate of 68 with sinus rhythm. Laboratory studies: As stated above and show below. Imaging studies: ABG shows arms of eye glasses located in the stomach Consultation(s): As discussed above in [facility] ED COURSE: Procedures: none Critical Care: None Past Med/Surg History Medical History Schizoaffective disorder Social History Smoking Status: Current every day smoker Tobacco Type: E-cigarettes / Vaping Feels Safe at Home: Yes Allergies Allergies Allergy/AdvReac Type Severity Reaction Status Date / Time ketorolac Allergy Unknown breathing Verified 04/28/20 20:47 problems Penicillins Allergy Unknown unknown Verified 04/28/20 20:47 Home Meds Home Medications Medication Instructions Recorded Confirmed guanfacine [Tenex] 1 mg PO BID 04/28/20 04/28/20 lithium carbonate 300 mg PO QA 04/28/20 04/28/20 lithium carbonate 600 mg PO 04/28/20 04/28/20 oxcarbazepine 300 mg PO BID 04/28/20 04/28/20 quetiapine [Seroquel] 300 mg PO BID 04/28/20 04/28/20 tamsulosin 0.4 mg PO DAILY 04/28/20 04/28/20 Results & Data (ED) Vital Signs Vital Signs - 24 hr 04/28/20 18:26 04/28/20 20:25 04/28/20 21:31 Temperature 36.7 C Temperature Source Oral Pulse Rate 88 Pulse Rate [Apical] 75 76 Pulse Rhythm [Apical] Pulse Strength [Apical] Respiratory Rate 18 16 18 Respiratory Effort / Characteristics Respiratory Depth Normal Respiratory Pattern Blood Pressure 134/91 Blood Pressure [Left Arm] 138/77 123/83 Blood Pressure Mean 105 Blood Pressure Mean [Left Arm] 97 96 Blood Pressure Position [Left Arm] Pulse Oximetry 99 97 96 Oxygen Delivery Method Room Air Room Air Room Air Sepsis Recent Fever Within 48 Hours No Sepsis New/Unexplained Change in Mental Status N/A Sepsis Action Taken by Nursing No Action Required 04/28/20 22:05 Temperature 36.5 C Temperature Source Skin Pulse Rate Pulse Rate [Apical] 62 Pulse Rhythm [Apical] Regular Pulse Strength [Apical] Normal Respiratory Rate 18 Respiratory Effort / Characteristics Non-Labored Respiratory Depth Normal Respiratory Pattern Regular Blood Pressure Blood Pressure [Left Arm] 125/77 Blood Pressure Mean Blood Pressure Mean [Left Arm] 93 Blood Pressure Position [Left Arm] Semi-fowlers Pulse Oximetry 100 Oxygen Delivery Method Room Air Sepsis Recent Fever Within 48 Hours Sepsis New/Unexplained Change in Mental Status Sepsis Action Taken by Nursing Laboratory Data Result diagrams: 04/28/20 19:26 04/28/20 19:26 Lab Results 04/28/20 04/28/20 04/28/20 Range/Units 19:26 19:26 19:26 WBC 11.57 H (4.8-10.8) K/uL RBC 5.07 (4.7-6.1) M/uL Hgb 15.2 (14.0-18.0) g/dL Hct 46.3 (42-52) % MCV 91.3 (80-100) fL MCH 30.0 (25-34) pg MCHC 32.8 (32-36) g/dL RDW Std Deviation 43.2 (36.4-46.3) fL RDW Coeff of Lalita 13.0 (11.5-14.5) % Plt Count 194 (130-400) K/uL MPV 9.2 (7.4-10.4) fL Immature Gran % (Auto) 0.3 % Neut % (Auto) 63.1 % Lymph % (Auto) 30.3 % [place] % (Auto) 4.8 % Eos % (Auto) 1.3 % Baso % (Auto) 0.2 % Neut # (Auto) 7.31 H (1.4-6.5) K/uL Lymph # (Auto) 3.51 H (1.2-3.4) K/uL [place] # (Auto) 0.55 (0.11-0.59) K/uL Eos # (Auto) 0.15 (0-0.5) K/uL Baso # (Auto) 0.02 (0-0.2) K/uL Immature Gran # (Auto) 0.03 H (0.00-0.02) K/uL Sodium 140 (136-145) mmol/L Potassium 4.2 (3.5-5.1) mmol/L Chloride 108 H (98-107) mmol/L Carbon Dioxide 27 (21-32) mmol/L Anion Gap 5.0 (3-11) BUN 12 (7-18) mg/dl Creatinine 0.88 (0.6-1.4) mg/dl Est Cr Clr Drug Dosing 141.4 ml/min Est GFR ( Amer) 132.7 Est GFR (Non-Af Amer) 114.5 BUN/Creatinine Ratio 13.3 (10-20) Glucose 82 (70-99) mg/dl Calcium 9.6 (8.5-10.1) mg/dl Total Bilirubin 0.2 (0.2-1) mg/dl AST 16 (15-37) U/L ALT 15 (12-78) U/L Alkaline Phosphatase 105 (45-117) U/L Total Protein 8.2 (6.4-8.2) gm/dl Albumin 4.1 (3.4-5.0) gm/dl Globulin 4.1 H (2.5-4.0) gm/dl Albumin/Globulin Ratio 1.0 (0.9-2) Lipase 150 (73-393) U/L [place] 0.5 L (0.6-1.2) mmol/L COVID-19 Eval Order SARS-CoV-2, RNA, NAAT (NEGATIVE) 04/28/20 04/28/20 Range/Units 20:25 20:25 WBC (4.8-10.8) K/uL RBC (4.7-6.1) M/uL Hgb (14.0-18.0) g/dL Hct (42-52) % MCV (80-100) fL MCH (25-34) pg MCHC (32-36) g/dL RDW Std Deviation (36.4-46.3) fL RDW Coeff of Lalita (11.5-14.5) % Plt Count (130-400) K/uL MPV (7.4-10.4) fL Immature Gran % (Auto) % Neut % (Auto) % Lymph % (Auto) % [place] % (Auto) % Eos % (Auto) % Baso % (Auto) % Neut # (Auto) (1.4-6.5) K/uL Lymph # (Auto) (1.2-3.4) K/uL [place] # (Auto) (0.11-0.59) K/uL Eos # (Auto) (0-0.5) K/uL Baso # (Auto) (0-0.2) K/uL Immature Gran # (Auto) (0.00-0.02) K/uL Sodium (136-145) mmol/L Potassium (3.5-5.1) mmol/L Chloride (98-107) mmol/L Carbon Dioxide (21-32) mmol/L Anion Gap (3-11) BUN (7-18) mg/dl Creatinine (0.6-1.4) mg/dl Est Cr Clr Drug Dosing ml/min Est GFR ( Amer) Est GFR (Non-Af Amer) BUN/Creatinine Ratio (10-20) Glucose (70-99) mg/dl Calcium (8.5-10.1) mg/dl Total Bilirubin (0.2-1) mg/dl AST (15-37) U/L ALT (12-78) U/L Alkaline Phosphatase (45-117) U/L Total Protein (6.4-8.2) gm/dl Albumin (3.4-5.0) gm/dl Globulin (2.5-4.0) gm/dl Albumin/Globulin Ratio (0.9-2) Lipase (73-393) U/L [place] (0.6-1.2) mmol/L COVID-19 Eval Order Covid19 [facility] SARS-CoV-2, RNA, NAAT NEGATIVE (NEGATIVE) Discharge Plan Visit Data Chief Complaint: Foreign Body Stated Complaint: SWALLOWED 2 FIVE IN PIECES OF METAL ED Provider: Angel Isaac Discharge Problem: Foreign body ingestion, Hematemesis, Abdominal pain Patient Disposition: Still a Patient Discharge Instructions Interventions: ED Discharge Assessment Last Done: 04/28/20 21:33 Discharge Problem: Foreign body ingestion Qualifiers: Encounter type: initial encounter Qualified Code(s): T18.9XXA - Foreign body of alimentary tract, part unspecified, initial encounter Hematemesis Qualifiers: Nausea presence: with nausea Qualified Code(s): K92.0 - Hematemesis Abdominal pain Qualifiers: Abdominal location: unspecified location Qualified Code(s): R10.9 - Unspecified abdominal pain
[2020-04-28 19:35] LABS: Basophils # (auto) 0.02 K/uL (0-0.2); Basophils % (auto) 0.2 %; Eosinophils # (auto) 0.15 K/uL (0-0.5); Eosinophils % (auto) 1.3 %; Hematocrit (blood only) 46.3 % (42-52); Hemoglobin 15.2 g/dL (14.0-18.0); Immature Granulocytes # (auto) 0.03 K/uL (0.00-0.02); Immature Granulocytes % (auto) 0.3 %; Lymphocytes # (auto) 3.51 K/uL (1.2-3.4); Lymphocytes % (auto) 30.3 %; Mean Corpuscular Hgb Conc 32.8 g/dL (32-36); Mean Corpuscular Volume 91.3 fL (80-100); Mean Platelet Volume 9.2 fL (7.4-10.4); Monocytes # (auto) 0.55 K/uL (0.11-0.59); Monocytes % (auto) 4.8 %; Neutrophils # (auto) 7.31 K/uL (1.4-6.5); Neutrophils % (auto) 63.1 %; Platelet Count 194 K/uL (130-400); RDW Standard Deviation 43.2 fL (36.4-46.3); Red Blood Count 5.07 M/uL (4.7-6.1); White Blood Count 11.57 K/uL (4.8-10.8)
--- NOTE | 2020-04-28 19:39 | XRay Report ---
KUB HISTORY: Foreign body with vomiting vomiting up blood after swallowing glasses COMPARISON: Acute abdominal series radiographs 12/31/2017 FINDINGS: There are 2 linear radiopaque foreign bodies project over the abdominal left upper quadrant , likely within the stomach measuring up to 13 cm. Moderate fecal retention. Mild gaseous distention of the large bowel. Pelvic basin calcifications suggest phleboliths. No renal calculi. No ureteral c alculi. No pneumoperitoneum or pneumatosis. No fracture. IMPRESSION: 1. There are two linear radiopaque foreign bodies which project over the abdominal left upper quadran t, likely within the stomach. 2. No pneumoperitoneum. 3. Nonobstructive bowel gas pattern. 4. Moderate fecal retention. ACT 112: Negative or not required by law. The above report was generated using voice recognition software. It may contain grammatical, syntax o r spelling errors. Electronically signed by: Tahir Champion M.D. 04/28/2020 7:38 PM
[2020-04-28 19:58] LABS: Albumin Level 4.1 gm/dl (3.4-5.0); BUN Creatinine Ratio 13.3 (10-20); Calcium 9.6 mg/dl (8.5-10.1); Creatinine Clr Calc Pharmacy 141.4 ml/min; Est GFR (African American) 132.7; Est GFR (Non-African American) 114.5; Potassium 4.2 mmol/L (3.5-5.1)
[2020-04-28 20:00] LABS: Bilirubin,Total 0.2 mg/dl (0.2-1); Globulin 4.1 gm/dl (2.5-4.0); Total Protein 8.2 gm/dl (6.4-8.2)
--- NOTE | 2020-04-28 21:06 | Gastrointestinal Consultation ---
Date of Consultation April 28, 2020 Assessment & Plan (1) Foreign body ingestion: (2) Hematemesis: (3) Abdominal pain: s/p ingestion of two glasses arm pieces, showing up on xray. Rapid covid test is negative. Recs: keep NPO EGD to attempt foreign body extraction supportive care, will need admission and close monitoring overnight post procedure Thank you for allowing me to participate in the care of this patient. History of Present Illness History of Present Illness 30 yo male here for foreign body ingestion. He is incarcerated and has a history of swallowing multiple foreign bodies in the past, last one he reports was July 2019 where he swallowed several pieces of metal and perforated, requiring surgery. Says he has swallowed razor blades as well in the past. Has had multiple open surgeries. This time he says he swallowed the arm pieces of his glasses that connect the lenses to the ear, he swallowed both pieces. Xray shows foreign bodies present. He says he did this because he was angry that he was taken off of his suboxone 9 days ago. He said he has been having anxiety and tremors since coming off of it. He notes hematemesis and epigastric and LUQ abdominal pains that are sharp since swallowing the glasses pieces. He is able to swallow his saliva. He denies coughing. labs reviewed, stable. vital signs stable Allergies Allergy/AdvReac Type Severity Reaction Status Date / Time ketorolac Allergy Unknown breathing Verified 04/28/20 20:47 problems Penicillins Allergy Unknown unknown Verified 04/28/20 20:47 Home Medications Home Medications Medication Instructions Recorded Confirmed Type guanfacine [Tenex] 1 mg PO BID 04/28/20 04/28/20 History lithium carbonate 300 mg PO QAM 04/28/20 04/28/20 History lithium carbonate 600 mg PO HS 04/28/20 04/28/20 History oxcarbazepine 300 mg PO BID 04/28/20 04/28/20 History quetiapine [Seroquel] 300 mg PO BID 04/28/20 04/28/20 History tamsulosin 0.4 mg PO DAILY 04/28/20 04/28/20 History Patient History Medical History Schizoaffective disorder Social History Smoking Status: Current every day smoker Tobacco Type: E-cigarettes / Vaping Feels Safe at Home: Yes Review of Systems Constitutional: no fever, no chills and no weight loss Eyes: as per Subjective / HPI Ear, Nose, Mouth, Throat: as per Subjective / HPI Respiratory: no dyspnea and no dyspnea on exertion Cardiovascular: no chest pain and no palpitations Gastrointestinal: as per Subjective / HPI Musculoskeletal: no joint pain and no swelling Integumentary: no rash and no lesions Neurologic: no numbness and no paresthesia Psychiatric: no depression and no anxiety Endocrine: no fatigue Hematologic / Lymphatic: no easy bleeding and no easy bruising Physical Exam Constitutional: WD/WN, vitals as above Eyes: EOM intact bilaterally Neck: normal visual inspection Respiratory: normal respiratory effort, lungs clear to auscultation Cardiovascular: RRR, no murmur, no edema Gastrointestinal (Abdomen): Inspection/Auscultation: abdomen normal to inspection; abdomen not distended Percussion/Palpation: abdomen soft; abdomen nontender and no hepatosplenomegaly Musculoskeletal: Extremities: no cyanosis Gait: normal gait Skin: no rashes, warm and dry Neurologic: moves all extremities Psychiatric: A+Ox3, euthymic affect Results & Data ([facility]) Vital Signs (Past 12 Hours) Vital Signs Temp Pulse Pulse Resp BP BP Pulse Ox 04/28/20 20:25 75 16 138/77 97 04/28/20 18:26 36.7 C 88 18 134/91 99 PG Care Time/CCT Total # of Minutes Spent Total Time Spent with Patient: Total time spent is greater than 50% in coordination of care (as documented) at patient's floor/unit and/or counseling patient: Coding Level of Care Code 13477 Inpt Consult Level 4 Diagnoses Foreign body ingestion T18.9XXA Hematemesis K92.0 Abdominal pain R10.9
--- NOTE | 2020-04-28 21:42 | History & Physical Report ---
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 Larose who will perform urgent EGD to remove foreign body. (GI specialist recommends monitoring patient overnight post procedure.) Psychiatry consult Re: Self-harm behavior Nicotine patch DVT prophylaxis SCDs RE endoscopic procedure Full code Text document was generated using [employer] Custom voice recognition software. It may contain grammatical or spelling errors. Kindly contact undersigned for clarification of any documentation item in question. History of Present Illness Chief Complaint: Foreign body ingestion, abdominal pain Primary Care Provider: ELIZABETH Paul History obtained from patient and records. Medical history significant for recurrent foreign body ingestion, anxiety/mood disorder, PTSD, seizure disorder as per records, ongoing tobacco abuse, urinary retention (intermittent straight cath). Last confinement December 2017 for foreign body ingestion (plastic spoons and pens) status post successful endoscopic removal. Last ER visit October 2019 for syncopal event, possible narcotic overdose. Patient swallowed parts of reading glasses today because he wanted to hurt himself. Upset over his Suboxone being discontinued last week by [facility] providers. Patient noted achy abdominal pain with some nausea, no emesis. No chest pain, no S OB. Medical History as above Surgical History : Ex lap to remove swallowed razor blades Family History : Could not be obtained Personal/Social history : 1 pack daily, no EtOH intake, current inmate Allergies Allergy/AdvReac Type Severity Reaction Status Date / Time ketorolac Allergy Unknown breathing Verified 04/28/20 20:47 problems Penicillins Allergy Unknown unknown Verified 04/28/20 20:47 Home Medications Home Medications Medication Instructions Recorded Confirmed Type guanfacine [Tenex] 1 mg PO BID 04/28/20 04/28/20 History lithium carbonate 300 mg PO QAM 04/28/20 04/28/20 History lithium carbonate 600 mg PO HS 04/28/20 04/28/20 History oxcarbazepine 300 mg PO BID 04/28/20 04/28/20 History quetiapine [Seroquel] 300 mg PO BID 04/28/20 04/28/20 History tamsulosin 0.4 mg PO DAILY 04/28/20 04/28/20 History Past Med/Surg History Medical History Schizoaffective disorder Social History Smoking Status: Current every day smoker Tobacco Type: E-cigarettes / Vaping Cigarettes Per Day: x3 18mg; Second Hand Exposure: No; Do You Dip or Chew Tobacco: Yes; Tobacco Cessation Education Requested by Patient: No Hx Alcohol Use: Yes Hx Substance Use: Yes Last Used Substance: Hours (ago) Substance Use Type Other:: "whatever I can buy" Preferred Language: Greenlandic Communication Ability: Effective [employer] Social Studies Teacher Required: No Beliefs That Will Affect Care: None Current Living Situation: Other Current Living Situation Comment: Inmate Other Information That Helps Us Care for You: No Feels Safe at Home: Yes Safety Concerns: Feels Safe At This Time Review of Systems Review of Systems: As per HPI, all 10 systems reviewed, all other ROS negative Physical Exam Physical Exam: GENERAL: Comfortable, slightly anxious, no respiratory distress SKIN: Normal color, warm HEENT: [place] palpebral conjunctivae, no ptosis, dry buccal mucosa NECK : Supple, no tenderness CHEST : CTA, no tenderness HEART : RRR, no obvious murmurs ABDOMEN: Some distention, minimal epigastric tenderness EXTREMITIES : No LE swelling/tenderness, no other conspicuous deformities noted NEUROLOGIC : Coherent, no facial asymmetry, no other gross focality Results & Data Results & Data ([facility]) Vital Signs (Past 12 Hours) Vital Signs Temp Pulse Pulse Resp BP BP Pulse Ox 04/28/20 21:31 76 18 123/83 96 04/28/20 20:25 75 16 138/77 97 04/28/20 18:26 36.7 C 88 18 134/91 99 Laboratory Results Laboratory Results WBC 11.57 K/uL (4.8-10.8) H 04/28/20 19:26 RBC 5.07 M/uL (4.7-6.1) 04/28/20 19:26 Hgb 15.2 g/dL (14.0-18.0) 04/28/20 19:26 Hct 46.3 % (42-52) 04/28/20 19:26 MCV 91.3 fL (80-100) 04/28/20 19:26 MCH 30.0 pg (25-34) 04/28/20 19: MCHC 32.8 g/dL (32-36) 04/28/20 19: RDW Std Deviation 43.2 fL (36.4-46.3) 04/28/20 19: RDW Coeff of Lalita 13.0 % (11.5-14.5) 04/28/20: Plt Count 194 K/uL (130-400) 04/28/20 19: MPV 9.2 fL (7.4-10.4) 04/28/20 19: Immature Gran % (Auto) 0.3 % 04/28/20 19: Neut % (Auto) 63.1 % 04/28/20 19: Lymph % (Auto) 30.3 % 04/28/20 19: [place] % (Auto) 4.8 % 04/28/20:26 Eos % (Auto) 1.3 % 04/28/20: Baso % (Auto) 0.2 % 04/28/20: Neut # (Auto) 7.31 K/uL (1.4-6.5) H 04/28/20 19:26 Lymph # (Auto) 3.51 K/uL (1.2-3.4) H 04/28/20 19:26 [place] # (Auto) 0.55 K/uL (0.11-0.59) 04/28/20 19: Eos # (Auto) 0.15 K/uL (0-0.5) 04/28/20: Baso # (Auto) 0.02 K/uL (0-0.2) 04/28/20 19:26 Immature Gran # (Auto) 0.03 K/uL (0.00-0.02) H 04/28/20 19:26 Sodium 140 mmol/L (136-145) 04/28/20 19: Potassium 4.2 mmol/L (3.5-5.1) 04/28/20 19:26 Chloride 108 mmol/L (98-107) H 04/28/20 19:26 Carbon Dioxide 27 mmol/L (21-32) 04/28/20 19: Anion Gap 5.0 (3-11) 04/28/20 19:26 BUN 12 mg/dl (7-18) 04/28/20 19:26 Creatinine 0.88 mg/dl (0.6-1.4) 04/28/20 19:26 Est Cr Clr Drug Dosing 141.4 ml/min 04/28/20 19:26 Est GFR ( Amer) 132.7 04/28/20 19:26 Est GFR (Non-Af Amer) 114.5 04/28/20 19:26 BUN/Creatinine Ratio 13.3 (10-20) 04/28/20 19:26 Glucose 82 mg/dl (70-99) 04/28/20 19:26 Calcium 9.6 mg/dl (8.5-10.1) 04/28/20 19:26 Total Bilirubin 0.2 mg/dl (0.2-1) 04/28/20 19:26 AST 16 U/L (15-37) 04/28/20 19:26 ALT 15 U/L (12-78) 04/28/20 19:26 Alkaline Phosphatase 105 U/L (45-117) 04/28/20 19:26 Total Protein 8.2 gm/dl (6.4-8.2) 04/28/20 19:26 Albumin 4.1 gm/dl (3.4-5.0) 04/28/20 19:26 Globulin 4.1 gm/dl (2.5-4.0) H 04/28/20 19:26 Albumin/Globulin Ratio 1.0 (0.9-2) 04/28/20 19:26 Lipase 150 U/L (73-393) 04/28/20 19:26 [place] 0.5 mmol/L (0.6-1.2) L 04/28/20 19:26 [facility]19 [facility] 04/28/20 20:25 SARS-CoV-2, RNA, NAAT NEGATIVE (NEGATIVE) 04/28/20 20:25 Diagnostic Findings KUB x-ray: 1. There are two linear radiopaque foreign bodies which project over the abdominal left upper quadrant, likely within the stomach. 2. No pneumoperitoneum. 3. Nonobstructive bowel gas pattern. 4. Moderate fecal retention. (1) Foreign body ingestion Encounter type: initial encounter Qualified Code(s): T18.9XXA - Foreign body of alimentary tract, part unspecified, initial encounter
--- NOTE | 2020-04-28 22:14 | Anesthesiology Consultation ---
Date of Service April 28, 2020 Assessment & Plan (1) Encounter for pre-operative examination: Chart Review Chart Review: Acceptable Risk for Surgery and Patient NOT seen in Pre Admission Testing Consults Requested none ASA [id number] Proposed Anesthesia Anesthesia Type: General Risk / Benefits Reviewed With: PT / POA / Parent / Guardian, Accepts Plan and Informed Consent Obtained History Surgery Operation Date: 04/28/20 22:00 Proposed Procedures p Esophagogastroduodenoscopy with Foreign Body Removal - Juan Larose MD Height/Weight Height: 6 ft 2 in Weight: 85.6 kg Allergies Allergy/AdvReac Type Severity Reaction Status Date / Time ketorolac Allergy Unknown breathing Verified 04/28/20 20:47 problems Penicillins Allergy Unknown unknown Verified 04/28/20 20:47 Medications Home Medications Medication Instructions Recorded Confirmed Last Taken guanfacine [Tenex] 1 mg PO BID 04/28/20 04/28/20 04/28/20 07:00 lithium carbonate 300 mg PO QAM 04/28/20 04/28/20 04/28/20 07:00 lithium carbonate 600 mg PO HS 04/28/20 04/28/20 04/27/20 19:00 oxcarbazepine 300 mg PO BID 04/28/20 04/28/20 04/28/20 07:00 quetiapine [Seroquel] 300 mg PO BID 04/28/20 04/28/20 04/28/20 07:00 tamsulosin 0.4 mg PO DAILY 04/28/20 04/28/20 04/28/20 07:00 NPO Date Last Intake of Fluids: 04/27/20 Time Last Intake of Fluids: 19:30 Date Last Intake of Solids: 04/27/20 Time Last Intake of Solids: 19:30 Past Medical History Medical History Schizoaffective disorder Exercise / Class Metabolic Activity II 4-5 Yardwork/Stairs/Walk up hill Past Anesthesia History No Hx of Anesthesia Complications and No Family Hx of Anesthesia Complications History of PONV No Hx of PONV and No Hx of Motion Sickness Social History Smoking Status: Current every day smoker Physical Exam Vital Signs Last Vital Signs Temp 36.5 C 04/28/20 22:05 Pulse 62 04/28/20 22:05 Resp 18 04/28/20 22:05 BP 125/77 04/28/20 22:05 Pulse Ox 100 04/28/20 22:05 ENMT Mouth: no dentition abnormality Thyromental Distance: > or= 3.5 Finger Breadths Mallampati Class: II Neck normal visual inspection Respiratory normal respiratory effort Auscultation: lungs clear to auscultation bilaterally Cardiovascular Rate/Rhythm: regular rate and regular rhythm Psychiatric Orientation: alert Testing Laboratory Results 04/28/20 19:26 04/28/20 19:26
[2020-04-28] MEDS ORDERED: fentaNYL citrate 100 MCG/2 ML VIAL ONE (22:23)
[2020-04-28] MEDS ORDERED: PROPOFOL IV EMULSION 10 MG/ML 20 ML VIAL IV ONE (22:33)
[2020-04-28] MEDS ORDERED: ONDANSETRON INJ 2 MG/ML 2 ML VIAL ONE (22:33)
[2020-04-28] MEDS ORDERED: SUCCINYLCHOLINE CHLORIDE 20 MG/ML 10 ML VIAL IV ONE (22:33)
[2020-04-28] MEDS ORDERED: MoRPHine SULFATE PF 1 MG/ML 10 ML AMP/VIAL ONE (22:44)
--- NOTE | 2020-04-28 23:05 | GI REPORT ---
Patient Name: Silviano Tovar Procedure Date: 04/28/2020 9:21 PM Date of : 1990 Admit Type: Emergency Department Age: 30 Gender: Male Attending MD: Juan Larose MD Procedure: Upper GI endoscopy Providers: Juan Larose MD Referring MD: Angel Isaac Md Indications: Foreign body in the stomach Medicines: Monitored Anesthesia Care Complications: No immediate complications. Estimated blood loss: None. Estimated Blood Loss: Estimated blood loss: none. Procedure: Pre-Anesthesia Assessment: - Prior Anticoagulants: The patient has taken no previous anticoagulant or antiplatelet agents. - ASA Grade Assessment: II - A patient with mild systemic disease. After obtaining informed consent, the endoscope was passed under direct vision. Throughout the procedure, the patient's blood pressure, pulse, and oxygen saturations were monitored continuously. The Endoscope was introduced through the mouth, and advanced to the second part of duodenum. The upper GI endoscopy was accomplished without difficulty. The patient tolerated the procedure well. Findings: The examined esophagus was normal. Two arms from a pair of glasses were found in the gastric body. Removal of both arms were accomplished with a basket. Estimated blood loss: none. A medium amount of food (residue) was found in the gastric body. Food (residue) was found in the second portion of the duodenum. Estimated blood loss: none. The duodenal bulb was normal. Diffuse moderate inflammation characterized by erythema was found in the stomach. Impression: - Normal esophagus. - Two arms from a pair of glasses were found in the stomach. Removal was successful. - A medium amount of food (residue) in the stomach. - Retained food in the duodenum. - Normal duodenal bulb. Recommendation: - Admit the patient to [facility] for ongoing care. - NPO today. can start clears in the morning if stable rest as per primary team Juan Larose MD 04/28/2020 11:05:41 PM This report has been signed electronically. Note Initiated On: 04/28/2020 9:21 PM Number of Addenda: 0 I attest to the content of the Intraoperative Record and orders documented therein, exceptions below {[id number]}
--- NOTE | 2020-04-28 23:08 | Procedure Note ---
Procedure Note Date of Service April 28, 2020 GI brief procedure/op note EGD findings: two arms of a pair of glasses were found in the body of the stomach. Removed successfully using a basket. gastritis in the stomach as well as food, esophagus and duodenum unremarkable. Recs: NPO tonight, can start clears in the morning if stable supportive care admit for observation tonight and close monitoring Coding
--- NOTE | 2020-04-28 23:37 | Anesthesiology Progress Note ---
Date of Service April 28, 2020 Anesthesia Post Procedure Vital Signs Vital Signs: Temp Pulse Pulse Resp BP BP Pulse Ox 04/28/20 23:10 36.6 C 85 16 127/76 98 04/28/20 23:06 36.6 C 90 16 117/78 98 04/28/20 22:05 36.5 C 62 18 125/77 100 04/28/20 21:31 76 18 123/83 96 04/28/20 20:25 75 16 138/77 97 04/28/20 18:26 36.7 C 88 18 134/91 99 Transfer of Care Handoff Completed per policy Notes Mental Status: alert / awake / arousable Patient Amnestic to Procedure: Yes Nausea / Vomiting: adequately controlled Pain: adequately controlled Airway Patency, RR, SpO2: stable & adequate BP & HR: stable & adequate Hydration State: stable & adequate Anesthetic Complications: no major complications apparent
[2020-04-29] MEDS ORDERED: D5W AND LACTATED RINGERS 1,000 ML IV SCH (00:47)
[2020-04-29] MEDS ORDERED: TRAMADOL HCL 50 MG TABLET PO PRN (00:47)
[2020-04-29] MEDS ORDERED: PROMETHAZINE HCL 12.5 MG in SODIUM CHLORIDE 0.9% 50 ML IV PRN (00:47)
[2020-04-29] MEDS ORDERED: ACETAMINOPHEN 325 MG TAB PO PRN (00:47)
[2020-04-29] MEDS: NICOTINE 21 MG/24 HR TDSY TD SCH ×2 (01:29→09:35)
[2020-04-29] MEDS: QUETIAPINE FUMARATE 300 MG TABLET PO SCH ×3 (02:08→21:15)
[2020-04-29] MEDS: OXcarbazepine 150 MG TABLET PO SCH ×3 (02:08→21:17)
[2020-04-29] MEDS: GUANFACINE HCL 1 MG TAB PO SCH ×3 (02:22→21:16)
[2020-04-29] MEDS: LITHIUM CARBONATE 300 MG TAB PO SCH ×3 (02:36→21:18)
[2020-04-29] MEDS ORDERED: OXYCODONE HCL IR 5 MG TAB (IMMEDIATE RELEASE) PO PRN (04:38)
--- NOTE | 2020-04-29 08:17 | Hospitalist Progress Note ---
Date of Service April 29, 2020 Assessment & Plan (1) Foreign body ingestion: Recurrent admissions Self-harm intent hx mood/anxiety disorder seizure disorder as per records, stable ongoing tobacco abuse, Nicotine patch urinary retention on Flomax OBS [facility] GI consult RE foreign body ingestion) ER provider contacted Dr. Larose who then performed urgent EGD to remove foreign body. Today April 29, patient now complains of worsening abdominal pain KUB was ordered by GI, to rule out perforation, no free air noted EGD also showed gastritis, patient was started on Protonix and Carafate, and on clear liquid diet We will continue to monitor and await full psychiatry consultation Psychiatry consult Re: Self-harm behavior -awaiting for consultation Patient states to me that he did this because his Suboxone was stopped, he seems to have quite poor insight DVT prophylaxis SCDs RE endoscopic procedure Full code Admission and Anticipated Discharge Date Admission Date: April 29, 2020 Subjective Patient is a 30 yo inmate hospitalized after emergent EGD performed due to intentional ingestion of a foreign body. 2 stems from a pair of glasses were removed during an EGD last evening. This morning he is reporting worsening LUQ pain. He notes it's worse than prior to the EGD. He initially denies vomiting, however after prompting from the nurse he reports that he did vomit bright red blood after the procedure. No new complaints. KUB ordered by GI service to rule out perforation. Protonix and Carafate ordered. KUB negative for any free air. There was gastritis noted on EGD. He was advanced to clear liquid diet. Review of Systems Review of Systems: All systems reviewed & are unremarkable except as noted in HPI & below Constitutional: no fever and no chills Respiratory: no cough and no dyspnea Cardiovascular: no chest pain Gastrointestinal: + abdominal pain Physical Exam Physical Exam: GENERAL: young slightly anxious male, in no respiratory distress HEENT: NC/AT, EOMI, pink palpebral conjunctivae NECK : Supple, no tenderness CHEST : CTAB, no wheezing or rhonchi noted HEART : RRR, no obvious murmurs ABDOMEN: Soft to palpation, positive bowel sounds, epigastric/ LUQ tenderness to palpation EXTREMITIES : No LE swelling/tenderness, moves extremities spontaneously NEURO : Alert and oriented, no facial asymmetry, moves extremities spontaneously SKIN: Normal color, warm, multiple tattoos Results & Data Results & Data ([facility]) Vital Signs (Past 12 Hours) Vital Signs Temp Pulse Pulse Pulse Resp BP BP 04/29/20 03:56 71 93/52 L 04/29/20 03:22 36.6 C 69 16 81/41 L 04/29/20 02:22 36.5 C 57 L 16 94/50 L 04/29/20 01:24 36.7 C 62 16 92/47 L 04/29/20 00:50 36.7 C 58 L 15 92/52 L 04/29/20 00:30 36.7 C 69 18 118/74 04/29/20 00:20 36.6 C 62 16 103/59 L 04/29/20 00:10 36.7 C 76 16 106/67 04/28/20 23:55 36.7 C 75 16 113/73 04/28/20 23:40 36.7 C 80 16 117/80 04/28/20 23:20 36.7 C 75 16 122/75 04/28/20 23:10 36.6 C 85 16 127/76 04/28/20 23:06 36.6 C 90 16 117/78 04/28/20 22:05 36.5 C 62 18 125/77 04/28/20 21:31 76 18 123/83 04/28/20 20:25 75 16 138/77 Pulse Ox 04/29/20 03:56 04/29/20 03:22 93 04/29/20 02:22 95 04/29/20 01:24 97 04/29/20 00:50 95 04/29/20 00:30 96 04/29/20 00:20 98 04/29/20 00:10 98 04/28/20 23:55 98 04/28/20 23:40 99 04/28/20 23:20 99 04/28/20 23:10 98 04/28/20 23:06 98 04/28/20 22:05 100 04/28/20 21:31 96 04/28/20 20:25 97 Medications Administered Current Inpatient Medications Acetaminophen (Acetaminophen 325 Mg Tab) 650 mg PO Q4H PRN PRN Reason: pain/fever Stop: 05/29/20 00:46 Guanfacine HCl (Guanfacine Hcl 1 Mg Tab) 1 mg PO BID [facility]LES Stop: 05/29/20 01:49 Last Admin: 04/29/20 02:22 Dose: Not Given Documented by: Dextrose/Lactated Ringer's (D5w And Lactated Ringers) 1,000 mls @ 50 mls/hr IV .Q20H [facility] Stop: 05/29/20 00:46 Last Admin: 04/29/20 01:30 Dose: 50 mls/hr Documented by: Promethazine HCl 12.5 mg/ (Sodium Chloride) 50.5 mls @ 202 mls/hr IV Q6H PRN PRN Reason: Nausea And Vomiting Stop: 05/29/20 00:46 [place] Carbonate ([place] Carbonate 300 Mg Tab) 300 mg PO QAM [facility] Stop: 05/29/20 08:59 [place] Carbonate ([place] Carbonate 300 Mg Tab) 600 mg PO HS [facility] Stop: 05/29/20 01:49 Last Admin: 04/29/20 02:36 Dose: 600 mg Documented by: Miscellaneous (Remove Nicoderm Patch) 1 ea N/A DAILY@0859 [facility] Stop: 05/29/20 08:58 Nicotine (Nicotine 21 Mg/24 Hr Tdsy) 21 mg TD QAM [facility] Stop: 05/28/20 21:29 Last Admin: 04/29/20 01:29 Dose: 21 mg Documented by: Oxcarbazepine (Oxcarbazepine 150 Mg Tablet) 300 mg PO BID [facility] Stop: 05/29/20 01:49 Last Admin: 04/29/20 02:08 Dose: 300 mg Documented by: Oxycodone HCl (Oxycodone Hcl Ir 5 Mg Tab (Immediate Release)) 5 mg PO Q4H PRN PRN Reason: Pain Stop: 05/13/20 04:37 Quetiapine Fumarate (Quetiapine Fumarate 300 Mg Tablet) 300 mg PO BID [facility] Stop: 05/29/20 01:49 Last Admin: 04/29/20 02:08 Dose: 300 mg Documented by: Tamsulosin HCl (Tamsulosin Hcl 0.4 Mg Cap) 0.4 mg PO DAILY [facility] Stop: 05/29/20 08:59 (1) Foreign body ingestion Encounter type: initial encounter Qualified Code(s): T18.9XXA - Foreign body of alimentary tract, part unspecified, initial encounter
[2020-04-29 08:38] LABS: Hematocrit (blood only) 42.5 % (42-52); Mean Corpuscular Hgb Conc 32.9 g/dL (32-36); Mean Corpuscular Volume 91.2 fL (80-100); Mean Platelet Volume 8.7 fL (7.4-10.4); Platelet Count 134 K/uL (130-400); RDW Coefficient of Variation 12.9 % (11.5-14.5); Red Blood Count 4.66 M/uL (4.7-6.1); White Blood Count 8.13 K/uL (4.8-10.8)
[2020-04-29 08:57] LABS: BUN Creatinine Ratio 13.1 (10-20); Creatinine Clr Calc Pharmacy 157.5 ml/min; Est GFR (African American) 138.7; Est GFR (Non-African American) 119.7; Magnesium 2.2 mg/dl (1.8-2.4); Phosphorus 3.5 mg/dl (2.5-4.9); Potassium 3.9 mmol/L (3.5-5.1)
[2020-04-29] MEDS ORDERED: QUETIAPINE FUMARATE 300 MG TABLET PO SCH (09:00)
[2020-04-29] MEDS ORDERED: GUANFACINE HCL 1 MG TAB PO SCH (09:00)
[2020-04-29] MEDS ORDERED: OXcarbazepine 150 MG TABLET PO SCH (09:00)
[2020-04-29] MEDS ORDERED: TAMSULOSIN HCL 0.4 MG CAP PO SCH ×2 (09:00→15:30)
--- NOTE | 2020-04-29 09:33 | Gastroenterology Progress Note ---
Date of Service April 29, 2020 Assessment & Plan (1) Foreign body ingestion: (2) Abdominal pain: -Abdominal xray to r/o perforation. -Protonix 40 mg BID. -Carafate 1 gm four times daily. -Await xray results before dietary advancement; If no abnormalities on xray, can advance to liquids. -Will defer any necessary psych & supportive care to primary team. Admission and Anticipated Discharge Date Admission Date: April 29, 2020 Supervising Physician Co-Signing Physician Notes Agree with MARYAM [place] Abd: Soft, NT, ND Continue supportive care Agree with Psychiatry team that it is imperative to prevent patient from obtaining things to ingest while here and at the shelter. Xray reviewed Subjective Patient is a 30 yo inmate hospitalized after emergent EGD performed due to intentional ingestion of a foreign body. 2 stems from a pair of glasses were removed during an EGD last evening. This morning he is reporting worsening LUQ pain. He notes it's worse than prior to the EGD. He initially denies vomiting, however after prompting from the nurse he reports that he did vomit bright red blood after the procedure. No new complaints. Review of Systems Constitutional: no fever and no chills Respiratory: no cough and no dyspnea Cardiovascular: no chest pain Gastrointestinal: + abdominal pain (LUQ) and + hematemesis Musculoskeletal: no problem reported Psychiatric: no problem reported Physical Exam Constitutional: WD/WN, vitals as above Neck: normal visual inspection Respiratory: normal respiratory effort Gastrointestinal (Abdomen): Inspection/Auscultation: abdomen normal to inspection Psychiatric: A+Ox3, euthymic affect Results & Data Results & Data ([facility]) Vital Signs (Past 12 Hours) Vital Signs Temp Pulse Pulse Pulse Resp BP BP 04/29/20 08:25 36.6 C 63 16 97/57 L 04/29/20 03:56 71 93/52 L 04/29/20 03:22 36.6 C 69 16 81/41 L 04/29/20 02:22 36.5 C 57 L 16 94/50 L 04/29/20 01:24 36.7 C 62 16 92/47 L 04/29/20 00:50 36.7 C 58 L 15 92/52 L 04/29/20 00:30 36.7 C 69 18 118/74 04/29/20 00:20 36.6 C 62 16 103/59 L 04/29/20 00:10 36.7 C 76 16 106/67 04/28/20 23:55 36.7 C 75 16 113/73 04/28/20 23:40 36.7 C 80 16 117/80 04/28/20 23:20 36.7 C 75 16 122/75 04/28/20 23:10 36.6 C 85 16 127/76 04/28/20 23:06 36.6 C 90 16 117/78 04/28/20 22:05 36.5 C 62 18 125/77 04/28/20 21:31 76 18 123/83 Pulse Ox 04/29/20 08:25 98 04/29/20 03:56 04/29/20 03:22 93 04/29/20 02:22 95 04/29/20 01:24 97 04/29/20 00:50 95 04/29/20 00:30 96 04/29/20 00:20 98 04/29/20 00:10 98 04/28/20 23:55 98 04/28/20 23:40 99 04/28/20 23:20 99 04/28/20 23:10 98 04/28/20 23:06 98 04/28/20 22:05 100 04/28/20 21:31 96 PG Care Time/CCT Total # of Minutes Spent Total Time Spent with Patient: Total time spent is greater than 50% in coordination of care (as documented) at patient's floor/unit and/or counseling patient: Coding Level of Care Code 51938 Subseq Hosp Care Lvl 3 Diagnoses Foreign body ingestion T18.9XXA Encounter type: initial encounter Abdominal pain R10.9 Abdominal location: unspecified location (1) Foreign body ingestion Encounter type: initial encounter Qualified Code(s): T18.9XXA - Foreign body of alimentary tract, part unspecified, initial encounter (2) Abdominal pain Abdominal location: unspecified location Qualified Code(s): R10.9 - Unspecified abdominal pain
[2020-04-29 10:15] LABS: Appearance Urine Clear (Clear); Bilirubin Urine Negative (Negative); Blood Urine Negative (Negative); Color Urine Yellow; Glucose Urine UA Negative (Negative); Ketones Urine Negative (Negative); Leukocyte Esterase Urine Negative (Negative); Nitrite Urine Negative (Negative); Protein Urine Negative (Negative); Specific Gravity Urine 1.015 (1.000-1.030); Urobilinogen Urine Negative (Negative); pH Urine 7.5 (4.5-7.5)
--- NOTE | 2020-04-29 11:24 | XRay Report ---
XR abdomen 2V w PA chest HISTORY: 30 years-old Male LUQ pain, r/o perf acute left upper quadrant abdominal pain with nausea COMPARISON: KUB 04/28/2020 TECHNIQUE: PA view of the chest with erect and supine views of the abdomen FINDINGS: Cardiomediastinal and hilar silhouettes are within normal limits. There is no pneumothorax, pleural e ffusion, airspace consolidation or overt pulmonary edema. Bones appear grossly intact. The previously described radiopaque foreign bodies of the left upper quadrant abdomen are no longer p resent. Surgical suture material projects over the left upper and left lower quadrants. No pneumatosi s or pneumoperitoneum. Moderate fecal retention. No definite urolith. Probable phleboliths of the pel vis. IMPRESSION: 1. No acute process of the chest. 2. Previously described radiopaque foreign bodies of the abdominal left upper quadrant are no longer present. No pneumatosis or pneumoperitoneum. 3. Nonobstructive bowel gas pattern. 4. Moderate fecal retention. ACT 112: Negative or not required by law. The above report was generated using voice recognition software. It may contain grammatical, syntax o r spelling errors. Electronically signed by: Tahir Champion M.D. 04/29/2020 11:22 AM
--- NOTE | 2020-04-29 12:10 | Psychiatric Consultation ---
Date of Consultation April 29, 2020 Impression / Recommendations Impression Dr. Nathan Gallagher was directly involved in review and discussion of the patient's case and participated in medical decision making regarding treatment recommendations. RECOMMENDATIONS: 04/29 - Psychiatric consultation was requested by hospitalist team to evaluate patient following intentional ingestion of a foreign body, and reportedly stated this behavior was directly related to frustration that his Suboxone was recently discontinued - although he admitted to diverting the medication. - No acute mood concerns - continue current psychotropic medication regimen. Will defer any decisions regarding Suboxone to his MAT provider at [facility], although he clearly verbalizes "addiction issues" and admits to "diverting the medication" while at [facility]. Pt is demonstrating obvious malingering behavior by stating he will continue to ingest foreign objects until the medication is resumed. Pt denies that he ingested the pieces of his glasses with the intent to harm himself or end his life. - Safety tray was ordered, as it is our recommendation that patient not have access to items he could potentially ingest - both while admitted to the hospital and once he returns to the correctional facility. Pt verbalized multiple times that he plans to continue to ingest objects "until I get what I ask for" and vigilance should be used to ensure patient dose not have access to things he can continue to ingest. Continued constant supervision from COs as well as 1:1 staff at our facility due to reported intention to continue to ingest foreign objects. s - Would suggest maintaining the limitations/restrictions present at the correctional facility. This may include: minimizing stimulation, restrictions to TV usage, limiting special dietary requests, or other considerations. - Will attempt to coordinate with [facility] to determine if we can be of additional assistance. Please reach out to our service with any additional questions or updates. (1) Malingering: (2) Foreign body ingestion: Encounter type: initial encounter Qualified Code(s): T18.9XXA - F oreign body of alimentary tract, part unspecified, initial encounter (3) Mood disorder: (4) Antisocial personality disorder: (5) Borderline personality disorder: (6) Substance abuse: (7) PTSD (post-traumatic stress disorder): Psych History Identifying Data 30-year-old male inmate from [facility] admitted medically on 04/28/2020 after presenting to the ED s/p foreign body ingestion - having ingested both stems of his corrective lenses. Pt had verbalized that he ingested the pieces of his corrective lenses due to frustration with having his Suboxone discontinued recently. Psychiatric consultation was requested by hospitalist team to evaluate patient due to concern for self-harm behavior. Chief Complaint "I have that issue with swallowing sh*t. I have a severe problem with addiction and I will go to extreme lengths to get high." History of Present Illness Silviano Tovar is a 30-year-old male inmate from [facility] who was transferred to the ED and admitted medically on 04/28/2020 s/p ingestion of foreign body. Pt admitted to swallowing the stems of his corrective lenses, citing he did this because he was frustrated that his Suboxone was discontinued recently. Pt underwent an EGD last evening, and both pieces were successfully removed. Psychiatric consultation was requested due to concern for this self- harm behavior. Pt was superficially cooperative with conversation, though admitted "I'm going to keep swallowing sh*t." Pt seems to connect his "severe problem with addiction" and his frequent foreign body ingestion, claiming that ingesting these objects is done to "try to get high." Pt is unable to more clearly explain this connection initially, but he later states "it feels like I have more control, it helps to reduce my anxiety by letting me focus on what's going on at that minute." Pt states that he has frequently ingested items (batteries, pieces of metal, etc) for various reasons. Pt states that he found the urges to swallow items was reduced while taking Suboxone, but openly states "I was caught trying to divert it, so they stopped it." Pt remains hopeful to be started back on Suboxone, and does not seem to demonstrate an understanding of concern for diversion - both inside the correctional facility and out in the general population. Pt does state "I'm going to keep doing this until I get what I asked for." Pt also shares, "I know now that I have to do something big, like 8 batteries or something." Pt is not able to process more appropriate ways to express his concerns and have his needs met. In regard to patient's mood, he feels discontinuation of Suboxone is the primary concern affecting his anxiety. Pt does admit that he had been prescribed sertraline 100mg, which was discontinued recently and he was initiated on Tenex 1mg BID. Again, he feels discontinuation of Suboxone is interfering with his ability to comment on efficacy of this medication adjustment. Pt denies that his foreign body ingestion was completed with intent to harm himself or end his life. He admits to past suicide attempts, but states that was not the intent behind this most recent action. Pt denied that our service could be of benefit, aside from "calling the MAT provider at [facility] and telling them I need my Suboxone back." Pt was informed our service is not authorized to initiate this treatment and that this decision would be deferred to his providers at the correctional facility. Past Psychiatric History Previous Psych History: Diagnoses per [facility] documentation: - unspecified bipolar and related disorder - unspecified anxiety disorder - posttraumatic stress disorder - antisocial personality disorder - borderline personality disorder - ADHD combined type - unspecified disruptive, impulse-control, and conduct disorder - alcohol, opioid, and cannabse abuse - severe Current Psychiatric Diagnosis: antisocial/borderline PD, unspec. bipolar and anxiety disorder, PTSD Outpatient Services: Psychiatric and MAT treatment per providers at [facility]. History of Previous Suicide Attempt: Yes Allergies Allergy/AdvReac Type Severity Reaction Status Date / Time ketorolac Allergy Unknown breathing Verified 04/28/20 20:47 problems Penicillins Allergy Unknown unknown Verified 04/28/20 20:47 Home Medications Home Medications Medication Instructions Recorded Confirmed Type guanfacine [Tenex] 1 mg PO BID 04/28/20 04/28/20 History lithium carbonate 300 mg PO QAM 04/28/20 04/28/20 History lithium carbonate 600 mg PO HS 04/28/20 04/28/20 History oxcarbazepine 300 mg PO BID 04/28/20 04/28/20 History quetiapine [Seroquel] 300 mg PO BID 04/28/20 04/28/20 History tamsulosin 0.4 mg PO DAILY 04/28/20 04/28/20 History Substance Abuse History Reports history of heroin abuse. States "I have a drug problem, I like to get high." Personal History Living Arrangements: [facility] History of Legal Problems: Currently incarcerated at [facility]. Reports this is his 10th incarceration. Patient History Medical History Schizoaffective disorder Social History Smoking Status: Current every day smoker Tobacco Type: E-cigarettes / Vaping Cigarettes Per Day: x3 18mg; Second Hand Exposure: No; Do You Dip or Chew Tobacco: Yes; Tobacco Cessation Education Requested by Patient: No Hx Alcohol Use: Yes Hx Substance Use: Yes Last Used Substance: Hours (ago) Substance Use Type Other:: "whatever I can buy" Preferred Language: Greek Communication Ability: Effective Room Attendants Required: No Beliefs That Will Affect Care: None Current Living Situation: Other Current Living Situation Comment: Inmate Other Information That Helps Us Care for You: No Feels Safe at Home: Yes Safety Concerns: Feels Safe At This Time Physical Exam Psychiatric: Orientation: alert, oriented x 3 and + guarded (only superficially cooperative ) Apperance: appropriately dressed, appropriately groomed and appeared stated age male of healthy-appearing weight, laying in bed in no acute distress. Pt is appropriately dressed for clinical situation, wearing paper scrubs. Pt appears appropriately groomed. Face and arms are covered with various tattoos. Eye Contact: + fair eye contact Motor Behavior: no abnormal motor movements (observed while laying in bed) Speech: normal rate/rhythm/volume of speech (though somewhat irritable tone) Affect: + blunted affect Mood: + anxious mood Thought Process: goal directed thought process and + perseveration; + thought process not linear or logical Thought Content: + preoccupation (with "getting high") and + cogn itive distortions Suicidal Thoughts: denies suicidal thoughts, denies suicidal plan and denies suicidal intent Homicidal Thoughts: denies homicidal thoughts Hallucinations: no auditory hallucinations and no visual hallucinations Cognition: attention grossly intact and language grossly intact Insight: + poor insight Judgement: + poor judgement Vital Signs (Past 24 Hours): Last Vital Signs Temp 36.6 C 04/29/20 08:25 Pulse 63 04/29/20 08:25 Resp 16 04/29/20 08:25 BP 97/57 L 04/29/20 08:25 Pulse Ox 98 04/29/20 08:25 Review of Systems Constitutional: denied Cardiovascular: denied Respiratory: denied Gastrointestinal: denied Neurological: denied Psychiatric: denies symptoms other than stated above Total of at least 10 systems reviewed, pertinent positives as above and in HPI. Results & Data (PSY) Medications Administered Guanfacine HCl (Guanfacine Hcl 1 Mg Tab) 1 mg PO BID [facility]LES Stop: 05/29/20 01:49 Last Admin: 04/29/20 02:22 Dose: Not Given Documented by: [id number] Dextrose/Lactated Ringer's (D5w And Lactated Ringers) 1,000 mls @ 50 mls/hr IV .Q20H CHARLES Stop: 05/29/20 00:46 Last Admin: 04/29/20 01:30 Dose: 50 mls/hr Documented by: [id number] [place] Carbonate ([place] Carbonate 300 Mg Tab) 300 mg PO QAM CHARLES Stop: 05/29/20 08:59 Last Admin: 04/29/20 09:37 Dose: 300 mg Documented by: [id number] [place] Carbonate ([place] Carbonate 300 Mg Tab) 600 mg PO HS CHARLES Stop: 05/29/20 01:49 Last Admin: 04/29/20 02:36 Dose: 600 mg Documented by: [id number] Miscellaneous (Remove Nicoderm Patch) 1 ea N/A DAILY@0859 [facility] Stop: 05/29/20 08:58 Last Admin: 04/29/20 09:29 Dose: 1 ea Documented by: [id number] Nicotine (Nicotine 21 Mg/24 Hr Tdsy) 21 mg TD QAM [facility] Stop: 05/28/20 21:29 Last Admin: 04/29/20 09:35 Dose: 21 mg Documented by: [id number] Admin: 04/29/20 01:29 Dose: 21 mg Documented by: [id number] Oxcarbazepine (Oxcarbazepine 150 Mg Tablet) 300 mg PO BID CHARLES Stop: 05/29/20 01:49 Last Admin: 04/29/20 09:37 Dose: 300 mg Documented by: [id number] Admin: 04/29/20 02:08 Dose: 300 mg Documented by: [id number] Quetiapine Fumarate (Quetiapine Fumarate 300 Mg Tablet) 300 mg PO BID [facility] Stop: 05/29/20 01:49 Last Admin: 04/29/20 09:36 Dose: 300 mg Documented by: [id number] Admin: 04/29/20 02:08 Dose: 300 mg Documented by: [id number] Coding Level of Care Code 96494 [facility] Care Lvl 2 Diagnoses Malingering Z76.5 Foreign body ingestion T18.9XXA Encounter type: initial encounter Mood disorder F39 Antisocial personality disorder F60.2 Borderline personality disorder F60.3 Substance abuse F19.10 PTSD (post-traumatic stress disorder) F43.10
[2020-04-29] MEDS: SUCRALFATE 1 GM/10 ML UDC PO SCH ×3 (12:30→21:12)
[2020-04-29] MEDS ORDERED: QUETIAPINE FUMARATE 100 MG TABLET PO STA (20:21)
[2020-04-29] MEDS ORDERED: LITHIUM CARBONATE 300 MG TAB PO SCH (21:00)
[2020-04-29] MEDS: PANTOprazole 40 MG TAB PO SCH (21:16)
[2020-04-30 06:18] LABS: Hematocrit (blood only) 45.3 % (42-52); Hemoglobin 15.1 g/dL (14.0-18.0); Mean Corpuscular Hemoglobin 30.5 pg (25-34); Mean Corpuscular Hgb Conc 33.3 g/dL (32-36); Mean Corpuscular Volume 91.5 fL (80-100); Mean Platelet Volume 9.3 fL (7.4-10.4); Platelet Count 155 K/uL (130-400); RDW Coefficient of Variation 12.9 % (11.5-14.5); RDW Standard Deviation 42.9 fL (36.4-46.3); Red Blood Count 4.95 M/uL (4.7-6.1); White Blood Count 9.64 K/uL (4.8-10.8)
[2020-04-30 06:54] LABS: BUN Creatinine Ratio 9.6 (10-20); Calcium 9.4 mg/dl (8.5-10.1); Creatinine Clr Calc Pharmacy 149.9 ml/min; Est GFR (African American) 135.9; Est GFR (Non-African American) 117.2; Magnesium 2.2 mg/dl (1.8-2.4); Potassium 3.8 mmol/L (3.5-5.1)
[2020-04-30 07:04] LABS: Phosphorus 2.7 mg/dl (2.5-4.9)
[2020-04-30 08:05] VITALS: BP 112/75; PULSE 70; TEMP 97.7; O2SAT 98
--- NOTE | 2020-04-30 08:11 | Hospitalist Progress Note ---
Date of Service April 30, 2020 Assessment & Plan (1) Foreign body ingestion: Recurrent admissions Self-harm intent hx mood/anxiety disorder seizure disorder as per records, stable ongoing tobacco abuse, Nicotine patch urinary retention on Flomax GI consulted RE foreign body ingestion) Dr. Larose (GI) performed urgent EGD to remove foreign body. - patient complained of worsening abdominal pain yesterday,04/29, KUB was ordered by GI, to rule out perforation, no free air noted -Patient was started on full liquid diet yesterday, and tolerated well - EGD also showed gastritis, patient was started on Protonix and Carafate -Plan to advance to soft bland diet, discussed with the patient to avoid spicy/irritating foods -Also discussed that foreign body ingestion can result in his -Contacted and updated [facility] physician, Dr. Booker Psychiatry consult Re: Self-harm behavior Malingering Patient states to me that he did this because his Suboxone was stopped - s/p intentional ingestion of a foreign body, and reportedly stated this behavior was directly related to frustration that his Suboxone was recently discontinued - although he admitted to diverting the medication. - No acute mood concerns - continue current psychotropic medication regimen. Will defer any decisions regarding Suboxone to his MAT provider at [facility], although he clearly verbalizes "addiction issues" and admits to "diverting the medication" while at shelter. Pt is demonstrating obvious malingering behavior by stating he will continue to ingest foreign objects until the medication is resumed. Pt denies that he ingested the pieces of his glasses with the intent to harm himself or end his life. - Safety tray was ordered, as it is our recommendation that patient not have access to items he could potentially ingest - both while admitted to the hospital and once he returns to the correctional facility. Pt verbalized multiple times that he plans to continue to ingest objects "until I get what I ask for" and vigilance should be used to ensure patient dose not have access to things he can continue to ingest. Continued constant supervision from COs as well as 1:1 staff at our facility due to reported intention to continue to ingest foreign objects. - Would suggest maintaining the limitations/restrictions present at the correctional facility. This may include: minimizing stimulation, restrictions to TV usage, limiting special dietary requests, or other considerations. DVT prophylaxis SCDs RE endoscopic procedure Disposition: Plan to discharge back to [facility] to the care of Dr. Booker Full code Admission and Anticipated Discharge Date Admission Date: April 29, 2020 Subjective Patient lying in bed, in no acute distress. Today he denied any pain to me or nursing staff. He tolerated full liquid diet started yesterday. No fevers or chills, chest pain shortness of breath, nausea or vomiting. Will advance diet to soft, encourage patient not to eat anything spicy or irritating. Discussed new medication Carafate and Protonix. Also had a conversation with the patient about foreign body ingestion, and that consequences of this behavior can result in his . Review of Systems Review of Systems: All systems reviewed & are unremarkable except as noted in HPI & below Constitutional: no fever and no chills Respiratory: no cough and no dyspnea Cardiovascular: no chest pain and no palpitations Gastrointestinal: no abdominal pain, no nausea and no vomiting Physical Exam Physical Exam: GENERAL: young male lying in bed, in no respiratory distress HEENT: NC/AT, EOMI, pink palpebral conjunctivae NECK : Supple, no tenderness CHEST : CTAB, no wheezing or rhonchi noted HEART : RRR, no obvious murmurs ABDOMEN: Soft to palpation, positive bowel sounds, mild epigastric/ LUQ tenderness to palpation EXTREMITIES : No LE swelling/tenderness, moves extremities spontaneously NEURO : Alert and oriented, no facial asymmetry, moves extremities spontaneously SKIN: Normal color, warm, multiple tattoos Results & Data Results & Data ([facility]) Vital Signs (Past 12 Hours) Vital Signs Temp Pulse Resp BP Pulse Ox 04/30/20 08:00 36.5 C 70 18 112/75 98 Laboratory Results 04/30/20 04/30/20 04/29/20 Range/Units 05:25 05:25 09:40 WBC 9.64 (4.8-10.8) K/uL RBC 4.95 (4.7-6.1) M/uL Hgb 15.1 (14.0-18.0) g/dL Hct 45.3 (42-52) % MCV 91.5 (80-100) fL MCH 30.5 (25-34) pg MCHC 33.3 (32-36) g/dL RDW Std Deviation 42.9 (36.4-46.3) fL RDW Coeff of Lalita 12.9 (11.5-14.5) % Plt Count 155 (130-400) K/uL MPV 9.3 (7.4-10.4) fL Sodium 140 (136-145) mmol/L Potassium 3.8 (3.5-5.1) mmol/L Chloride 108 H (98-107) mmol/L Carbon Dioxide 27 (21-32) mmol/L Anion Gap 5.0 (3-11) BUN 8 (7-18) mg/dl Creatinine 0.83 (0.6-1.4) mg/dl Est Cr Clr Drug Dosing 149.9 ml/min Est GFR ( Amer) 135.9 Est GFR (Non-Af Amer) 117.2 BUN/Creatinine Ratio 9.6 L (10-20) Glucose 83 (70-99) mg/dl Calcium 9.4 (8.5-10.1) mg/dl Phosphorus 2.7 (2.5-4.9) mg/dl Magnesium 2.2 (1.8-2.4) mg/dl Urine Color Yellow Urine Appearance Clear (Clear) Urine pH 7.5 (4.5-7.5) Ur Specific [place] 1.015 (1.000-1.030) Urine Protein Negative (Negative) Urine Glucose (UA) Negative (Negative) Urine Ketones Negative (Negative) Urine Blood Negative (Negative) Urine Nitrite Negative (Negative) Urine Bilirubin Negative (Negative) Urine Urobilinogen Negative (Negative) Ur Leukocyte Esterase Negative (Negative) 04/29/20 04/29/20 Range/Units 08:24 08:24 WBC 8.13 (4.8-10.8) K/uL RBC 4.66 L (4.7-6.1) M/uL Hgb 14.0 (14.0-18.0) g/dL Hct 42.5 (42-52) % MCV 91.2 (80-100) fL MCH 30.0 (25-34) pg MCHC 32.9 (32-36) g/dL RDW Std Deviation 43.0 (36.4-46.3) fL RDW Coeff of Lalita 12.9 (11.5-14.5) % Plt Count 134 (130-400) K/uL MPV 8.7 (7.4-10.4) fL Sodium 142 (136-145) mmol/L Potassium 3.9 (3.5-5.1) mmol/L Chloride 110 H (98-107) mmol/L Carbon Dioxide 26 (21-32) mmol/L Anion Gap 6.0 (3-11) BUN 10 (7-18) mg/dl Creatinine 0.79 (0.6-1.4) mg/dl Est Cr Clr Drug Dosing 157.5 ml/min Est GFR ( Amer) 138.7 Est GFR (Non-Af Amer) 119.7 BUN/Creatinine Ratio 13.1 (10-20) Glucose 90 (70-99) mg/dl Calcium 9.0 (8.5-10.1) mg/dl Phosphorus 3.5 (2.5-4.9) mg/dl Magnesium 2.2 (1.8-2.4) mg/dl Urine Color Urine Appearance (Clear) Urine pH (4.5-7.5) Ur Specific [place] (1.000-1.030) Urine Protein (Negative) Urine Glucose (UA) (Negative) Urine Ketones (Negative) Urine Blood (Negative) Urine Nitrite (Negative) Urine Bilirubin (Negative) Urine Urobilinogen (Negative) Ur Leukocyte Esterase (Negative) Medications Administered Current Inpatient Medications Acetaminophen (Acetaminophen 325 Mg Tab) 650 mg PO Q4H PRN PRN Reason: pain/fever Stop: 05/29/20 00:46 Last Admin: 04/29/20 21:21 Dose: 650 mg Documented by: Guanfacine HCl (Guanfacine Hcl 1 Mg Tab) 1 mg PO BID [facility] Stop: 05/29/20 01:49 Last Admin: 04/29/20 21:16 Dose: 1 mg Documented by: Hydroxyzine HCl (Hydroxyzine Hcl 25 Mg Tab) 25 mg PO Q6H PRN PRN Reason: Anxiety Stop: 05/30/20 08:08 Promethazine HCl 12.5 mg/ (Sodium Chloride) 50.5 mls @ 202 mls/hr IV Q6H PRN PRN Reason: Nausea And Vomiting Stop: 05/29/20 00:46 [place] Carbonate ([place] Carbonate 300 Mg Tab) 300 [facility] [place] Stop: 05/29/20 08:59 Last Admin: 04/29/20 09:37 Dose: 300 mg Documented by: [place] Carbonate ([place] Carbonate 300 Mg Tab) 600 mg PO HS [facility] Stop: 05/29/20 01:49 Last Admin: 04/29/20 21:18 Dose: 600 mg Documented by: Miscellaneous (Remove Nicoderm Patch) 1 ea N/A DAILY@0859 [facility] Stop: 05/29/20 08:58 Last Admin: 04/29/20 09:29 Dose: 1 ea Documented by: Nicotine (Nicotine 21 Mg/24 Hr Tdsy) 21 mg TD QAM [facility] Stop: 05/28/20 21:29 Last Admin: 04/29/20 09:35 Dose: 21 mg Documented by: Oxcarbazepine (Oxcarbazepine 150 Mg Tablet) 300 mg PO BID [facility] Stop: 05/29/20 01:49 Last Admin: 04/29/20 21:17 Dose: 300 mg Documented by: Oxycodone HCl (Oxycodone Hcl Ir 5 Mg Tab (Immediate Release)) 5 mg PO Q4H PRN PRN Reason: Pain Stop: 05/13/20 04:37 Pantoprazole Sodium (Pantoprazole 40 Mg Tab) 40 mg PO BID [facility]LES Stop: 05/29/20 20:59 Last Admin: 04/29/20 21:16 Dose: 40 mg Documented by: Quetiapine Fumarate (Quetiapine Fumarate 300 Mg Tablet) 300 mg PO BID [facility] Stop: 05/29/20 01:49 Last Admin: 04/29/20 21:15 Dose: 300 mg Documented by: Sucralfate (Sucralfate 1 Gm/10 Ml Udc) 1 gm PO ACHS CHARLES Stop: 05/29/20 11:29 Last Admin: 04/29/20 21:12 Dose: 1 gm Documented by: Tamsulosin HCl (Tamsulosin Hcl 0.4 Mg Cap) 0.4 mg PO DAILYBD [facility] Stop: 05/29/20 15:29 Last Admin: 04/29/20 15:19 Dose: Not Given Documented by: (1) Foreign body ingestion Encounter type: initial encounter Qualified Code(s): T18.9XXA - Foreign body of alimentary tract, part unspecified, initial encounter
[2020-04-30] MEDS: SUCRALFATE 1 GM/10 ML UDC PO SCH ×2 (09:21→14:18)
[2020-04-30] MEDS: LITHIUM CARBONATE 300 MG TAB PO SCH (09:21)
[2020-04-30] MEDS: PANTOprazole 40 MG TAB PO SCH (09:22)
[2020-04-30] MEDS: GUANFACINE HCL 1 MG TAB PO SCH (09:22)
[2020-04-30] MEDS: QUETIAPINE FUMARATE 300 MG TABLET PO SCH (09:23)
[2020-04-30] MEDS: OXcarbazepine 150 MG TABLET PO SCH (09:24)
--- NOTE | 2020-04-30 12:36 | Discharge Summary ---
Date of Service April 30, 2020 Admission HPI Per Admitting Provider History obtained from patient and records. Medical history significant for recurrent foreign body ingestion, anxiety/mood disorder, PTSD, seizure disorder as per records, ongoing tobacco abuse, urinary retention (intermittent straight cath). Last confinement December 2017 for foreign body ingestion (plastic spoons and pens) status post successful endoscopic removal. Last ER visit October 2019 for syncopal event, possible narcotic overdose. Patient swallowed parts of reading glasses today because he wanted to hurt himself. Upset over his Suboxone being discontinued last week by [facility] providers. Patient noted achy abdominal pain with some nausea, no emesis. No chest pain, no S OB. Medical History as above Surgical History : Ex lap to remove swallowed razor blades Family History : Could not be obtained Personal/Social history : 1 pack daily, no EtOH intake, current inmate Admission Exam Per Admitting Provider GENERAL: Comfortable, slightly anxious, no respiratory distress SKIN: Normal color, warm HEENT: [place] palpebral conjunctivae, no ptosis, dry buccal mucosa NECK : Supple, no tenderness CHEST : CTA, no tenderness HEART : RRR, no obvious murmurs ABDOMEN: Some distention, minimal epigastric tenderness EXTREMITIES : No LE swelling/tenderness, no other conspicuous deformities noted NEUROLOGIC : Coherent, no facial asymmetry, no other gross focality Principal Diagnosis Foreign body ingestion, self harming/malingering Discharge Exam GENERAL: young male lying in bed, in no respiratory distress HEENT: NC/AT, EOMI, pink palpebral conjunctivae NECK : Supple, no tenderness CHEST : CTAB, no wheezing or rhonchi noted HEART : RRR, no obvious murmurs ABDOMEN: Soft to palpation, positive bowel sounds, mild epigastric/ LUQ tenderness to palpation EXTREMITIES : No LE swelling/tenderness, moves extremities spontaneously NEURO : Alert and oriented, no facial asymmetry, moves extremities spontaneously SKIN: Normal color, warm, multiple tattoos Discharge Data Allergies Allergy/AdvReac Type Severity Reaction Status Date / Time ketorolac Allergy Unknown breathing Verified 04/28/20 20:47 problems Penicillins Allergy Unknown unknown Verified 04/28/20 20:47 Consultations 04/28/20 20:17 Consult Gastroenterology Stat 04/28/20 21:21 ED Decision to Admit Stat 04/29/20 00:47 Consult Psychiatry Routine Procedures Performed Operation Date: 04/28/20 22:00 Actual Procedures p Esophagogastroduodenoscopy with Foreign Body Removal(Not Applicable) - Juan Larose MD Hospital Course (1) Foreign body ingestion: Recurrent admissions Self-harm intent hx mood/anxiety disorder seizure disorder as per records, stable ongoing tobacco abuse, Nicotine patch urinary retention on Flomax GI consulted RE foreign body ingestion) Dr. Larose (GI) performed urgent EGD to remove foreign body. - patient complained of worsening abdominal pain yesterday,04/29, KUB was ordered by GI, to rule out perforation, no free air noted -Patient was started on full liquid diet yesterday, and tolerated well - EGD also showed gastritis, patient was started on Protonix 40 mg BID and Carafate 1 gram 4 times a day ([facility]) -Plan to advance to soft bland diet, discussed with the patient to avoid spicy/irritating foods -Also discussed that foreign body ingestion can result in his -Contacted and updated [facility] physician, Dr. Booker Psychiatry consult Re: Self-harm behavior Malingering Patient states to me that he did this because his Suboxone was stopped - s/p intentional ingestion of a foreign body, and reportedly stated this behavior was directly related to frustration that his Suboxone was recently discontinued - although he admitted to diverting the medication. - No acute mood concerns - continue current psychotropic medication regimen. Will defer any decisions regarding Suboxone to his MAT provider at [facility], although he clearly verbalizes "addiction issues" and admits to "diverting the medication" while at alf. Pt is demonstrating obvious malingering behavior by stating he will continue to ingest foreign objects until the medication is resumed. Pt denies that he ingested the pieces of his glasses with the intent to harm himself or end his life. - Safety tray was ordered, as it is our recommendation that patient not have access to items he could potentially ingest - both while admitted to the hospital and once he returns to the correctional facility. Pt verbalized multiple times that he plans to continue to ingest objects "until I get what I ask for" and vigilance should be used to ensure patient dose not have access to things he can continue to ingest. Continued constant supervision from COs as well as 1:1 staff at our facility due to reported intention to continue to ingest foreign objects. - Would suggest maintaining the limitations/restrictions present at the correctional facility. This may include: minimizing stimulation, restrictions to TV usage, limiting special dietary requests, or other considerations. Disposition: Plan to discharge back to [facility] to the care of Dr. Booker Total Time Total Time Spent Total Time Spent (In Minutes): 35 Total Time Includes: Examination of the Patient, Discharge Planning, Medication Reconciliation and Communication With Other Providers Discharge Plan Discharge Items Patient Disposition: Correctional Facility Reason For Visit: FB INGESTION Discharge Diagnosis: Foreign body ingestion, self harming/malingering Activity: Per Instructions section Non-emergency contact: Primary Care Provider Call non-emergency contact if: you have any medication questions and your symptoms worsen Follow-up/Referrals: Humberto JOHNSON [Primary Care Provider] - Diet: Regular Diet Comment: Recommend softer bland diet, avoid any spicy/irritating foods Addtl Attending Provider Instructions: Continue taking Protonix and Carafate - these are new medications for your gastritis/stomach mucosal inflammation. Continue your previous medications as prescribed Strongly recommend that you do not ingest any foreign bodies as this can be fatal (consequences can result in your ). Pending Studies at Discharge: No Stand-Alone Forms: My [facility] Skilled Items Patient informed of condition?: Yes DNR: No Discharge Level of Care: Other Communicable Disease: No Discharge Prognosis: Stable Lines: None Urinary Catheter: No Medications and DC Order Prescriptions: New sucralfate 100 mg/mL Suspension 10 ml PO ACHS 30 Days Qty: 300 RF: 0 pantoprazole 40 mg Tablet,Delayed Release (Dr/Ec) 40 mg PO BID 30 Days Qty: 60 RF: 0 Continued quetiapine [Seroquel] 300 mg Tablet 300 mg PO BID RF: 0 oxcarbazepine 300 mg Tablet 300 mg PO BID RF: 0 tamsulosin 0.4 mg Capsule 0.4 mg PO DAILY RF: 0 lithium carbonate 300 mg Capsule 600 mg PO HS RF: 0 guanfacine [Tenex] 1 mg Tablet 1 mg PO BID RF: 0 lithium carbonate 300 mg Tablet 300 mg PO QAM RF: 0 Admission Data Admit Date/Time: 04/29/20 00:35 Attending Provider: Jeffry Griffith Admit Provider: Nicho Logan Primary Care Provider: Humberto JOHNSON Other Providers: Juan Larose ; Nicho Logan ; Joao Hurley ; Wandy Titus ; Amando Stroud ; Juaniot Ramirez ; Vinicius Bauman ; Sujey Umanzor ; Derick Brock ; Nahomi Mccoy ; Taylor Samuel ; Aurora Velazco ; Lorena Lr ; Nathan Gallagher I. ; Janae Chavez ; Milady Lafleur ; Mounika Cerrato ; Jorge Guerra.
[2020-04-30] MEDS: NICOTINE 21 MG/24 HR TDSY TD SCH (14:19)
== END 2020-04-30 14:49 ==
LOC: ED 18:22 → OR 21:33 → 3W 21:33 → SUATTDRO 04-29 00:35